=== PATIENT | female | born 1945 | race Caucasian/White ===

== ENCOUNTER → 2017-12-04 11:38 | Outpatient (CLI) | payer MEDICARE, OTHER, SELFPAY ==
[2017-12-04 13:39] LABS: Erythrocyte Sedimentation Rate 45 MM/HR (0-20)
[2017-12-04 13:42] LABS: C-Reactive Protein Quant 1.1 mg/dL (<1.0)
== END ==
PROVIDERS: PCP Physician Assistant; Visit Provider Internal Medicine Rheumatology
DX: M35.3 Polymyalgia rheumatica (principal); M31.6 Other giant cell arteritis
CPT/HCPCS: 36415; 85651; 86140

== ENCOUNTER → 2018-02-08 10:33 | Outpatient (CLI) | payer MEDICARE, OTHER, SELFPAY ==
--- NOTE | 2018-02-08 | DI.CT.S_ITS ---
PROCEDURE: CT HEAD/BRAIN WO/W CON INDICATIONS: SEIZURE DISORDER TECHNIQUE: 4.5 mm thick angled axial sections acquired from the foramen magnum to the vertex before and after the administration of intravenous contrast, with coronal and sagittal reformats. For radiation dose reduction, the following was used: automated exposure control, adjustment of mA and/or kV according to patient size. COMPARISON: [facility], MR, BRAIN W&WO CONTRAST, 12/25/2014, 15:11. FINDINGS: Image quality: Excellent. CSF Spaces: Basal cisterns are patent. No extra-axial fluid collections. Ventricles are normal in size and shape. Brain: No midline shift. No intracranial bleeds. There is a small, approximately 0 0.6 x 0.9 x 0.6 cm left parietal convexity extra-axial mass that demonstrates subtle postcontrast enhancement. No additional abnormal intracranial masses or suspicious postcontrast enhancement. Chronic, small lacunar infarct involving the left putamen/left ziegler radiata has occurred in the interval since prior MRI obtained 12/25/14. Saenz-white interface appears normal. Mild, diffuse prominence of CSF spaces noted. Mild periventricular and subcortical white matter chronic microvascular ischemic changes noted. Atherosclerotic calcifications noted in the internal carotid arteries bilaterally. Skull and face: Calvarium and visualized facial bones appear intact, without suspicious lesions. Sinuses: Right maxillary sinus mucous retention cyst versus polyp. The mastoids are clear. IMPRESSION: 1. Several 0.6 x 0.9 x 0.6 cm left parietal convexity probable meningioma is stable compared to prior MRI obtained 12/25/2014. 2. Chronic, small, left putamen/left ziegler radiata lacunar infarct. 3. Mild, diffuse cerebral volume loss. 4. Mild periventricular and subcortical white matter chronic microvascular ischemic change. Dictated by: Dede Price MD, PhD on 02/08/2018 at 13:55 Approved by: Dede Price MD, PhD on 02/08/2018 at 14:04
== END ==
PROVIDERS: PCP Physician Assistant; Visit Provider Physician Assistant
DX: G40.909 Epilepsy, unspecified, not intractable, without status epilepticus (principal)
CPT/HCPCS: 70470; Q9967

== ENCOUNTER 2018-04-21 18:12 | Inpatient (IN) | payer MEDICARE, OTHER, SELFPAY ==
[2018-04-21] VITALS (9 sets, daily range): BP systolic 156–205; BP diastolic 56–99; PULSE 60–70; RESP 14–18; TEMP 36.1–36.8; O2SAT 95–98; BMI 30.2
--- NOTE | 2018-04-21 18:14 | DI.CT.S_ITS ---
PROCEDURE: CT ANGIO HEAD AND NECK INDICATIONS: left sided weakness TECHNIQUE: Pre-contrast 4.5 mm thick sections acquired from the foramen magnum to the vertex. After the administration of intravenous contrast, 1 mm thick sections acquired from the aortic arch through the [place] of [place]. Post-contrast 4.5 mm thick sections then re-acquired from the foramen magnum to the vertex. 3-dimensional dxisrie-dxzfiytxm-pidvxuetgm (MIP) and/or volume rendering reformats were acquired of the central intracranial vasculature and neck separately. COMPARISON: [facility], CT, CT HEAD/BRAIN WO CON, 04/21/2018, 18:06. [facility], CT, CT HEAD/BRAIN WO/W CON, 02/08/2018, 11:09. [facility], CT, ABDOMEN/PELVIS WITH CONTRAST, 03/14/2017, 11:24. [facility], CT, C-SPINE WITHOUT CONTRAST, 02/09/2012, 10:49. FINDINGS: Image quality: Excellent. BRAIN: CSF spaces: Ventricles are normal in size and shape. Basal cisterns are patent. No extra-axial fluid collections. Brain: No midline shift. No intracranial bleeds or masses. Saenz-white matter interface appears intact. Redemonstrated left basal ganglia chronic lacunar infarct and left temporal encephalomalacia, unchanged from prior exams. Stable 9 mm extra-axial mass overlying the left parietal lobe when compared with prior exam of 02/08/2018. Skull and face: Calvarium and facial bones appear intact, without suspicious lesions. Orbits appear normal. Sinuses: There are right maxillary and left sphenoid sinus mucous retention cysts. HEAD CT ANGIOGRAPHY: Anterior circulation: Intracranial internal carotid arteries are normal in size and flow. The flow within the paired anterior cerebral arteries is normal and symmetric. The flow within the middle cerebral arteries is normal and symmetric. No aneurysms are seen. Posterior circulation: Visualized portions of the vertebral arteries demonstrate normal caliber, and join to form a normal appearing basilar artery. Flow within the posterior cerebral arteries is normal and symmetric. No aneurysms are seen. NECK CT ANGIOGRAPHY: Carotid system: The great vessels demonstrate a conventional anatomy as they arise from the aortic arch. The origins of the common carotid arteries appear patent. The common carotid arteries demonstrate normal caliber and courses. The internal carotid arteries demonstrate normal calibers. The left internal carotid artery takes a retropharyngeal course after the bifurcation. Posterior circulation: The origins of the vertebral arteries both appear widely patent. The more superior extracranial portions of both vertebral arteries also demonstrate normal courses and calibers. They join to form a normal appearing basilar artery. Soft tissues: Left chest cardiac pacer device noted. There is a moderate-sized right pleural effusion. There is diffuse bilateral hazy pulmonary opacities with septal thickening, consistent with mild pulmonary edema. Bones: There are moderate multilevel degenerative changes of the cervical spine. There is anterior cervical spinal fusion hardware extending from C4-C6. There is straightening of the normal cervical lordosis. IMPRESSION: #1. No acute intracranial abnormality. Chronic changes as described above. #2. Stable 0.9 cm extra-axial mass overlying the left parietal lobe when compared with prior exam 02/08/2018. Continued followup recommended. #3. No occlusion, dissection, or aneurysm of the bilateral carotid and vertebral arteries. #4. No occlusion, dissection, or aneurysm of the intracranial vasculature. #5. Mild pulmonary edema with moderate sized right pleural effusion. Dictated by: Sim Roberts M.D. on 04/21/2018 at 23:32 Approved by: Sim Roberts M.D. on 04/21/2018 at 23:54
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
[2018-04-21 18:46] LABS: Add Manual Diff / Slide Review NO; Basophils Percent Auto 0.6 % (0-2); Eosinophils Percent Auto 2.6 % (2-4); Hematocrit 38.6 % (36-46); Hemoglobin 13.1 g/dL (12.0-16.0); Lymphocytes Percent Auto 17.9 % (25-40); Mean Corpuscular HGB Conc 33.9 % (30-36); Mean Corpuscular Hemoglobin 31.3 PG (26-34); Mean Corpuscular Volume 92.4 fL (80-100); Monocytes Percent Auto 5.1 % (3-14); Neutrophils Absolute Auto 7100 /uL (1500-7000); Neutrophils Percent Auto 73.8 % (50-75); Platelet Count 245 X10^3/uL (150-400); Red Blood Cell Count 4.18 X10^6/uL (4.0-5.2); Red Cell Distribution Width 14.3 % (11.6-14.8); White Blood Cell Count 9.6 X10^3/uL (4.5-11.0)
--- NOTE | 2018-04-21 18:52 | PC.NURSE ---
with dr el at bs
[2018-04-21 18:53] LABS: INR 1.1 (0.9-1.3); Prothrombin Time 12.5 SECONDS (10.1-12.7)
[2018-04-21 18:55] LABS: PTT Partial Thromboplastin Tim 31 SECONDS (26.4-36.2)
[2018-04-21 19:03] LABS: Blood Urea Nitrogen 19 mg/dL (7-17); Calcium 8.9 mg/dL (8.4-10.2); Carbon Dioxide 27 mmol/L (22-32); Chloride 102 mmol/L (98-107); Estimated Glomerular Filt Rate 54.3 mL/min (>60); Glucose 117 mg/dL (80-110); HEMOLYSIS 33 (0-50); Potassium 4.7 mmol/L (3.4-5.1); Sodium 137 mmol/L (137-145)
[2018-04-21] MEDS: LABETALOL 20 MG/4 ML SYRINGE 10 MG IV (19:03)
[2018-04-21] MEDS: SODIUM CHLORIDE 0.9% 1,000 ML 150 ML IV (19:03)
--- NOTE | 2018-04-21 19:08 | PC.NURSE ---
unable to tolerate, with coughing, then clear.
--- NOTE | 2018-04-21 19:11 | PC.NURSE ---
pt states, has hx of meningioma, last checked was march 2018.
[2018-04-21] MEDS: ASPIRIN 300 MG SUPP PR (19:31)
--- NOTE | 2018-04-21 19:32 | PC.NURSE ---
pt failed swallow screen, provider notified, verbal order for pr asprin obtained.
--- NOTE | 2018-04-21 20:37 | DI.RAD.S_ITS ---
PROCEDURE: XR CHEST 1V INDICATIONS: CVA TECHNIQUE: One view of the chest was acquired. COMPARISON: [facility], CHEST 1 VIEW, 08/04/2016, 20:13. [facility], CHEST 2 VIEW, 08/04/2016, 15:30. [facility], CHEST 2 VIEW, 03/02/2012, 20:09. [facility], CHEST 2 VIEW, 11/14/2011, 12:31. FINDINGS: Surgical changes and devices: Cervical spinal fusion hardware noted. Left chest cardiac pacer device with leads projecting at right atrium and right ventricle. Multiple monitoring leads project over the chest. Lungs and pleura: No pleural effusions or pneumothorax. Bilateral perihilar and reticular pulmonary opacities are unchanged from prior exam. There is prominence of the pulmonary vasculature bilaterally. Mediastinum: Mediastinal contours appear normal. Mild enlargement of the cardiac silhouette is unchanged from prior exam, and may represent cardiomegaly versus a pericardial effusion. Bones and chest wall: Osseous structures are unchanged from prior exam. IMPRESSION: Findings most consistent with mild pulmonary edema, less likely atypical pneumonia. Dictated by: Sim Roberts M.D. on 04/21/2018 at 22:53 Approved by: Sim Roberts M.D. on 04/21/2018 at 22:56
--- NOTE | 2018-04-21 21:59 | PC.NURSE ---
NS infusion to continue in acute care
[2018-04-21] MEDS: SODIUM CHLORIDE 0.9% 1,000 ML 75 ML IV (22:10)
[2018-04-21 22:32] LABS: Hemoglobin A1C% w Est Avg Glu 5.4 % (4.0-6.0)
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
[2018-04-22] VITALS (11 sets, daily range): BP systolic 117–197; BP diastolic 80–117; PULSE 71–93; RESP 14–20; TEMP 36.6–37.1; O2SAT 92–97
--- NOTE | 2018-04-22 01:08 | PC.NURSE ---
Addendum entered by Anne Agudelo R.N. 04/22/18 01:15: Noted to have tremor of right UE which she states is chronic and intermittent. Original Note: Patient is alert and oriented. Breath sounds CTA with RA sat of 97%; on continuous pulse oximetry. HRR and was SR w/BBB on telemetry reading. BP is elevated at 159/99 and MD is aware of hypertension. Denies nausea. BT present and abdomen is soft. States she has urinary urgency so is sometimes incontinent; denies dysuria. Currently is not able to lift left arm but if arm lifted for her she is able to maintain with minimal drift. Left hand is flexed but can be straightened. Left leg is weak with drift but does not touch bed. Left sided facial droop is present but has no difficulty with speech. NIH score is 4. Incision to left arm (had skin biopsy 04/18) is stitched, well approximated and without signs of infection; dressed with Adaptic and wrapped with Kerlix. Denies pain. Fall risk score is high and bed alarm is activated. Failed swallow screen so is currently NPO until evaluated by speech therapy.
[2018-04-22 06:10] LABS: Blood Urea Nitrogen 16 mg/dL (7-17); Calcium 8.8 mg/dL (8.4-10.2); Carbon Dioxide 24 mmol/L (22-32); Chloride 107 mmol/L (98-107); Cholesterol 226 mg/dL (140-199); Estimated Glomerular Filt Rate 54.3 mL/min (>60); Glucose 101 mg/dL (80-110); HDL Cholesterol 49 mg/dL (40-60); HEMOLYSIS < 15 (0-50); LDL Cholesterol Calculated 138 mg/dL (<100); Potassium 3.8 mmol/L (3.4-5.1); Sodium 142 mmol/L (137-145); Triglycerides 194 mg/dL (35-150)
[2018-04-22 06:12] LABS: Magnesium 1.8 mg/dL (1.6-2.3)
[2018-04-22 06:14] LABS: Hemoglobin A1C% w Est Avg Glu 5.4 % (4.0-6.0)
[2018-04-22] MEDS: SODIUM CHLORIDE 0.9% 1,000 ML 75 ML IV ×2 (07:38→21:38)
--- NOTE | 2018-04-22 10:39 | P.PN_ITS ---
Subjective Date Patient Seen: 04/22/18 Time Patient Seen: 07:25 Interval history: UNABLE TO MOVE LUE THIS HAS WORSENED OVERNIGHT ABLE ALL OTHER EXT DROOPY FACE ALSO REPORTED Exam Vital Signs (past 8 hours): - 04/22/18 03:44 04/22/18 08:45 Temperature 98.8 F 98.4 F Pulse Rate 71 74 Respiratory Rate 19 18 Blood Pressure 156/86 H 117/80 Pulse Oximetry 95 95 Oxygen Delivery Method Room Air Narrative Exam Narrative: NO ACUTE DISTRESS. PATIENT IS ALERT ORIENTED X3. VITAL SIGNS STABLE HEAD ATRAUMATIC NORMOCEPHALIC NECK : SUPPLE WITHOUT ADENOPATHY NO CAROTID BRUITS EYE: EOMI, PERRLA, NORMAL CONJUNCTIVA; NO JAUNDICE CHEST: REGULAR RATE. NO RUBS. PMI IS NON DISPLACED. NO MURMURS; NORMAL S1- S2 PULMONARY: DECREASED BS OVER THE BASES. MILD BIBASILAR CRACKLES NOTED; NO INCREASED DULLNESS TO PERCUSSION ABDOMEN: SOFT. NONTENDER. NONDISTENDED. BOWEL SOUNDS ARE PRESENT IN ALL 4 QUADRANTS. NO MASS. EXTREMITIES: NO EDEMA.. NO CYANOSIS CLUBBING NOTED. NEURO: CRANIAL NERVES 2-12 GROSSLY INTACT. NO FOCAL NEUROLOGICAL DEFICIT NOTED. MSK: NORMAL RANGE OF MOTION FOR AGE. NO JOINT EFFUSION. SKIN: NORMAL FOR ETHNICITY; NO ECCHYMOSIS. NO LESION. GOOD TURGOR.; NO RASHES : NORMAL EXTERNAL GENITALIA. PSYCH : APPROPRIATE MOOD AND AFFECT. ALERT AWAKE ORIENTED X3 Objective Labs Result Diagrams: 04/21/18 18:40 04/22/18 05:35 Labs: Laboratory Results - last 24 hr 04/21/18 04/21/18 04/21/18 18:40 18:40 18:40 WBC 9.6 RBC 4.18 Hgb 13.1 Hct 38.6 MCV 92.4 MCH 31.3 MCHC 33.9 RDW 14.3 Plt Count 245 Neut % (Auto) 73.8 Lymph % (Auto) 17.9 L [place] % (Auto) 5.1 Eos % (Auto) 2.6 Baso % (Auto) 0.6 Neut # (Auto) 7100 H PT 12.5 INR 1.1 APTT 31 Sodium 137 Potassium 4.7 Chloride 102 Carbon Dioxide 27 BUN 19 H Creatinine 1.00 Estimated GFR 54.3 L BUN/Creatinine Ratio 19.0 Glucose 117 H Hemoglobin A1c Calcium 8.9 Magnesium B-Natriuretic Peptide Triglycerides Cholesterol LDL Cholesterol, Calc HDL Cholesterol 04/21/18 04/22/18 04/22/18 18:40 05:35 05:35 WBC RBC Hgb Hct MCV MCH MCHC RDW Plt Count Neut % (Auto) Lymph % (Auto) [place] % (Auto) Eos % (Auto) Baso % (Auto) Neut # (Auto) PT INR APTT Sodium 142 Potassium 3.8 Chloride 107 Carbon Dioxide 24 BUN 16 Creatinine 1.00 Estimated GFR 54.3 L BUN/Creatinine Ratio 16.0 Glucose 101 Hemoglobin A1c 5.4 Calcium 8.8 Magnesium 1.8 B-Natriuretic Peptide Triglycerides 194 H Cholesterol 226 H LDL Cholesterol, Calc 138 H HDL Cholesterol 49 04/22/18 04/22/18 05:35 05:35 WBC RBC Hgb Hct MCV MCH MCHC RDW Plt Count Neut % (Auto) Lymph % (Auto) [place] % (Auto) Eos % (Auto) Baso % (Auto) Neut # (Auto) PT INR APTT Sodium Potassium Chloride Carbon Dioxide BUN Creatinine Estimated GFR BUN/Creatinine Ratio Glucose Hemoglobin A1c 5.4 Calcium Magnesium B-Natriuretic Peptide 554.0 H Triglycerides Cholesterol LDL Cholesterol, Calc HDL Cholesterol Assessment & Plan Plan: Assessment/Plan Narrative: ACUTE CVA; LIKELY ISCHEMIC IN NATURE; WITH FACIAL DROOP AND LUE WEAKNESS; CT HOWEVER NEG; UNABLE TO HAVE MRI DUE TO PACEMAKER; PT/OT ; ON ANTI LIPIDS ; ASA MT ORDERED FOR NOW PATIENT FAILED SWALLOW EVAL AND IS NPO; FALL AND ASPIRATION PRECAUTIONS DYSLIPIDEMIA; WILL START ON LIPITOR/ FISH OIL ONCE INDICATED ONCE ABLE TO HELADIO ORAL HTN PER HX; WILL AVOID TREATING HYPERTENSIVE STATE UNLESS >221/110 OVER NEXT 24 HRS OR SO UNLESS SX ARE PRESENT; PRN MEDS INDICATED CARDIOMYOPATHY PER HX; LAST ECHO NOTED IN AUGUST OF THIS YEAR; WILL CONSIDER REPEAT IN AM IN INDICATED; TELE AT ALL TIMES; STRICT IO; DAILY WT; DIURETICS INDICATED; SERIAL CXR INDICATED ELEVATED BNP; NON SPECIFIC TEST; COULD BE RELATED TO [facility]; MONITOR FOR NOW; HOLD LASIX FOR NOW WELL; GENTLE IV HYDRATION Quality VTE Deep Vein Thrombosis/Pulmonary Embolism Present on Admission: No
--- NOTE | 2018-04-22 11:15 | PT.IIE ---
Physical Therapy Inpatient Evaluation/Re-Eval M1 PT/OT-IP Prior Functional Status Start: 04/22/18 12:12 Freq: NEEDED Status: Active Protocol: Document 04/22/18 11:15 [facility] (Rec: 04/22/18 12:30 [facility] [id number]) Medical Review Prior Functional Status Medical History Reviewed Yes Mobility and Gait limited gait over the past 2 months per pt, but ambulating indoors without a device Activities of Daily Living and IADL's modified indep. ADLs Prior Functional Level (Other details) she does not drive, spouse does the shopping Social History Household Members spouse Living Arrangements House Number of Floors (Floors) Two Floors Number of Stairs To Enter/Railing? 3 SE L ascending rail from garage or 3 SE B ascending rails from front of home into the house; 13 steps B rails upstairs to bedroom, shower ( no shower or bedroom downstairs) Home Environment High Toilet Walk in Shower Home Equipment Raised Toilet Seat Without Armrests Shower Seat without Backrest Grab Bars In Shower Additional Social History Comment pt woke up on 04/21/18 unable to move/lift LUE or LLE; CT initially negative, unable to perform an MRI due to pacemaker. She is R hand dominant. LUE more affected than LLE. Admitted for CVA M2 PT-IP Current Condition Start: 04/22/18 12:12 Freq: NEEDED Status: Active Protocol: Document 04/22/18 11:15 [facility] (Rec: 04/22/18 12:30 [facility] [id number]) Physical Therapy Current Condition Current Condition Evaluation Date 04/22/18 Treatment Diagnosis CVA, impaired strength, activity tolerance Onset Date 04/21/18 Precautions Other Precautions high tone LUE M3 PT-IP Subjective Start: 04/22/18 12:12 Freq: NEEDED Status: Active Protocol: Document 04/22/18 11:15 [facility] (Rec: 04/22/18 12:30 [facility] [id number]) Subjective Physical Therapy Visit Type Type Initial Evaluation Visit Start Time 11:00 Visit Stop Time 11:15 Total Visit Minutes 15 Number of EXECUTIVE VICE PRESIDENT BUSINESS DEVELOPMENT Visits 0 Physical Therapy Visit Comments Patient Comments pt states that her BP has been high today. Patient Goals to be able to walk again. Therapy Pain Assessment Pain Present Pain Present Denied Pain M4 PT-IP Mobility and Gait Start: 04/22/18 12:12 Freq: NEEDED Status: Active Protocol: Document 04/22/18 11:15 [facility] (Rec: 04/22/18 12:30 [facility] [id number]) PT-Transfer Assessment Comments Mobility Comments pt not mobilized this a.m. due to HTN M5 PT-IP Objective Assessments Start: 04/22/18 12:12 Freq: NEEDED Status: Active Protocol: Document 04/22/18 11:15 [facility] (Rec: 04/22/18 12:30 [facility] [id number]) Orientation Orientation/Cognition Level of Alertness Alert Gross Range of Motion Upper Extremity ROM Assessment Left Impaired Impairments AROM: L elbow flexion to 90 deg, PROM to 120 deg with increased tone; elbow extension: lacking 30 degrees of extension AROM, PROM to 15 degrees lacking; L shoulder flexion: 30 degrees AROM, PROM to 100 degrees. Lower Extremity ROM Assessment Within Functional Limits Strength Upper Extremity Strength Assessment Left Impaired Shoulder L shoulder flexion 2+/5, ER 1/ 5, IR 3/5 Elbow L elbow flexion 2/5, extension 3/5 Lower Extremity Strength Assessment Left Impaired Hip flexion 3+/5 L, 4/5 R Knee flexion and extension 4/5 L and 5/5 R Ankle DF 4/5 B Coordination Assessment Gross Coordination Gross Coordination Impaired Assessment Finger to Nose Test Activity Impossible Pronation/Supination Test Activity Impossible Heel on Perales Test Moderate Impairment Coordination Comments LUE unable to perform coordination testing Sensation Assessment Sensation Gross Sensation WNL Muscle Tone Comments Muscle Tone Comments hypertonicity: L finger flexion with closed fist and thumb inside palm, elbow flexion and shoulder IR M6 PT-IP Treatment Start: 04/22/18 12:12 Freq: NEEDED Status: Active Protocol: Document 04/22/18 11:15 [facility] (Rec: 04/22/18 12:30 [facility] [id number]) Physical Therapy Treatment Exercises Exercises Ankle Pumps Quad Sets Straight Leg Raises Hand ROM Education Education Provided Precautions Safety Other Treatments Other Treatment Performed elbow, shoulder PROM x3 on the L, L hand opening x3 placement of L hand partially open at end of session with towel in hand and advised pt not to actively close her fist . M7 PT-IP Assessment and Plan Start: 04/22/18 12:12 Freq: NEEDED Status: Active Protocol: Document 04/22/18 11:15 [facility] (Rec: 04/22/18 12:30 [facility] [id number]) PT Summary Assessment and Plan Potential Rehabilitation Potential Good Status of Condition at Evaluation Evolving Summary Impairments Strength Coordination Assessment Summary Unable to mobilize pt OOB this morning due to hypertension, with diastolic BP 110. Pt was assessed and demonstrated LUE > LLE weakness, incoordination , and high tone in the LUE, unable to actively open her hand. She is R hand dominant. Hopeful to mobilize pt OOB this afternoon if BP is more controlled, but expect pt to require extensive rehabilitation for recovery given her impairments and already high flexor tone of the LUE. Goals Bed Mobility Goal Contact Guard Assistance Transfer Goal Contact Guard Assistance Gait Goal Contact Guard Assistance Front Wheel Walker Gait Distance 150 Days to Meet Goals 5 Frequency of Treatment Frequency Of Treatment Twice a Day Treatment Plan Other Recommendations and Next Treatment assess bed mobility and Focus transfers/gait if BP stable Recommendations To Nursing Amount of Assist Needed PT/OT Assist Only Discharge Recommendations PT Discharge Recommendations SNF Rehab
[2018-04-22] MEDS: ASPIRIN 300 MG SUPP PR (11:25)
[2018-04-22] MEDS: ENOXAPARIN 40 MG/0.4 ML SYRINGE SUBCUT (11:28)
--- NOTE | 2018-04-22 12:24 | PC.NURSE ---
Addendum entered by Dinora Luo R.N. 04/22/18 12:27: Bedside nursing speech eval attempted again, pt failed. Remains NPO awaiting speech consult 04/23. Original Note: A&Ox3; speech clear although mildly mumbled. Lt facial droop observed along with lt UE weakness and rigid hand, wash rag placed. Noted elevated BP, MD aware--monitor and give PRN meds as needed. Spouse at bedside. speaking to assortment planner.
--- NOTE | 2018-04-22 13:43 | CM.DANOTE ---
Patient is a 73 year old female who was admitted on 04/21/18 for CVA. Pt has M[place] and [place] for insurance and her PCP is Dr. Collier. EMR was reviewed. Per MD, pt showing signs of left side weakness and her bp has been unstable and ordered PT/OT/ST. PT/OT/ST still pending due to pt's high bp when therapy attempted to work with her this morning. SW met bedside with pt and spouse and explained role and they confirmed that they live at home in [place] and have family in [facility] but also have supportive local friends. Pt is mostly Independent with ADL's at baseline although she states that over the past month she has had increasing memory issues which has been a concern for her. Pt's spouse mostly drives and is her DPOA. Both pt and spouse are retired and spouse seems quite capable of assisting pt with most needs since they have been 20 years and spouse is agreeable to working with PT/OT/ST to determine if pt will be safe for d/c home vs SNF rehab. Pt currently unable to use her left arm and has slight facial droop. Pt denies any hx of HH or SNF but would be agreeable to either if needed. Plan: SW to follow closely after PT/OT/ST eval and recommendations towards determining d/c needs of SNF vs HH. CHRIS Lisa Discharge Planning/Care Management CM Discharge Assessment Start: 04/22/18 13:38 Freq: Status: Active Protocol: Document 04/22/18 13:38 BF (Rec: 04/22/18 13:43 [facility] [id number]) Discharge Planning Assessment Assigned Plasma Processing Centrifuge Operator CHRIS Gordillo DPOA/Assigned Designee Name spouse Kam Contact Information [phone] Advance Directives? Yes History Provided By Patient Significant Other Medical Record Has Patient been admitted in last 30 No days? Prior Living Arrangements House Household Members spouse Type of transporation used prior to Relies on Others admit Comment Typically independent with ADL 's at baseline with more recent memory issues and therefore relies on spouse for transport. Independent with ADL's Yes Is patient alert and oriented? Yes Needs Assistance With Home Chores / Shopping Caregiver for Another No DME Already Rented / Owned FWW / Walker Comment D/C needs unclear at this time pending PT/OT/ST eval and recommendations Transportation Arrangement Spouse is bedside and retired and likely can provide transport if pt safe for d/c home. Additional Comment Waiting for further assess and eval to identify d/c needs. Whiteboard Updated in Patient Room with Yes name and ext. # of Plasma Processing Centrifuge Operator Review Status In Process Please Provide Date Initial DC 04/22/18 Assessment Was Performed Next Review Type Continued Stay Review
--- NOTE | 2018-04-22 15:05 | PT.IPTN ---
Physical Therapy Treatment Note M2 PT-IP Current Condition Start: 04/22/18 12:12 Freq: NEEDED Status: Active Protocol: Document 04/22/18 15:05 [facility] (Rec: 04/22/18 16:00 [facility] [id number]) Physical Therapy Current Condition Current Condition Evaluation Date 04/22/18 Treatment Diagnosis CVA, impaired strength, activity tolerance Onset Date 04/21/18 Precautions Other Precautions high tone LUE M3 PT-IP Subjective Start: 04/22/18 12:12 Freq: NEEDED Status: Active Protocol: Document 04/22/18 15:05 [facility] (Rec: 04/22/18 16:00 [facility] [id number]) Subjective Physical Therapy Visit Type Type Treatment Note Visit Start Time 14:15 Visit Stop Time 15:05 Total Visit Minutes 50 Number of SUCKER MACHINE OPERATOR Visits 0 Physical Therapy Visit Comments Patient Comments pt is feeling tired today, has not slept much. She is frustrated by not having ability to use her LUE. Therapy Pain Assessment Pain Present Pain Present Denied Pain M4 PT-IP Mobility and Gait Start: 04/22/18 12:12 Freq: NEEDED Status: Active Protocol: Document 04/22/18 15:05 [facility] (Rec: 04/22/18 16:00 [facility] [id number]) PT-Bed Mobility Assessment Supine to Sit Supine to Sit Maximum Assistance 1 Person Assistance Scooting Scooting to Edge of Bed Moderate Assistance PT-Transfer Assessment Sit to and From Stand Sit to and from Stand Moderate Assistance 2 Person Assistance Use of Upper Extremities Equipment Transfer Assistive Device Gait Belt Front Wheeled Walker Transfers Transfer Destination Chair Transfer Technique Stand Step Pivot Comments Mobility Comments Assistance for LUE management in sitting and management on the FWW. BP: 144/86 prior to mobility taken R calf Gait Assessment Gait Gait Assistance Required: Moderate Assistance 2 Person Assist Distance (Feet) 6 Assistive Devices Assistive Device Gait Belt Front Wheeled Walker Gait Deviations General Gait Pattern Decreased Stride Length Decreased Feet Clearance Narrow Based Gait Step-to Gait Factors Limiting Gait Function Factors Limiting Gait Function Decreased Activity Tolerance Decreased Strength Incoordination Limited Range of Motion Poor Balance Comments Gait Comments L knee buckling with turing L x2 with approach to chair. Mod A for anterolateral weight shifting, unable to keep LUE on FWW (required manual assistance). PT-Balance Assessment Sitting Balance and Reactions Static Sitting Balance Ability Fair Dynamic Sitting Balance Ability Poor Standing Balance and Reactions Static Standing Balance Ability Poor Dynamic Standing Balance Ability Poor Device Used FWW M5 PT-IP Objective Assessments Start: 04/22/18 12:12 Freq: NEEDED Status: Active Protocol: Document 04/22/18 15:05 [facility] (Rec: 04/22/18 16:00 [facility] [id number]) Other Assessments Other Other Assessments increased L hand swelling- lubricant applied to L ring finger to take pt's wedding band off, present, given to to take home. Ring on R ring finger also taken off and given to . M6 PT-IP Treatment Start: 04/22/18 12:12 Freq: NEEDED Status: Active Protocol: Document 04/22/18 15:05 [facility] (Rec: 04/22/18 16:00 [facility] [id number]) Physical Therapy Treatment Other Treatments Other Treatment Performed PROM: L shoulder flexion, elbow flexion and extension, hand opening x10 each in supine M7 PT-IP Assessment and Plan Start: 04/22/18 12:12 Freq: NEEDED Status: Active Protocol: Document 04/22/18 15:05 [facility] (Rec: 04/22/18 16:00 [facility] [id number]) PT Summary Assessment and Plan Summary Impairments ROM Strength Balance Coordination Tone Bed Mobility Transfers Gait Activity Tolerance Assessment Summary Pt able to sit upright with CGA on EOB, but requires 2 assist for standing balance, initially with L knee hyperextension and posterior lean. Pt had L knee buckling x2 during turning counterclockwise, and requires manual assistance for L hand on the FWW. Pt continues to have flexor tone in the LUE, able to achieve full PROM with elbow flexion and extension, and shoulder flexion. Pt's L hand swelling, wedding band removed, and pt opted to give her wedding band as well as the ring on the R hand as well. Pt is significantly limited with mobility, not safe to mobilize without the assistance of 2 persons. She is not safe to return home at this point, as the burden of care is too high. Goals Bed Mobility Goal Contact Guard Assistance Transfer Goal Contact Guard Assistance Gait Goal Contact Guard Assistance Front Wheel Walker Gait Distance 50 Days to Meet Goals 5 Frequency of Treatment Frequency Of Treatment Twice a Day Treatment Plan Other Recommendations and Next Treatment gait (2 assist) with potential Focus use of jamison-walker for RUE, thera ex for LLE strengthening . Recommendations To Nursing Amount of Assist Needed 2 Person Assist Discharge Recommendations PT Discharge Recommendations SNF Rehab
--- NOTE | 2018-04-22 20:40 | PC.NURSE ---
SHIFT NOTE Received pt sitting up in chair. Ox3. speech slightly slurred but understandable. L facial droop and LUE weakness noted. pt denies any numbness/tingling. pt slightly hypertensive at 197/95. conflicting notes from providers (initial note says to treat if SBP >185, DBP >110. today's note states to treat if >221/110) and pt without and PRN orders. verified with Dr. Mckeon to comply with most recent provider's notes. NPO status maintained. tele monitoring intact. bed alarm for safety. call light within reach.
[2018-04-23 04:56] VITALS: BP 189/91; PULSE 93; RESP 20; TEMP 36.6; O2SAT 92
[2018-04-23 05:35] LABS: BUN Creatinine Ratio 13.3 (6-22); Blood Urea Nitrogen 12 mg/dL (7-17); Calcium 8.5 mg/dL (8.4-10.2); Carbon Dioxide 21 mmol/L (22-32); Chloride 109 mmol/L (98-107); Estimated Glomerular Filt Rate > 60.0 mL/min (>60); Glucose 84 mg/dL (80-110); HEMOLYSIS < 15 (0-50); Potassium 3.7 mmol/L (3.4-5.1); Sodium 143 mmol/L (137-145)
--- NOTE | 2018-04-23 06:50 | PC.NURSE ---
Patient requested a dressing change to left forearm. Sutured incision CDI, well approximated. Able to move 3 extremities. Left arm still not moving much. Patient denied pain this shift. Used bedpan and had large BM.
[2018-04-23 07:20] VITALS: BP 158/108; PULSE 81; RESP 20; TEMP 36.8; O2SAT 94
[2018-04-23 11:55] VITALS: BP 158/101; PULSE 76; RESP 18; TEMP 36.9; O2SAT 98
[2018-04-23] MEDS: SODIUM CHLORIDE 0.9% 1,000 ML 75 ML IV (12:04)
[2018-04-23] MEDS: ENOXAPARIN 40 MG/0.4 ML SYRINGE SUBCUT (12:05)
[2018-04-23] MEDS: FISH OIL 1,000 MG CAPSULE 1000 MG PO (12:06)
[2018-04-23] MEDS: NIACIN 500 MG TABLET PO (12:06)
[2018-04-23] MEDS: CHOLECALCIFEROL (VITAMIN D3) 1,000 UNIT TABLET 2000 UNIT PO (12:06)
[2018-04-23] MEDS: DULOXETINE 20 MG CAPSULE PO ×2 (12:06→22:42)
[2018-04-23] MEDS: ASPIRIN 325 MG TABLET PO (12:23)
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
--- NOTE | 2018-04-23 14:37 | CM.DPC ---
DCP Cont: Spoke to physical therapist. Stated that patient may benefit from high level inpatient facility, such as [facility], or senior care. Stated that patient will need senior care regardless, at discharge before going home. Met briefly with patient in room, along with . After talking to Sabrina in occupational therapy who was in room, stated that patient does not wish to go to higher level of inpatient therapy, would rather go to senior care facility. Gave Medicare choice list to review, which is what is reviewing. Stated that [facility] may be the choice, but recommended that they chose another facility, should they be full. P: DCP to continue to follow closely. Patient will need senior care rehab, but family will make choice and let us know. At that time, we can contact facilities of choice to see about availability. Natalie Toscano RN/Retail Coverage Merchandiser
--- NOTE | 2018-04-23 16:03 | PT.IPTN ---
Current Diagnoses Cerebral infarction, unspecified (04/21/18) Physical Therapy Treatment Note M2 PT-IP Current Condition Start: 04/22/18 12:12 Freq: NEEDED Status: Active Protocol: Document 04/22/18 15:05 [facility] (Rec: 04/22/18 16:00 [facility] [id number]) Physical Therapy Current Condition Current Condition Evaluation Date 04/22/18 Treatment Diagnosis CVA, impaired strength, activity tolerance Onset Date 04/21/18 Precautions Other Precautions high tone LUE M3 PT-IP Subjective Start: 04/22/18 12:12 Freq: NEEDED Status: Active Protocol: Document 04/23/18 15:56 [facility] (Rec: 04/23/18 16:02 [facility] [id number]) Subjective Physical Therapy Visit Type Type Treatment Note Visit Start Time 13:50 Visit Stop Time 14:25 Total Visit Minutes 35 Number of ROLLER MAKER Visits 0 Physical Therapy Visit Comments Patient Comments Pt reports LLE is getting stronger, ready to try getting up. Therapy Pain Assessment Pain Present Pain Present Denied Pain M4 PT-IP Mobility and Gait Start: 04/22/18 12:12 Freq: NEEDED Status: Active Protocol: Document 04/23/18 15:56 [facility] (Rec: 04/23/18 16:02 [facility] [id number]) PT-Bed Mobility Assessment Supine to Sit Supine to Sit Moderate Assistance 1 Person Assistance Scooting Scooting to Edge of Bed Moderate Assistance PT-Transfer Assessment Sit to and From Stand Sit to and from Stand Moderate Assistance 2 Person Assistance Use of Upper Extremities Equipment Transfer Assistive Device Gait Belt Sergio Walker Transfers Transfer Destination Chair Transfer Technique walked Transfer Ability Level of Assist Moderate Assistance 2 Person Assistance Comments Mobility Comments initially using R hemiwalker, but pt having difficulty actually putting weight down through it. Abandoned for 2person hand-held assist (1 person on each side) and this allowed pt to be able to weight shift and take more equal steps for transferring. Gait Assessment Gait Gait Assistance Required: Moderate Assistance 2 Person Assist Distance (Feet) 8 Assistive Devices Assistive Device Gait Belt Gait Deviations General Gait Pattern Decreased Stride Length Decreased Feet Clearance Narrow Based Gait Step-to Gait Comments Gait Comments No LLE buckling, but significantly decreased step width, almost scissoring. Pt tends to keep weight post through heels and needs assist to keep weight forward. Pt does better with anterior weight shift when cued to look forward instead of down at feet. Pt could likely have walked further than the 8ft if room had been better set up. PT-Balance Assessment Sitting Balance and Reactions Static Sitting Balance Ability Fair Dynamic Sitting Balance Ability Poor Standing Balance and Reactions Static Standing Balance Ability Poor Dynamic Standing Balance Ability Poor Device Used FWW M5 PT-IP Objective Assessments Start: 04/22/18 12:12 Freq: NEEDED Status: Active Protocol: Document 04/22/18 15:05 [facility] (Rec: 04/22/18 16:00 [facility] [id number]) Other Assessments Other Other Assessments increased L hand swelling- lubricant applied to L ring finger to take pt's wedding band off, present, given to to take home. Ring on R ring finger also taken off and given to . M6 PT-IP Treatment Start: 04/22/18 12:12 Freq: NEEDED Status: Active Protocol: Document 04/23/18 15:56 [facility] (Rec: 04/23/18 16:02 [facility] [id number]) Physical Therapy Treatment Education Education Provided Precautions Safety Other Treatments Other Treatment Performed pre-gait in standing: lateral/ A-P weight shifts, mini knee bends, marching in place. M7 PT-IP Assessment and Plan Start: 04/22/18 12:12 Freq: NEEDED Status: Active Protocol: Document 04/23/18 15:56 [facility] (Rec: 04/23/18 16:02 [facility] [id number]) PT Summary Assessment and Plan Potential Rehabilitation Potential Good Status of Condition at Evaluation Evolving Summary Impairments ROM Strength Balance Coordination Tone Bed Mobility Transfers Gait Activity Tolerance Progress Towards Goals Progressing Toward Goals Assessment Summary Pt with more control of LLE this session and able to take more equal steps. However, still with impaired motor control and balance. Discussed option of high intensity rehab, but pt doesn't think she could tolerate it and wants SNF instead. Goals Days to Meet Goals 4 Frequency of Treatment Frequency Of Treatment Twice a Day Treatment Plan Physical Therapy Treatment Plan Bed Mobility Training Transfer Training Gait Training Therapeutic Exercise Balance Retraining Post Op Education Discharge Planning Hot or Cold Pack Neuromuscular Re-ed Coordination Retraining Manual Therapy Other Recommendations and Next Treatment 2 person assist for gait, Focus balance, motor control, consider using mirror Recommendations To Nursing Amount of Assist Needed 2 Person Assist Discharge Recommendations PT Discharge Recommendations SNF Rehab
[2018-04-23 16:06] VITALS: BP 185/78; PULSE 82; RESP 19; TEMP 36.4; O2SAT 95
--- NOTE | 2018-04-23 16:27 | PM.PN.1 ---
Subjective Date Patient Seen: 04/23/18 Interval history: Patient has no specific complaints. She continues to speak slowly and notes her left leg weakness has improved. She has dense left upper extremity weakness She has has left facial droop. Exam Vital Signs (past 8 hours): - 04/23/18 11:55 04/23/18 16:06 Temperature 98.4 F 97.6 F Pulse Rate 76 82 Respiratory Rate 18 19 Blood Pressure 158/101 H 185/78 H Pulse Oximetry 98 95 Oxygen Delivery Method Room Air Oxygen Flow Rate 0 Narrative Exam Narrative: pleasant female sitting up in no acute distress Left facial droop Lungs: clear to auscultation CV: RRR nl Sl S2 2/6 JENNIFER ABd: soft/ non tender/ non distended Ext: no edema Neuro: Left facial droop, left arm hemiparesis, left leg weaker than right but 4/5 sensation intact, gait not assessed Objective Labs Result Diagrams: 04/21/18 18:40 04/23/18 05:10 Labs: Laboratory Results - last 24 hr 04/23/18 05:10 Sodium 143 Potassium 3.7 Chloride 109 H Carbon Dioxide 21 L BUN 12 Creatinine 0.90 Estimated GFR > 60.0 BUN/Creatinine Ratio 13.3 Glucose 84 Calcium 8.5 Assessment & Plan (1) Cerebrovascular accident: Problem details: Patient with dense hemipariesis of the left arm, left leg improved, left facial droop and some dysarthria. REhab offered but patient prefers subacute rehab for PT/OT continue statin, ACEi, Aspirin Qualifiers: CVA mechanism: other Laterality of affected vessel: Precerebral and cerebral artery: Qualified Code(s): I63.89 - Other cerebral infarction Current visit: Yes Status: Acute (2) Hypertension: Problem details: Continue PROMISE-i Qualifiers: Hypertension type: unspecified Qualified Code(s): I10 - Essential (primary) hypertension Current visit: Yes Status: Acute (3) Congestive heart failure: Problem details: No evidence at this time Current visit: No Status: Acute Quality VTE Deep Vein Thrombosis/Pulmonary Embolism Present on Admission: No
--- NOTE | 2018-04-23 16:32 | P.PN_ITS ---
Subjective Date Patient Seen: 04/23/18 Interval history: Patient has no specific complaints. She continues to speak slowly and notes her left leg weakness has improved. She has dense left upper extremity weakness She has has left facial droop. Exam Vital Signs (past 8 hours): - 04/23/18 11:55 04/23/18 16:06 Temperature 98.4 F 97.6 F Pulse Rate 76 82 Respiratory Rate 18 19 Blood Pressure 158/101 H 185/78 H Pulse Oximetry 98 95 Oxygen Delivery Method Room Air Oxygen Flow Rate 0 Narrative Exam Narrative: pleasant female sitting up in no acute distress Left facial droop Lungs: clear to auscultation CV: RRR nl Sl S2 2/6 JENNIFER ABd: soft/ non tender/ non distended Ext: no edema Neuro: Left facial droop, left arm hemiparesis, left leg weaker than right but 4 /5 sensation intact, gait not assessed Objective Labs Result Diagrams: 04/21/18 18:40 04/23/18 05:10 Labs: Laboratory Results - last 24 hr 04/23/18 05:10 Sodium 143 Potassium 3.7 Chloride 109 H Carbon Dioxide 21 L BUN 12 Creatinine 0.90 Estimated GFR > 60.0 BUN/Creatinine Ratio 13.3 Glucose 84 Calcium 8.5 Assessment & Plan (1) Cerebrovascular accident: Problem details: Patient with dense hemipariesis of the left arm, left leg improved, left facial droop and some dysarthria. REhab offered but patient prefers subacute rehab for PT/OT continue statin, ACEi, Aspirin Qualifiers: CVA mechanism: other Laterality of affected vessel: Precerebral and cerebral artery: Qualified Code(s): I63.89 - Other cerebral infarction Current visit: Yes Status: Acute (2) Hypertension: Problem details: Continue PROMISE-i Qualifiers: Hypertension type: unspecified Qualified Code(s): I10 - Essential ( primary) hypertension Current visit: Yes Status: Acute (3) Congestive heart failure: Problem details: No evidence at this time Current visit: No Status: Acute Quality VTE Deep Vein Thrombosis/Pulmonary Embolism Present on Admission: No
--- NOTE | 2018-04-23 17:31 | OT.IP.TRT ---
Current Diagnoses Essential (primary) hypertension (04/21/18) Heart failure, unspecified (04/21/18) Other cerebral infarction (04/21/18) Cerebral infarction, unspecified (04/21/18) Occupational Therapy Treatment Note M2 OT-IP Current Condition Start: 04/23/18 17:04 Freq: Status: Active Protocol: Document 04/23/18 14:00 [facility] (Rec: 04/23/18 17:30 [facility] [email or web address]) Occupational Therapy Current Condition Current Condition Evaluation Date 04/23/18 Treatment Diagnosis CVA Diagnosis Onset Date 04/21/18 Post Operative Precautions Other Precautions high tone LUE, keep rUE elevate on pillows due to swelling M3 OT- IP Subjective and Pain Start: 04/23/18 17:04 Freq: Status: Active Protocol: Document 04/23/18 14:00 [facility] (Rec: 04/23/18 17:30 [facility] [email or web address]) OT- Subjective Occupational Therapy Visit Type Type Initial Evaluation Visit Start Time 13:45 Visit Stop Time 14:35 Total Visit Minutes 50 Occupational Therapy Visit Comments Patient Comments Pt agreeable to try to get up. Patient/Caregiver Goals Pt and realize that pt would benefit from going to skilled rehab prior to going home. OT Pain Assessment Pain When Pain Assessed At Rest Pain Present Pain Present Denied Pain M4 OT- IP ADL's Start: 04/23/18 17:04 Freq: Status: Active Protocol: Document 04/23/18 14:00 [facility] (Rec: 04/23/18 17:30 [facility] [email or web address]) OT ADL-Dressing General Eval Lower Body Dressing Ability Maximum Assistance Areas Needing Assistance Socks Comments OT Dressing Comments Pt states has a leg brace for right leg and to bring in her brace and shoes tomorrow. M5 OT- IP IADL's Start: 04/23/18 17:04 Freq: Status: Active Protocol: Document 04/23/18 14:00 [facility] (Rec: 04/23/18 17:30 [facility] [email or web address]) OT-Instrumental Activities of Daily Living Money Management Money Management Comments Prior pt did own money management needs, to assess if pt able to do so now. Meal Preparation Meal Preparation Caregiver Provides Assist Soil Tester Soil Tester Caregiver Provides Assist M6 OT- IP Functional Cognition Start: 04/23/18 17:04 Freq: Status: Active Protocol: Document 04/23/18 14:00 [facility] (Rec: 04/23/18 17:30 [facility] [email or web address]) Cognitive Factors Limiting Selfcare Function Cognitive Ability Level of Alertness Alert Patient Orientation Name Place Situation Attention Span Ability Capable of Focused Attention Capable of Sustained Attention Ability to Follow Commands Able to Follow One Step Commands Memory Description Immediate Intact Protozoologist Intact Cognitive Comments Cognitive Assessment Comments To further assess pt's cognition tomorrow. Today's focus on OT eval-mobilty with PT and use of LUE. Pt states starting two months ago memory change and at times while conversing not making sense. OT- Vision and Hearing OT- Hearing Assessment OT- Hearing Assessment Right Ear Impaired M7 OT- IP Mobility and Balance Start: 04/23/18 17:04 Freq: Status: Active Protocol: Document 04/23/18 14:00 [facility] (Rec: 04/23/18 17:30 [facility] [email or web address]) OT- Bed Mobility Assessment Rolling Type of Rolling Roll to Right Level of Assistance Moderate Assistance Supine to Sit Supine to Sit Assist Moderate Assistance 2 Person Assistance Sit to Supine Sit to Supine Assist Moderate Assistance 2 Person Assistance OT-Transfer Assessment Sit to and From Stand Sit to and from Stand Moderate Assistance 2 Person Assistance Transfers Transfer Ability Moderate Assistance 2 Person Assistance Technique Transfer Destination Bed Chair Transfer Technique Stand Step Pivot Devices Transfer Assistive Devices None Gait Belt Sergio Walker Comments Mobility Comments Pt needing cue to reach over to left arm to bring over during rolling and MODA to get upright. Pt's LUE tends to extend at elbow and flex at wrist and fingers, increased tone when moving. Due to tone and decreased control of LUE, attempted use of hemiwalker versus FWW and then determined at this time hand held assist x2 as therapists able to facilitate weight through LUE , assist with weight shifting and balance while walking to the bed. OT- Balance Assessment Sitting Balance and Reactions Static Sitting Balance Ability Fair Dynamic Sitting Balance Ability Poor Standing Balance and Reactions Static Standing Balance Ability Poor Dynamic Standing Balance Ability Poor Comments Other Balance Tests/Deviations/Treatment Pt tends to sit in posterior : and lateral tilt to the left, after assist to edge of bed and education of midline, pt able to sit at edge of bed with SBA, initially needing MODA. However pt fatigues quicked and needing VERA. M8 OT- IP Objective Assessments Start: 04/23/18 17:04 Freq: Status: Active Protocol: Document 04/23/18 14:00 [facility] (Rec: 04/23/18 17:30 [facility] [email or web address]) OT Gross Range of Motion Upper Extremity Range of Motion Assessment Left Impaired ROM Impairments LUE- Pt PROM elbow flexion 0- 90, WFL for finger flexion and extension, wrist extension 20 , shoulder flexion 0-45. Pt very tight in internal rotators for LUE. OT Strength Comments Strength Comments Pt increased tone throughout LUE at this time. OT-Muscle Tone Assessment Muscle Tone WNL Yes Muscle Tone Location Left Type of Tone Hypertonicity Flexor Extensor Severity of Tone Moderate [place] Grade Scale Grade 3 OT Sensation Assessment Comments Summary Comments Intact for light touch BUE. Edema Edema Present Edema Comments LUE swollen greater distally. M9 OT- IP Assessment and Plan Start: 04/23/18 17:04 Freq: Status: Active Protocol: Document 04/23/18 14:00 [facility] (Rec: 04/23/18 17:30 [facility] [email or web address]) OT Summary Assessment and Plan Potential Rehabilitation Potential Good Analytic Complexity at Evaluation Moderate Summary OT Impairments Range of Motion Strength Balance Coordination Tone Functional Cognition Functional Mobility Self-Feeding Grooming Dressing Toileting Bathing Toilet Transfers Shower Transfers Progress Towards Goals Slow Progress due to Medical Issues Slow Progress due to Activity Tolerance Assessment Summary Pt MOD complexity and main barriers are tone and decreaed use of functional activity for LUE at this time, needing extensive assist for ADL and functional mobility, decreased endurance and strength and would benefit form skilled rehab at this time prior to going home. Goals Self-Feeding Goal Standby Assistance Grooming Goal Moderate Assistance Dressing Goal Moderate Assistance Toileting Goal Moderate Assistance Toilet Transfer Goal Moderate Assistance Patient/Caregiver Education Goal Caregiver Independent Assisting Patient Days to Meet Goals 10 Frequency of Treatment Frequency Of Treatment Once a Day Treatment Plan OT Treatment Plan ADL Training Functional Cognition Training Functional Mobility Neuromuscular Re-education Patient/Family Education Discharge Planning Other Treatment Recommendations and Next Incorporation of LUE for sit Treatment Focus to stand weight bearing form bed, bsc, recliner. Edcuate pt for self ROM and postioning for LUE. Discharge Recommendations OT Discharge Recommendations SNF Rehab Home Equipment Needs defer to skilled rehab
[2018-04-23 20:19] VITALS: BP 173/109; PULSE 94; RESP 20; TEMP 36.5; O2SAT 96
[2018-04-23] MEDS: ATORVASTATIN 20 MG TABLET PO (22:42)
[2018-04-24] VITALS (8 sets, daily range): BP systolic 150–193; BP diastolic 89–122; PULSE 75–92; RESP 15–18; TEMP 36.6–36.9; O2SAT 92–98
--- NOTE | 2018-04-24 01:31 | PC.NURSE ---
Addendum entered by Anne Agudelo R.N. 04/24/18 05:30: Complained of mild headache earlier but did not have pain med ordered and patient did not want MD contacted. Provided cool washcloth for forehead and has been sleeping since that time. Original Note: Patient is alert and oriented. NIH of 6 due to inability to lift left UE (although can therapeutic recreation leader with hand), slight left sided facial droop, limb ataxia in left LE with drift present. Breath sounds diminished but CTA with RA sat of 97%; placed on continuous oximetry per MD order. HRR. BP is elevated at 165/110. Denies nausea. BT present and abdomen is soft. Incontinent of urine. Needing some assist to reposition but can lift buttocks. Incision to left UE remains well approximated and without redness or drainage. Distal to dressing on left arm the skin is red and puffy. Left hand is flexed but can be straightened so no contracture as yet. Wearing bilateral SCD's. Denies pain. Fall risk score is high and bed alarm is activated.
[2018-04-24] MEDS: ASPIRIN 325 MG TABLET PO (09:46)
[2018-04-24] MEDS: ENOXAPARIN 40 MG/0.4 ML SYRINGE SUBCUT (09:47)
[2018-04-24] MEDS: CHOLECALCIFEROL (VITAMIN D3) 1,000 UNIT TABLET 2000 UNIT PO (09:47)
[2018-04-24] MEDS: DULOXETINE 20 MG CAPSULE PO (09:47)
[2018-04-24] MEDS: NIACIN 500 MG TABLET PO (09:48)
[2018-04-24] MEDS: FISH OIL 1,000 MG CAPSULE 1000 MG PO (09:48)
[2018-04-24] MEDS: SODIUM CHLORIDE 0.9% FLUSH 10 ML IV (09:49)
--- NOTE | 2018-04-24 10:19 | ST.IPDYTX ---
Care Team Visit Care Team Role Provider Type Bridget Collier PA-C Primary Care Provider Physician Specialty: Internal Medicine Address: [address] [place] [address], [id number] Email: Tristan Fraser MD Emergency Provider Physician Specialty: Emergency Medicine Address: [address] [place] [address], [id number] Email: [email or web address] Admit Provider Advanced Projector Operator Attending Provider Specialty: Internal Medicine Address: [address] [place] [address], [id number] Email: MULE DEVELOPER Dysphagia Treatment MULE DEVELOPER Dysphagia Treatment Start: 04/23/18 11:24 Freq: Status: Active Protocol: Document 04/24/18 10:08 [facility] (Rec: 04/24/18 10:08 [facility] [id number]) Dysphagia Treatment Session Time Visit Start Time 09:00 Visit Stop Time 09:35 Total Visit Minutes 35 Setting Assessment Location Acute Care Visit Type Note Type Treatment Note Next Note Type Next Note Type Treatment Note Patient Information Identification Type Name ID Card Subjective Observations 73-yr-old female, s/p CVA 3 days with continued left side weakness impacting swallow safety and speech intelligibility. Pt was sitting upright in bed with TV on and eating breakfast, yogurt with diced peaches. She recognized MULE DEVELOPER from yesterday. Stated her left leg was moving better but arm still not moving well. Stated she was happy with diet texture and needed to chew on the right side, as when chewing on left she sometimes felt food slide down prematurely. Reported consistently using left head turn with swallow. Treatment Liquids Trialed Thin Solids Trialed Dysphagia Mechanical Administration Type Tea Spoon Cup Single Sip Controlled Cup Sip Straw Self-Feeding Oral Strategies Upright at 90 degrees Lingual Sweep Controlled Bite/Sip Size Pharyngeal Strategies Sitting Upright (90 deg) Tilt Head Left Small Bites and Sips Additional Dysphagia Treatment Minimize distractions w/ oral Strategies intake Treatment Activities Assessed pt's swallow safety with dysphagia mechanical texture and thin liquids via tsp, cup and straw with compensatory strategies. Pt exhibited immediate strong cough x1 with self- administered cup sip and head turn to left. The swallow was audible, indicating reduced coordination, and the pt felt she had taken too much at once . Instructed pt to add chin tuck to head turn and control small sips at a time. No other overt s/sx of aspiration observed with all trials. Educated pt and initiated training on swallow exercises including Denisse, Ca, base of tongue, and smile- pucker maneuvers. The pt returned demonstration of all but Ca. She verbalized understanding, and written instructions were left with her. Needs reinforcement. Assessment Patient Response to Treatment Excellent Rehab Potential Excellent Assessment of Improvement Pt exhibits improved labial and buccal ROM and control. She is able to safely consume thin liquid taken in small sips with use of left side head turn and chin tuck. She does exhibit immediate strong cough when not employing strategies or when taking too large of a sip, indicating continued impairment of swallow mechanism, likely left side muscle impairment. Recommend upgrade to thin liquids; straws will be withheld at this time for pt safety. Continue dysphagia mechanical diet and meds in carrier. The pt verbalized and demonstrated understanding of swallow exercises, introduced today, and does appear to have benefited from a day's worth of smile-pucker exercises. Will reinforce this in ongoing treatment. Diet Recommendations Recommendations Upgrade Liquid Order Liquids Order Thin Diet Order Dysphagia Mechanical Medication Recommendations Whole in Carrier Additional Dietary Needs Single Sips Controlled Sips No Straws Reminders to Use Strategies Aspiration Precautions Recommended Precautions Upright at 90 Degrees Small Bites/Sips Lingual Sweep Check for Pocketing Left Head Tilt Liquids from Cup Additional Precautions Minimize distractions Treatment Plan Placement Recommendation after [facility]charge [facility]hab Facility Appropriate for Continued Therapy Yes Therapy Recommendations Daily during hospital stay Dysphagia Goals 1. Pt will use compensatory strategies (e.g., head turn to left, lingual sweep) with 90% accuracy to increase swallow safety. 2. Pt will perform exercises to increase strength and coordination of swallow mechanism. 3. Pt will tolerate regular diet texture and thin liquid with use of compensatory strategies as needed to safely resume diet per PLOF.
--- NOTE | 2018-04-24 11:38 | CM.DPC ---
DCP/continued: Reviewed chart. Received notification in AM rounds that patient is medically stable for discharge today. Met with patient explained CM/SW role. Patient reports that her first SNF choice is [facility]. INDUSTRIAL ACCOUNTANT placed call to Yesy at [facility] and they have no bed availability today. Patient has been provided with SNF list and review with her spouse when he arrives today. Patient aware that closest options are in [place] and [place]. P: Pending. Awaiting SNF choice from patient/spouse. Anticipate d/c later today if placement secured. CHRIS Akbar
--- NOTE | 2018-04-24 11:45 | PT.IPTN ---
Current Diagnoses Essential (primary) hypertension (04/21/18) Heart failure, unspecified (04/21/18) Other cerebral infarction (04/21/18) Cerebral infarction, unspecified (04/21/18) Physical Therapy Treatment Note M2 PT-IP Current Condition Start: 04/22/18 12:12 Freq: NEEDED Status: Active Protocol: Document 04/22/18 15:05 [facility] (Rec: 04/22/18 16:00 [facility] [id number]) Physical Therapy Current Condition Current Condition Evaluation Date 04/22/18 Treatment Diagnosis CVA, impaired strength, activity tolerance Onset Date 04/21/18 Precautions Other Precautions high tone LUE M3 PT-IP Subjective Start: 04/22/18 12:12 Freq: NEEDED Status: Active Protocol: Document 04/24/18 11:39 [facility] (Rec: 04/24/18 11:45 [facility] [email or web address]) Subjective Physical Therapy Visit Type Type Treatment Note Visit Start Time 10:35 Visit Stop Time 11:05 Total Visit Minutes 30 Number of HOSPITAL RECRUITER Visits 0 Physical Therapy Visit Comments Patient Comments Pt reports feeling stronger, she agrees to getting up and walking and has questions about her Patient Goals to be able to walk again. Therapy Pain Assessment Pain Present Pain Present Denied Pain M4 PT-IP Mobility and Gait Start: 04/22/18 12:12 Freq: NEEDED Status: Active Protocol: Document 04/24/18 11:39 [facility] (Rec: 04/24/18 11:45 [facility] [email or web address]) PT-Bed Mobility Assessment Supine to Sit Supine to Sit Moderate Assistance 1 Person Assistance Scooting Scooting to Edge of Bed Moderate Assistance PT-Transfer Assessment Sit to and From Stand Sit to and from Stand Moderate Assistance 2 Person Assistance Use of Upper Extremities Equipment Transfer Assistive Device Gait Belt 4 Wheeled Walker Transfers Transfer Destination Chair Transfer Technique walked Transfer Ability Level of Assist Moderate Assistance 2 Person Assistance Comments Mobility Comments used FWW today, OT was present for co-treatment and pt does better with asssit for her left hand, she was able to push through her left hand with assist and she may benefit from a platform walker . Gait Assessment Gait Gait Assistance Required: Moderate Assistance 2 Person Assist Distance (Feet) 8 M5 PT-IP Objective Assessments Start: 04/22/18 12:12 Freq: NEEDED Status: Active Protocol: Document 04/22/18 15:05 [facility] (Rec: 04/22/18 16:00 [facility] [id number]) Other Assessments Other Other Assessments increased L hand swelling- lubricant applied to L ring finger to take pt's wedding band off, present, given to to take home. Ring on R ring finger also taken off and given to . M6 PT-IP Treatment Start: 04/22/18 12:12 Freq: NEEDED Status: Active Protocol: Document 04/24/18 11:39 [facility] (Rec: 04/24/18 11:45 [facility] [email or web address]) Physical Therapy Treatment Other Treatments Other Treatment Performed ankle pumps, heel slides, quad sets M7 PT-IP Assessment and Plan Start: 04/22/18 12:12 Freq: NEEDED Status: Active Protocol: Document 04/24/18 11:39 [facility] (Rec: 04/24/18 11:45 [facility] [email or web address]) PT Summary Assessment and Plan Potential Rehabilitation Potential Good Status of Condition at Evaluation Evolving Summary Impairments ROM Strength Balance Coordination Tone Bed Mobility Transfers Gait Activity Tolerance Progress Towards Goals Progressing Toward Goals Assessment Summary Pt with more control of LLE this session and able to take more equal steps. However, still with impaired motor control and balance. Discussed option of high intensity rehab, but pt doesn't think she could tolerate it and wants SNF instead. Recommendations To Nursing Amount of Assist Needed 2 Person Assist Discharge Recommendations PT Discharge Recommendations SNF Rehab
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
[2018-04-24] MEDS: METOPROLOL ER 50 MG TABLET PO (13:40)
--- NOTE | 2018-04-24 14:53 | PT.IPTN ---
Current Diagnoses Essential (primary) hypertension (04/21/18) Heart failure, unspecified (04/21/18) Other cerebral infarction (04/21/18) Cerebral infarction, unspecified (04/21/18) Physical Therapy Treatment Note M2 PT-IP Current Condition Start: 04/22/18 12:12 Freq: NEEDED Status: Active Protocol: Document 04/22/18 15:05 [facility] (Rec: 04/22/18 16:00 [facility] [id number]) Physical Therapy Current Condition Current Condition Evaluation Date 04/22/18 Treatment Diagnosis CVA, impaired strength, activity tolerance Onset Date 04/21/18 Precautions Other Precautions high tone LUE M3 PT-IP Subjective Start: 04/22/18 12:12 Freq: NEEDED Status: Active Protocol: Document 04/24/18 13:55 [facility] (Rec: 04/24/18 14:53 [facility] [id number]) Subjective Physical Therapy Visit Type Type Treatment Note Visit Start Time 13:55 Visit Stop Time 14:15 Total Visit Minutes 20 Notes Co-treated with OT Number of CONTROL ENGINEER Visits 1 Physical Therapy Visit Comments Patient Comments Pt states she is tired but willing to trial platform walker. Therapy Pain Assessment Pain Present Pain Present Denied Pain M4 PT-IP Mobility and Gait Start: 04/22/18 12:12 Freq: NEEDED Status: Active Protocol: Document 04/24/18 13:55 [facility] (Rec: 04/24/18 14:53 [facility] [id number]) PT-Bed Mobility Assessment Supine to Sit Supine to Sit Moderate Assistance 1 Person Assistance Scooting Scooting to Edge of Bed Moderate Assistance PT-Transfer Assessment Sit to and From Stand Sit to and from Stand Minimal Assistance 2 Person Assistance Use of Upper Extremities Equipment Transfer Assistive Device Gait Belt Platform Walker Transfers Transfer Destination Chair Transfer Technique walked Transfer Ability Level of Assist Moderate Assistance 2 Person Assistance Comments Mobility Comments Pt trialed platform walker. BP in sitting 157/95 before tx. BP in sitting after tx 164/114 , RN informed. Gait Assessment Gait Gait Assistance Required: Moderate Assistance 2 Person Assist Distance (Feet) 8 Assistive Devices Assistive Device Gait Belt Platform Walker Comments Gait Comments Pt required Mod A x2 with posterior and lateral lean. Pt able to put weight through left elbow while advancing RLE , pt required manual assist advancing LLE. M5 PT-IP Objective Assessments Start: 04/22/18 12:12 Freq: NEEDED Status: Active Protocol: Document 04/22/18 15:05 [facility] (Rec: 04/22/18 16:00 [facility] [id number]) Other Assessments Other Other Assessments increased L hand swelling- lubricant applied to L ring finger to take pt's wedding band off, present, given to to take home. Ring on R ring finger also taken off and given to . M6 PT-IP Treatment Start: 04/22/18 12:12 Freq: NEEDED Status: Active Protocol: Document 04/24/18 11:39 [facility] (Rec: 04/24/18 11:45 [facility] [email or web address]) Physical Therapy Treatment Other Treatments Other Treatment Performed ankle pumps, heel slides, quad sets M7 PT-IP Assessment and Plan Start: 04/22/18 12:12 Freq: NEEDED Status: Active Protocol: Document 04/24/18 13:55 [facility] (Rec: 04/24/18 14:53 [facility]B [id number]) PT Summary Assessment and Plan Summary Progress Towards Goals Progressing Toward Goals Assessment Summary Pt continues to require Mod A for bed mobility and gait. Pt performance increased with use of platform walker. Pt continues to need cues for step sequencing and manual assist with advancing LLE. Frequency of Treatment Frequency Of Treatment Twice a Day Treatment Plan Physical Therapy Treatment Plan Bed Mobility Training Transfer Training Gait Training Therapeutic Exercise Balance Retraining Post Op Education Discharge Planning Hot or Cold Pack Neuromuscular Re-ed Coordination Retraining Manual Therapy Other Recommendations and Next Treatment 2 person assist for gait, Focus balance, motor control Recommendations To Nursing Amount of Assist Needed 2 Person Assist Discharge Recommendations PT Discharge Recommendations SNF Rehab
--- NOTE | 2018-04-24 14:59 | OT.IP.TRT ---
Current Diagnoses Essential (primary) hypertension (04/21/18) Heart failure, unspecified (04/21/18) Other cerebral infarction (04/21/18) Cerebral infarction, unspecified (04/21/18) Occupational Therapy Treatment Note M2 OT-IP Current Condition Start: 04/23/18 17:04 Freq: Status: Active Protocol: Document 04/23/18 14:00 [facility] (Rec: 04/23/18 17:30 [facility] [email or web address]) Occupational Therapy Current Condition Current Condition Evaluation Date 04/23/18 Treatment Diagnosis CVA Diagnosis Onset Date 04/21/18 Post Operative Precautions Other Precautions high tone LUE, keep rUE elevate on pillows due to swelling M3 OT- IP Subjective and Pain Start: 04/23/18 17:04 Freq: Status: Active Protocol: Document 04/24/18 14:46 [facility] (Rec: 04/24/18 14:59 [facility] [id number]) OT- Subjective Occupational Therapy Visit Type Type Treatment Note Visit Start Time 10:40 Visit Stop Time 11:05 Total Visit Minutes 45 Notes Pt also seen from 1355 -1415 to assess for platform walker use during therapy with LAWN CARETAKER. Occupational Therapy Visit Comments Patient Comments Pt states very tired but willing to get up. OT Pain Assessment Pain When Pain Assessed At Rest Pain Present Pain Present Denied Pain M4 OT- IP ADL's Start: 04/23/18 17:04 Freq: Status: Active Protocol: Document 04/23/18 14:00 [facility] (Rec: 04/23/18 17:30 [facility] [id number]) OT ADL-Dressing General Eval Lower Body Dressing Ability Maximum Assistance Areas Needing Assistance Socks Comments OT Dressing Comments Pt states has a leg brace for right leg and to bring in her brace and shoes tomorrow. M5 OT- IP IADL's Start: 04/23/18 17:04 Freq: Status: Active Protocol: Document 04/23/18 14:00 [facility] (Rec: 04/23/18 17:30 [facility] [email or web address]) OT-Instrumental Activities of Daily Living Money Management Money Management Comments Prior pt did own moneye management needs, to assess if pt able to do so now. Meal Preparation Meal Preparation Caregiver Provides Assist Records Administrator Records Administrator Caregiver Provides Assist M6 OT- IP Functional Cognition Start: 04/23/18 17:04 Freq: Status: Active Protocol: Document 04/23/18 14:00 [facility] (Rec: 04/23/18 17:30 [facility] [id number]) Cognitive Factors Limiting Selfcare Function Cognitive Ability Level of Alertness Alert Patient Orientation Name Place Situation Attention Span Ability Capable of Focused Attention Capable of Sustained Attention Ability to Follow Commands Able to Follow One Step Commands Memory Description Immediate Intact [facility] Intact Cognitive Comments Cognitive Assessment Comments To further assess pt's cognition tomorrow. Today's focus on OT eval mobilty with PT and use of LUE. Pt states starting two months ago memory change and at time conversing but not making sense. OT- Vision and Hearing OT- Hearing Assessment OT- Hearing Assessment Right Ear Impaired M7 OT- IP Mobility and Balance Start: 04/23/18 17:04 Freq: Status: Active Protocol: Document 04/24/18 14:46 [facility] (Rec: 04/24/18 14:59 [facility] [email or web address]) OT- Bed Mobility Assessment Rolling Type of Rolling Roll to Right Level of Assistance Maximum Assistance 1 Person Assistance Supine to Sit Supine to Sit Assist Maximum Assistance 1 Person Assistance OT-Transfer Assessment Sit to and From Stand Sit to and from Stand Moderate Assistance 2 Person Assistance Transfers Transfer Ability Moderate Assistance 2 Person Assistance Technique Transfer Destination Chair Transfer Technique Stand Step Pivot Devices Transfer Assistive Devices Gait Belt Front Wheeled Walker Platform Walker Comments Mobility Comments Tried both ways for transfer with FWW and Platform walker for LUE. Om the FWW , pt needing assist to stabilize and hold LUE for all needs, guidance of FWW, and assist for weight shifting as well. With platform walker, pt able to push through her elbow to assist, however LLE tend to want to cross over to [place] and needing assist to keep her legs apart while upright, In addition, pt tends to lean to the left and posterior tilt and needing assist and cues to stay upright. OT- Balance Assessment Comments Other Balance Tests/Deviations/Treatment Pt continues to have increased : tone on left side and tends to lean into posterior and lateral tilt to the right. M8 OT- IP Objective Assessments Start: 04/23/18 17:04 Freq: Status: Active Protocol: Document 04/24/18 14:46 [facility] (Rec: 04/24/18 14:59 [facility] [id number]) OT Gross Range of Motion Upper Extremity Range of Motion Assessment Left Impaired ROM Impairments Able to do PROM shoulder flexion and abduction 0-90, elbow flexion 0-80,finger and wrist extension WFL. OT-Muscle Tone Assessment Muscle Tone WNL Yes Muscle Tone Location Left Type of Tone Hypertonicity Flexor Extensor [place] Grade Scale Grade 3 M9 OT- IP Assessment and Plan Start: 04/23/18 17:04 Freq: Status: Active Protocol: Document 04/24/18 14:46 [facility] (Rec: 04/24/18 14:59 [facility] [email or web address]) OT Summary Assessment and Plan Potential Rehabilitation Potential Good Analytic Complexity at Evaluation Moderate Summary OT Impairments Range of Motion Strength Balance Coordination Tone Functional Cognition Functional Mobility Self-Feeding Grooming Dressing Toileting Bathing Toilet Transfers Shower Transfers Progress Towards Goals Slow Progress due to Medical Issues Slow Progress due to Activity Tolerance Assessment Summary Pt very cooperative and motivated to get better and wanting to go to skilled rehab prior to going home. Pt continues to have tone in LUE >LLE and needing extensive assist for ADL and fucntional mobilty at this time. Goals Self-Feeding Goal Standby Assistance Grooming Goal Moderate Assistance Dressing Goal Moderate Assistance Toileting Goal Moderate Assistance Toilet Transfer Goal Moderate Assistance Patient/Caregiver Education Goal Caregiver Independent Assisting Patient Days to Meet Goals 10 Frequency of Treatment Frequency Of Treatment Once a Day Treatment Plan OT Treatment Plan ADL Training Functional Cognition Training Functional Mobility Neuromuscular Re-education Patient/Family Education Discharge Planning Discharge Recommendations OT Discharge Recommendations SNF Rehab Home Equipment Needs defer to skilled rehab
--- NOTE | 2018-04-24 16:02 | PC.NURSE ---
Day Shift- Pt A&OX4, NIH score 8, see flowsheet. Left facial droop remains, with left side weakness. Pt able to lift her left arm approx 4 inches off pillow, not against gravity. Fingers bent towards palm, unable to extend indep, job specification writer was able to manually extend. LLE able to lift off bed with drift and not against gravity. Pt able to take her meds whole one at a time with applesauce with out difficulty. Pt able to demonstrate swallowing by tilting her chin towards her left shoulder which she was instructed by Speech. BP elevated at 193/113, Dr. Penn in pt's room when taken, new order rec'd for Metoprolol 50mg that was given at 1340. Pt evaluated pt and before PT while sitting, BP at 1400 was 157/95, 10 mins after PT treatment, BP while sitting was 164/114. Pt's Eprico at bedside and both are aware of discharge today at 1600. Report called to [place] at [facility] at 1553. Update given and questions answered. Plan for discharge around 1600 via wheelchair van.
== END 2018-04-24 16:24 | DRG 65 ==
LOC: ED 20:04 → AC 20:46
PROVIDERS: Admitting Provider Nurse Practitioner Gerontology; Emergency Provider Emergency Medicine; PCP Physician Assistant; Visit Provider Nurse Practitioner Gerontology
DX: I63.9 Cerebral infarction, unspecified (principal); I50.22 Chronic systolic (congestive) heart failure; G81.94 Hemiplegia, unspecified affecting left nondominant side; I42.9 Cardiomyopathy, unspecified; R29.810 Facial weakness; I11.0 Hypertensive heart disease with heart failure; I49.9 Cardiac arrhythmia, unspecified; Z95.0 Presence of cardiac pacemaker; E78.5 Hyperlipidemia, unspecified; M79.7 Fibromyalgia
CPT/HCPCS: 36415; 70450; 70496; 70498; 71045; 80048; 80061; 81003; 82962; 83036; 83735; 83880; 85025; 85610; 85730; 92526; 92610; 93005; 93010; 93041; 94760; 94762; 96361; 96374; 97110; 97116; 97162; 97166; 97530; 99285; A9270; J1650; Q9967

== ENCOUNTER → 2018-07-27 12:27 | Outpatient (CLI) | payer MEDICARE, OTHER, SELFPAY ==
[2018-04-21 20:51] VITALS: BMI 30.2
--- NOTE | 2018-07-27 | DI.RAD.S_ITS ---
PROCEDURE: XR WRIST LT MIN 3V INDICATIONS: Left WRIST PAIN TECHNIQUE: 4 views of the wrist were acquired. COMPARISON: None. FINDINGS: Bones: No fractures or dislocations. No suspicious bony lesions. First CMC and triscaphe joint degeneration. Chronic corticated ossicle projects adjacent to the ulnar styloid. There is also fifth CMC joint degeneration. Soft tissues: No suspicious soft tissue calcifications. IMPRESSION: Degenerative changes as above. If the patient's pain or other symptoms persist, consider further evaluation with MRI Dictated by: Junaid Henson M.D. on 07/27/2018 at 15:25 Approved by: Junaid Henson M.D. on 07/27/2018 at 15:28
== END ==
PROVIDERS: PCP Physician Assistant; Visit Provider Physician Assistant
DX: M25.532 Pain in left wrist (principal); M18.12 Unilateral primary osteoarthritis of first carpometacarpal joint, left hand; M19.032 Primary osteoarthritis, left wrist
CPT/HCPCS: 73110

== ENCOUNTER → 2018-08-07 17:08 | Outpatient (CLI) | payer MEDICARE, OTHER, SELFPAY ==
[2018-04-21 20:51] VITALS: BMI 30.2
== END ==
PROVIDERS: PCP Physician Assistant; Visit Provider Physician Assistant
DX: M25.532 Pain in left wrist (principal)

== ENCOUNTER → 2018-08-14 14:55 | Outpatient (REF) | payer MEDICARE, OTHER, SELFPAY ==
[2018-04-21 20:51] VITALS: BMI 30.2
[2018-08-14 15:43] LABS: Add Manual Diff / Slide Review NO; Basophils Absolute Auto 100 /uL (0-100); Basophils Percent Auto 0.8 % (0-2); Eosinophils Absolute Auto 400 /uL (0-450); Eosinophils Percent Auto 4.8 % (2-4); Hematocrit 37.5 % (36-46); Hemoglobin 12.8 g/dL (12.0-16.0); Lymphocytes Absolute Auto 2700 /uL (1100-4500); Lymphocytes Percent Auto 32.3 % (25-40); Mean Corpuscular HGB Conc 34.1 % (30-36); Mean Corpuscular Hemoglobin 31.6 PG (26-34); Mean Corpuscular Volume 92.7 fL (80-100); Monocytes Absolute Auto 600 /uL (0-900); Monocytes Percent Auto 6.7 % (3-14); Neutrophils Absolute Auto 4700 /uL (1500-7000); Neutrophils Percent Auto 55.4 % (50-75); Platelet Count 250 X10^3/uL (150-400); Red Blood Cell Count 4.05 X10^6/uL (4.0-5.2); Red Cell Distribution Width 15.6 % (11.6-14.8); White Blood Cell Count 8.4 X10^3/uL (4.5-11.0)
[2018-08-14 15:51] LABS: Alanine Aminotransferase 28 IU/L (9-52); Albumin 4.4 g/dL (3.5-5.0); Albumin Globulin Ratio 1.3 (1.0-2.8); Alkaline Phosphatase 84 U/L (38-126); Aspartate Aminotransferase 27 IU/L (14-36); BUN Creatinine Ratio 19.2 (6-22); Bilirubin Total 0.6 mg/dL (0.2-1.3); Blood Urea Nitrogen 25 mg/dL (7-17); Calcium 10.1 mg/dL (8.4-10.2); Carbon Dioxide 30 mmol/L (22-32); Chloride 97 mmol/L (98-107); Estimated Glomerular Filt Rate 40.2 mL/min (>60); Globulin 3.3 g/dL (1.7-4.1); Glucose 137 mg/dL (80-110); HEMOLYSIS < 15 (0-50); Potassium 4.2 mmol/L (3.4-5.1); Sodium 139 mmol/L (137-145); Total Protein 7.7 g/dL (6.3-8.2)
[2018-08-14 16:07] LABS: B Type Natriuretic Peptide < 100 (<100)
== END ==
LOC: LAB 14:55
PROVIDERS: PCP Physician Assistant; Visit Provider Physician Assistant
DX: D72.810 Lymphocytopenia (principal); I63.9 Cerebral infarction, unspecified; I42.9 Cardiomyopathy, unspecified
CPT/HCPCS: 80053; 83880; 85025

== ENCOUNTER → 2019-01-18 14:41 | Outpatient (CLI) | payer MEDICARE, OTHER, SELFPAY ==
[2018-04-21 20:51] VITALS: BMI 30.2
--- NOTE | 2019-01-18 | DI.MG.S_ITS ---
BILATERAL DIGITAL SCREENING MAMMOGRAM 3D/2D WITH CAD: 01/18/2019 CLINICAL: Routine screening. Comparison is made to exams dated: 09/30/2014 mammogram - [facility], 01/01/2014 mammogram, and 12/20/2012 mammogram - [facility]. The tissue of both breasts is heterogeneously dense. This may lower the sensitivity of mammography. Current study was also evaluated with a Computer Aided Detection (CAD) system. No significant masses, calcifications, or other findings are seen in either breast. There has been no significant interval change. IMPRESSION: NEGATIVE There is no mammographic evidence of malignancy. A 1 year screening mammogram is recommended. This exam was interpreted at Station ID: [id number]. NOTE: For mammograms, a report in lay terms will be sent to the patient. Approximately 15% of breast malignancies will not be visualized mammographically. In the management of a palpable breast mass, a negative mammogram must not discourage biopsy of a clinically suspicious lesion. Electronically Signed By: Kandy barbour/reagan:01/18/2019 15:12:14 letter sent: Normal Exam ACR BI-RADS Category 1: Negative [id number]
== END ==
PROVIDERS: PCP Internal Medicine; Visit Provider Internal Medicine
DX: Z12.31 Encounter for screening mammogram for malignant neoplasm of breast (principal)
CPT/HCPCS: 77063; 77067

== ENCOUNTER → 2019-03-04 13:55 | Outpatient (CLI) | payer MEDICARE, OTHER, SELFPAY ==
[2018-04-21 20:51] VITALS: BMI 30.2
--- NOTE | 2019-03-04 | DI.CT.S_ITS ---
PROCEDURE: CT HEAD/BRAIN WO/W CON INDICATIONS: Benign neoplasm of cerebral meninges TECHNIQUE: 4.5 mm thick angled axial sections acquired from the foramen magnum to the vertex both before and after the administration of intravenous contrast, with coronal and sagittal reformats. For radiation dose reduction, the following was used: automated exposure control, adjustment of mA and/or kV according to patient size. COMPARISON: [facility], CT, CT HEAD/BRAIN WO/W CON, 02/08/2018, 11:09. [facility], MR, BRAIN W&WO CONTRAST, 12/25/2014, 15:11. [facility], CT, CT HEAD/BRAIN WO CON, 04/21/2018, 18:06. FINDINGS: Image quality: Excellent. CSF spaces: Basal cisterns are patent. No extra-axial fluid collections. Ventricles are symmetric in size and shape. Brain: No again seen an intensely enhancing extra-axial mass adjacent to the left parietal lobe, as on series 6 image 24. This measures 7 mm and is not significantly changed compared to 2015. No additional intracranial masses can be seen. No other areas of abnormal enhancement are seen. No midline shift. No intracranial bleeds. There is cerebral volume loss for age. There is periventricular white matter chronic small vessel ischemic change. There is intracranial internal carotid artery atherosclerosis. Skull and face: Calvarium and visualized facial bones appear intact, without suspicious lesions. Sinuses: Visualized sinuses and mastoids are clear. IMPRESSION: 7 mm intensely enhancing extra-axial lesion seen adjacent to the left parietal lobe, which is attributed to incidental meningioma. Dictated by: Ramon Springer M.D. on 03/04/2019 at 14:32 Approved by: Ramon Springer M.D. on 03/04/2019 at 14:34
[2019-03-04 14:31] LABS: Estimated Glomerular Filt Rate 43.9 mL/min (>60)
== END ==
PROVIDERS: PCP Internal Medicine; Visit Provider Neurological Surgery
DX: Z01.812 Encounter for preprocedural laboratory examination (principal); D32.0 Benign neoplasm of cerebral meninges
CPT/HCPCS: 36415; 70470; 82565; Q9967

== ENCOUNTER 2019-09-19 17:56 | Emergency (ER) | payer MEDICARE, OTHER, SELFPAY ==
[2018-04-21 20:51] VITALS: BMI 30.2
--- NOTE | 2019-09-19 18:04 | ED.GENADULT ---
HPI - General Adult General Chief complaint: Head Injury Stated complaint: GLF, couple days ago, hit head, concerned Time Seen by Provider: 09/19/19 18:03 History of Present Illness HPI narrative: 74-year-old woman with a history of stroke with mild left-sided deficits, depression and hypertension brought in by her daughter with complaints of dizziness, anhedonia, sleeping up to 20 hours a day and falling. Most recent fall was 4 days ago she stumbled as she was getting into bed fell and hit the left side of her neck against the fireplace mantle. She has some mild bruising along the left side of her neck that is healing well with no bony point tenderness. With this same fall approximately 4 days ago she suffered a contusion to the inner forearm right side again no bony point tenderness Her daughter reports that she sleeps up to 20 hours a day and is unwilling to get out of bed. She notes that she has gained about 20 lb over the last year after her stroke. While in rehab after her stroke she had been up and moving regularly was increasing in strength her gait was better and she had less dizziness. She states that she has had difficulties with depression over most of her life the medicine that was most helpful was Wellbutrin XL but she ended up having a seizure after starting that. She does not believe she is currently on an antidepressant and does not have a list of current medications but believes she takes metoprolol and a sleeping pill that starts with an H. given the fact that she is spending up to 20 hours in bed it is unclear why she is continuing to take a sleeping pill. Related Data Home Medications Medication Instructions Recorded Confirmed ESTRADIOL (Estrace) 1 mg PO QDAY #0 01/06/10 04/21/18 Fluticasone Propionate/Salme 1 dose IH PRN PRN #0 01/06/10 04/21/18 (Advair Diskus 250/50) duloxetine [Cymbalta] 20 mg BID #0 03/02/12 04/21/18 Hair, Skin, Nails with Biotin 1 tab PO DAILY 04/21/18 04/21/18 cholecalciferol (vitamin D3) 2,000 unit PO DAILY 04/21/18 04/21/18 [Vitamin D3] cod liver oil 1 cap PO DAILY 04/21/18 04/21/18 coenzyme Q10 [Co Q-10] 100 mg PO DAILY 04/21/18 04/21/18 magnesium 60 mg PO DAILY 04/21/18 04/21/18 metoprolol succinate 50 mg PO DAILY 04/21/18 04/21/18 Previous Rx's Medication Instructions Recorded furosemide [Lasix] 20 mg PO QDAY #30 tab 08/04/16 potassium chloride 10 meq PO Q DAY #30 cap 08/04/16 aspirin 325 mg PO DAILY #30 tab 04/24/18 atorvastatin [Lipitor] 20 mg PO BEDTIME #30 tab 04/24/18 niacin 500 mg PO DAILY #30 tab 04/24/18 omega-3 fatty acids-fish oil [Fish 1,000 mg PO DAILY #30 cap 04/24/18 Oil] Allergies Allergy/AdvReac Type Severity Reaction Status Date / Time latex [LATEX] Allergy Mild RASH Verified 09/19/19 18:19 naproxen [From ALEVE] Allergy Mild SWELLING Verified 09/19/19 18:19 FEET, HANDS codeine Allergy Unknown GI UPSET Verified 09/19/19 18:19 lisinopril Allergy Unknown FACIAL Verified 09/19/19 18:19 SWELLING venlafaxine Allergy Unknown ELEVATED Verified 09/19/19 18:19 BLOOD PRESSURE bupropion AdvReac Unknown SEIZURE Verified 09/19/19 18:19 Review of Systems Review of Systems Narrative: Pertinent positive and negative findings as per HPI Musculoskeletal: Mild residual weakness left arm and leg. Global deconditioning, bilateral chronic knee pain due to osteoarthritis Remainder of review of systems is otherwise unremarkable for Constitutional: Fevers, chills, ENT: No sore throat, ear pain CV: Chest pain, palpitations, dyspnea on exertion Respiratory: Cough, wheeze, dyspnea GI: Nausea, vomiting, diarrhea, change in bowel habits, black or bloody stools : Dysuria, hematuria, flank pain Skin: Rashes, nonhealing lesions Psych: Depression, anhedonia, no auditory or visual hallucinations Endocrine: heat or cold intolerance, very dry skin Heme: Easy bruising or bleeding Allergy: Seasonal rhinorrhea, itchy eyes Patient History Medical History (Updated 09/19/19 @ 19:09 by Charo Lopez MD) Cardiomyopathy (Acute) Cerebrovascular accident (Acute) Congestive heart failure (Acute) Dizziness (Acute) Hearing loss (Acute) Hypertension (Acute) Physical deconditioning (Acute) Surgical History (Updated 09/19/19 @ 18:56 by Charo Lopez MD) History of permanent cardiac pacemaker placement (Acute) Social History household members: spouse Smoking Status: Former smoker alcohol intake: never Smoking Status: Former smoker Substance Use Type: does not use Exam Narrative Exam Narrative: General: Healthy appearing, in no acute distress. Well-nourished well-developed HEENT: Moist mucous membranes, normal sclera with reactive pupils, no bony skull tenderness with palpation Neck: No JVD, supple. She has a 4 to 5-day-old bruise just under the left angle of the jaw that seems to be completely soft tissue and healing well. Respiratory: Lungs are clear to auscultation, no wheezing no rales no rhonchi. Full and symmetrical air movement. No bony tenderness along ribcage Cardiac: Regular rate and rhythm no murmurs no bruits Abdomen: Soft nontender good bowel tones, no flank pain Skin: Warm and dry, no rashes Neurologic: Globally weak with a bit more weakness left arm left leg after her stroke. No new are exacerbated findings Extremities: Moderate bruise medial aspect right forearm no bony tenderness, well perfused Axial skeleton: Tenderness T1-T2 after a cervical spinal fusion, chronic, no bruising no tenderness down the remainder of the axial skeleton or pelvic ring Psych: Cooperative, poor eye contact, flat affect. Little insight but fluent speech without suicidal ideation or visual or auditory hallucinations Initial Vital Signs Initial Vital Signs: Vital Signs Temperature 98.7 F 09/19/19 18:12 Pulse Rate 61 09/19/19 18:12 Respiratory Rate 16 09/19/19 18:12 Blood Pressure 196/83 H 09/19/19 18:12 Pulse Oximetry 98 09/19/19 18:12 Course Vital Signs Vital signs: Vital Signs - 8 hr 09/19/19 18:12 09/19/19 18:45 Temperature 98.7 F Pulse Rate 61 62 Respiratory Rate 16 16 Blood Pressure 196/83 H Blood Pressure [Right Arm] 191/77 H Pulse Oximetry 98 100 Medical Decision Making Medical Records Medical records reviewed: Yes I reviewed the patient's medical records. MDM Narrative Medical decision making narrative: 74-year-old woman with apparently a large number of children were trying hard to help her 79-year-old has been provide adequate care for her. Increasing depression, anhedonia, unwillingness to get out of bed and with this increasing overall deconditioning. With the poor deconditioning her dizziness and gait instability from her stroke approximately 18 months ago is more noticeable. The daughter who accompanies her today is recently at from [place] and concerned that symptoms are significantly worse than they were when she had been cared for at [facility] after her stroke. On clinical exam there is no indication for imaging studies and no indication for any additional blood work at this time. Will refer her back to her primary care physician for a discussion of restarting antidepressants, seeing if there is an option for home physical therapy due to her global deconditioning and consider helping her get back into outpatient physical therapy for gait retraining. Will recommend that she stop any sleeping medications she is currently taking Discharge Plan Departure Patient Disposition: Home Clinical Impression: Dizziness, Physical deconditioning Depression Qualifiers: Depression Type: major depressive disorder Major depression recurrence: unspecified whether recurrent Active/Remission status: currently active Major depression episode severity: severe Psychotic features: without psychotic features Qualified Code(s): F32.2 - Major depressive disorder, single episode, severe without psychotic features Hypertension Qualifiers: Hypertension type: essential hypertension Qualified Code(s): I10 - Essential (primary) hypertension Fall Qualifiers: Encounter type: initial encounter Qualified Code(s): W19.XXXA - Unspecified fall, initial encounter Activity Restrictions/Additional Instructions: Thank you for coming into I am glad to let you know that after reviewing your history in your clinical exam I do not think that there is any indication for additional imaging studies or blood work today I am concerned that you are depressed and need to be back on an antidepressant. I am concerned that the depression is making it very difficult for you to get out of bed and when you do not get out of bed you become significantly deconditioned. With a slight amount of weakness on the left side, and the dizziness you already have as result of your stroke, this deconditioning is making it even harder for you to get up and move around and causing you to have more falls. You have been alice so far in suffering only bruises, but your risk of break something is significant with all of these falls. My recommendations: -Please stop your sleeping pills -Schedule an appointment as soon as possible with Dr. Gaston, an online appointment might be a nice adjunct and allow him to start an antidepressant and then you can review how it is going with your scheduled appointment at the end of this month. Please discuss physical therapy and how it may be beneficial for you. -Make a point of getting up and out of bed for the majority of daylight hours -Make a point of using your walker to walk at least 10-15 minutes a day -make appoint of exposing yourself to sunlight, even if that means simply sitting beside window on a cloudy day, for at least an hour a day -usual walker as much as possible to try and prevent any additional falls Prescriptions: No Action ESTRADIOL (Estrace) 1 mg PO QDAY Qty: 0 RF: 0 Fluticasone Propionate/Salme (Advair Diskus 250/50) 1 dose IH PRN PRN (Reason: asthma) Qty: 0 RF: 0 duloxetine [Cymbalta] 20 MG capsule,delayed release(DR/EC) 20 mg BID Qty: 0 RF: 0 furosemide [Lasix] 20 MG tablet 20 mg PO QDAY Qty: 30 RF: 0 potassium chloride 10 MEQ capsule, extended release 10 meq PO Q DAY Qty: 30 RF: 0 metoprolol succinate 50 mg tablet extended release 24 hr 50 mg PO DAILY RF: 0 cod liver oil Capsule 1 cap PO DAILY RF: 0 magnesium 30 mg Tablet 60 mg PO DAILY RF: 0 coenzyme Q10 [Co Q-10] 100 mg Capsule 100 mg PO DAILY RF: 0 cholecalciferol (vitamin D3) [Vitamin D3] 2,000 unit Capsule 2,000 unit PO DAILY RF: 0 Hair, Skin, Nails with Biotin 1 tab PO DAILY RF: 0 atorvastatin [Lipitor] 20 mg Tablet 20 mg PO BEDTIME Qty: 30 RF: 0 aspirin 325 mg Tablet 325 mg PO DAILY Qty: 30 RF: 0 niacin 500 mg Tablet 500 mg PO DAILY Qty: 30 RF: 0 omega-3 fatty acids-fish oil [Fish Oil] 340-1,000 mg Capsule 1,000 mg PO DAILY Qty: 30 RF: 0 Referrals: Andrade Gaston MD [Primary Care Provider] -
[2019-09-19 18:12] VITALS: BP 196/83; PULSE 61; RESP 16; TEMP 37.1; O2SAT 98
[2019-09-19 18:45] VITALS: BP 191/77; PULSE 62; RESP 16; O2SAT 100
[2019-09-19 19:22] VITALS: BP 190/76; PULSE 60; RESP 17; O2SAT 98
== END 2019-09-19 19:22 | disposition home or self-care (01) ==
PROVIDERS: Emergency Provider Emergency Medicine; PCP Internal Medicine
DX: S09.90XA Unspecified injury of head, initial encounter (principal); R42 Dizziness and giddiness; R53.81 Other malaise; F32.2 Major depressive disorder, single episode, severe without psychotic features; I10 Essential (primary) hypertension; W01.198A Fall on same level from slipping, tripping and stumbling with subsequent striking against other object, initial encounter
CPT/HCPCS: 99281

== ENCOUNTER 2019-11-05 21:04 | Inpatient (IN) | payer MEDICARE, OTHER, SELFPAY ==
[2018-04-21 20:51] VITALS: BMI 30.2
[2019-11-05 21:00] VITALS: BP 137/60; PULSE 65; RESP 15; TEMP 36.6; O2SAT 95; BMI 27.4
--- NOTE | 2019-11-05 21:22 | DI.RAD.S_ITS ---
PROCEDURE: XR TIBIA FUBULA RT 2V INDICATIONS: Fall with pain and swelling to haddad TECHNIQUE: 2 views of the tibia and fibula were acquired. COMPARISON: None. FINDINGS: Bones: No fractures or dislocations. No suspicious bony lesions. A right total knee arthroplasty is in expected position. Trace knee joint effusion. Soft tissues: No suspicious soft tissue calcifications or masses. Soft tissue swelling over the proximal to haddad with increased density likely due to hematoma. Probable swelling at the lateral malleolus. IMPRESSION: No acute osseous abnormality. Dictated by: Misael Ward M.D. on 11/05/2019 at 22:23 Approved by: Misael Ward M.D. on 11/05/2019 at 22:25
[2019-11-05 21:32] VITALS: PULSE 65; O2SAT 96
[2019-11-05 22:00] VITALS: PULSE 64; O2SAT 93
--- NOTE | 2019-11-05 22:29 | PC.NURSE ---
2 failed IV attempts to the right arm
[2019-11-05 22:30] VITALS: PULSE 64; O2SAT 96
--- NOTE | 2019-11-05 22:37 | ED_ITS ---
HPI - Extremity Injury (Lower) General Chief Complaint: Fall Stated Complaint: leg pain Time Seen by Provider: 11/05/19 21:31 Source: patient, family and EMS Mode of arrival: EMS Limitations: no limitations History of Present Illness HPI Narrative: Patient complains of right lateral leg pain. Brought in by ambulance from home. Incident occurred at 2:00 p.m. today. Legs became more swollen through the evening. Patient brought in by ambulance. Patient states she is unsteady on her legs and feet due to previous stroke that we can the left side of her body. She did not use her walker as she was supposed to and she was cleaning her toilet that she said was not probably a good idea with her balance issues. She was in a stooped position facing the toilet and she fell herself losing her balance and she grabbed onto a bedside commode that they place over the toilet, she fell backwards in the commode landed on her right lower leg. Denies denies denies any loss of consciousness. She did bump her top of her scalp against a door knob. Again no loss of consciousness. Denies any pain. No neck pain. Denies any other injuries. No head neck chest abdomen or back pain. No pelvis pain no hip pain. Had previous surgery on the right knee years ago with Dr. Bronson who is now with [facility]. She is not on a blood thinner. Other and daily aspirin. This afternoon the right lateral leg was slightly swollen but through the course the pain became much more edematous and swollen and more pressure. No numbness or tingling or weakness to the right foot. Related Data Home Medications Medication Instructions Recorded Confirmed Fluticasone Propionate/Salme 1 dose IH PRN PRN #0 01/06/10 11/06/19 (Advair Diskus 250/50) duloxetine [Cymbalta] 60 mg DAILY #0 03/02/12 11/06/19 Hair, Skin, Nails with Biotin 1 tab PO DAILY 04/21/18 11/06/19 cholecalciferol (vitamin D3) 2,000 unit PO DAILY 04/21/18 11/06/19 [Vitamin D3] cod liver oil 1 cap PO DAILY 04/21/18 11/06/19 coenzyme Q10 [Co Q-10] 100 mg PO DAILY 04/21/18 11/06/19 magnesium 60 mg PO DAILY 04/21/18 11/06/19 metoprolol succinate 50 mg PO DAILY 04/21/18 11/06/19 aspirin 81 mg PO DAILY 11/06/19 11/06/19 Previous Rx's Medication Instructions Recorded potassium chloride 10 meq PO Q DAY #30 cap 08/04/16 atorvastatin [Lipitor] 20 mg PO BEDTIME #30 tab 04/24/18 niacin 500 mg PO DAILY #30 tab 04/24/18 omega-3 fatty acids-fish oil [Fish 1,000 mg PO DAILY #30 cap 04/24/18 Oil] Allergies Allergy/AdvReac Type Severity Reaction Status Date / Time latex [LATEX] Allergy Mild RASH Verified 09/19/19 18:19 naproxen [From ALEVE] Allergy Mild SWELLING Verified 09/19/19 18:19 FEET, HANDS codeine Allergy Unknown GI UPSET Verified 09/19/19 18:19 lisinopril Allergy Unknown FACIAL Verified 09/19/19 18:19 SWELLING venlafaxine Allergy Unknown ELEVATED Verified 09/19/19 18:19 BLOOD PRESSURE bupropion AdvReac Unknown SEIZURE Verified 09/19/19 18:19 Review of Systems Review of Systems Narrative: GENERAL: Denies chills, fatigue, malaise, fever, sweats. HEENT: Denies sinus pain, ear pain, sore throat, difficulty swallowing, dizzine ss. RESPIRATORY: Denies dyspnea, cough, wheezing, hemoptysis, sputum. CARDIOVASCULAR: Denies chest pain, palpitations, orthopnea, edema, GASTROINTESTINAL: Denies nausea, vomiting, abdominal pain, diarrhea, constipation, melena. : Denies dysuria, frequency, incontinence, hematuria, urinary retention. MUSCULOSKELETAL: Complaints of muscle plane in the right lateral leg. No joint pain. SKIN: Denies rash, skin lesions, or other NEUROLOGIC: Denies weakness, headache, numbness, change in speech, confusion, seizures, incoordination. PSYCHIATRIC: No concerning psychosocial issues. ROS Unobtainable: All systems reviewed & are unremarkable except as noted in HPI and below Patient History Medical History Cardiomyopathy (Acute) Cerebrovascular accident (Acute) Congestive heart failure (Acute) Dizziness (Acute) Hearing loss (Acute) Hypertension (Acute) Physical deconditioning (Acute) Surgical History History of permanent cardiac pacemaker placement (Acute) Family History Father Heart disease Brother Heart disease Mother Old age Social History household members: spouse Smoking Status: Former smoker alcohol intake: never Smoking Status: Former smoker alcohol intake frequency: 0-2 drinks per day Substance Use Type: does not use Exam Narrative Exam Narrative: GENERAL: patient appears stated age. Well-nourished, well- developed patient, in no distress, not toxic HEAD: Small nonbleeding abrasion size of a dime on top central scalp, nontender no crepitus or step-off.. Normocephalic. EYES: Pupils equal round and reactive. Extraocular motions intact. No scleral icterus. No injection or drainage. ENT: Nose without bleeding, purulent drainage. Throat without erythema, tonsillar hypertrophy or exudate. Airway patent. NECK: Trachea midline. Non tender, no midline tenderness or step-off CARDIOVASCULAR: Regular rate and rhythm without murmurs, gallops, or rubs. RESPIRATORY: Clear to auscultation. Breath sounds equal bilaterally. No wheezes, rales, or rhonchi. GASTROINTESTINAL: Abdomen soft, non-tender, nondistended. EXTREMITIES: Examination right lower extremity, shoes and socks removed. Right knee to toes exposed.. Nontender right knee with no deformity, nontender ankle and foot. Foot is warm soft and pink with strong pedal pulse. Light touch intact to foot and toes. There is edema/hematoma on the lateral 2/3 of the right leg, skin is intact. No bleeding or abrasion. There is no no no blis tering of the skin. Nontender knee and ankle. Able to flex and extend both knee and ankle, wiggles toes BACK: Nontender without deformity or crepitance. No flank tenderness. NEURO: AOx3. SKIN: No rash or erythema of visible areas Initial Vital Signs Initial Vital Signs: Vital Signs Temperature 97.9 F 11/05/19 21:00 Pulse Rate 65 11/05/19 21:00 Respiratory Rate 15 11/05/19 21:00 Blood Pressure 137/60 11/05/19 21:00 Pulse Oximetry 95 11/05/19 21:00 Procedures [facility] [place] Name of Procedure: Hematoma aspiration Side (if applicable): right Location: Lateral right leg hematoma Time out performed: Yes Technique/Description of procedure performed: Needle aspiration of right leg hematoma Patient tolerated procedure: Well and No complications Complications: none Additional Comments: Mid surface of the hematoma cleaned with Hibiclens, 1% lidocaine without epinephrine, 3 mL used for local infiltration midportion of the hematoma. 18 gauge needle used to attempt for aspiration. No blood return in syringe. Kerlix dressing applied postprocedure. No leg or foot numbness or tingling postprocedure. Course Orders Ordered: ED Orders 11/05/19 22:51 Complete Blood Count AUTO DIFF Stat Comprehensive Metabolic Panel Stat Creatine Kinase Stat 11/06/19 00:25 CT LE RT wo/w con Stat Acetaminophen (Tylenol) 650 mg PO Q4HR PRN PRN Reason: Fever/Mild Pain (1-3) Aspirin (Aspirin Ec) 81 mg PO DAILY CINDI Atorvastatin Calcium (Lipitor) 20 mg PO BEDTIME CINDI Duloxetine HCl (Cymbalta) 60 mg PO DAILY CINDI Losartan Potassium (Cozaar) 50 mg PO DAILY CINDI Melatonin (Melatonin) 3 mg PO BEDTIME CINDI Metoprolol Succinate (Toprol Xl) 50 mg PO DAILY CINDI Morphine Sulfate (Morphine) 1 mg IV Q4HR PRN PRN Reason: Pain, Moderate (4-6) Discontinued Medications Sodium Chloride (Normal Saline 0.9%) 250 mls @ 1,000 mls/hr IV NOW ONE Stop: 11/06/19 01:56 Last Infusion: 11/06/19 02:30 Dose: 1,000 mls/hr Documented by: Infusion: 11/06/19 02:10 Dose: 1,000 mls/hr Documented by: Infusion: 11/06/19 01:51 Dose: 0 mls/hr Documented by: Admin: 11/06/19 01:50 Dose: 1,000 mls/hr Documented by: LACHO Lidocaine HCl (Xylocaine 1% (Pf)) 4 ml SUBCUT NOW ONE Stop: 11/06/19 02:06 Last Admin: 11/06/19 02:09 Dose: 4 ml Documented by: LACHO Morphine Sulfate (Morphine) 4 mg IV NOW ONE Stop: 11/06/19 01:18 Last Admin: 11/06/19 01:25 Dose: 4 mg Documented by: LACHO Ondansetron HCl (Zofran) 4 mg IV NOW ONE Stop: 11/06/19 01:18 Last Admin: 11/06/19 01:25 Dose: 4 mg Documented by: LACHO Reevaluation(s) Reevaluation #1: Hematoma size no change. No numbness or tingling to the foot or toes. Still has strong pedal pulse. Brisk cap refill. Light touch intact to foot and toes. Nontender ankle and knee. Time: 00:13 Reevaluation #2: Reexamination of hematoma. No skin blistering. Strong pedal pulse. Right foot warm soft and pink with light touch intact to foot and toes. No pain out of proportion to exam. Wiggles toes. No crossing midline of the hematoma. Remains lateral right leg. Does not extend to the knee or ankle. Patient blood pressure noted, patient asking for pain medication. Has had morphine in the past without any allergic reaction. Time: 01:59 Reevaluation #3: Spoke with Orthopedics Dr. Medina CT scan results. Instructed to try to aspirate the hematoma Time: 01:59 Consultations Consultation #1: Spoke with Orthopedics group, Dr. Bronson group, Catracho is on-call, she states patient can be admitted here as they do not have beds at [facility]. Time: 00:07 Consultation #2: Spoke with our Orthopedics on-call Dr. Medina, she states no indication for Marco test on the muscles at this time. There is no pain out of proportion to exam. Neurovascularly intact. Order CT of the leg with and without contrast. She will admit patient, hospitalist will not admit She requests CT scan of the leg with and without contrast. Time: 00:14 Consultation #3: Spoke with hospitalist, Kristal Henson, she prefers Dr. Medina to admit and she will follow as med consult Time: 00:24 Vital Signs Vital signs: Vital Signs - 8 hr 11/05/19 23:51 11/06/19 00:00 11/06/19 00:29 Pulse Rate 64 63 Respiratory Rate Blood Pressure 195/84 H Pulse Oximetry 97 95 98 11/06/19 00:30 Pulse Rate 62 Respiratory Rate 22 Blood Pressure 190/86 H Pulse Oximetry 98 MDM - Extremity Injury (Lower) Differential Diagnosis Differential diagnosis: Likely other (Contusion/compartment syndrome) Lab Data Result diagrams: 11/05/19 22:51 11/05/19 22:51 Labs: Lab Results 11/05/19 11/05/19 Range/Units 22:51 22:51 WBC 9.7 (4.5-11.0) X10^3/uL RBC 3.98 L (4.0-5.2) X10^6/uL Hgb 12.1 (12.0-16.0) g/dL Hct 35.9 L (36-46) % MCV 90.3 (80-100) fL MCH 30.5 (26-34) PG MCHC 33.7 (30-36) % RDW 15.9 H (11.6-14.8) % Plt Count 271 (150-400) X10^3/uL Neut % (Auto) 67.1 (50-75) % Lymph % (Auto) 21.7 L (25-40) % [place] % (Auto) 6.9 (3-14) % Eos % (Auto) 3.8 (2-4) % Baso % (Auto) 0.5 (0-2) % Neut # (Auto) 6500 (8312-3325) /uL Lymph # (Auto) 2100 (5637-6905) /uL [place] # (Auto) 700 (0-900) /uL Eos # (Auto) 400 (0-450) /uL Baso # (Auto) 100 (0-100) /uL Sodium 138 (137-145) mmol/L Potassium 4.2 (3.4-5.1) mmol/L Chloride 102 (98-107) mmol/L Carbon Dioxide 33 H (22-32) mmol/L BUN 20 H (7-17) mg/dL Creatinine 0.97 (0.52-1.04) mg/dL Estimated GFR 56.1 L (>60) mL/min BUN/Creatinine Ratio 20.6 (6-22) Glucose 137 H (80-110) mg/dL Calcium 9.4 (8.4-10.2) mg/dL Total Bilirubin 0.5 (0.2-1.3) mg/dL AST 29 (14-36) IU/L ALT 26 (<35) IU/L Alkaline Phosphatase 99 (38-126) U/L Total Creatine Kinase 40 (30-135) U/L Total Protein 6.9 (6.3-8.2) g/dL Albumin 4.1 (3.5-5.0) g/dL Globulin 2.8 (1.7-4.1) g/dL Albumin/Globulin Ratio 1.5 (1.0-2.8) Imaging Data Extremity x-ray #1: Radiologist's Impression: [address] [address] XRay Report Signed Patient: Ana Maria Cline [facility]#: [id number] : 5Acct:[id number] Age/Sex: 74 / FDate of Service: 11/05/19 Loc: ED Accession Number: [id number] Procedure: XR tibia fibula RT 2V Ordering Provider: Joselo Neri MD PROCEDURE: XR TIBIA FUBULA RT 2V INDICATIONS: Fall with pain and swelling to haddad TECHNIQUE: 2 views of the tibia and fibula were acquired. COMPARISON: None. FINDINGS: Bones: No fractures or dislocations. No suspicious bony lesions. A right total knee arthroplasty is in expected position. Trace knee joint effusion. Soft tissues: No suspicious soft tissue calcifications or masses. Soft tissue swelling over the proximal to haddad with increased density likely due to hematoma. Probable swelling at the lateral malleolus. IMPRESSION: No acute osseous abnormality. Dictated by: Misael Ward M.D. on 11/05/2019 at 22:23 Approved by: Misael Ward M.D. on 11/05/2019 at 22:25 CT of right lower extremity with and without contrast: Radiologist's Impression: Results faxed to the department large hematoma of the anterior lateral proximal to mid right lower leg, hematoma measures 13 cm x 8 cm x 3 cm MDM Narrative Medical decision making narrative: Patient and agree for admission for observation and understand for abundance of caution to observe for compartment syndrome. At this time no signs of compartment syndrome. No pain out of proportion to exam. No numbness tingling or weakness to the leg or foot. Is not cold to touch. No pallor. Discharge Plan Departure Patient Disposition: Admitted as Observation Clinical Impression: Hematoma of right lower leg Discharge Date/Time: 11/06/19 02:30 Referrals: Andrade Gaston MD [Primary Care Provider] - Admit Date/Time: 11/06/19 00:48 Admit Provider: Tami Irby
--- NOTE | 2019-11-05 22:47 | PC.NURSE ---
Patient difficult IV start. informed and recived verbal order to just get lab draw. Lab paged.
[2019-11-05 23:05] LABS: Add Manual Diff / Slide Review NO; Basophils Absolute Auto 100 /uL (0-100); Basophils Percent Auto 0.5 % (0-2); Eosinophils Absolute Auto 400 /uL (0-450); Eosinophils Percent Auto 3.8 % (2-4); Hematocrit 35.9 % (36-46); Hemoglobin 12.1 g/dL (12.0-16.0); Lymphocytes Absolute Auto 2100 /uL (1100-4500); Lymphocytes Percent Auto 21.7 % (25-40); Mean Corpuscular HGB Conc 33.7 % (30-36); Mean Corpuscular Hemoglobin 30.5 PG (26-34); Mean Corpuscular Volume 90.3 fL (80-100); Monocytes Absolute Auto 700 /uL (0-900); Monocytes Percent Auto 6.9 % (3-14); Neutrophils Absolute Auto 6500 /uL (1500-7000); Neutrophils Percent Auto 67.1 % (50-75); Platelet Count 271 X10^3/uL (150-400); Red Blood Cell Count 3.98 X10^6/uL (4.0-5.2); Red Cell Distribution Width 15.9 % (11.6-14.8); White Blood Cell Count 9.7 X10^3/uL (4.5-11.0)
[2019-11-05 23:14] LABS: Alanine Aminotransferase 26 IU/L (<35); Albumin 4.1 g/dL (3.5-5.0); Albumin Globulin Ratio 1.5 (1.0-2.8); Alkaline Phosphatase 99 U/L (38-126); Aspartate Aminotransferase 29 IU/L (14-36); BUN Creatinine Ratio 20.6 (6-22); Bilirubin Total 0.5 mg/dL (0.2-1.3); Blood Urea Nitrogen 20 mg/dL (7-17); Calcium 9.4 mg/dL (8.4-10.2); Carbon Dioxide 33 mmol/L (22-32); Chloride 102 mmol/L (98-107); Creatine Kinase 40 U/L (30-135); Estimated Glomerular Filt Rate 56.1 mL/min (>60); Globulin 2.8 g/dL (1.7-4.1); Glucose 137 mg/dL (80-110); HEMOLYSIS < 15 (0-50); Potassium 4.2 mmol/L (3.4-5.1); Sodium 138 mmol/L (137-145); Total Protein 6.9 g/dL (6.3-8.2)
[2019-11-05 23:51] VITALS: O2SAT 97
[2019-11-06] VITALS (29 sets, daily range): BP systolic 119–196; BP diastolic 47–113; PULSE 60–70; RESP 12–22; TEMP 35.6–36.7; O2SAT 90–100; BMI 29.2
--- NOTE | 2019-11-06 00:25 | DI.CT.S_ITS ---
PROCEDURE: CT LE RT WO/W CON INDICATIONS: Pain/swelling/injury TECHNIQUE: After the administration of intravenous contrast, 3 mm axial sections acquired of the right lower extremity, with coronal and sagittal reformats. COMPARISON: None. FINDINGS: Image quality: Bones: Status post knee arthroplasty. No fracture or focal osseous destruction Soft tissues: Circumferential soft tissue swelling and superficial fascial fluid. There is a large heterogeneous attenuation mass involving the anterior subcutaneous soft tissues measuring approximately 8 x 3 cm and 13.0 cm in cephalocaudad dimension. There is subtle punctate increased attenuation on postcontrast enhanced images image 57/7 possibly small focus of active bleeding although technically indeterminate No soft tissue gas. No foreign body identified. IMPRESSION: Large heterogeneous mass involving the anterolateral right calf subcutaneous soft tissues presumably hematoma. Punctate possible enhancement raising the possibility of small focus of active bleeding although technically indeterminate. Dictated by: Junaid Henson M.D. on 11/06/2019 at 8:07 Approved by: Junaid Henson M.D. on 11/06/2019 at 8:12
[2019-11-06] MEDS: MORPHINE 4 MG/ML INJ IV (01:25)
[2019-11-06] MEDS: ONDANSETRON 4 MG/2 ML INJ IV (01:25)
[2019-11-06] MEDS: SODIUM CHLORIDE 0.9% 250 ML 1000 ML IV (01:50)
[2019-11-06] MEDS: LIDOCAINE 1% (PF) 4 ML SUBCUT (02:09)
--- NOTE | 2019-11-06 04:13 | P.CONS_ITS ---
History of Present Illness Consult details Date Patient Seen: 11/06/19 Time Patient Seen: 03:00 Chief complaint: leg pain Reason for consult: Medical management Requesting provider: Tami Irby Narrative: Ana Maria Cline is a pleasant 74 year old female who was in her usual state of health when she was cleaning her bathroom, lost her balance and in the process of falling grabbed the assistance device over her toilet when during her fall and hit her on the back of her right lower calf and leg. The emergency department after consultation with orthopedic surgery had a concern of compartment syndrome and the patient is observed overnight for monitoring of the compartment syndrome. Per the patient she did not lose consciousness but did hit the back of her head on a handle of 1 of the bathroom cabinets. Orthopedic surgery has requested that the hospitalist service consult on the patient's overall medication management and non orthopedic issues. The patient has significant cardiac history includes placement of a pacemaker in 2016 followed by a CVA that affected her left side. Her other chronic health conditions include hypertension, hyperlipidemia, anxiety, asthma, and insomnia. The ED did attempt to drain what now appears to be a large hematoma on her leg and apparently did not express any material out of it. However when the patient reached the floor it did start to drain. CT of the leg reported large hematoma of the anterior lateral proximal to mid right lower leg, hematoma measures 13 cm x 8 cm x 3 cm. Labs drawn on 11/05/2019 included WBC of 9.7, RBC 3.98, hemoglobin 12.1, hematocrit 35.9%, platelet count of 271, sodium 138, potassium 4.2, chloride 102, CO2 33, BUN 20, creatinine 0.97, GFR 56.1, glucose 137, calcium 9.4, and normal liver enzymes. Meds Home Medications and Allergies Home Medications Medication Instructions Recorded Confirmed Type Fluticasone Propionate/Salme 1 dose IH PRN PRN #0 01/06/10 11/06/19 History (Advair Diskus 250/50) duloxetine [Cymbalta] 60 mg DAILY #0 03/02/12 04/21/18 History potassium chloride 10 meq PO Q DAY #30 cap 08/04/16 04/21/18 Rx Hair, Skin, Nails with Biotin 1 tab PO DAILY 04/21/18 04/21/18 History cholecalciferol (vitamin D3) 2,000 unit PO DAILY 04/21/18 04/21/18 History [Vitamin D3] cod liver oil 1 cap PO DAILY 04/21/18 04/21/18 History coenzyme Q10 [Co Q-10] 100 mg PO DAILY 04/21/18 04/21/18 History magnesium 60 mg PO DAILY 04/21/18 04/21/18 History metoprolol succinate 50 mg PO DAILY 04/21/18 04/21/18 History atorvastatin [Lipitor] 20 mg PO BEDTIME #30 tab 04/24/18 Rx niacin 500 mg PO DAILY #30 tab 04/24/18 Rx omega-3 fatty acids-fish oil [Fish 1,000 mg PO DAILY #30 cap 04/24/18 Rx Oil] aspirin 81 mg PO DAILY 11/06/19 11/06/19 History Allergies Allergy/AdvReac Type Severity Reaction Status Date / Time latex [LATEX] Allergy Mild RASH Verified 09/19/19 18:19 naproxen [From ALEVE] Allergy Mild SWELLING Verified 09/19/19 18:19 FEET, HANDS codeine Allergy Unknown GI UPSET Verified 09/19/19 18:19 lisinopril Allergy Unknown FACIAL Verified 09/19/19 18:19 SWELLING venlafaxine Allergy Unknown ELEVATED Verified 09/19/19 18:19 BLOOD PRESSURE bupropion AdvReac Unknown SEIZURE Verified 09/19/19 18:19 Review of Systems Review of Systems ROS: Yes All systems reviewed with the patient and are negative except as otherwise documented Exam Vital Signs (past 8 hours): - 11/05/19 21:00 11/05/19 21:32 11/05/19 22:00 Temperature 97.9 F Pulse Rate 65 65 64 Respiratory Rate 15 Blood Pressure 137/60 Pulse Oximetry 95 96 93 11/05/19 22:30 11/05/19 23:51 11/06/19 00:00 Temperature Pulse Rate 64 64 Respiratory Rate Blood Pressure Pulse Oximetry 96 97 95 11/06/19 00:29 11/06/19 00:30 11/06/19 01:02 Temperature Pulse Rate 63 62 70 Respiratory Rate 22 Blood Pressure 195/84 H 190/86 H Pulse Oximetry 98 98 90 L 11/06/19 01:05 11/06/19 01:30 11/06/19 01:31 Temperature Pulse Rate 66 66 70 Respiratory Rate 20 Blood Pressure 196/82 H 184/113 H Pulse Oximetry 98 97 96 11/06/19 01:33 11/06/19 01:45 11/06/19 01:48 Temperature Pulse Rate 68 63 63 Respiratory Rate 16 Blood Pressure 173/75 H 171/70 H Pulse Oximetry 94 97 96 11/06/19 02:06 11/06/19 02:30 Temperature 96.8 F L Pulse Rate 64 63 Respiratory Rate 18 Blood Pressure 173/72 H 157/84 H Pulse Oximetry 95 96 Oxygen Delivery Method Nasal Cannula Oxygen Flow Rate 1 Narrative Exam Narrative: Vitals: Temp 98.6?, blood pressure 157/84, heart rate 63, respiratory rate 18, oxygen saturation 96% on 1 L O2, weight 72.7 kilos, BMI of 29.2 Gen: Alert, oriented, mildly overweight 74 y.o. female, mildly lethargic HEENT: normocephalic, atraumatic, conjunctiva clear, sclera non-icteric, oral mucosa pink and moist Neck: supple, full ROM, no JVD, trachea is midline Resp: Lungs CTA, non-labored breathing CV: RRR, no murmur or rubs Abd: soft, non-tender, normoactive BTs Skin: no lesions or rashes, dry and intact Neuro: Alert and oriented X 4 w/no focal deficits. Speech clear and coherent. Extremities: Right leg has a rather large hardened hematoma, indurated haddad as indicated in the CT above and is now draining blood from the puncture site, moves all 4 extremities, is ambulatory, negative Jong?s sign Psyche: normal mood and affect. Objective Labs Result Diagrams: 11/05/19 22:51 11/05/19 22:51 Labs: Laboratory Results - last 24 hr 11/05/19 11/05/19 22:51 22:51 WBC 9.7 RBC 3.98 L Hgb 12.1 Hct 35.9 L MCV 90.3 MCH 30.5 MCHC 33.7 RDW 15.9 H Plt Count 271 Neut % (Auto) 67.1 Lymph % (Auto) 21.7 L [place] % (Auto) 6.9 Eos % (Auto) 3.8 Baso % (Auto) 0.5 Neut # (Auto) 6500 Lymph # (Auto) 2100 [place] # (Auto) 700 Eos # (Auto) 400 Baso # (Auto) 100 Sodium 138 Potassium 4.2 Chloride 102 Carbon Dioxide 33 H BUN 20 H Creatinine 0.97 Estimated GFR 56.1 L BUN/Creatinine Ratio 20.6 Glucose 137 H Calcium 9.4 Total Bilirubin 0.5 AST 29 ALT 26 Alkaline Phosphatase 99 Total Creatine Kinase 40 Total Protein 6.9 Albumin 4.1 Globulin 2.8 Albumin/Globulin Ratio 1.5 Assessment & Plan Assessment & Plan narrative: Ana Maria Cline will be obveserved overnight to monitor the progress of the hematoma on her right leg. Hospital Medicine has updated and ordered her home medications and will follow. Large hematoma of anterior lateral right calf acute, present on admission -to be managed by Orthopedic surgery Essential hypertension, active and chronic -continue home dose of losartan 50 mg p.o. daily and metoprolol succinate 50 mg p.o. at bedtime Hyperlipidemia, active and chronic -continue home dose of atorvastatin 20 mg p.o. p.m. Anxiety, active and chronic, well controlled -continue home dose of duloxetine 60 mg p.o. daily Insomnia, active and chronic -continue home dose of melatonin 3 mg p.o. at bedtime FEN: IV saline lock, low-sodium diet, BMP in the am. VTE prophylaxis: Left-sided SCD Dispo: Likely discharge in a day or 2 Code Status: Full code as discussed with patient Thank you for the opportunity to provide hospital medicine consult for this del ightful patient.
--- NOTE | 2019-11-06 08:00 | P.HP_ITS ---
History of Present Illness History of Present Illness Date Patient Seen: 11/06/19 Time Patient Seen: 08:00 Date of Onset of Symptoms: 11/05/19 Chief complaint: leg pain Narrative: Ana Maria is a 74-year-old female with a history of a stroke and left- sided weakness. The history of a right total knee replacement with Dr. Bronson over at [facility]. She has balance issues at baseline due to her left-sided weakness. She was cleaning her toilet yesterday when she lost her balance and the mode railing fell over and hit her right lateral leg. She states she had a bump are right after that but did not start getting really painful until about 6:00 p.m. she was able to walk and move her ankle. She presented to the emergency department was found to have a large lateral right leg hematoma. She had no blistering. No fever no chills no signs of infection. No numbness or tingling. No evidence of compartment syndrome. Leg was soft above and below the focal mid lateral leg hematoma. CT was obtained again demonstrating the hematoma. No fractures were found. An attempted aspiration was done in the ER with little returned there has been some bruising on the floor. She was admitted for observation possible hematoma evacuation. She is on aspirin but no anticoagulation. Patient History Medical History Cardiomyopathy (Acute) Cerebrovascular accident (Acute) Congestive heart failure (Acute) Dizziness (Acute) Hearing loss (Acute) Hypertension (Acute) Physical deconditioning (Acute) Surgical History History of permanent cardiac pacemaker placement (Acute) Family & Social History Family History Father Heart disease Brother Heart disease Mother Old age Social History: household members spouse Prior Living Arrangements Apartment/Condo Safety & Behavioral: Feels Safe in Current Yes Environment Tobacco & Substance use: Smoking Status Former smoker alcohol intake never alcohol intake frequency 0-2 drinks per day Substance Use Type does not use Meds Home Medications and Allergies Home Medications Medication Instructions Recorded Confirmed Type Fluticasone Propionate/Salme 1 dose IH PRN PRN #0 01/06/10 11/06/19 History (Advair Diskus 250/50) duloxetine [Cymbalta] 60 mg DAILY #0 03/02/12 11/06/19 History potassium chloride 10 meq PO Q DAY #30 cap 08/04/16 11/06/19 Rx Hair, Skin, Nails with Biotin 1 tab PO DAILY 04/21/18 11/06/19 History cholecalciferol (vitamin D3) 2,000 unit PO DAILY 04/21/18 11/06/19 History [Vitamin D3] cod liver oil 1 cap PO DAILY 04/21/18 11/06/19 History coenzyme Q10 [Co Q-10] 100 mg PO DAILY 04/21/18 11/06/19 History magnesium 60 mg PO DAILY 04/21/18 11/06/19 History metoprolol succinate 50 mg PO DAILY 04/21/18 11/06/19 History atorvastatin [Lipitor] 20 mg PO BEDTIME #30 tab 04/24/18 11/06/19 Rx niacin 500 mg PO DAILY #30 tab 04/24/18 11/06/19 Rx omega-3 fatty acids-fish oil [Fish 1,000 mg PO DAILY #30 cap 04/24/18 11/06/19 Rx Oil] aspirin 81 mg PO DAILY 11/06/19 11/06/19 History Allergies Allergy/AdvReac Type Severity Reaction Status Date / Time latex [LATEX] Allergy Mild RASH Verified 09/19/19 18:19 naproxen [From ALEVE] Allergy Mild SWELLING Verified 09/19/19 18:19 FEET, HANDS codeine Allergy Unknown GI UPSET Verified 09/19/19 18:19 lisinopril Allergy Unknown FACIAL Verified 09/19/19 18:19 SWELLING venlafaxine Allergy Unknown ELEVATED Verified 09/19/19 18:19 BLOOD PRESSURE bupropion AdvReac Unknown SEIZURE Verified 09/19/19 18:19 Review of Systems Review of Systems Narrative: Endorses chronic left-sided weakness due to stroke. Endorses right at calf pain. Denies numbness or tingling denies nausea vomiting. ROS: Yes All systems reviewed with the patient and are negative except as otherwise documented Exam Vital Signs (past 8 hours): - 11/06/19 00:29 11/06/19 00:30 11/06/19 01:02 Temperature Pulse Rate 63 62 70 Respiratory Rate 22 Blood Pressure 195/84 H 190/86 H Pulse Oximetry 98 98 90 L 11/06/19 01:05 11/06/19 01:30 11/06/19 01:31 Temperature Pulse Rate 66 66 70 Respiratory Rate 20 Blood Pressure 196/82 H 184/113 H Pulse Oximetry 98 97 96 11/06/19 01:33 11/06/19 01:45 11/06/19 01:48 Temperature Pulse Rate 68 63 63 Respiratory Rate 16 Blood Pressure 173/75 H 171/70 H Pulse Oximetry 94 97 96 11/06/19 02:06 11/06/19 02:30 Temperature 96.8 F L Pulse Rate 64 63 Respiratory Rate 18 Blood Pressure 173/72 H 157/84 H Pulse Oximetry 95 96 Oxygen Delivery Method Nasal Cannula Oxygen Flow Rate 1 Narrative Exam Narrative: General exam is alert oriented female lying in bed. No acute distress HEENT exam normocephalic atraumatic Respiratory exam lungs clear to auscultation bilaterally CV exam regular rate and rhythm-history pacemaker Abdomen soft Musculoskeletal examination. Left lower extremity is benign full range of m otion compartments soft. Demonstrates 5/5 dorsiflexion plantar flexion. Brisk capillary refill Right lower extremity shows a focal swelling at the mid anterior compartment compartment is soft above this area and below soft around the ankle. There is no redness. A pinhole where the drainage with attempted and a small amount of sanguinous drainage on a bandage. Patient demonstrates 5/5 dorsiflexion plantar flexion. Sensation is intact sural saphenous superficial and deep peroneal nerves. No pain out of proportion with examination. No pain on passive stretch. No signs of compartment syndrome. Calf is soft. There is a well- healed right total knee incision. Thigh is soft. Objective Imaging ct RLE: My impression: Large mass an area of anterior compartment right calf consistent with hematoma. Approximately 12 x 3 cm Radiologist's impression: IMPRESSION: Large heterogeneous mass involving the anterolateral right calf subcutaneous soft tissues presumably hematoma. Punctate possible enhancement raising the possibility of small focus of active bleeding although technically indeterminate. Dictated by: Junaid Henson M.D. on 11/06/2019 at 8:07 Approved by: Junaid Henson M.D. on 11/06/2019 at 8:12 Labs Result Diagrams: 11/05/19 22:51 11/05/19 22:51 Labs: Laboratory Results - last 24 hr 11/05/19 11/05/19 22:51 22:51 WBC 9.7 RBC 3.98 L Hgb 12.1 Hct 35.9 L MCV 90.3 MCH 30.5 MCHC 33.7 RDW 15.9 H Plt Count 271 Neut % (Auto) 67.1 Lymph % (Auto) 21.7 L [place] % (Auto) 6.9 Eos % (Auto) 3.8 Baso % (Auto) 0.5 Neut # (Auto) 6500 Lymph # (Auto) 2100 [place] # (Auto) 700 Eos # (Auto) 400 Baso # (Auto) 100 Sodium 138 Potassium 4.2 Chloride 102 Carbon Dioxide 33 H BUN 20 H Creatinine 0.97 Estimated GFR 56.1 L BUN/Creatinine Ratio 20.6 Glucose 137 H Calcium 9.4 Total Bilirubin 0.5 AST 29 ALT 26 Alkaline Phosphatase 99 Total Creatine Kinase 40 Total Protein 6.9 Albumin 4.1 Globulin 2.8 Albumin/Globulin Ratio 1.5 Assessment & Plan Assessment and plan (1) Hematoma of right lower leg: Problem details: Hematoma right lower leg has a large hematoma. And painful. No signs of compartment syndrome with the large hematoma concern for eventual the infection or and requirement of drainage. Discussed hematoma evacuation of this morning to expedite recovery cauterize any bleeders prevent late sequelae. Discussed risks benefits and alternatives. Discussed risks of surgery include infection. Need for additional procedures. Discussed with placed a drain that remain in place 24-48 hours or until output is less than 30 cc per shift. Patient understands and agrees with the plan. She would like to proceed with the hematoma evacuation. Surgery consent was signed. Patient will be getting a Covid test prior to surgery. She has no symptoms. Status: Acute COVID-19 COVID-19 status: Result pending Time Spent With Patient Time with patient: less than 15 minutes Quality VTE Deep Vein Thrombosis/Pulmonary Embolism Present on Admission: No
[2019-11-06] MEDS: MORPHINE 2 MG/ML INJ 1 MG IV (08:22)
[2019-11-06 08:41] LABS: BUN Creatinine Ratio 23.3 (6-22); Blood Urea Nitrogen 21 mg/dL (7-17); Carbon Dioxide 31 mmol/L (22-32); Chloride 103 mmol/L (98-107); Estimated Glomerular Filt Rate > 60.0 mL/min (>60); Glucose 110 mg/dL (80-110); HEMOLYSIS < 15 (0-50); Potassium 4.3 mmol/L (3.4-5.1); Sodium 139 mmol/L (137-145)
[2019-11-06 09:17] LABS: COVID19 -Nasal RAPID Negative (Negative)
[2019-11-06 09:45] LABS: Add Manual Diff / Slide Review NO; Basophils Absolute Auto 100 /uL (0-100); Basophils Percent Auto 0.6 % (0-2); Eosinophils Absolute Auto 300 /uL (0-450); Eosinophils Percent Auto 3.2 % (2-4); Hematocrit 31.1 % (36-46); Hemoglobin 10.4 g/dL (12.0-16.0); Lymphocytes Absolute Auto 2800 /uL (1100-4500); Lymphocytes Percent Auto 29.6 % (25-40); Mean Corpuscular HGB Conc 33.6 % (30-36); Mean Corpuscular Hemoglobin 30.5 PG (26-34); Mean Corpuscular Volume 90.6 fL (80-100); Monocytes Absolute Auto 900 /uL (0-900); Monocytes Percent Auto 9.2 % (3-14); Neutrophils Absolute Auto 5500 /uL (1500-7000); Neutrophils Percent Auto 57.4 % (50-75); Platelet Count 245 X10^3/uL (150-400); Red Blood Cell Count 3.43 X10^6/uL (4.0-5.2); Red Cell Distribution Width 15.9 % (11.6-14.8); White Blood Cell Count 9.5 X10^3/uL (4.5-11.0)
[2019-11-06] MEDS: LACTATED RINGERS 1,000 ML 42 ML IV (10:04)
--- NOTE | 2019-11-06 10:17 | PM.PREOP ---
Pre-operative Note COVID-19 COVID-19 status: Negative Result date/Date tested (Pos, Neg/Pending): 11/06/19 Interval Note History & Physical reviewed/Exam performed by Physician: Yes Changes to H&P: No
[2019-11-06] MEDS: CEFAZOLIN 2 GM/100 ML FROZ.PIGGY IV ×2 (10:30→17:47)
--- NOTE | 2019-11-06 10:54 | SUR.OPER ---
Supine on padded OR bed, head on gel donut, bump under right hip, right leg under control of surgeon, arms secured on padded arm boards at <90 degrees abduction, legs uncrossed, safety belt at thigh, tape over blanket over left lower leg.
[2019-11-06] MEDS: BUPIVACAINE 0.25% W/ EPI 30 ML VIAL INJ (11:01)
--- NOTE | 2019-11-06 11:26 | P.OP_ITS ---
Operative Date/Time/Diagnoses Date of procedure: 11/06/19 Time of procedure: 11:00 Pre-op diagnosis: Hematoma right lower leg [id number] Post-op diagnosis: same Procedure & Clinicians Procedure: Evacuation hematoma right lower leg cpt 04193 Fasciotomy lower leg, right CPT code 51229 Same procedure as scheduled: Yes Indications: The patient is a 74-year-old female with a history of a traumatic injury to her right lower extremity. She had part of a commode stand fall over and hit her right lateral lower leg. She developed a hematoma in the area that was large and painful. She came to the ER. She did not have any evidence of compartment syndrome but did have a large 12 x 3 cm hematoma. She was not on anticoagulation other than aspirin. Due to the large size of the hematoma she was indicated for hematoma evacuation. The risks and benefits of the procedure have been discussed with the patient even opportunity to ask questions. The risks of surgery include but are not limited to infection, persistence of pain, damage to nerves and blood vessels, DVT, PE, cardiopulmonary complications and . The patient expressed a thorough understanding of the risks and benefits of surgery and has elected to proceed. Consent was signed. Surgeon: Tami Irby Click Yes if Unassisted: Yes Anesthesia Type: General and Local (30 cc 0.25% Marcaine with epinephrine for local anesthetic) Operative Notes Findings: Large supra fascial hematoma overlying the anterior and lateral compartments of the right lower leg. There was no apparent fascial breach. No active bleeding demonstrated. Several 100 cc well-formed hematoma was evacuated. Then prophylactic anterior and lateral fasciotomies were made. The muscle did not bulge and reacted appropriately to Bovie cautery. No evidence of muscle necrosis. A medium Hemovac drain was placed. Closure Type: primary Specimen(s): none sent Applied: drain(s) (Medium Hemovac drain x1) Estimated Blood Loss (mL): 100 Blood products transfused: none Tourniquet time (min): 0 Procedure in detail: Patient was seen in the preoperative area the site of surgery marked informed consent confirmed. The patient was brought back to the operating room and placed supine on operative table. General anesthetic was administered. The right lower extremity was prepped and draped in the standard sterile fashion. Bony problems well-padded. Well-padded thigh tourniquet was placed but not elevated. An SCD was placed on the contralateral lower extremity. A formal time-out was completed confirming the patient's side and site of surgery presence of informed consent administration of appropriate preoperative antibiotics. All were in agreement. Attention was turned to the right lower extremity there was a large mid calf hematoma overlying the anterolateral compartments of the leg. Compartments were soft both proximal and distal to the area of the well-defined hematoma. Incision was marked out approximately 1 cm anterior to the fibula along the st andard lateral fasciotomy line. This taken down through the skin and subcutaneous tissues immediately encountering well-formed hematoma clot. This was evacuated and noted to be superficial to the fascia. There were no fascial rents found. Hematoma was evacuated from the subcutaneous tissues overlying the anterior and lateral compartments. This appeared to be 1-200 cc. There was no apparent active significant bleeding. This hematoma was evacuated pulsatile lavage was used for 1.5 L in the wound. Following this the wound was then again expected. Prophylactic anterior and lateral fasciotomies were made with care to avoid the neurovascular structures. There was no evidence of bulging of the anterior or posterior musculature with fasciotomy. The muscle was pink and reactive to Bovie cautery. No evidence of compromise. At this point the remaining 1.5 L of Pulsavac were used to irrigate the wound. The Pulsavac was removed. 1 minutes of pressure using a lap was provided hemostasis was achieved. A medium Hemovac drain was placed and the subcutaneous tissues and skin were closed with 2 O Vicryl and 2 O nylon suture. Dressing was placed with Xeroform gauze Webril and Navi wrap. Surgery was terminated. Drapes removed the patient was taken into the recovery room in good condition. All counts were correct. There is no immediate complications with this procedure. Complications: none Post-operative Condition: stable Disposition: PACU Plan for aftercare: Weightbear as tolerated right lower extremity. Drain will be kept in place 24-48 hours. Once less than 30 cc per shift will be removed. Will get 2 doses of Ancef postop for infection prophylaxis. Follow-up in 2 weeks for suture removal
--- NOTE | 2019-11-06 11:42 | SUR.PHASEI ---
Assumed care of pt from Marli ALEXANDER.
--- NOTE | 2019-11-06 12:09 | PC.NURSE ---
Addendum entered by Eli Gibson R.N. 11/06/19 14:20: Patient back from surgery around 1245. She is awake and comfortable. Has 2l of 02 as she desated after given fentanyl in or. She is on 2l and sats are 94%. Did not void before surgery and unsure of urine output down in recovery as that RN went home. is aware and states to watch patients output. CORNICE UPHOLSTERER is doing a bladder scan at this time. Patient has a dressing with jb wrap on her leg and a hemovac that is putting out minimal bloody drainage. Plan is for patient to go home tomorrow after having hemovac drain taken out. Patient bladder scanned for 170cc, she is non tender and non distended, and resting comfortably. Original Note: Assess- Patient down to surgery around 1000. She will have the hematoma to her r.lateral aspect of her haddad evacuated as Dr. Irby had written on her consent form. Area before surgery was wrapped with telfa and kurlex, which was leaking a sero-sang colored fluid. Patient complained of her pain being an 8/10. Given 1mg of iv morphine with good pain control! Awaiting call from pacu for report.
[2019-11-06] MEDS: ASPIRIN EC 81 MG TABLET PO (14:33)
--- NOTE | 2019-11-06 15:03 | PT.IIE ---
Current Diagnoses Contusion of right lower leg, initial encounter (11/06/19) Surgery Performed Operation Date: 11/06/19 10:45 Actual Procedures p leg hematoma evacuation(Right) - Tami Irby MD Surgical History (Last Reviewed 11/06/19 @ 08:02 by Tami Irby MD) History of permanent cardiac pacemaker placement (Acute) Medical History (Last Reviewed 11/06/19 @ 08:02 by Tami Irby MD) Cardiomyopathy (Acute) Cerebrovascular accident (Acute) Congestive heart failure (Acute) Dizziness (Acute) Hearing loss (Acute) Hypertension (Acute) Physical deconditioning (Acute) Physical Therapy Inpatient Evaluation/Re-Eval M1 PT/OT-IP Prior Functional Status Start: 11/06/19 16:28 Freq: NEEDED Status: Active Protocol: Document 11/06/19 15:03 AB (Rec: 11/06/19 16:41 AB [id number]) Medical Review Prior Functional Status Medical History Reviewed Yes Communication able to make needs known Mobility and Gait pt stated that her spouse assists her at time with sit to stand but able to ambulate without AD indoors but holds on to things at home; uses a FWW for outdoor mobility stated that she has been going to outpt PT for her balance Social History Household Members spouse Living Arrangements Apartment/Condo Number of Floors (Floors) Two Floors Number of Stairs To Enter/Railing? pt lives in a split level house: has 3 steps to enter with bilateral wide rails and can only hold on to 1 rail at a time: pt stated that she usually use the L rail and spouse on R to assist her. pt also stated that she has a high bed and has 2 steps with bilateral rails to climb up to get into the bed. pt has a chair lift to get to one level of the house to the other. Home Environment Standard Height Toilet,Walk in Shower Home Equipment Front Wheel Walker,Bedside Commode,Shower Seat with Backrest,Hand Held Shower,Grab Bars In Shower M2 PT-IP Current Condition Start: 11/06/19 16:28 Freq: NEEDED Status: Active Protocol: Document 11/06/19 15:03 AB (Rec: 11/06/19 16:41 AB [email or web address]) Physical Therapy Current Condition Current Condition Evaluation Date 11/06/19 Treatment Diagnosis RLE hematoma s/p evacuation; difficulty in walking Onset Date 11/06/19 Weight Bearing Status Weight Bearing Status Weight Bear as Tolerated Allowed Weight Bearing Amount (enter % RLE WBAT or #) (%) M3 PT-IP Subjective Start: 11/06/19 16:28 Freq: NEEDED Status: Active Protocol: Document 11/06/19 15:03 AB (Rec: 11/06/19 16:41 AB [email or web address]) Subjective Physical Therapy Visit Type Type Initial Evaluation Visit Start Time 15:03 Visit Stop Time 15:50 Total Visit Minutes 47 Number of GROUND WATER PUMP INSTALLER Visits 0 Physical Therapy Visit Comments Patient Comments pt agreeable to do PT Therapy Pain Assessment Pain When Pain Assessed At Rest Pain Present Pain Present Pain Reported Location right haddad Intensity 2 Scale Used Numeric (0 - 10) Pain Management Techniques Re-positioning,Timing of Activity with Medications M4 PT-IP Mobility and Gait Start: 11/06/19 16:28 Freq: NEEDED Status: Active Protocol: Document 11/06/19 15:03 AB (Rec: 11/06/19 16:41 AB [email or web address]) PT-Bed Mobility Assessment Supine to Sit Supine to Sit Maximum Assistance,1 Person Assistance,Bedrails Sit to Supine Sit to Supine Maximum Assistance,1 Person Assistance,Bedrails PT-Transfer Assessment Sit to and From Stand Sit to and from Stand Moderate Assistance,1 Person Assistance,Use of Upper Extremities Equipment Transfer Assistive Device Gait Belt,Front Wheeled Walker Orthotic/Prosthetic Devices or Brace: No Transfers Transfer Destination Toilet Transfer Technique ambulated using FWW Transfer Ability Level of Assist Moderate Assistance,1 Person Assistance,Use of Upper Extremities Comments Mobility Comments completed supine to sit max A and max cues. pt was able to sit on EOB SBA. BP: 160/45. pt completed sit to stand mod A and cues and ambulated to the toilet mod A and cues. completed sit to stand from the toilet mod A. pt requested to go back to bed and ambulated back to the bed using FWW mod A and cues. pt completed sit to supine max A and max cues. positioned pt on the bed. call light and table placed within reach. Gait Assessment Gait Gait Assistance Required: Moderate Assistance Distance (Feet) 10 Able to Maintain Weight Bearing Status Yes During Gait Assistive Devices Assistive Device Gait Belt,Front Wheeled Walker Orthotic/Prosthetic Devices or Brace: No Gait Deviations General Gait Pattern Antalgic,Decreased Stride Length,Decreased Feet Clearance Factors Limiting Gait Function Factors Limiting Gait Function Decreased Activity Tolerance, Decreased Sensation,Decreased Strength,Limited Range of Motion,Pain,Poor Balance,Poor Safety Awareness PT-Balance Assessment Sitting Balance and Reactions Static Sitting Balance Ability Good Dynamic Sitting Balance Ability Good Standing Balance and Reactions Static Standing Balance Ability Fair Dynamic Standing Balance Ability Fair Device Used FWW M5 PT-IP Objective Assessments Start: 11/06/19 16:28 Freq: NEEDED Status: Active Protocol: Document 11/06/19 15:03 AB (Rec: 11/06/19 16:41 AB [email or web address]) Orientation Orientation/Cognition Level of Alertness Alert Orientation Name,Date,Place,Situation Language Function Ability No Deficits Noted Safety Awareness Understands Safety Issues Memory Description No Deficits Noted Gross Range of Motion Lower Extremity ROM Assessment Within Functional Limits Strength Lower Extremity Strength Assessment Left Impaired Hip 3+/5 Knee 3+/5 Coordination Assessment Gross Coordination Gross Coordination WNL Muscle Tone Muscle Tone WNL Yes M6 PT-IP Treatment Start: 11/06/19 16:28 Freq: NEEDED Status: Active Protocol: Document 11/06/19 15:03 AB (Rec: 11/06/19 16:41 AB [email or web address]) Physical Therapy Treatment Education Education Provided Weight Bearing Status,Safety M7 PT-IP Assessment and Plan Start: 11/06/19 16:28 Freq: NEEDED Status: Active Protocol: Document 11/06/19 15:03 AB (Rec: 11/06/19 16:41 AB [email or web address]) PT Summary Assessment and Plan Potential Rehabilitation Potential Good Status of Condition at Evaluation Stable Summary Impairments Pain,ROM,Strength,Balance, Coordination,Sensation,Bed Mobility,Transfers,Gait, Activity Tolerance Assessment Summary pt requiring mod to max A with mobility but will likely progress during hospital stay. prior to admission, spouse has been assisting pt some at home. will conduct caregiver training if needed. will have to complete stair climbing training as well prior to d/c home. will continue to assess progress. Goals Bed Mobility Goal Standby Assistance Transfer Goal Standby Assistance,Front Wheeled Walker Gait Goal Standby Assistance,Front Wheel Walker Gait Distance 100 Other Goals up/down 3 steps L rail + SAFETY INSTRUCTOR min 2 steps B rail SBA Days to Meet Goals 5 Frequency of Treatment Frequency Of Treatment Twice a Day Treatment Plan Physical Therapy Treatment Plan Bed Mobility Training,Transfer Training,Gait Training, Therapeutic Exercise,Balance Retraining,Post Op Education, Discharge Planning,Hot or Cold Pack,Neuromuscular Re-ed, Coordination Retraining,Manual Therapy Recommendations To Nursing Amount of Assist Needed 1 Person Assist Discharge Recommendations PT Discharge Recommendations Home with Assistance,Home Health,Outpatient PT Transportation Needs at Discharge Private Vehicle
[2019-11-06] MEDS: SODIUM CHLORIDE 0.9% 1,000 ML 100 ML IV (15:55)
[2019-11-06] MEDS: SODIUM CHLORIDE 0.9% FLUSH 10 ML IV (17:10)
[2019-11-06] MEDS: ATORVASTATIN 20 MG TABLET PO (20:51)
[2019-11-06] MEDS: TRAMADOL 50 MG TABLET PO (20:51)
[2019-11-06] MEDS: METOPROLOL ER 50 MG TABLET PO (20:51)
[2019-11-06] MEDS: DOCUSATE 100 MG CAPSULE PO (20:51)
[2019-11-06] MEDS: MELATONIN 3 MG TABLET PO (20:51)
[2019-11-06] MEDS: HYDROMORPHONE 0.5 MG INJ IV (23:56)
[2019-11-07] VITALS (8 sets, daily range): BP systolic 131–163; BP diastolic 53–93; PULSE 60–84; RESP 15–18; TEMP 36.1–36.7; O2SAT 90–97
[2019-11-07] MEDS: CEFAZOLIN 2 GM/100 ML FROZ.PIGGY IV (02:12)
[2019-11-07 06:24] LABS: Hematocrit 27.8 % (36-46); Hemoglobin 9.2 g/dL (12.0-16.0); Mean Corpuscular HGB Conc 33.3 % (30-36); Mean Corpuscular Hemoglobin 30.2 PG (26-34); Mean Corpuscular Volume 90.8 fL (80-100); Platelet Count 231 X10^3/uL (150-400); Red Blood Cell Count 3.06 X10^6/uL (4.0-5.2); White Blood Cell Count 10.7 X10^3/uL (4.5-11.0)
--- NOTE | 2019-11-07 07:06 | P.DS_ITS ---
History of Present Illness History of Present Illness Chief complaint: leg pain Narrative: Ana Maria is a 74-year-old female with a history of a stroke and left- sided weakness. The history of a right total knee replacement with Dr. Bronson over at [facility]. She has balance issues at baseline due to her left-sided weakness. She was cleaning her toilet yesterday when she lost her balance and the mode railing fell over and hit her right lateral leg. She states she had a bump are right after that but did not start getting really painful until about 6:00 p.m. she was able to walk and move her ankle. She presented to the emergency department was found to have a large lateral right leg hematoma. She had no blistering. No fever no chills no signs of infection. No numbness or tingling. No evidence of compartment syndrome. Leg was soft above and below the focal mid lateral leg hematoma. CT was obtained again demonstrating the hematoma. No fractures were found. An attempted aspiration was done in the ER with little returned there has been some bruising on the floor. She was admitted for observation possible hematoma evacuation. She is on aspirin but no anticoagulation. Discharge Providers Provider Date of admission: 11/06/19 00:48 Discharge Date: 11/07/19 Primary care physician: Andrade Gaston MD Consults: 11/06/19 12:43 Consult to Discharge Planning Routine Comment: Consult to Physical Therapy Evaluate & Treat Comment: Weightbear as tolerated Physician Instructions: Evaluate and Treat Consult to Respiratory Therapy Evaluate & Treat Comment: Physician Instructions: Evaluate and treat Discharge provider: Tami Irby MD Summary Hospital Course Discharge Diagnosis: Right leg hematoma Hospital Course: Patient was admitted for observation. She had a focal hematoma superficial to her anterior and lateral compartments. This was large measuring approximately 13 x 3 due to the size of the hematoma patient was felt to benefit from formal drainage. She has taken the OR for hematoma evacuation a drain was placed. She was returned to the floor. Tolerated oral medications and a p.o. diet. She worked with physical therapy prior to discharge. On postop day 1 drain output was negligible and this was removed. Dressing was changed. Status at Discharge Cognitive/behavioral status at discharge: oriented Functional status at discharge: uses cane/walker Overall status at discharge: patient is progressing back to baseline Time Spent with Patient Time spent: Less than 30 minutes Exam Vital Signs (past 8 hours): - 11/07/19 00:00 11/07/19 04:00 Temperature 97.5 F L 97.1 F L Pulse Rate 80 84 Respiratory Rate 16 16 Blood Pressure 140/93 H 155/58 H Pulse Oximetry 92 92 Oxygen Delivery Method Room Air Oxygen Flow Rate 2 Narrative Exam Narrative: Alert oriented female no acute distress was placed on 2 L oxygen overnight. Patient uses a CPAP at home. Saturations fine when patient awake. HEENT exam normocephalic atraumatic Respiratory exam unlabored on room air CV exam regular rate and rhythm Skin skeletal exam right lower extremity dressing is changed and drain is remove d. Small amount of drainage from the drain hole. Incision intact. No erythema. Mild ecchymosis. Calf and lower extremity compartments are soft. Demonstrates active 5/5 dorsiflexion plantar flexion. Brisk capillary refill. Palpable dorsalis pedis pulse Objective Labs Result Diagrams: 11/07/19 06:00 11/06/19 07:24 Labs: Laboratory Results - last 24 hr 11/06/19 11/06/19 11/06/19 07:24 07:24 08:00 WBC 9.5 RBC 3.43 L Hgb 10.4 L Hct 31.1 L MCV 90.6 MCH 30.5 MCHC 33.6 RDW 15.9 H Plt Count 245 Neut % (Auto) 57.4 Lymph % (Auto) 29.6 [place] % (Auto) 9.2 Eos % (Auto) 3.2 Baso % (Auto) 0.6 Neut # (Auto) 5500 Lymph # (Auto) 2800 [place] # (Auto) 900 Eos # (Auto) 300 Baso # (Auto) 100 Sodium 139 Potassium 4.3 Chloride 103 Carbon Dioxide 31 BUN 21 H Creatinine 0.90 Estimated GFR > 60.0 BUN/Creatinine Ratio 23.3 H Glucose 110 Calcium 9.0 COVID-19 PCR Negative 11/07/19 06:00 WBC 10.7 RBC 3.06 L Hgb 9.2 L Hct 27.8 L MCV 90.8 MCH 30.2 MCHC 33.3 RDW 16.0 H Plt Count 231 Neut % (Auto) Lymph % (Auto) Florence % (Auto) Eos % (Auto) Baso % (Auto) Neut # (Auto) Lymph # (Auto) Florence # (Auto) Eos # (Auto) Baso # (Auto) Sodium Potassium Chloride Carbon Dioxide BUN Creatinine Estimated GFR BUN/Creatinine Ratio Glucose Calcium COVID-19 PCR Discharge Plan Discharge Plan Patient Disposition: Home Discharge orders & Medications Prescriptions: New aspirin 81 mg Tablet,Delayed Release (Dr/Ec) 81 mg PO DAILY Qty: 30 RF: 1 tramadol 50 mg Tablet 50 mg PO QID PRN (Reason: Pain, Moderate (4-6)) Qty: 30 RF: 0 Continued Fluticasone Propionate/Salme (Advair Diskus 250/50) aerosol 1 dose IH PRN PRN (Reason: asthma) Qty: 0 RF: 0 duloxetine [Cymbalta] 20 MG capsule,delayed release(DR/EC) 60 mg DAILY Qty: 0 RF: 0 potassium chloride 10 MEQ capsule, extended release 10 meq PO Q DAY Qty: 30 RF: 0 metoprolol succinate 50 mg tablet extended release 24 hr 50 mg PO DAILY RF: 0 cod liver oil Capsule 1 cap PO DAILY RF: 0 magnesium 30 mg Tablet 60 mg PO DAILY RF: 0 coenzyme Q10 [Co Q-10] 100 mg Capsule 100 mg PO DAILY RF: 0 cholecalciferol (vitamin D3) [Vitamin D3] 2,000 unit Capsule 2,000 unit PO DAILY RF: 0 Hair, Skin, Nails with Biotin 1 tab PO DAILY RF: 0 atorvastatin [Lipitor] 20 mg Tablet 20 mg PO BEDTIME Qty: 30 RF: 0 niacin 500 mg Tablet 500 mg PO DAILY Qty: 30 RF: 0 Fish Oil 340-1,000 mg Capsule 1,000 mg PO DAILY Qty: 30 RF: 0 Discontinued aspirin 325 mg tablet 81 mg PO DAILY RF: 0 Follow up/Referrals: Tami Irby MD [Physician] - (Two weeks 12-14 days [facility]) Andrade Gaston MD [Primary Care Provider] - Diet/Activity/Treatments Diet: Diet as Tolerated Activity: Weightbear as tolerated Skin/Wound/Dressing Care Report to your healthcare provider any signs of infection, such as:: chills, fever, night sweats, increased pain, unusual drainage and unusual redness Dressing: keep leg dressing clean dry and intact. And expect some drainage a reinforce or change as needed. Keep incision covered Visit Report/Discharge Packet Instructions: DI for Incision and Drainage Discharge Data Primary Care Provider: Andrade Gaston V Quality VTE Deep Vein Thrombosis/Pulmonary Embolism Present on Admission: No
[2019-11-07] MEDS: ASPIRIN EC 81 MG TABLET PO (08:28)
[2019-11-07] MEDS: DULOXETINE 30 MG CAPSULE 60 MG PO (08:28)
[2019-11-07] MEDS: POTASSIUM CHLORIDE 10 MEQ TAB PO (08:28)
[2019-11-07] MEDS: METOPROLOL ER 50 MG TABLET PO (08:28)
[2019-11-07] MEDS: DOCUSATE 100 MG CAPSULE PO ×2 (08:28→20:59)
[2019-11-07] MEDS: SODIUM CHLORIDE 0.9% FLUSH 10 ML IV ×2 (08:29→20:59)
--- NOTE | 2019-11-07 11:40 | PT.IPTN ---
Current Diagnoses Contusion of right lower leg, initial encounter (11/06/19) Surgery Performed Operation Date: 11/06/19 10:45 Actual Procedures p leg hematoma evacuation(Right) - Tami Irby MD Physical Therapy Treatment Note M2 PT-IP Current Condition Start: 11/06/19 16:28 Freq: NEEDED Status: Active Protocol: Document 11/06/19 15:03 AB (Rec: 11/06/19 16:41 AB [email or web address]) Physical Therapy Current Condition Current Condition Evaluation Date 11/06/19 Treatment Diagnosis RLE hematoma s/p evacuation; difficulty in walking Onset Date 11/06/19 Weight Bearing Status Weight Bearing Status Weight Bear as Tolerated Allowed Weight Bearing Amount (enter % RLE WBAT or #) (%) M3 PT-IP Subjective Start: 11/06/19 16:28 Freq: NEEDED Status: Active Protocol: Document 11/07/19 11:06 SP (Rec: 11/07/19 14:27 SP [email or web address]) Subjective Physical Therapy Visit Type Type Treatment Note Visit Start Time 11:06 Visit Stop Time 11:39 Total Visit Minutes 33 Notes in room, attending caregiver training, bed mob and atttempt sit to stand. Number of EXTRACTOR AND WRINGER OPERATOR Visits 1 Physical Therapy Visit Comments Patient Comments pt agreeable to doing PT. Therapy Pain Assessment Pain When Pain Assessed At Rest Pain Present Pain Present Pain Reported Location right haddad Intensity 3 Scale Used 3/10 at rest R lower leg, 8/10 during mobility- not able WB throught R LE Pain Behaviors Facial Grimacing,Guarding, Moaning,Restlessness,Wincing Pain Management Techniques Apply Cold,Modification of Treatment,Re-positioning, Timing of Activity with Medications M4 PT-IP Mobility and Gait Start: 11/06/19 16:28 Freq: NEEDED Status: Active Protocol: Document 11/07/19 11:06 SP (Rec: 11/07/19 14:27 SP [email or web address]) PT-Bed Mobility Assessment Supine to Sit Supine to Sit Maximum Assistance,1 Person Assistance,Bedrails Scooting Scooting to Edge of Bed Maximum Assistance PT-Transfer Assessment Sit to and From Stand Sit to and from Stand Maximum Assistance,2 Person Assistance,Use of Upper Extremities Equipment Transfer Assistive Device Gait Belt,Front Wheeled Walker ,Sliding Board Orthotic/Prosthetic Devices or Brace: No Transfers Transfer Destination Chair Transfer Technique Lateral Scoot Transfer Ability Level of Assist Maximum Assistance,1 Person Assistance,2 Person Assistance ,Use of Upper Extremities Comments Mobility Comments Pt supine in bed when arrived, in room. supine> sitting Max A of 1 person support for trunk righting by with cuing for body mechanics, assist R upper back allowing patient to pull from his R hand to right her to sitting. Mod- Max A of 2 to scoot to EOB use of transfer pad the back of my legs hurt on the edge of this bed, not able to scoot forward without help. Sit to stand using FWW and cuing for pushing up from bed Max A of 2 person, patient unable to apply weight into R lower leg due to pain 8/ reported and unable to reposition LLE in standing with support of BUE on FWW and physical assist, requested to sit at EOB I need to sit, I am tired and my leg hurts, I can't put it on the floor. EXTRACTOR AND WRINGER OPERATOR called nurse for further assessment and hospitalist attended end of tx after transfer to chair. Pt agreeable to getting into the chair, Max A of 1 person and sBA if CAPACITY PLANNER slide board transfer bed to chair with cuing for hand positioning and LLE support. Pt required Max A of 2 person to scoot back in chair. Pt mobility is not as well performed this am treatement. At this time PT is recommending patient would benefit from long-term to increased strength, ROM to improve functional mobility. Will continue to assess patient's progress this afternoon. expressed his concerns with EXTRACTOR AND WRINGER OPERATOR, nurse and hospitalist about my 's R knee is more swollen today and my is not talking and thought processing as well as did yesterday. Pt was reclined in chair with all needs in reach, applied cold pack on R lower leg for assist with pain, EXTRACTOR AND WRINGER OPERATOR discussed with nurse possible chair alarm for safety and would get. and nurse in room when left. Gait Assessment Comments Gait Comments See mobility comments, unable to due pain in R lower leg and unable to apply WB through in standing. Stair Climbing Assessment Comments Stair Climbing Comments Unalbe to assess due to pain and decreased strength this am visit. PT-Balance Assessment Sitting Balance and Reactions Static Sitting Balance Ability Good Dynamic Sitting Balance Ability Fair Standing Balance and Reactions Static Standing Balance Ability Poor Dynamic Standing Balance Ability Poor M5 PT-IP Objective Assessments Start: 11/06/19 16:28 Freq: NEEDED Status: Active Protocol: Document 11/06/19 15:03 AB (Rec: 11/06/19 16:41 AB [email or web address]) Orientation Orientation/Cognition Level of Alertness Alert Orientation Name,Date,Place,Situation Language Function Ability No Deficits Noted Safety Awareness Understands Safety Issues Memory Description No Deficits Noted Gross Range of Motion Lower Extremity ROM Assessment Within Functional Limits Strength Lower Extremity Strength Assessment Left Impaired Hip 3+/5 Knee 3+/5 Coordination Assessment Gross Coordination Gross Coordination WNL Muscle Tone Muscle Tone WNL Yes M6 PT-IP Treatment Start: 11/06/19 16:28 Freq: NEEDED Status: Active Protocol: Document 11/07/19 11:06 SP (Rec: 11/07/19 14:27 SP [email or web address]) Physical Therapy Treatment Education Education Provided Weight Bearing Status,Safety M7 PT-IP Assessment and Plan Start: 11/06/19 16:28 Freq: NEEDED Status: Active Protocol: Document 11/07/19 11:06 SP (Rec: 11/07/19 14:27 SP [email or web address]) PT Summary Assessment and Plan Potential Rehabilitation Potential Good Status of Condition at Evaluation Stable Summary Impairments Pain,ROM,Strength,Balance, Coordination,Sensation,Bed Mobility,Transfers,Gait, Activity Tolerance Assessment Summary pt requiring max A of 1 with bed mobility, Max A fo 2 person sit to stand using FWW, unsuccessful to further progress in WB due to pain in RLE. prior to admission, spouse has been assisting pt some at home. At this time patient would benefit from long-term services upon discharge due to decreased activity tolerance and pain. Will continue to reassess progress, will have to complete stair climbing training as well prior to d/c home. Goals Bed Mobility Goal Standby Assistance Transfer Goal Standby Assistance,Front Wheeled Walker Gait Goal Standby Assistance,Front Wheel Walker Gait Distance 100 Other Goals up/down 3 steps L rail + BUSINESS ANALYST CONSULTANT min 2 steps B rail SBA Days to Meet Goals 5 Frequency of Treatment Frequency Of Treatment Twice a Day Treatment Plan Physical Therapy Treatment Plan Bed Mobility Training,Transfer Training,Gait Training, Therapeutic Exercise,Balance Retraining,Post Op Education, Discharge Planning,Hot or Cold Pack,Neuromuscular Re-ed, Coordination Retraining,Manual Therapy Other Recommendations and Next Treatment 2 person assist for gait, Focus transfer, balance, motor control Recommendations To Nursing Amount of Assist Needed PT/OT Assist Only,Mechanical Lift Discharge Recommendations PT Discharge Recommendations Home with Assistance,Home Health,SNF Rehab Other Discharge Recommendations At this time recommending SNF unless progresses for safe DC home then recommend home with assistance of and home health PT Transportation Needs at Discharge Private Vehicle
--- NOTE | 2019-11-07 11:55 | PM.PN.1 ---
Subjective Subjective Date Patient Seen: 11/07/19 Interval history: Patient is 74-year-old female status post evacuation of right lower leg hematoma. There was no evidence of compartment syndrome. She was discharged by Ortho today but found to be profoundly weak requiring 2 person maximal assist to get out of bed. She has significant pain bearing weight on the right leg and unable to balance to get from bed to chair. She is getting tramadol for pain. Patient also seems to be quite fatigued which is probably related to blood loss from the hematoma. Hemoglobin dropped from 12.1 to 9.2 this morning. Exam Vital Signs (past 8 hours): - 11/07/19 04:00 11/07/19 07:00 11/07/19 08:28 Temperature 97.1 F L 98.0 F Pulse Rate 84 73 76 Respiratory Rate 16 18 Blood Pressure 155/58 H 159/70 H 163/63 H Pulse Oximetry 92 93 Oxygen Delivery Method Room Air Oxygen Flow Rate 0 Objective Labs Result Diagrams: 11/07/19 06:00 11/06/19 07:24 Labs: Laboratory Results - last 24 hr 11/07/19 06:00 WBC 10.7 RBC 3.06 L Hgb 9.2 L Hct 27.8 L MCV 90.8 MCH 30.2 MCHC 33.3 RDW 16.0 H Plt Count 231 Assessment & Plan Assessment & Plan narrative: Large hematoma of anterior lateral right calf acute, present on admission -status post evacuation of hematoma in OR -now unable to bear weight on the leg, quite weak and requiring 2 person maximal assist -tramadol and Tylenol as needed Acute blood loss anemia, present on admission -significant drop in hemoglobin -ordered iron sucrose 200 mg IV Essential hypertension, active and chronic, stable -continue home dose of losartan 50 mg p.o. daily and metoprolol succinate 50 mg p.o. at bedtime Hyperlipidemia, active and chronic -continue home dose of atorvastatin 20 mg p.o. p.m. Anxiety, active and chronic, well controlled -continue home dose of duloxetine 60 mg p.o. daily Insomnia, active and chronic -continue home dose of melatonin 3 mg p.o. at bedtime FEN: IV saline lock, low-sodium diet, BMP in the am. VTE prophylaxis: Left-sided SCD Disposition: [facility] rehab Quality VTE Deep Vein Thrombosis/Pulmonary Embolism Present on Admission: No
--- NOTE | 2019-11-07 12:45 | PC.NURSE ---
Addendum entered by Eli Gibson R.N. 11/07/19 13:14: Note left with RN at [facility] with RN to let Mahamed know that patient will not be discharging today as she is not mobilizing well. Original Note: Assess- Patient is groggy this am but responds appropriately. Dressing to her r.haddad is cdi, Hemovac taken out and patient tolerated well. She is incontinent of urine. Patient was suppose to discharge home today, but is unable to ambulate. She can sit at the side of the bed and has to have slider board to transfer. She is eating well. No S&S of stroke, or TIA.. She does have left sided weakness from previous stroke. Smile wnl. She denies pain.
[2019-11-07] MEDS: ACETAMINOPHEN 325 MG TABLET 975 MG PO ×2 (13:34→23:59)
[2019-11-07] MEDS: IRON SUCROSE 200 MG in SODIUM CHLORIDE 0.9% 100 ML 220 ML IV (13:34)
--- NOTE | 2019-11-07 15:47 | PT.IPTN ---
Current Diagnoses Contusion of right lower leg, initial encounter (11/06/19) Surgery Performed Operation Date: 11/06/19 10:45 Actual Procedures p leg hematoma evacuation(Right) - Tami Irby MD Physical Therapy Treatment Note M2 PT-IP Current Condition Start: 11/06/19 16:28 Freq: NEEDED Status: Active Protocol: Document 11/06/19 15:03 AB (Rec: 11/06/19 16:41 AB [email or web address]) Physical Therapy Current Condition Current Condition Evaluation Date 11/06/19 Treatment Diagnosis RLE hematoma s/p evacuation; difficulty in walking Onset Date 11/06/19 Weight Bearing Status Weight Bearing Status Weight Bear as Tolerated Allowed Weight Bearing Amount (enter % RLE WBAT or #) (%) M3 PT-IP Subjective Start: 11/06/19 16:28 Freq: NEEDED Status: Active Protocol: Document 11/07/19 15:26 SP (Rec: 11/07/19 18:21 SP [email or web address]) Subjective Physical Therapy Visit Type Type Treatment Note Visit Start Time 15:26 Visit Stop Time 15:47 Total Visit Minutes 21 Number of BAND SAW FILER Visits 2 Physical Therapy Visit Comments Patient Comments pt agreeable to working with PT. Therapy Pain Assessment Pain When Pain Assessed During Mobility Pain Present Pain Present Pain Reported Location right haddad Intensity 5 Scale Used R lower leg during mobility Pain Behaviors Facial Grimacing,Restlessness, Wincing Pain Management Techniques Apply Cold,Re-positioning, Timing of Activity with Medications M4 PT-IP Mobility and Gait Start: 11/06/19 16:28 Freq: NEEDED Status: Active Protocol: Document 11/07/19 15:26 SP (Rec: 11/07/19 18:21 SP [email or web address]) PT-Bed Mobility Assessment Supine to Sit Supine to Sit Maximum Assistance,1 Person Assistance,Bedrails Scooting Scooting to Edge of Bed Moderate Assistance PT-Transfer Assessment Sit to and From Stand Sit to and from Stand Maximum Assistance,1 Person Assistance,Use of Upper Extremities Equipment Transfer Assistive Device Gait Belt,Front Wheeled Walker Orthotic/Prosthetic Devices or Brace: No Transfers Transfer Destination Chair Transfer Technique Stand Step Pivot Transfer Ability Level of Assist Maximum Assistance,1 Person Assistance,Use of Upper Extremities Comments Mobility Comments Pt was laying in bed when arrived. Elevated supine> sitting Max A of 1 person with HH to pull from therapist hand LUE while RUE pushed from bed and support to R upper back to right trunk to sitting . Mod A to scoot to EOB using transfer pad 50 % of the time CGA at trunk for balance awareness in sitting. Sit to stand Max A of 1 using FWW, cued to push up from bed, patient able to WB onto RLE this pm treatment but continue heavy WB on FWW. Step pivot transfer bed> chair, able to lift reposition RLE, BUE heavy WB on FWW with Max A, LLE quick small lift reposition x2 then rest distance of 3 ft lateral scoot bed to chair. Cued patient for spacial awareness during backing up to chair and directioning of BLE and was able to reposition FWW herself. CUed for reaching back prior to sitting for safety and required Mod A for slow descent. Max A 1 to scoot back in chair further using transfer pad. Pt was reclined in chair with chair alarm armed and all needs/call light in reach before left. Pt reported pain was less in RLE this afternoon. Pt was better at making needs know this pm tx, didn't fully complete thought during am tx. Gait Assessment Comments Gait Comments Unable to complete gait due to decreased strength and WB tolerance in RLE only completed Step pivot transfer bed> chair Max A of 1 using FWW, see mobility comments. Stair Climbing Assessment Comments Stair Climbing Comments Unable to complete stair mgt due to decreased strength and WB tolerance into RLE using FWW, Max A. PT-Balance Assessment Sitting Balance and Reactions Static Sitting Balance Ability Good Dynamic Sitting Balance Ability Fair Standing Balance and Reactions Static Standing Balance Ability Poor Dynamic Standing Balance Ability Poor Device Used FWW M5 PT-IP Objective Assessments Start: 11/06/19 16:28 Freq: NEEDED Status: Active Protocol: Document 11/06/19 15:03 AB (Rec: 11/06/19 16:41 AB [email or web address]) Orientation Orientation/Cognition Level of Alertness Alert Orientation Name,Date,Place,Situation Language Function Ability No Deficits Noted Safety Awareness Understands Safety Issues Memory Description No Deficits Noted Gross Range of Motion Lower Extremity ROM Assessment Within Functional Limits Strength Lower Extremity Strength Assessment Left Impaired Hip 3+/5 Knee 3+/5 Coordination Assessment Gross Coordination Gross Coordination WNL Muscle Tone Muscle Tone WNL Yes M6 PT-IP Treatment Start: 11/06/19 16:28 Freq: NEEDED Status: Active Protocol: Document 11/07/19 15:26 SP (Rec: 11/07/19 18:21 SP [email or web address]) Physical Therapy Treatment Education Education Provided Weight Bearing Status,Safety M7 PT-IP Assessment and Plan Start: 11/06/19 16:28 Freq: NEEDED Status: Active Protocol: Document 11/07/19 15:26 SP (Rec: 11/07/19 18:21 SP [email or web address]) PT Summary Assessment and Plan Potential Rehabilitation Potential Good Status of Condition at Evaluation Stable Summary Impairments Pain,ROM,Strength,Balance, Coordination,Sensation,Bed Mobility,Transfers,Gait, Activity Tolerance Assessment Summary pt requiring max A of 1 for all mobility, used FWW for step pivot transfer bed to chair. spouse has been assisting pt some at home. At this time patient would benefit from intermediate services upon discharge due to decreased activity tolerance and pain in RLE. Will continue to reassess progress, will have to complete stair climbing training as well prior to d/c home. Goals Bed Mobility Goal Standby Assistance Transfer Goal Standby Assistance,Front Wheeled Walker Gait Goal Standby Assistance,Front Wheel Walker Gait Distance 100 Other Goals up/down 3 steps L rail + DESIGN MAKER min 2 steps B rail SBA Days to Meet Goals 5 Frequency of Treatment Frequency Of Treatment Twice a Day Treatment Plan Physical Therapy Treatment Plan Bed Mobility Training,Transfer Training,Gait Training, Therapeutic Exercise,Balance Retraining,Post Op Education, Discharge Planning,Hot or Cold Pack,Neuromuscular Re-ed, Coordination Retraining,Manual Therapy Other Recommendations and Next Treatment 2 person assist for gait, Focus transfers using FWW, balance, motor control and stairs if safe. Recommendations To Nursing Amount of Assist Needed 2 Person Assist Discharge Recommendations PT Discharge Recommendations SNF Rehab Other Discharge Recommendations SNF Rehab Transportation Needs at Discharge Private Vehicle
--- NOTE | 2019-11-07 16:14 | CM.DPNOTE ---
DCP Cont Therapy team recommending SNF. patient hopeful to DC home w/spouse but understands she is moving slowly and continues to be in pain w/movement, currently requires max assist of 2. Patient/spouse choose [facility], referral given to Akiko at [facility]. Following closely. [place]
[2019-11-07] MEDS: MELATONIN 3 MG TABLET PO (20:59)
[2019-11-07] MEDS: ATORVASTATIN 20 MG TABLET PO (20:59)
[2019-11-08 05:50] VITALS: BP 149/94; PULSE 60; RESP 16; TEMP 36.1; O2SAT 94
--- NOTE | 2019-11-08 07:58 | P.PN_ITS ---
Subjective Subjective Date Patient Seen: 11/08/19 Time Patient Seen: 07:58 Interval history: Postop day 2 right leg hematoma evacuation. Patient did very poorly with physical therapy yesterday and discharge was canceled. Patient states she is feeling better this morning will work with physical therapy again today. Vital signs are stable. Dressing is clean dry and intact. Swelling markedly decreased from her leg consistent with postop hematoma evacuation. D emonstrates good dorsiflexion plantar flexion. Will discharge to home versus [facility] based on physical therapy assessment Exam Vital Signs (past 8 hours): - 11/08/19 05:50 Temperature 96.9 F L Pulse Rate 60 Respiratory Rate 16 Blood Pressure 149/94 H Pulse Oximetry 94 Oxygen Delivery Method Room Air Oxygen Flow Rate 0 Narrative Exam Narrative: General exam is alert oriented female lying in bed answers ques tions appropriately no acute distress Respiratory unlabored on CV exam regular rate and rhythm Musculoskeletal exam demonstrates 5/5 dorsiflexion plantar flexion bilateral ankles. Calves are soft. Incision on the right lower extremity calf is clean dry and intact no erythema. Calf is soft. Anterior compartment soft. SCDs and placed on the left lower extremity Objective Labs Result Diagrams: 11/07/19 06:00 11/06/19 07:24 Assessment & Plan Post-op Postoperative Procedures: Procedures Operation Date: 11/06/19 10:45 Actual Procedures Side Surgeon p leg hematoma evacuation Right Tami Irby MD Two days status post right lower leg hematoma evacuation. No evidence of compartment syndrome. Fascia was not violated hematoma was superficial to this. There was no output from her drain was removed yesterday. Patient however did poorly with physical therapy. Will work with physical therapy again today for mobilization. She is weightbear as tolerated. Keep dressing clean dry and intact may change as needed. Hopefully discharge home today. Follow up in 2 weeks. Quality VTE Deep Vein Thrombosis/Pulmonary Embolism Present on Admission: No
[2019-11-08 09:41] VITALS: BP 120/84; PULSE 63; RESP 16; O2SAT 96
[2019-11-08] MEDS: ACETAMINOPHEN 325 MG TABLET 975 MG PO (09:46)
[2019-11-08] MEDS: SODIUM CHLORIDE 0.9% FLUSH 10 ML IV ×2 (09:46→21:48)
[2019-11-08] MEDS: ASPIRIN EC 81 MG TABLET PO (09:46)
[2019-11-08] MEDS: METOPROLOL ER 50 MG TABLET PO (09:46)
[2019-11-08] MEDS: DOCUSATE 100 MG CAPSULE PO ×2 (09:46→21:48)
[2019-11-08] MEDS: DULOXETINE 30 MG CAPSULE 60 MG PO (09:46)
[2019-11-08] MEDS: POTASSIUM CHLORIDE 10 MEQ TAB PO (09:46)
--- NOTE | 2019-11-08 12:29 | PT.IPTN ---
Current Diagnoses Contusion of right lower leg, initial encounter (11/06/19) Surgery Performed Operation Date: 11/06/19 10:45 Actual Procedures p leg hematoma evacuation(Right) - Tami Irby MD Physical Therapy Treatment Note M2 PT-IP Current Condition Start: 11/06/19 16:28 Freq: NEEDED Status: Active Protocol: Document 11/06/19 15:03 AB (Rec: 11/06/19 16:41 AB [id number]) Physical Therapy Current Condition Current Condition Evaluation Date 11/06/19 Treatment Diagnosis RLE hematoma s/p evacuation; difficulty in walking Onset Date 11/06/19 Weight Bearing Status Weight Bearing Status Weight Bear as Tolerated Allowed Weight Bearing Amount (enter % RLE WBAT or #) (%) M3 PT-IP Subjective Start: 11/06/19 16:28 Freq: NEEDED Status: Active Protocol: Document 11/08/19 12:17 HH (Rec: 11/08/19 12:29 HH [email or web address]) Subjective Physical Therapy Visit Type Type Treatment Note Visit Start Time 10:10 Visit Stop Time 10:39 Total Visit Minutes 29 Number of ULTRASOUND TECHNOLOGIST Visits 0 Physical Therapy Visit Comments Patient Comments pt agreeable to working with PT. Stating she is feeling a lot better. Therapy Pain Assessment Pain When Pain Assessed During Mobility Pain Present Pain Present Pain Reported M4 PT-IP Mobility and Gait Start: 11/06/19 16:28 Freq: NEEDED Status: Active Protocol: Document 11/08/19 12:17 HH (Rec: 11/08/19 12:29 HH [email or web address]) PT-Bed Mobility Assessment Supine to Sit Supine to Sit Moderate Assistance,1 Person Assistance,Bedrails Scooting Scooting to Edge of Bed Moderate Assistance PT-Transfer Assessment Sit to and From Stand Sit to and from Stand Moderate Assistance,1 Person Assistance,Use of Upper Extremities Equipment Transfer Assistive Device Gait Belt,Front Wheeled Walker Orthotic/Prosthetic Devices or Brace: No Transfers Transfer Destination Chair Transfer Technique Stand Pivot Transfer Ability Level of Assist Moderate Assistance,1 Person Assistance,Use of Upper Extremities Comments Mobility Comments Pt was laying in bed upon PT arrival. Agreeable to mobilize with PT to chair. Pt attempted supine to long sit by pulling RLE for 3 times but unsuccessful and needed NET MOBILE DEVELOPER MODA to pull from LUE to complete. She then needed mod A to scoot forward. Pt denies dizziness/ discomfort. She then stood up by pulling FWW with PT stabilizing it and she primarily pushed off through UEs and LLEs. Pt was unable to WB on RLE d/t pain but instructed to start with forefoot WB first. Pt stood for 20 seconds and requested to sit down. Practice seated heel slide and calf stretch for 3 minutes. She then completed STS again with mod A . Pt was able to WB through forefoot and slowly stand pivot herself with flexed posture to her R side but wasnt able to demonstrate a full step. She took approx 25 secs to complete stand pivot and reached for armrests to descend safely. Educated pt to practice ankle pumps and seated heel slide. Placed call light within reach. Pt rested comfortly in chair and c/o pain at R foot. Gait Assessment Gait Gait Assistance Required: Moderate Assistance Distance (Feet) 2 Able to Maintain Weight Bearing Status Yes During Gait Assistive Devices Assistive Device Gait Belt,Front Wheeled Walker Orthotic/Prosthetic Devices or Brace: No Gait Deviations General Gait Pattern Antalgic,Decreased Stride Length,Decreased Feet Clearance Factors Limiting Gait Function Factors Limiting Gait Function Decreased Activity Tolerance, Decreased Sensation,Decreased Strength,Limited Range of Motion,Pain,Poor Balance,Poor Safety Awareness Comments Gait Comments pt only did stand pivot transfer with mod A x1 Stair Climbing Assessment Comments Stair Climbing Comments Unable to complete stair mgt due to decreased strength and WB tolerance into RLE using FWW, Max A. PT-Balance Assessment Sitting Balance and Reactions Static Sitting Balance Ability Good Dynamic Sitting Balance Ability Fair Standing Balance and Reactions Static Standing Balance Ability Poor Dynamic Standing Balance Ability Poor Device Used FWW M5 PT-IP Objective Assessments Start: 11/06/19 16:28 Freq: NEEDED Status: Active Protocol: Document 11/06/19 15:03 AB (Rec: 11/06/19 16:41 AB [email or web address]) Orientation Orientation/Cognition Level of Alertness Alert Orientation Name,Date,Place,Situation Language Function Ability No Deficits Noted Safety Awareness Understands Safety Issues Memory Description No Deficits Noted Gross Range of Motion Lower Extremity ROM Assessment Within Functional Limits Strength Lower Extremity Strength Assessment Left Impaired Hip 3+/5 Knee 3+/5 Coordination Assessment Gross Coordination Gross Coordination WNL Muscle Tone Muscle Tone WNL Yes M6 PT-IP Treatment Start: 11/06/19 16:28 Freq: NEEDED Status: Active Protocol: Document 11/07/19 15:26 SP (Rec: 11/07/19 18:21 SP [email or web address]) Physical Therapy Treatment Education Education Provided Weight Bearing Status,Safety M7 PT-IP Assessment and Plan Start: 11/06/19 16:28 Freq: NEEDED Status: Active Protocol: Document 11/08/19 12:17 HH (Rec: 11/08/19 12:29 HH [email or web address]) PT Summary Assessment and Plan Potential Rehabilitation Potential Good Status of Condition at Evaluation Stable Summary Impairments Pain,ROM,Strength,Balance, Coordination,Sensation,Bed Mobility,Transfers,Gait, Activity Tolerance Progress Towards Goals Slow Progress due to Pain,Slow Progress due to Medical Issues,Slow Progress due to Activity Tolerance Assessment Summary Pt progress slowly and needed mod A for all mobility. Pt completed bed to chair stand pivot transfer with FWW but she cont has difficulty WB on RLE and noticed significant poor ankle mobility d/t pain. Spoke to nursing staff , SW and Dr. Irby and recommended SNF would be the ideal option for pt at this point d/t her poor mobility and weakness. Goals Bed Mobility Goal Standby Assistance Transfer Goal Standby Assistance,Front Wheeled Walker Gait Goal Standby Assistance,Front Wheel Walker Gait Distance 100 Other Goals up/down 3 steps L rail + NET MOBILE DEVELOPER min 2 steps B rail SBA Days to Meet Goals 5 Frequency of Treatment Frequency Of Treatment Twice a Day Treatment Plan Physical Therapy Treatment Plan Bed Mobility Training,Transfer Training,Gait Training, Therapeutic Exercise,Balance Retraining,Post Op Education, Discharge Planning,Hot or Cold Pack,Neuromuscular Re-ed Other Recommendations and Next Treatment 2 person assist for gait, Focus transfers using FWW, balance, motor control and stairs if safe. Recommendations To Nursing Amount of Assist Needed 1 Person Assist Discharge Recommendations PT Discharge Recommendations SNF Rehab Other Discharge Recommendations SNF Rehab Transportation Needs at Discharge Private Vehicle
--- NOTE | 2019-11-08 12:32 | PC.NURSE ---
Patients mentation better today. Dressing to rroxanne haddad with jb wrap, area is cdi. Patient worked better with physical therapy but still needs SNF placement and will go tomorrow for rehab. We will obtain a rapid covid 19 test this shift. Patient is up in the chair eating lunch. She denies pain at this time.
[2019-11-08 12:48] VITALS: BP 119/86; PULSE 65; RESP 16; TEMP 37.1; O2SAT 94
--- NOTE | 2019-11-08 14:05 | P.PN_ITS ---
Subjective Subjective Date Patient Seen: 11/08/19 Interval history: She is seen today to follow-up her calf hematoma, anemia, hypertension and anxiety. Orthopedics has cleared her for discharge to home but she is not able to stand/walk well enough yet and so will need to stay another night before [facility] nursing facility can accept her tomorrow. Her hemoglobin has dropped from 10.4 down to 9.2 today. She is discussed with orthopedics. Exam Vital Signs (past 8 hours): - 11/08/19 12:48 Temperature 98.8 F Pulse Rate 65 Respiratory Rate 16 Blood Pressure 119/86 Pulse Oximetry 94 Oxygen Delivery Method Room Air Oxygen Flow Rate 0 Narrative Exam Narrative: She is alert and oriented x3. She is very engaging and has an excellent memory. No apparent distress Heart is regular rate and rhythm with a 2/6 systolic ejection murmur Lungs are clear to auscultation bilaterally Extremities have no ankle edema with a dressing in place over the right calf wound. Objective Labs Result Diagrams: 11/07/19 06:00 11/06/19 07:24 Assessment & Plan Assessment & Plan narrative: Large hematoma of anterior lateral right calf acute, present on admission -status post evacuation of hematoma in OR -now unable to bear weight on the leg, quite weak and requiring 2 person maximal assist, without improvement today, per physical therapy. -tramadol and Tylenol as needed -pending placement at [facility] tomorrow Acute blood loss anemia, present on admission -significant drop in hemoglobin -ordered iron sucrose 200 mg IV -repeat hemoglobin tomorrow Essential hypertension, active and chronic, stable -continue home dose of losartan 50 mg p.o. daily and metoprolol succinate 50 mg p.o. at bedtime -consider Echocardiogram as an outpatient for murmur heard 11/07. Hyperlipidemia, active and chronic -continue home dose of atorvastatin 20 mg p.o. p.m. Anxiety, active and chronic, well controlled -continue home dose of duloxetine 60 mg p.o. daily Insomnia, active and chronic -continue home dose of melatonin 3 mg p.o. at bedtime FEN: IV saline lock, low-sodium diet, BMP in the am. VTE prophylaxis: Left-sided SCD Disposition: SNF rehab [facility] 11/07 Quality VTE Deep Vein Thrombosis/Pulmonary Embolism Present on Admission: No
[2019-11-08 14:42] LABS: COVID19 -Nasal RAPID Negative (Negative)
--- NOTE | 2019-11-08 14:45 | CM.IDA ---
Initial DCP Assessment Note: Patient is a 74 yo female, resident of [facility]. Patient admitted as an inpatient for evacuation of a RLE hematoma, sustained after an accident cleaning her bathroom at home. PCP: Andrade Gaston Payer: ROC/Alex Met w/patient and her Perico this afternoon, explained role. Therapy team continues to recommend SNF and patient and spouse agreeable to this plan. Perico explains it's somewhat frustrating that patient has endured this back step as patient was just about indp. in ADLs at home leading up to this accident. Patient and spouse reviewed patient's h/o stroke and that she had to stay at [facility] approx 2 months learning how to walk again. Attempted to console both patient and spouse by suggesting that hopefully patient would not need months of rehab this time, patient appreciative and remained in very good spirits throughout our conversation. Spoke w/Verenice at [facility], they can accept patient tomorrow. COVID-19 test requested and back this afternoon- Neg result. P: DC to [facility] expected Monday, via w/c CHRIS Jeffrey Discharge Planning/Care Management CM Discharge Assessment Start: 11/06/19 14:29 Freq: Status: Active Protocol: Document 11/08/19 14:42 [place] (Rec: 11/08/19 14:45 [place] [id number]) Discharge Planning Assessment Assigned Sheet Turner CHRIS Edouard DPOA/Assigned Designee Name Perico Cline, spouse Contact Information [phone], cell Advance Directives? Yes History Provided By Patient,Significant Other, Medical Record Prior Living Arrangements Apartment/Condo Household Members spouse Type of transporation used prior to Relies on Others admit Independent with ADL's Yes: Requires assist w/higher ADLs Is patient alert and oriented? Yes Barriers to Discharge Yes Comment Max assist needed Discharge Plan Senior Care Facility Transportation Arrangement W/c jacquie Johnson Initiated Senior Care Additional Comment [facility]
--- NOTE | 2019-11-08 15:05 | PT.IPTN ---
Current Diagnoses Contusion of right lower leg, initial encounter (11/06/19) Surgery Performed Operation Date: 11/06/19 10:45 Actual Procedures p leg hematoma evacuation(Right) - Tami Irby MD Physical Therapy Treatment Note M2 PT-IP Current Condition Start: 11/06/19 16:28 Freq: NEEDED Status: Active Protocol: Document 11/06/19 15:03 AB (Rec: 11/06/19 16:41 AB [email or web address]) Physical Therapy Current Condition Current Condition Evaluation Date 11/06/19 Treatment Diagnosis RLE hematoma s/p evacuation; difficulty in walking Onset Date 11/06/19 Weight Bearing Status Weight Bearing Status Weight Bear as Tolerated Allowed Weight Bearing Amount (enter % RLE WBAT or #) (%) M3 PT-IP Subjective Start: 11/06/19 16:28 Freq: NEEDED Status: Active Protocol: Document 11/08/19 14:09 KS (Rec: 11/08/19 15:25 KS [id number]) Subjective Physical Therapy Visit Type Type Treatment Note Visit Start Time 14:09 Visit Stop Time 15:05 Total Visit Minutes 26 Notes Split treatment 14:09-14:30 15:00-15:05 Number of MENTAL HEALTH COUNSELOR Visits 1 Physical Therapy Visit Comments Patient Comments pt agreeable to working with PT. Stating she is feeling better. Therapy Pain Assessment Pain When Pain Assessed During Mobility Pain Present Pain Present Pain Reported Location right haddad Intensity 6 Scale Used Numeric (0 - 10) Pain Behaviors Facial Grimacing,Restlessness, Wincing Pain Management Techniques Apply Cold,Re-positioning, Timing of Activity with Medications M4 PT-IP Mobility and Gait Start: 11/06/19 16:28 Freq: NEEDED Status: Active Protocol: Document 11/08/19 14:09 KS (Rec: 11/08/19 15:25 KS [id number]) PT-Bed Mobility Assessment Sit to Supine Sit to Supine Minimal Assistance Scooting Scooting to Edge of Bed Moderate Assistance PT-Transfer Assessment Sit to and From Stand Sit to and from Stand Moderate Assistance,2 Person Assistance,Use of Upper Extremities Equipment Transfer Assistive Device Gait Belt,Front Wheeled Walker Orthotic/Prosthetic Devices or Brace: No Transfers Transfer Destination Bed,Chair Transfer Technique Stand Pivot Transfer Ability Level of Assist Moderate Assistance,1 Person Assistance,2 Person Assistance ,Use of Upper Extremities Comments Mobility Comments Pt was in chair upon arrival from therapy w/ in room. Pt mod A for scooting to edge of chair, attempted Max A x1 sit<>stand from chair, but pt unable to complete. NURSES' REGISTRY DIRECTOR arrived for assistance. Pt sit<>stand Mod A x2 w/ cues for sequencing and hand placement. Once standing, pt able to stand 2 min w/ FWW and cues for upright posture while NURSES' REGISTRY DIRECTOR performed pericare. Pt then stand<>sit Min A w/ cues for slow descent. Pt sit< >stand Mod A x2 for application of new brief, pt again stood and performed slight weight shifting 1 min before requesting to sit. Then reviewed LE strengthening including ankle pumps, quad sets, glute sets, and heel slides. Pt left in chair w/ NURSES' REGISTRY DIRECTOR in room. On second part of treatment, pt sit<>stand and stand step pivot transfer to bed Mod A x2 w/ max cues for sequencing. Pt needs frequent reminders to use BUE/FWW to off weight RLE d/t pain. Pt Min A for sup<>sit. Pt left w/ NURSES' REGISTRY DIRECTOR. Gait Assessment Gait Gait Assistance Required: Moderate Assistance Distance (Feet) 2 Able to Maintain Weight Bearing Status Yes During Gait Assistive Devices Assistive Device Gait Belt,Front Wheeled Walker Orthotic/Prosthetic Devices or Brace: No Gait Deviations General Gait Pattern Antalgic,Decreased Stride Length,Decreased Feet Clearance Factors Limiting Gait Function Factors Limiting Gait Function Decreased Activity Tolerance, Decreased Sensation,Decreased Strength,Limited Range of Motion,Pain,Poor Balance,Poor Safety Awareness Comments Gait Comments pt only did stand step pivot transfer with mod A x2 Stair Climbing Assessment Comments Stair Climbing Comments Unable to complete stair mgt due to decreased strength and WB tolerance into RLE using FWW, Max A. PT-Balance Assessment Sitting Balance and Reactions Static Sitting Balance Ability Good Dynamic Sitting Balance Ability Fair Standing Balance and Reactions Static Standing Balance Ability Poor Dynamic Standing Balance Ability Poor Device Used FWW M5 PT-IP Objective Assessments Start: 11/06/19 16:28 Freq: NEEDED Status: Active Protocol: Document 11/06/19 15:03 AB (Rec: 11/06/19 16:41 AB [id number]) Orientation Orientation/Cognition Level of Alertness Alert Orientation Name,Date,Place,Situation Language Function Ability No Deficits Noted Safety Awareness Understands Safety Issues Memory Description No Deficits Noted Gross Range of Motion Lower Extremity ROM Assessment Within Functional Limits Strength Lower Extremity Strength Assessment Left Impaired Hip 3+/5 Knee 3+/5 Coordination Assessment Gross Coordination Gross Coordination WNL Muscle Tone Muscle Tone WNL Yes M6 PT-IP Treatment Start: 11/06/19 16:28 Freq: NEEDED Status: Active Protocol: Document 11/08/19 14:09 KS (Rec: 11/08/19 15:25 KS [id number]) Physical Therapy Treatment Exercises Exercises Ankle Pumps,Gluteal Sets,Quad Sets,Heel Slides Education Education Provided Precautions,Weight Bearing Status,Safety M7 PT-IP Assessment and Plan Start: 11/06/19 16:28 Freq: NEEDED Status: Active Protocol: Document 11/08/19 14:09 KS (Rec: 11/08/19 15:25 KS [id number]) PT Summary Assessment and Plan Potential Rehabilitation Potential Good Status of Condition at Evaluation Stable Summary Impairments Pain,ROM,Strength,Balance, Coordination,Sensation,Bed Mobility,Transfers,Gait, Activity Tolerance Progress Towards Goals Slow Progress due to Pain,Slow Progress due to Medical Issues,Slow Progress due to Activity Tolerance Assessment Summary Pt continues to have high reported pain when weight bearing through RLE which is limiting her progress at this point. Mod A for scooting to edge of chair. Pt also requiring Mod A x2 for sit<> stand from chair this afternoon and can only tolerate stand step pivot transfer, Min A for sit<>sup. Reviewed LE exercises to promote blood flow and strengthening. Pt is far from baseline and would benefit from SNF to improve strength and mobility prior to returning home. Goals Bed Mobility Goal Standby Assistance Transfer Goal Standby Assistance,Front Wheeled Walker Gait Goal Standby Assistance,Front Wheel Walker Gait Distance 100 Other Goals up/down 3 steps L rail + MICROMATIC HONE OPERATOR min 2 steps B rail SBA Days to Meet Goals 5 Frequency of Treatment Frequency Of Treatment Twice a Day Treatment Plan Physical Therapy Treatment Plan Bed Mobility Training,Transfer Training,Gait Training, Therapeutic Exercise,Balance Retraining,Post Op Education, Discharge Planning,Hot or Cold Pack,Neuromuscular Re-ed Other Recommendations and Next Treatment 2 person assist for gait, Focus transfers using FWW, balance, motor control and stairs if safe. Recommendations To Nursing Amount of Assist Needed 2 Person Assist Discharge Recommendations PT Discharge Recommendations SNF Rehab Transportation Needs at Discharge Private Vehicle,Wheelchair/ Cabulance
[2019-11-08 16:00] VITALS: BP 153/70; PULSE 61; RESP 14; TEMP 36.3; O2SAT 100
[2019-11-08 20:00] VITALS: BP 165/65; PULSE 66; RESP 16; TEMP 37.3; O2SAT 100
[2019-11-08] MEDS: MELATONIN 3 MG TABLET PO (21:48)
[2019-11-08] MEDS: ATORVASTATIN 20 MG TABLET PO (21:48)
[2019-11-08 23:15] VITALS: BP 162/70; PULSE 64; RESP 16; TEMP 36.9; O2SAT 98
[2019-11-09] MEDS: TRAMADOL 50 MG TABLET PO (00:07)
[2019-11-09 04:30] VITALS: BP 135/95; PULSE 62; RESP 18; TEMP 36.7; O2SAT 96
[2019-11-09 07:13] LABS: Add Manual Diff / Slide Review NO; Basophils Absolute Auto 100 /uL (0-100); Basophils Percent Auto 0.9 % (0-2); Eosinophils Absolute Auto 500 /uL (0-450); Eosinophils Percent Auto 5.4 % (2-4); Hematocrit 25.6 % (36-46); Hemoglobin 8.4 g/dL (12.0-16.0); Lymphocytes Absolute Auto 2500 /uL (1100-4500); Lymphocytes Percent Auto 27.1 % (25-40); Mean Corpuscular HGB Conc 32.9 % (30-36); Mean Corpuscular Volume 91.3 fL (80-100); Monocytes Absolute Auto 800 /uL (0-900); Monocytes Percent Auto 8.8 % (3-14); Neutrophils Absolute Auto 5300 /uL (1500-7000); Neutrophils Percent Auto 57.8 % (50-75); Platelet Count 220 X10^3/uL (150-400); Red Blood Cell Count 2.81 X10^6/uL (4.0-5.2); Red Cell Distribution Width 15.9 % (11.6-14.8); White Blood Cell Count 9.2 X10^3/uL (4.5-11.0)
--- NOTE | 2019-11-09 08:16 | P.DS_ITS ---
History of Present Illness History of Present Illness Date Patient Seen: 11/09/19 Time Patient Seen: 12:56 Chief complaint: leg pain Narrative: As per Dr. Irby, Ana Maria Cline is a pleasant 74 year old female who was in her usual state of health when she was cleaning her bathroom, lost her balance and in the process of falling grabbed the assistance device over her toilet when during her fall and hit her on the back of her right lower calf and leg. The emergency department after consultation with orthopedic surgery had a concern of compartment syndrome and the patient is observed overnight for monitoring of the compartment syndrome. Per the patient she did not lose consciousness but did hit the back of her head on a handle of 1 of the bathroom cabinets. Orthopedic surgery has requested that the hospitalist service consult on the patient's overall medication management and non orthopedic issues. 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 Her other chronic health conditions include hypertension, hyperlipidemia, anxiety, asthma, and insomnia. The ED did attempt to drain what now appears to be a large hematoma on her leg a nd apparently did not express any material out of it. However when the patient reached the floor it did start to drain. CT of the leg reported large hematoma of the anterior lateral proximal to mid right lower leg, hematoma measures 13 cm x 8 cm x 3 cm. Labs drawn on 11/05/2019 included WBC of 9.7, RBC 3.98, hemoglobin 12.1, hematocrit 35.9%, platelet count of 271, sodium 138, potassium 4.2, chloride 102, CO2 33, BUN 20, creatinine 0.97, GFR 56.1, glucose 137, calcium 9.4, and normal liver enzymes. Discharge Providers Provider Date of admission: 11/06/19 00:48 Discharge Date: 11/09/19 Primary care physician: Andrade Gaston MD Consults: 11/06/19 12:43 Consult to Discharge Planning Routine Comment: Consult to Physical Therapy Evaluate & Treat Comment: Weightbear as tolerated Physician Instructions: Evaluate and Treat Consult to Respiratory Therapy Evaluate & Treat Comment: Physician Instructions: Evaluate and treat Discharge provider: Sukhi Lott DO Summary Hospital Course Discharge Diagnosis: Please see hospital course by problem list noted below. Hospital Course: 1. Large hematoma of anterior lateral right calf acute, present on admission -status post evacuation of hematoma in OR. She remained hemodynamically stable after surgery. Despite dropping hemoglobin patient feels her pain is well controlled and continues to feel better. She has good peripheral pulses. Aspirin was discontinued upon discharge, restart when Hg has stabilized. -patient will be discharged to skilled rehab today after PT recommendation, recommend repeat h/h in 2-3 days as an outpatient. -continue tramadol and Tylenol as needed -pending placement at [facility] tomorrow 2. Acute blood loss anemia, present on admission -significant drop in hemoglobin. recommend repeat in 2-3 days as an outpatient. -given iron sucrose 200 mg IV x1, continue to replete with oral iron. Restart aspirin when improving Hg. 3. Essential hypertension, active and chronic, stable -continue home dose of losartan 50 mg p.o. daily and metoprolol succinate 50 mg p.o. at bedtime 4. Hyperlipidemia, active and chronic -continue home dose of atorvastatin 20 mg p.o. p.m. 5. Anxiety, active and chronic, well controlled -continue home dose of duloxetine 60 mg p.o. daily 6. Insomnia, active and chronic -continue home dose of melatonin 3 mg p.o. at bedtime Exam Vital Signs (past 8 hours): - 11/09/19 04:30 Temperature 98.0 F Pulse Rate 62 Respiratory Rate 18 Blood Pressure 135/95 H Pulse Oximetry 96 Oxygen Delivery Method Room Air Oxygen Flow Rate 0 Narrative Exam Narrative: GENERAL APPEARANCE: Elderly female, with pallor, but well- developed and well nourished in no acute distress sitting upright in hospital bed. SKIN: Inspection of the skin reveals no rashes, ulcerations or petechiae. HEENT: Normocephalic atraumatic, extraocular muscles are intact, oropharynx is clear and mucous membranes are moist, neck is supple without adenopathy NECK: Supple and symmetric. There was no thyroid enlargement, and no tenderness, or masses were felt. CHEST: Normal AP diameter and normal contour without any kyphoscoliosis. LUNGS: Auscultation of the lungs revealed no wheezes, rhonchi, or rales. CARDIOVASCULAR: There was a regular rate and rhythm without any murmurs, gallops, rubs. Peripheral pulses were 2+ and symmetric. ABDOMEN: Soft and nontender with normal bowel sounds. No ascites was noted. MUSCULOSKELETAL: There was tenderness of her right lower extremity but no effusions noted. Muscle strength and tone were normal. EXTREMITIES: 1 to 2+ edema of the right lower extremity, right lower extremity wrapped in Navi wrap with mild tenderness. NEUROLOGIC: Alert and oriented x 3. Normal affect. Gait was normal. Strength is +5/5 in the Upper Extremities and Lower Extremities Bilaterally. Sensation to touch was normal. Objective Labs Result Diagrams: 11/09/19 07:00 11/06/19 07:24 Labs: Laboratory Results - last 24 hr 11/08/19 11/09/19 13:30 07:00 WBC 9.2 RBC 2.81 L Hgb 8.4 L Hct 25.6 L MCV 91.3 MCH 30.0 MCHC 32.9 RDW 15.9 H Plt Count 220 Neut % (Auto) 57.8 Lymph % (Auto) 27.1 [place] % (Auto) 8.8 Eos % (Auto) 5.4 H Baso % (Auto) 0.9 Neut # (Auto) 5300 Lymph # (Auto) 2500 [place] # (Auto) 800 Eos # (Auto) 500 H Baso # (Auto) 100 COVID-19 PCR Negative Discharge Plan Discharge Plan Patient Disposition: SNF Transfer to: [facility] Discharge comment: Patient was admitted to hospital with a right lower extremity hematoma. This hematoma was evacuated in the operating room. She is being [facility] facility for [facility]. Her hemoglobin was slightly down trending upon discharge, but her symptoms were improving and she had no further evidence of progression of her hematoma. She should have a repeat hemoglobin in 2-3 days. Her aspirin has been discontinued at this time, and she should restart when her hemoglobins are stable. She was given a dose of IV iron, and will continue outpatient oral repletion upon discharge. Discharge orders & Medications Prescriptions: New tramadol 50 mg Tablet 50 mg PO QID PRN (Reason: Pain, Moderate (4-6)) Qty: 30 RF: 0 Continued Fluticasone Propionate/Salme (Advair Diskus 250/50) aerosol 1 dose IH PRN PRN (Reason: asthma) Qty: 0 RF: 0 duloxetine [Cymbalta] 20 MG capsule,delayed release(DR/EC) 60 mg DAILY Qty: 0 RF: 0 potassium chloride 10 MEQ capsule, extended release 10 meq PO Q DAY Qty: 30 RF: 0 metoprolol succinate 50 mg tablet extended release 24 hr 50 mg PO DAILY RF: 0 cod liver oil Capsule 1 cap PO DAILY RF: 0 magnesium 30 mg Tablet 60 mg PO DAILY RF: 0 coenzyme Q10 [Co Q-10] 100 mg Capsule 100 mg PO DAILY RF: 0 cholecalciferol (vitamin D3) [Vitamin D3] 2,000 unit Capsule 2,000 unit PO DAILY RF: 0 Hair, Skin, Nails with Biotin 1 tab PO DAILY RF: 0 atorvastatin [Lipitor] 20 mg Tablet 20 mg PO BEDTIME Qty: 30 RF: 0 niacin 500 mg Tablet 500 mg PO DAILY Qty: 30 RF: 0 Fish Oil 340-1,000 mg Capsule 1,000 mg PO DAILY Qty: 30 RF: 0 Discontinued aspirin 325 mg tablet 81 mg PO DAILY RF: 0 Follow up/Referrals: Tami Irby MD [Physician] - (Two weeks 12-14 days [facility]. Please call Dr. Irby's office to schedule your appointment.) Andrade Gaston MD [Primary Care Provider] - Discharge Health Status Health Concerns: Right lower extremity hematoma Diet/Activity/Treatments Diet: Diet as Tolerated Activity: Weightbear as tolerated Skin/Wound/Dressing Care Report to your healthcare provider any signs of infection, such as:: chills, fever, night sweats, increased pain, unusual drainage and unusual redness Dressing: keep leg dressing clean dry and intact. And expect some drainage a reinforce or change as needed. Keep incision covered [facility] Reason for rehabilitation: Post-operative therapy and Recovery r/t decondition Rehab type: Physical therapy and Occupational therapy Visit Report/Discharge Packet Instructions: DI for Heart Failure, DI for Hematoma (Bruise), How to Prevent Falls, DI for Incision and Drainage Visit Report Forms: Congestive Heart Failure, Patient Portal/API, Stroke Signs & Symptoms Discharge Data Primary Care Provider: Andrade Gaston V Quality VTE Deep Vein Thrombosis/Pulmonary Embolism Present on Admission: No
[2019-11-09] MEDS: ACETAMINOPHEN 325 MG TABLET 975 MG PO (09:04)
[2019-11-09] MEDS: DOCUSATE 100 MG CAPSULE PO (09:05)
[2019-11-09] MEDS: METOPROLOL ER 50 MG TABLET PO (09:05)
[2019-11-09] MEDS: FERROUS SULFATE 325 MG TABLET PO (09:05)
[2019-11-09] MEDS: POTASSIUM CHLORIDE 10 MEQ TAB PO (09:05)
[2019-11-09] MEDS: DULOXETINE 30 MG CAPSULE 60 MG PO (09:05)
[2019-11-09] MEDS: SODIUM CHLORIDE 0.9% FLUSH 10 ML IV (09:06)
[2019-11-09] MEDS: FLUTICASONE/SALMETEROL 250/50 60 PUFF DISKUS INH (09:11)
[2019-11-09 09:16] VITALS: PULSE 68; RESP 16; O2SAT 98
--- NOTE | 2019-11-09 09:28 | PT.IPTN ---
Current Diagnoses Contusion of right lower leg, initial encounter (11/06/19) Surgery Performed Operation Date: 11/06/19 10:45 Actual Procedures p leg hematoma evacuation(Right) - Tami Irby MD Physical Therapy Treatment Note M2 PT-IP Current Condition Start: 11/06/19 16:28 Freq: NEEDED Status: Active Protocol: Document 11/06/19 15:03 AB (Rec: 11/06/19 16:41 AB [id number]) Physical Therapy Current Condition Current Condition Evaluation Date 11/06/19 Treatment Diagnosis RLE hematoma s/p evacuation; difficulty in walking Onset Date 11/06/19 Weight Bearing Status Weight Bearing Status Weight Bear as Tolerated Allowed Weight Bearing Amount (enter % RLE WBAT or #) (%) M3 PT-IP Subjective Start: 11/06/19 16:28 Freq: NEEDED Status: Active Protocol: Document 11/09/19 09:05 KS (Rec: 11/09/19 12:16 KS [id number]) Subjective Physical Therapy Visit Type Type Treatment Note Visit Start Time 09:05 Visit Stop Time 09:28 Total Visit Minutes 23 Number of ANATOMY TEACHER Visits 2 Physical Therapy Visit Comments Patient Comments pt agreeable to working with PT. Stating she is feeling stronger. M4 PT-IP Mobility and Gait Start: 11/06/19 16:28 Freq: NEEDED Status: Active Protocol: Document 11/09/19 09:05 KS (Rec: 11/09/19 12:16 KS [id number]) PT-Bed Mobility Assessment Supine to Sit Supine to Sit Minimal Assistance,1 Person Assistance,Head of Bed Elevated Scooting Scooting to Edge of Bed Moderate Assistance PT-Transfer Assessment Sit to and From Stand Sit to and from Stand Minimal Assistance,1 Person Assistance,Use of Upper Extremities Equipment Transfer Assistive Device Gait Belt,Front Wheeled Walker Orthotic/Prosthetic Devices or Brace: No Transfers Transfer Destination Bed,Chair Transfer Technique Stand Step Pivot Transfer Ability Level of Assist Minimal Assistance,Moderate Assistance,1 Person Assistance ,Use of Upper Extremities Comments Mobility Comments Pt was in bed upon arrival from therapy w/ nursing staff in room. Pt Min A for sup<>sit , Mod A for scooting to EOB. Pt sit<>stand Min A w/ cues w/ FWW. Pt able to stand ~1 min before needing seated rest break. Pt sit<>stand Min A x1 again and then completed stand step pivot transfer to chair Min to Mod A w/ verbal and tactile cues for FWW management. Pt still experiencing significant pain when weight bearing RLE and moves very slowly d/t pain and weakness. Pt has difficulty using BUE L>R to off weight RLE when transferring d/t weakness. Pt showing some improvements w/ sit<>stand from bed, but continues to have low tolerance for activity. Pt left in chair w/ all needs in reach and nursing staff in room. Gait Assessment Gait Gait Assistance Required: Moderate Assistance Distance (Feet) 2 Able to Maintain Weight Bearing Status Yes During Gait Assistive Devices Assistive Device Gait Belt,Front Wheeled Walker Orthotic/Prosthetic Devices or Brace: No Gait Deviations General Gait Pattern Antalgic,Decreased Stride Length,Decreased Feet Clearance Factors Limiting Gait Function Factors Limiting Gait Function Decreased Activity Tolerance, Decreased Sensation,Decreased Strength,Limited Range of Motion,Pain,Poor Balance,Poor Safety Awareness Comments Gait Comments pt only did stand step pivot transfer with mod A x1 Stair Climbing Assessment Comments Stair Climbing Comments Unable to complete stair mgt due to decreased strength and WB tolerance into RLE using FWW, Max A. PT-Balance Assessment Sitting Balance and Reactions Static Sitting Balance Ability Good Dynamic Sitting Balance Ability Fair Standing Balance and Reactions Static Standing Balance Ability Poor Dynamic Standing Balance Ability Poor Device Used FWW M5 PT-IP Objective Assessments Start: 11/06/19 16:28 Freq: NEEDED Status: Active Protocol: Document 11/06/19 15:03 AB (Rec: 11/06/19 16:41 AB [id number]) Orientation Orientation/Cognition Level of Alertness Alert Orientation Name,Date,Place,Situation Language Function Ability No Deficits Noted Safety Awareness Understands Safety Issues Memory Description No Deficits Noted Gross Range of Motion Lower Extremity ROM Assessment Within Functional Limits Strength Lower Extremity Strength Assessment Left Impaired Hip 3+/5 Knee 3+/5 Coordination Assessment Gross Coordination Gross Coordination WNL Muscle Tone Muscle Tone WNL Yes M6 PT-IP Treatment Start: 11/06/19 16:28 Freq: NEEDED Status: Active Protocol: Document 11/09/19 09:05 KS (Rec: 11/09/19 12:16 KS [id number]) Physical Therapy Treatment Education Education Provided Precautions,Weight Bearing Status,Safety M7 PT-IP Assessment and Plan Start: 11/06/19 16:28 Freq: NEEDED Status: Active Protocol: Document 11/09/19 09:05 JUNO (Rec: 11/09/19 12:16 KS [id number]) PT Summary Assessment and Plan Potential Rehabilitation Potential Good Status of Condition at Evaluation Stable Summary Impairments Pain,ROM,Strength,Balance, Coordination,Sensation,Bed Mobility,Transfers,Gait, Activity Tolerance Progress Towards Goals Slow Progress due to Pain,Slow Progress due to Medical Issues,Slow Progress due to Activity Tolerance Assessment Summary Pt showing some improvements w / bed mobility and sit<>stand from bed, however continues to need assist and cues w/ all mobility and transfers. Min A for bed mobility and sit<> stand, Min to Mod A for stand step pivot transfer to chair. Pt moving very slowly d/t pain and BUE weakness L>R.Pt still unable to ambulate at this time d/t pain and weakness. Pt will require SNF to improve strength and functional mobility. Goals Bed Mobility Goal Standby Assistance Transfer Goal Standby Assistance,Front Wheeled Walker Gait Goal Standby Assistance,Front Wheel Walker Gait Distance 100 Other Goals up/down 3 steps L rail + SKID ADZER min 2 steps B rail SBA Days to Meet Goals 5 Frequency of Treatment Frequency Of Treatment Twice a Day Treatment Plan Physical Therapy Treatment Plan Bed Mobility Training,Transfer Training,Gait Training, Therapeutic Exercise,Balance Retraining,Post Op Education, Discharge Planning,Hot or Cold Pack,Neuromuscular Re-ed Other Recommendations and Next Treatment 2 person assist for gait, Focus transfers using FWW, balance, motor control and stairs if safe. Recommendations To Nursing Amount of Assist Needed 2 Person Assist Discharge Recommendations PT Discharge Recommendations SNF Rehab Transportation Needs at Discharge Private Vehicle,Wheelchair/ Cabulance
[2019-11-09 09:49] VITALS: BP 170/74; PULSE 61; RESP 16; TEMP 36.3; O2SAT 98
--- NOTE | 2019-11-09 10:37 | P.PN_ITS ---
Subjective Subjective Date Patient Seen: 11/09/19 Time Patient Seen: 10:37 Interval history: Patietn doing well. Pain is better controlled this am. Exam Vital Signs (past 8 hours): - 11/09/19 04:30 11/09/19 09:16 11/09/19 09:49 Temperature 98.0 F 97.3 F L Pulse Rate 62 68 61 Respiratory Rate 18 16 16 Blood Pressure 135/95 H 170/74 H Pulse Oximetry 96 98 98 Oxygen Delivery Method Room Air Oxygen Flow Rate 0 Narrative Exam Narrative: TTP over her right lower extremity but no effusions noted. Muscle strength and tone were normal. 1 to 2+ edema of the right lower extremity, right lower extremity wrapped in Navi wrap with mild tenderness. Drain has been removed. Objective Labs Result Diagrams: 11/09/19 07:00 11/06/19 07:24 Labs: Laboratory Results - last 24 hr 11/08/19 11/09/19 13:30 07:00 WBC 9.2 RBC 2.81 L Hgb 8.4 L Hct 25.6 L MCV 91.3 MCH 30.0 MCHC 32.9 RDW 15.9 H Plt Count 220 Neut % (Auto) 57.8 Lymph % (Auto) 27.1 [place] % (Auto) 8.8 Eos % (Auto) 5.4 H Baso % (Auto) 0.9 Neut # (Auto) 5300 Lymph # (Auto) 2500 [place] # (Auto) 800 Eos # (Auto) 500 H Baso # (Auto) 100 COVID-19 PCR Negative Assessment & Plan Assessment & Plan narrative: Patient has a right leg hematoma. Now s/p evacuation of hematoma. Drain has been removed. Slow to mobilize due to pain. Plan for DC to SNF today. Time Spent With Patient Time with patient: less than 15 minutes Quality VTE Deep Vein Thrombosis/Pulmonary Embolism Present on Admission: No
[2019-11-09] MEDS: BISACODYL 10 MG SUPP PR (11:22)
[2019-11-09] MEDS: polyethylene glycoL 3350 17 GM POWD.PACK PO (11:22)
[2019-11-09 12:00] VITALS: BP 152/67; PULSE 61; RESP 16; TEMP 36.2; O2SAT 100
--- NOTE | 2019-11-09 13:00 | CM.DPNOTE ---
DC Note DC order in place for SNF; patient remains agreeable to [facility], COVID-19 Negative per result 7.3.20. Updated Verenice at [facility]; p/u scheduled for 1330. CATHERINE Block updated. Updated patient and she was calling her Perico to notify, he was planning on coming in before patient was discharged. Faxed completed and signed med list, Rx, and completed and signed PASRR to [facility]. CATHERINE Block will call report to Ryann at [phone]. P: DC to [facility] via w/c jacquie MAURO
--- NOTE | 2019-11-09 13:05 | PC.NURSE ---
Addendum entered by Eusebia Torres R.N. 11/09/19 13:46: Pt transferred to [facility] at 1330 via wheelchair. All belongings with pt, information packet sent with pt. Original Note: PATIENT GIVEN SUPPOSITORY, HAD MULTIPLE HARD PELLET STOOLS. REPORTS PAIN WELL CONTROLLED. UP TO RECLINER FOR LUNCH. DRSG TO RLE CHANGED. LEG IS SWOLLEN WITH APPROX 8-9 SUTURES W/ RUNNING LINE INTACT, INCISION WELL APPROXIMATED. NO ACTIVE DRAINAGE, NO ODOR. LOPEZ SHINY AND RED WITH PURPLISH/YELLOW BRUISING. NO S/SX'S OF INFECTION. INCISION LOOKS GREAT. PATIENT EXCLAIMS THAT SWELLING HAS GONE DOWN NOTICEABLY. OLD DRSG HAD STACK OF 4X4'S ABD PAD AND KERLIX OVER TOP OF XEROFORM. THE 4X4'S WERE 80% SATURATED W/ OLD DRY BLOOD. THE OLD ABD PAD WAS CLEAN AND THE KERLIX WAS CLEAN. FRESH XEROFORM APPLIED, THEN 2 4X4'S AND NEW KERLIX AND SAME PROMISE WRAP APPLIED. IV DC'D INTACT FOR DISCHARGE. REPORT GIVEN TO MARLA AT [facility].
== END 2019-11-09 13:30 | DRG 605 ==
LOC: ED 11-06 00:30 → AC 11-06 08:03
PROVIDERS: Family Medicine; Nurse Practitioner Family; Admitting Provider Orthopaedic Surgery Foot and Ankle Surgery; Emergency Provider Emergency Medicine; PCP Internal Medicine; Visit Provider Orthopaedic Surgery Foot and Ankle Surgery
PROC: 0JCN0ZZ Extirpation of Matter from Right Lower Leg Subcutaneous Tissue and Fascia, Open Approach (ICD-10-PCS; principal; 2019-11-06 10:45)
DX: S80.11XA Contusion of right lower leg, initial encounter (principal); I69.954 Hemiplegia and hemiparesis following unspecified cerebrovascular disease affecting left non-dominant side; D62 Acute posthemorrhagic anemia; F41.9 Anxiety disorder, unspecified; E78.5 Hyperlipidemia, unspecified; G47.00 Insomnia, unspecified; Z11.59 Encounter for screening for other viral diseases; W18.30XA Fall on same level, unspecified, initial encounter; Y92.002 Bathroom of unspecified non-institutional (private) residence as the place of occurrence of the external cause
CPT/HCPCS: 36415; 73590; 73702; 80048; 80053; 82550; 85025; 85027; 87635; 94640; 97110; 97161; 97530; 99284; J0690; J1170; J1756; J2270; J2405; J2704; J3010; Q9967

== ENCOUNTER → 2019-11-19 09:43 | Outpatient (ROUT) | payer SELFPAY ==
[2019-11-06 01:53] VITALS: BMI 29.2
[2019-11-22 13:36] LABS: COVID19 Sendout Not Detected (Not Detected)
== END ==
PROVIDERS: PCP Internal Medicine; Visit Provider Internal Medicine
DX: Z11.59 Encounter for screening for other viral diseases (principal)
CPT/HCPCS: 87635

== ENCOUNTER → 2019-12-16 18:37 | Outpatient (ROUT) | payer MEDICARE, OTHER, SELFPAY ==
[2019-11-06 01:53] VITALS: BMI 29.2
[2019-12-16 19:23] LABS: Add Manual Diff / Slide Review NO; Basophils Absolute Auto 0 /uL (0-100); Basophils Percent Auto 0.5 % (0-2); Eosinophils Absolute Auto 400 /uL (0-450); Eosinophils Percent Auto 5.1 % (2-4); Hematocrit 39.6 % (36-46); Hemoglobin 12.7 g/dL (12.0-16.0); Lymphocytes Absolute Auto 2200 /uL (1100-4500); Lymphocytes Percent Auto 30.6 % (25-40); Mean Corpuscular HGB Conc 32.1 % (30-36); Mean Corpuscular Hemoglobin 29.5 PG (26-34); Monocytes Absolute Auto 700 /uL (0-900); Monocytes Percent Auto 9.5 % (3-14); Neutrophils Absolute Auto 3900 /uL (1500-7000); Neutrophils Percent Auto 54.3 % (50-75); Platelet Count 259 X10^3/uL (150-400); Red Cell Distribution Width 16.8 % (11.6-14.8); White Blood Cell Count 7.2 X10^3/uL (4.5-11.0)
[2019-12-16 19:34] LABS: TSH w/ Reflex to FT4 3.65 uIU/mL (0.47-4.68)
== END ==
PROVIDERS: PCP Internal Medicine; Visit Provider Internal Medicine
DX: I50.9 Heart failure, unspecified (principal); E78.2 Mixed hyperlipidemia
CPT/HCPCS: 84443; 85025

== ENCOUNTER → 2019-12-27 15:51 | Outpatient (CLI) | payer MEDICARE, OTHER, SELFPAY ==
[2019-11-06 01:53] VITALS: BMI 29.2
--- NOTE | 2019-12-27 15:56 | DI.RAD.S_ITS ---
PROCEDURE: XR CHEST 2V INDICATIONS: CHEST PAIN TECHNIQUE: 2 views of the chest were acquired. COMPARISON: [facility], DANIELLE, XR CHEST 1V, 04/21/2018, 21:02. [facility], CR, CHEST 1 VIEW, 08/04/2016, 20:13. FINDINGS: Surgical changes and devices: Pacemaking device and dual chamber leads, cervical fusion plate. Lungs and pleura: Lungs are clear. No pleural effusions or pneumothorax. Mediastinum: Mediastinal contours are normal. Heart size is normal. Bones and chest wall: No suspicious bony abnormalities. Soft tissues appear unremarkable. IMPRESSION: Cardiac pacemaking device and dual chamber leads in normal position, source of chest pain is not seen. Dictated by: Murali Raymond M.D. on 12/27/2019 at 16:27 Approved by: Murali Raymond M.D. on 12/27/2019 at 16:27
== END ==
PROVIDERS: PCP Internal Medicine; Referring Provider Internal Medicine; Visit Provider Internal Medicine
DX: R07.9 Chest pain, unspecified (principal); Z95.0 Presence of cardiac pacemaker; Z98.1 Arthrodesis status
CPT/HCPCS: 71046

== ENCOUNTER → 2020-01-21 18:27 | Outpatient (ROUT) | payer MEDICARE, OTHER, SELFPAY ==
[2019-11-06 01:53] VITALS: BMI 29.2
[2020-01-21 19:30] LABS: Aspartate Aminotransferase 32 IU/L (14-36); Blood Urea Nitrogen 26 mg/dL (7-17); Calcium 9.5 mg/dL (8.4-10.2); Carbon Dioxide 33 mmol/L (22-32); Chloride 103 mmol/L (98-107); Cholesterol 167 mg/dL (140-199); Estimated Glomerular Filt Rate 54.2 mL/min (>60); Glucose 96 mg/dL (80-110); HDL Cholesterol 54 mg/dL (40-60); HEMOLYSIS < 15 (0-50); LDL Cholesterol Calculated 86 mg/dL (<100); Potassium 4.3 mmol/L (3.4-5.1); Sodium 141 mmol/L (137-145); Triglycerides 137 mg/dL (35-150)
== END ==
PROVIDERS: PCP Internal Medicine; Visit Provider Internal Medicine
DX: I10 Essential (primary) hypertension (principal); E78.2 Mixed hyperlipidemia
CPT/HCPCS: 80048; 80061; 84450

== ENCOUNTER → 2020-03-09 18:57 | Outpatient (ROUT) | payer MEDICARE, OTHER, SELFPAY ==
[2019-11-06 01:53] VITALS: BMI 29.2
[2020-03-09 20:02] LABS: Add Manual Diff / Slide Review NO; Basophils Absolute Auto 100 /uL (0-100); Eosinophils Absolute Auto 500 /uL (0-450); Eosinophils Percent Auto 5.8 % (2-4); Lymphocytes Absolute Auto 1200 /uL (1100-4500); Lymphocytes Percent Auto 13.5 % (25-40); Mean Corpuscular HGB Conc 32.5 % (30-36); Mean Corpuscular Volume 92.3 fL (80-100); Monocytes Absolute Auto 700 /uL (0-900); Monocytes Percent Auto 7.7 % (3-14); Neutrophils Absolute Auto 6600 /uL (1500-7000); Platelet Count 251 X10^3/uL (150-400); Red Blood Cell Count 4.33 X10^6/uL (4.0-5.2); Red Cell Distribution Width 17.9 % (11.6-14.8); White Blood Cell Count 9.2 X10^3/uL (4.5-11.0)
[2020-03-09 20:18] LABS: Alanine Aminotransferase 18 IU/L (<35); Albumin 4.1 g/dL (3.5-5.0); Albumin Globulin Ratio 1.4 (1.0-2.8); Alkaline Phosphatase 93 U/L (38-126); Aspartate Aminotransferase 28 IU/L (14-36); BUN Creatinine Ratio 19.8 (6-22); Bilirubin Total 1.1 mg/dL (0.2-1.3); Blood Urea Nitrogen 19 mg/dL (7-17); Calcium 9.6 mg/dL (8.4-10.2); Carbon Dioxide 31 mmol/L (22-32); Chloride 104 mmol/L (98-107); Estimated Glomerular Filt Rate 56.7 mL/min (>60); Glucose 90 mg/dL (80-110); HEMOLYSIS 18 (0-50); Potassium 4.2 mmol/L (3.4-5.1); Sodium 140 mmol/L (137-145); Total Protein 7.1 g/dL (6.3-8.2)
[2020-03-09 20:50] LABS: TSH w/ Reflex to FT4 3.08 uIU/mL (0.47-4.68)
[2020-03-09 21:06] LABS: Vitamin B12 350 pg/mL (239-931)
== END ==
PROVIDERS: PCP Internal Medicine; Visit Provider Internal Medicine
DX: R53.1 Weakness (principal); E53.8 Deficiency of other specified B group vitamins
CPT/HCPCS: 80053; 82607; 84443; 85025

== ENCOUNTER 2020-06-27 16:12 | Emergency (ER) | payer MEDICARE, OTHER, SELFPAY ==
[2019-11-06 01:53] VITALS: BMI 29.2
[2020-06-27] VITALS (14 sets, daily range): BP systolic 160–225; BP diastolic 70–97; PULSE 60–64; RESP 15–21; TEMP 36.7; O2SAT 94–99
--- NOTE | 2020-06-27 16:45 | ED_ITS ---
HPI - Epistaxis General Chief complaint: Nasal Problem Stated complaint: nose bleed Time Seen by Provider: 06/27/20 16:18 Source: patient Mode of arrival: Ambulatory Limitations: no limitations History of Present Illness HPI Narrative: Patient is a 75-year-old female with history of cardiomyopathy, CVA, congestive heart failure, hypertension presenting today with nosebleed. She actually had 1 2 days ago that lasted for while but she was able to get it to stop this nose bleed started at 1:00 p.m. she has been unable to get it to stop. Her blood pressure is noted to be quite elevated in the emergency department her. She is not on any anticoagulation medication. She states that she is blowing out very large blood clots from her nose. Was going down her throat but now with a nasal clamp it is not. She denies any chest pain heart palpitations or shortness of breath. MD complaint: epistaxis Location: right nostril Onset (ago): hour(s) Duration: constant Context: history of previous Related Data Home Medications Medication Instructions Recorded Confirmed Fluticasone Propionate/Salme 1 dose IH PRN PRN #0 01/06/10 11/06/19 (Advair Diskus 250/50) duloxetine [Cymbalta] 60 mg DAILY #0 03/02/12 11/06/19 Hair, Skin, Nails with Biotin 1 tab PO DAILY 04/21/18 11/06/19 cholecalciferol (vitamin D3) 2,000 unit PO DAILY 04/21/18 11/06/19 [Vitamin D3] cod liver oil 1 cap PO DAILY 04/21/18 11/06/19 coenzyme Q10 [Co Q-10] 100 mg PO DAILY 04/21/18 11/06/19 magnesium 60 mg PO DAILY 04/21/18 11/06/19 metoprolol succinate 50 mg PO DAILY 04/21/18 11/06/19 Previous Rx's Medication Instructions Recorded potassium chloride 10 meq PO Q DAY #30 cap 08/04/16 Fish Oil 1,000 mg PO DAILY #30 cap 04/24/18 atorvastatin [Lipitor] 20 mg PO BEDTIME #30 tab 04/24/18 niacin 500 mg PO DAILY #30 tab 04/24/18 tramadol 50 mg PO QID PRN #30 tab 11/07/19 Allergies Allergy/AdvReac Type Severity Reaction Status Date / Time latex [LATEX] Allergy Mild RASH Verified 11/06/19 10:06 naproxen [From ALEVE] Allergy Mild SWELLING Verified 11/06/19 10:06 FEET, HANDS codeine Allergy Unknown GI UPSET Verified 11/06/19 10:06 lisinopril Allergy Unknown FACIAL Verified 11/06/19 10:06 SWELLING venlafaxine Allergy Unknown ELEVATED Verified 11/06/19 10:06 BLOOD PRESSURE bupropion AdvReac Unknown SEIZURE Verified 11/06/19 10:06 Review of Systems Review of Systems Narrative: GENERAL: Denies chills, fatigue, malaise, fever, sweats, travel HEENT: See HPI RESPIRATORY: Denies dyspnea, cough, wheezing, hemoptysis, sputum. CARDIOVASCULAR: Denies chest pain, palpitations, orthopnea, edema GASTROINTESTINAL: Denies nausea, vomiting, abdominal pain, diarrhea, constipation, melena. : Denies dysuria, frequency, incontinence, hematuria, urinary retention, flank pain. MUSCULOSKELETAL: Denies weakness, joint pain, or bony pain SKIN: No rash, no erythema, no pruritus NEUROLOGIC: Denies weakness, dizziness, headache, numbness, change in speech, confusion PSYCHIATRIC: No concerning psychosocial issues. 12 point review of systems is negative except for those stated above and HPI Patient History Medical History Cardiomyopathy Cerebrovascular accident Congestive heart failure Dizziness Hearing loss Hypertension Physical deconditioning Surgical History History of permanent cardiac pacemaker placement Family History Father Heart disease Brother Heart disease Mother Old age Social History household members: spouse Smoking Status: Former smoker alcohol intake: never Smoking Status: Former smoker alcohol intake frequency: 0-2 drinks per day Substance Use Type: does not use Exam Initial Vital Signs Initial Vital Signs: Vital Signs Temperature 98.0 F 06/27/20 16:18 Pulse Rate 62 06/27/20 16:18 Respiratory Rate 16 06/27/20 16:18 Blood Pressure 225/97 H 06/27/20 16:18 Pulse Oximetry 97 06/27/20 16:18 GENERAL: Alert pleasant well-appearing 75-year-old female and in no acute distress. HEENT: Head atraumatic,EOMI, pupils reactive, face symmetric, moist mucous membranes NOSE: Nasal clamp. on right nare has some bleeding, no bleeding in pharynx CARDIOVASCULAR: Regular rate and rhythm without murmurs, rubs or gallops. RESPIRATORY: Breath sounds equal bilaterally, no wheezes rales or rhonchi. ABDOMEN: Soft, nontender. Normoactive bowel sounds all 4 quadrants. No guarding or rebound. EXTREMITIES: Normal range of motion, no clubbing or edema. Neurovascularly intact NEUROLOGICAL: Alert and oriented x4.Normal gait and speech. Cranial nerves II through XII grossly intact. SKIN: Warm, dry, no laceration, no petechiae, no rashes or lesions. Course Orders Ordered: ED Orders 06/27/20 16:45 Complete Blood Count AUTO DIFF Stat Comprehensive Metabolic Panel Stat Lipase Stat Partial Thromboplastin Time Stat Prothrombin Time INR Stat Troponin & CK Cardiac Panel Stat EKG-12 Lead Stat Discontinued Medications Labetalol HCl (Labetalol 20 Mg/4 Ml Syringe) 10 mg IV NOW ONE Stop: 06/27/20 16:46 Last Admin: 06/27/20 17:02 Dose: 10 mg Documented by: Vital Signs Vital signs: Vital Signs - 8 hr 06/27/20 16:18 06/27/20 16:25 06/27/20 16:26 Temperature 98.0 F Pulse Rate 62 60 60 Respiratory Rate 16 Blood Pressure 225/97 H 200/81 H Pulse Oximetry 97 99 99 06/27/20 16:30 06/27/20 17:00 06/27/20 17:01 Temperature Pulse Rate 60 60 60 Respiratory Rate Blood Pressure 209/84 H 195/80 H Pulse Oximetry 98 96 97 06/27/20 17:02 06/27/20 17:15 06/27/20 17:20 Temperature Pulse Rate 60 60 60 Respiratory Rate Blood Pressure 195/80 H 172/75 H 166/70 H Pulse Oximetry 95 95 06/27/20 17:25 06/27/20 17:30 06/27/20 17:35 Temperature Pulse Rate 60 60 61 Respiratory Rate 18 16 Blood Pressure 164/70 H 168/70 H 168/70 H Pulse Oximetry 95 97 MDM - Epistaxis Lab Data Result diagrams: 06/27/20 16:45 06/27/20 16:45 Labs: Lab Results 06/27/20 06/27/20 06/27/20 Range/Units 16:45 16:45 16:45 WBC 11.4 H (4.5-11.0) X10^3/uL RBC 5.15 (4.0-5.2) X10^6/uL Hgb 15.5 (12.0-16.0) g/dL Hct 46.8 H (36-46) % MCV 90.9 (80-100) fL MCH 30.2 (26-34) PG MCHC 33.2 (30-36) % RDW 14.9 H (11.6-14.8) % Plt Count 287 (150-400) X10^3/uL Neut % (Auto) 64.7 (50-75) % Lymph % (Auto) 22.2 L (25-40) % [place] % (Auto) 6.8 (3-14) % Eos % (Auto) 5.7 H (2-4) % Baso % (Auto) 0.6 (0-2) % Neut # (Auto) 7400 H (9919-3111) /uL Lymph # (Auto) 2500 (6538-2540) /uL [place] # (Auto) 800 (0-900) /uL Eos # (Auto) 700 H (0-450) /uL Baso # (Auto) 100 (0-100) /uL PT 12.1 (10.1-12.7) SECONDS INR 1.0 (0.9-1.3) APTT 33 (26.4-36.2) SECONDS Sodium 138 (137-145) mmol/L Potassium 4.3 (3.4-5.1) mmol/L Chloride 99 (98-107) mmol/L Carbon Dioxide 36 H (22-32) mmol/L BUN 26 H (7-17) mg/dL Creatinine 0.76 (0.52-1.04) mg/dL Estimated GFR > 60.0 (>60) mL/min BUN/Creatinine Ratio 34.2 H (6-22) Glucose 101 (80-110) mg/dL Calcium 9.9 (8.4-10.2) mg/dL Total Bilirubin 0.8 (0.2-1.3) mg/dL AST 38 H (14-36) IU/L ALT 33 (<35) IU/L Alkaline Phosphatase 110 (38-126) U/L Total Creatine Kinase 35 (30-135) U/L CK-MB (CK-2) TNP CK-MB (CK-2) Rel Index TNP Troponin I 0.015 (0.01-0.034) ng/mL Total Protein 8.1 (6.3-8.2) g/dL Albumin 4.5 (3.5-5.0) g/dL Globulin 3.6 (1.7-4.1) g/dL Albumin/Globulin Ratio 1.3 (1.0-2.8) Lipase 261 (23-300) U/L ECG Data Attestation: I personally reviewed and interpreted this ECG as follows: Prior ECG tracings: available for review Interpretation: Paced rhythm rate [address] changes do not agree with computer reading acute [facility] MDM Narrative Medical decision making narrative: Patient's blood pressure initially quite elevated with systolic greater than 200 on a few readings. She is given 1 dose of labetalol which brings her blood pressure down. Clamp remains in place for about an hour. Bleeding has stopped. Blood work is overall reassuring no sign of end-organ damage EKG is Discharge Plan Departure Patient Disposition: Home Clinical Impression: Epistaxis Hypertension Qualifiers: Hypertension type: essential hypertension Qualified Code(s): I10 - Essential (primary) hypertension Activity Restrictions/Additional Instructions: *You have been diagnosed with high blood pressure, nose bleed *What to do: Please discuss with her primary care provider about your blood pressure. Your medications may need to be adjusted. I believe your elevated blood pressures contributing to your nose bleeds. Please monitor your blood pressure once a day and record and give this log to your primary care provider. If her nosebleed should restart please clamp the nose and leave it in place for 20-60 minutes. If it is continuing to bleed despite the clamp you may return to the emergency department. *Continue to take medications as directed *Follow up with your primary care provider in 2-3 days *Return to ER if you should have persistent nose bleeding, persistent blood pressure greater than 200, chest pain shortness of breath or any new, worsening or concerning symptoms Prescriptions: No Action Fluticasone Propionate/Salme (Advair Diskus 250/50) aerosol 1 dose IH PRN PRN (Reason: asthma) Qty: 0 RF: 0 duloxetine [Cymbalta] 20 MG capsule,delayed release(DR/EC) 60 mg DAILY Qty: 0 RF: 0 potassium chloride 10 MEQ capsule, extended release 10 meq PO Q DAY Qty: 30 RF: 0 tramadol 50 mg Tablet 50 mg PO QID PRN (Reason: Pain, Moderate (4-6)) Qty: 30 RF: 0 metoprolol succinate 50 mg tablet extended release 24 hr 50 mg PO DAILY RF: 0 cod liver oil Capsule 1 cap PO DAILY RF: 0 magnesium 30 mg Tablet 60 mg PO DAILY RF: 0 coenzyme Q10 [Co Q-10] 100 mg Capsule 100 mg PO DAILY RF: 0 cholecalciferol (vitamin D3) [Vitamin D3] 2,000 unit Capsule 2,000 unit PO DAILY RF: 0 Hair, Skin, Nails with Biotin 1 tab PO DAILY RF: 0 atorvastatin [Lipitor] 20 mg Tablet 20 mg PO BEDTIME Qty: 30 RF: 0 niacin 500 mg Tablet 500 mg PO DAILY Qty: 30 RF: 0 Fish Oil 340-1,000 mg Capsule 1,000 mg PO DAILY Qty: 30 RF: 0 Referrals: Andrade Gaston MD [Primary Care Provider] -
[2020-06-27 16:55] LABS: Add Manual Diff / Slide Review NO; Basophils Absolute Auto 100 /uL (0-100); Basophils Percent Auto 0.6 % (0-2); Eosinophils Absolute Auto 700 /uL (0-450); Eosinophils Percent Auto 5.7 % (2-4); Hematocrit 46.8 % (36-46); Hemoglobin 15.5 g/dL (12.0-16.0); Lymphocytes Absolute Auto 2500 /uL (1100-4500); Lymphocytes Percent Auto 22.2 % (25-40); Mean Corpuscular HGB Conc 33.2 % (30-36); Mean Corpuscular Hemoglobin 30.2 PG (26-34); Mean Corpuscular Volume 90.9 fL (80-100); Monocytes Absolute Auto 800 /uL (0-900); Monocytes Percent Auto 6.8 % (3-14); Neutrophils Absolute Auto 7400 /uL (1500-7000); Neutrophils Percent Auto 64.7 % (50-75); Platelet Count 287 X10^3/uL (150-400); Red Blood Cell Count 5.15 X10^6/uL (4.0-5.2); Red Cell Distribution Width 14.9 % (11.6-14.8); White Blood Cell Count 11.4 X10^3/uL (4.5-11.0)
[2020-06-27 17:01] LABS: Prothrombin Time 12.1 SECONDS (10.1-12.7)
[2020-06-27] MEDS: LABETALOL 20 MG/4 ML SYRINGE 10 MG IV (17:02)
[2020-06-27 17:04] LABS: PTT Partial Thromboplastin Tim 33 SECONDS (26.4-36.2)
[2020-06-27 17:05] LABS: Alanine Aminotransferase 33 IU/L (<35); Albumin 4.5 g/dL (3.5-5.0); Albumin Globulin Ratio 1.3 (1.0-2.8); Alkaline Phosphatase 110 U/L (38-126); Aspartate Aminotransferase 38 IU/L (14-36); BUN Creatinine Ratio 34.2 (6-22); Bilirubin Total 0.8 mg/dL (0.2-1.3); Blood Urea Nitrogen 26 mg/dL (7-17); Calcium 9.9 mg/dL (8.4-10.2); Carbon Dioxide 36 mmol/L (22-32); Chloride 99 mmol/L (98-107); Creatine Kinase 35 U/L (30-135); Estimated Glomerular Filt Rate > 60.0 mL/min (>60); Globulin 3.6 g/dL (1.7-4.1); Glucose 101 mg/dL (80-110); HEMOLYSIS 33 (0-50); Lipase 261 U/L (23-300); Potassium 4.3 mmol/L (3.4-5.1); Sodium 138 mmol/L (137-145); Total Protein 8.1 g/dL (6.3-8.2)
[2020-06-27 17:17] LABS: Troponin I 0.015 ng/mL (0.01-0.034)
== END 2020-06-27 18:03 | disposition home or self-care (01) ==
PROVIDERS: Emergency Provider Emergency Medicine; PCP Internal Medicine
DX: R04.0 Epistaxis (principal); I10 Essential (primary) hypertension; I50.9 Heart failure, unspecified
CPT/HCPCS: 36415; 80053; 82550; 83690; 84484; 85025; 85610; 85730; 93005; 93010; 96374; 99283; 99284

== ENCOUNTER → 2020-07-20 14:25 | Outpatient (CLI) | payer MEDICARE, OTHER, SELFPAY ==
[2019-11-06 01:53] VITALS: BMI 29.2
[2020-07-20 16:34] LABS: Alanine Aminotransferase 26 IU/L (<35); Albumin 4.3 g/dL (3.5-5.0); Albumin Globulin Ratio 1.3 (1.0-2.8); Alkaline Phosphatase 88 U/L (38-126); Aspartate Aminotransferase 33 IU/L (14-36); BUN Creatinine Ratio 39.8 (6-22); Bilirubin Total 0.6 mg/dL (0.2-1.3); Blood Urea Nitrogen 39 mg/dL (7-17); Calcium 9.8 mg/dL (8.4-10.2); Carbon Dioxide 35 mmol/L (22-32); Chloride 102 mmol/L (98-107); Cholesterol 202 mg/dL (140-199); Estimated Glomerular Filt Rate 55.3 mL/min (>60); Globulin 3.3 g/dL (1.7-4.1); Glucose 106 mg/dL (80-110); HDL Cholesterol 52 mg/dL (40-60); HEMOLYSIS 22 (0-50); LDL Cholesterol Calculated 118 mg/dL (<100); Potassium 4.2 mmol/L (3.4-5.1); Sodium 141 mmol/L (137-145); Total Protein 7.6 g/dL (6.3-8.2); Triglycerides 162 mg/dL (35-150)
== END ==
PROVIDERS: PCP Internal Medicine; Referring Provider Internal Medicine Cardiovascular Disease; Visit Provider Internal Medicine Cardiovascular Disease
DX: I10 Essential (primary) hypertension (principal)
CPT/HCPCS: 36415; 80053; 80061

== ENCOUNTER 2020-08-27 11:25 | Emergency (ER) | payer MEDICARE, OTHER, SELFPAY ==
[2019-11-06 01:53] VITALS: BMI 29.2
[2020-08-27 11:37] VITALS: BP 136/62; PULSE 60; RESP 14; TEMP 36.5; O2SAT 100; BMI 27.1
--- NOTE | 2020-08-27 14:13 | ED.BACK ---
HPI - Back Pain/Injury General Chief Complaint: Back Pain/Injury Stated Complaint: lower back pain Time Seen by Provider: 08/27/20 14:13 Source: patient Limitations: no limitations History of Present Illness HPI Narrative: 75-year-old female former smoker with history of hypertension, depression, general physical deconditioning and ongoing back pain presents with a chief complaint of many weeks of lower back pain. She states that it is in the same region is normal, in her lower back, extending across the top of her hips. She denies any radiation of her discomfort. She denies any loss of control of bowel or bladder. She states that she has had trouble with her left lower extremity in terms of weakness for many years and nothing is new. She denies any new injuries or traumatic injury. She denies any fever or chills, use of blood thinners or history of IV drug abuse. Her pain is worse when she moves and improves with rest. She states it is not significantly worse than normal but is here because others said it is time to be seen for her discomfort MD Complaint: back pain Onset (ago): month(s) Duration: constant Similar Symptoms Previously: Yes Location: lumbar spine Severity: moderate Quality: aching Radiation: none Relieving factors: walking Associated symptoms: denies other symptoms Related Data Home Medications Medication Instructions Recorded Confirmed Fluticasone Propionate/Salme 1 dose IH PRN PRN #0 01/06/10 11/06/19 (Advair Diskus 250/50) duloxetine [Cymbalta] 60 mg DAILY #0 03/02/12 11/06/19 Hair, Skin, Nails with Biotin 1 tab PO DAILY 04/21/18 11/06/19 cholecalciferol (vitamin D3) 2,000 unit PO DAILY 04/21/18 11/06/19 [Vitamin D3] cod liver oil 1 cap PO DAILY 04/21/18 11/06/19 coenzyme Q10 [Co Q-10] 100 mg PO DAILY 04/21/18 11/06/19 magnesium 60 mg PO DAILY 04/21/18 11/06/19 metoprolol succinate 50 mg PO DAILY 04/21/18 11/06/19 Previous Rx's Medication Instructions Recorded potassium chloride 10 meq PO Q DAY #30 cap 08/04/16 Fish Oil 1,000 mg PO DAILY #30 cap 04/24/18 atorvastatin [Lipitor] 20 mg PO BEDTIME #30 tab 04/24/18 niacin 500 mg PO DAILY #30 tab 04/24/18 tramadol 50 mg PO QID PRN #30 tab 11/07/19 Allergies Allergy/AdvReac Type Severity Reaction Status Date / Time latex [LATEX] Allergy Mild RASH Verified 08/27/20 11:37 naproxen [From ALEVE] Allergy Mild SWELLING Verified 08/27/20 11:37 FEET, HANDS codeine Allergy Unknown GI UPSET Verified 08/27/20 11:37 lisinopril Allergy Unknown FACIAL Verified 08/27/20 11:37 SWELLING venlafaxine Allergy Unknown ELEVATED Verified 08/27/20 11:37 BLOOD PRESSURE bupropion AdvReac Unknown SEIZURE Verified 08/27/20 11:37 Review of Systems Constitutional Constitutional: Denies chills, Denies fatigue, Denies fever(s), Denies frequent falls, Denies lethargy and Denies weakness Eyes Eyes: Denies change in vision, Denies eye discharge, Denies irritation and Denies loss of vision ENT Ears, Nose, Mouth, and Throat: Denies change in voice, Denies dizziness, Denies neck pain, Denies sore throat and Denies throat swelling Cardiovascular Cardiovascular: Denies chest pain, Denies irregular heart rhythm, Denies lightheadedness, Denies palpitations, Denies dyspnea, Denies dyspnea on exertion and Denies orthopnea Respiratory Respiratory: Denies cough, Denies dyspnea, Denies dyspnea on exertion and Denies wheezing Gastrointestinal Gastrointestinal: Denies abdominal pain, Denies change in bowel habits, Denies diarrhea, Denies nausea and Denies vomiting Musculoskeletal Musculoskeletal: Reports back pain, Denies neck pain and Denies numbness Integumentary/Breasts Skin/Breast: Denies pruritus, Denies erythema, Denies rash and Denies wounds Neurologic Neurologic: Denies behavioral changes, Denies confusion, Denies dizziness, Denies frequent falls, Denies loss of vision, Denies numbness and Denies weakness Psychiatric Psychiatric: Denies anxiety, Denies behavioral changes, Denies confusion, Denies depression, Denies homicidal ideation and Denies suicidal ideation Endocrine Endocrine: Denies fatigue, Denies flushing and Denies palpitations Hematologic/Lymphatic Hematologic/Lymphatic: Denies easy bruising Allergic/Immunologic Allergic/Immunologic: Denies urticaria, Denies throat swelling and Denies wheezing Patient History Medical History (Updated 08/27/20 @ 16:12 by Ignacio Haines DO) Cardiomyopathy Cerebrovascular accident Congestive heart failure Dizziness Hearing loss Hypertension Physical deconditioning Surgical History History of permanent cardiac pacemaker placement Family History Father Heart disease Brother Heart disease Mother Old age Social History household members: spouse Smoking Status: Former smoker alcohol intake: never Smoking Status: Former smoker alcohol intake frequency: 0-2 drinks per day Substance Use Type: does not use Exam Narrative Exam Narrative: GENERAL: [75] year old patient appears stated age. Well-nourished, well-developed patient, in mild distress. HEAD: Atraumatic. Normocephalic. EYES: Pupils equal round and reactive. Extraocular motions intact. No scleral icterus. No injection or drainage. ENT: Nose without bleeding, purulent drainage. Throat without erythema, tonsillar hypertrophy or exudate. Airway patent. NECK: Trachea midline. Non tender CARDIOVASCULAR: Regular rate and rhythm without murmurs, gallops, or rubs. RESPIRATORY: Clear to auscultation. Breath sounds equal bilaterally. No wheezes, rales, or rhonchi. GASTROINTESTINAL: Abdomen soft, non-tender, nondistended. EXTREMITIES: No edema or joint tenderness. BACK: sanitary napkin machine tender but free of any obvious external abnormalities. Patient exam notes decreased range of motion and muscle spasm, but no CVA tenderness, or vertebral point tenderness. There are no symptoms of cauda equina such as saddle anesthesia, and decreased reflexes, decreased sensation or strength. NEURO: AOx3. SKIN: No rash or erythema of visible areas Initial Vital Signs Initial Vital Signs: Vital Signs Temperature 97.7 F 08/27/20 11:37 Pulse Rate 60 08/27/20 11:37 Respiratory Rate 14 08/27/20 11:37 Blood Pressure 136/62 08/27/20 11:37 Pulse Oximetry 100 08/27/20 11:37 Course Orders Ordered: ED Orders 08/27/20 14:58 XR lumbar spine 2-3V Stat Vital Signs Vital signs: Vital Signs - 8 hr 08/27/20 11:37 08/27/20 15:37 08/27/20 15:38 Temperature 97.7 F Pulse Rate 60 62 Respiratory Rate 14 Blood Pressure 136/62 175/72 H Pulse Oximetry 100 98 100 08/27/20 15:40 08/27/20 16:24 Temperature Pulse Rate 61 Respiratory Rate 16 14 Blood Pressure 156/69 H Pulse Oximetry 95 MDM - Back Pain/Injury Lab Data Labs: Urine Dip Bedside Urine Glucose Negative Bedside Urine Bilirubin - Negative Bedside Urine Ketone - Negative Urine Specific [place] 1.025 Bedside Urine Occult Blood - Negative Bedside Urine pH 6 Bedside Urine Protein - Negative Bedside Urine Urobilinogen - Negative Bedside Urine Nitrite - Negative Bedside Urine Leukocytes - Negative Esterase Imaging Data Lumbar Xray: Radiologist's Impression: [address] [id number] ReportSigned Patient: Ana Maria Cline [facility]#: [id number]: 5Acct:[id number]/Sex: 75 / FDate of Service: 08/27/20Loc: EDAccession Number: [id number] Procedure: XR lumbar spine 2-3V Ordering Provider: Ignacio Haines D.O. PROCEDURE: XR LUMBAR SPINE 2-3V INDICATIONS: low back pain TECHNIQUE: 3 views of the lumbar spine were acquired. COMPARISON: [facility], [place], ABDOMEN/PELVIS WITH CONTRAST, 03/14/2017, 11:24. [facility], , SPINE LUMB MIN 4VW, 06/10/2013, 14:23. FINDINGS: Bones: 5 [id number] vertebrae are present. There is mild levocurvature of the mid lumbar spine centered at L3-4. Interval progression of severe multilevel lumbar spondylosis with moderate disc space loss at L3-4. There are prominent degenerative endplate changes throughout the lumbar spine but most severe at L3-4. Prominent endplate osteophyte formation is also noted. Interval progression of advanced facet arthropathy most severe at L5-S1. AP alignment is maintained without spondylolisthesis. Stable appearance of osseous deformities of the right hemipelvis, likely from remote trauma. No acute vertebral body compression fractures. No suspicious bony lesions. Soft tissues: Overlying bowel gas pattern is normal. No suspicious soft tissue calcifications. IMPRESSION: 1. Lumbar spine without acute fracture or malalignment. 2. Interval progression of severe multilevel lumbar spondylosis and facet arthropathy most severe at L3-4 and L5-S1. Dictated by: Pietro Escalante M.D. on 08/27/2020 at 14:51 Approved by: Pietro Escalante M.D. on 08/27/2020 at 14:57 MDM Narrative Medical decision making narrative: Multiple etiologies of back pain considered including; Epidural abscess, cauda equina, mass occupying lesion, and other considered Patient's symptoms improved over duration of stay with above-stated therapies. Findings and discharge diagnosis discussed with patient/family followed by verbalization of understanding Return precautions discussed with patient/family whom verbalize understanding. Discharge Plan Departure Patient Disposition: Home Clinical Impression: Back pain at L4-L5 level Instructions: DI for Low Back Pain Activity Restrictions/Additional Instructions: *You have been diagnosed with [chronic lumbar pain, your exam and x-rays are reassuring. There is no evidence of a neurosurgical emergency.] *What to do: *Take medications as directed *Follow up with your primary care provider in 2-3 days, call for an appointment. Let them know you were seen in the Emergency Department and that we ask that you be seen in follow up. Often times they will refer you for physical therapy or even consider more advanced imaging depending on your response to therapies. *Return to ER if you should have any new, worsening or concerning symptoms, such as [worsening pain, weakness, loss of control of bowel or bladder, fever greater than 101 F or other bothersome symptoms] Prescriptions: No Action Fluticasone Propionate/Salme (Advair Diskus 250/50) aerosol 1 dose IH PRN PRN (Reason: asthma) Qty: 0 RF: 0 duloxetine [Cymbalta] 20 MG capsule,delayed release(DR/EC) 60 mg DAILY Qty: 0 RF: 0 potassium chloride 10 MEQ capsule, extended release 10 meq PO Q DAY Qty: 30 RF: 0 tramadol 50 mg Tablet 50 mg PO QID PRN (Reason: Pain, Moderate (4-6)) Qty: 30 RF: 0 metoprolol succinate 50 mg tablet extended release 24 hr 50 mg PO DAILY RF: 0 cod liver oil Capsule 1 cap PO DAILY RF: 0 magnesium 30 mg Tablet 60 mg PO DAILY RF: 0 coenzyme Q10 [Co Q-10] 100 mg Capsule 100 mg PO DAILY RF: 0 cholecalciferol (vitamin D3) [Vitamin D3] 2,000 unit Capsule 2,000 unit PO DAILY RF: 0 Hair, Skin, Nails with Biotin 1 tab PO DAILY RF: 0 atorvastatin [Lipitor] 20 mg Tablet 20 mg PO BEDTIME Qty: 30 RF: 0 niacin 500 mg Tablet 500 mg PO DAILY Qty: 30 RF: 0 Fish Oil 340-1,000 mg Capsule 1,000 mg PO DAILY Qty: 30 RF: 0 Referrals: Andrade Gaston MD [Primary Care Provider] -
--- NOTE | 2020-08-27 14:58 | DI.RAD.S_ITS ---
PROCEDURE: XR LUMBAR SPINE 2-3V INDICATIONS: low back pain TECHNIQUE: 3 views of the lumbar spine were acquired. COMPARISON: [facility], CT, ABDOMEN/PELVIS WITH CONTRAST, 03/14/2017, 11:24. [facility], [place], SPINE LUMB MIN 4VW, 06/10/2013, 14:23. FINDINGS: Bones: 5 [id number] vertebrae are present. There is mild levocurvature of the mid lumbar spine centered at L3-4. Interval progression of severe multilevel lumbar spondylosis with moderate disc space loss at L3-4. There are prominent degenerative endplate changes throughout the lumbar spine but most severe at L3-4. Prominent endplate osteophyte formation is also noted. Interval progression of advanced facet arthropathy most severe at L5-S1. AP alignment is maintained without spondylolisthesis. Stable appearance of osseous deformities of the right hemipelvis, likely from remote trauma. No acute vertebral body compression fractures. No suspicious bony lesions. Soft tissues: Overlying bowel gas pattern is normal. No suspicious soft tissue calcifications. IMPRESSION: 1. Lumbar spine without acute fracture or malalignment. 2. Interval progression of severe multilevel lumbar spondylosis and facet arthropathy most severe at L3-4 and L5-S1. Dictated by: Pietro Escalante M.D. on 08/27/2020 at 14:51 Approved by: Pietro Escalante M.D. on 08/27/2020 at 14:57
[2020-08-27 15:37] VITALS: O2SAT 98
[2020-08-27 15:38] VITALS: BP 175/72; PULSE 62; O2SAT 100
[2020-08-27 15:40] VITALS: RESP 16
[2020-08-27 16:24] VITALS: BP 156/69; PULSE 61; RESP 14; O2SAT 95
== END 2020-08-27 16:26 | disposition home or self-care (01) ==
PROVIDERS: Emergency Provider Emergency Medicine; PCP Internal Medicine
DX: M54.5 Low back pain (principal)
CPT/HCPCS: 72100; 81003; 99282; 99283

== ENCOUNTER → 2021-01-29 14:59 | Outpatient (CLI) | payer MEDICARE, OTHER, SELFPAY ==
[2019-11-06 01:53] VITALS: BMI 29.2
--- NOTE | 2021-01-29 | DI.MG.S_ITS ---
BILATERAL DIGITAL DIAGNOSTIC MAMMOGRAM 3D/2D: 01/29/2021 CLINICAL: Left breas pain. Comparison is made to exams dated: 01/18/2019 mammogram, 09/30/2014 mammogram - [facility], and 01/01/2014 mammogram - [facility]. The tissue of both breasts is heterogeneously dense. This may lower the sensitivity of mammography. No significant masses, calcifications, or other findings are seen in either breast. Specifically, no finding to explain the patient's pain. IMPRESSION: NEGATIVE There is no abnormality seen in the left breast to correspond with the diffuse pain. There is no mammographic evidence of malignancy. Return to annual mammogram screening schedule is recommended. Findings and recommendations were conveyed to the patient at time of exam. This exam was interpreted at Station ID: [id number]. NOTE: For mammograms, a report in lay terms will be sent to the patient. Approximately 15% of breast malignancies will not be visualized mammographically. In the management of a palpable breast mass, a negative mammogram must not discourage biopsy of a clinically suspicious lesion. Electronically Signed By: Yesenia morrison/:01/29/2021 15:41:39 letter sent: Normal Exam ACR BI-RADS Category 1: Negative [id number]
== END ==
PROVIDERS: PCP Internal Medicine; Referring Provider Internal Medicine; Visit Provider Internal Medicine
DX: N64.4 Mastodynia (principal)
CPT/HCPCS: 77066; G0279

== ENCOUNTER → 2021-06-03 15:38 | Outpatient (CLI) | payer OTHER, SELFPAY ==
[2019-11-06 01:53] VITALS: BMI 29.2
== END ==
PROVIDERS: PCP Internal Medicine; Referring Provider Nurse Practitioner Family; Visit Provider Nurse Practitioner Family
DX: L08.9 Local infection of the skin and subcutaneous tissue, unspecified (principal)
CPT/HCPCS: 87070; 87075; 87205

== ENCOUNTER 2021-09-25 14:54 | Emergency (ER) | payer MEDICARE, SELFPAY ==
[2019-11-06 01:53] VITALS: BMI 29.2
[2021-09-25 15:59] VITALS: BP 153/66; PULSE 63; RESP 16; TEMP 36.6; O2SAT 100; BMI 29.2
--- NOTE | 2021-09-25 18:50 | ED.SKABFB ---
HPI - Skin/Abscess/Foreign Bdy General Chief complaint: Skin/Abscess/Foreign Body Stated complaint: Rash on bottom X 5 days Time Seen by Provider: 09/25/21 18:17 Mode of arrival: Wheelchair History of Present Illness HPI narrative: 76-year-old female former smoker with history of stroke, hypertension, depression, CHF presents with her in the chief complaint of a painful, red rash in her groin that is been worsening over the past few days. She uses a urinary wake and has noted some skin irritation which started out bit itchy but now is more inflamed and painful. She denies any fever or chills. She denies dizziness, weakness or lightheadedness pain or shortness of breath Related Data Home Medications Medication Instructions Recorded Confirmed Fluticasone Propionate/Salme 1 dose IH PRN PRN #0 01/06/10 06/07/21 (Advair Diskus 250/50) duloxetine 20 mg capsule,delayed 60 mg DAILY #0 03/02/12 06/07/21 release (Cymbalta) Hair, Skin, Nails with Biotin 1 tab PO DAILY 04/21/18 06/07/21 cholecalciferol (vitamin D3) 50 2,000 unit PO DAILY 04/21/18 06/07/21 mcg (2,000 unit) capsule (Vitamin D3) cod liver oil 1 cap PO DAILY 04/21/18 06/07/21 coenzyme Q10 100 mg capsule (Co 100 mg PO DAILY 04/21/18 06/07/21 Q-10) magnesium 30 mg tablet 60 mg PO DAILY 04/21/18 06/07/21 metoprolol succinate 50 mg 50 mg PO DAILY 04/21/18 06/07/21 tablet,extended release 24 hr Previous Rx's Medication Instructions Recorded potassium chloride 10 mEq 10 meq PO Q DAY #30 cap 08/04/16 capsule,extended release atorvastatin 20 mg tablet (Lipitor) 20 mg PO BEDTIME #30 tab 04/24/18 niacin 500 mg tablet 500 mg PO DAILY #30 tab 04/24/18 omega-3 fatty acids-fish oil 340 1,000 mg PO DAILY #30 cap 04/24/18 mg-1,000 mg capsule (Fish Oil) tramadol 50 mg tablet 50 mg PO QID PRN #30 tab 11/07/19 tramadol 50 mg tablet 50 mg PO Q6H PRN #60 tab 09/08/21 nystatin 100,000 unit/gram topical 1 applic TOPICAL TID 7 Days #30 g 09/25/21 ointment Allergies Allergy/AdvReac Type Severity Reaction Status Date / Time latex [LATEX] Allergy Mild RASH Verified 06/07/21 14:36 naproxen [From ALEVE] Allergy Mild SWELLING Verified 06/07/21 14:36 FEET, HANDS codeine Allergy Unknown GI UPSET Verified 06/07/21 14:36 lisinopril Allergy Unknown FACIAL Verified 06/07/21 14:36 SWELLING venlafaxine Allergy Unknown ELEVATED Verified 06/07/21 14:36 BLOOD PRESSURE bupropion AdvReac Unknown SEIZURE Verified 06/07/21 14:36 Review of Systems Review of Systems Narrative: GENERAL: Denies chills, fatigue, malaise, fever, sweats. HEENT: Denies sinus pain, ear pain, sore throat, difficulty swallowing, dizziness. RESPIRATORY: Denies dyspnea, cough, wheezing, hemoptysis, sputum. CARDIOVASCULAR: Denies chest pain, palpitations, orthopnea, edema, GASTROINTESTINAL: Denies nausea, vomiting, abdominal pain, diarrhea, constipation, melena. : Denies dysuria, frequency, incontinence, hematuria, urinary retention. MUSCULOSKELETAL: denies weakness, joint pain, or bony pain SKIN: See HPI NEUROLOGIC: Denies weakness, headache, numbness, change in speech, confusion, seizures, incoordination. PSYCHIATRIC: No concerning psychosocial issues. 12 point review of systems is negative except for those stated above Patient History Medical History Cardiomyopathy Cerebrovascular accident Congestive heart failure Dizziness Hearing loss Hypertension Physical deconditioning Surgical History History of permanent cardiac pacemaker placement Family History Father Heart disease Brother Heart disease Mother Old age Social History household members: spouse Smoking Status: Former smoker alcohol intake: never Smoking Status: Former smoker alcohol intake frequency: holidays/special occasions only Substance Use Type: does not use Exam Narrative Exam Narrative: GEN: AOx3 and in mild distress EYES: Pupils are equal, round, and reactive to light and accommodation. Extraoccular muscles are intact bilaterally. There is no subconjunctival hemorrhage or exudate. CHEST: Lungs are clear to auscultation bilaterally and free of wheezes, rales, or rhonchi. Heart rate is regular rhythm, there are no murmurs, clicks, rubs, or gallops. There is no chest wall tenderness. ABD: Abdomen is soft and nontender. There is no guarding or rebound. Bowel sounds are normal in all 4 quadrants. There is no mass or organomegaly. : erythematous, beefy moist rash in groin with satellite lesions consistent with intertrigo/yeast EXT: Full painless ROM of all extremities with no loss of sensation or strength. SKIN: Warm, pink, and dry. No erythema or rash Initial Vital Signs Initial Vital Signs: Vital Signs Temperature 97.8 F 09/25/21 15:59 Pulse Rate 63 09/25/21 15:59 Respiratory Rate 16 09/25/21 15:59 Blood Pressure 153/66 H 09/25/21 15:59 Pulse Oximetry 100 09/25/21 15:59 Course Vital Signs Vital signs: Vital Signs - 8 hr 09/25/21 15:59 Temperature 97.8 F Pulse Rate 63 Respiratory Rate 16 Blood Pressure 153/66 H Pulse Oximetry 100 MDM - Skin/Abscess/Foreign Bdy MDM Narrative Medical decision making narrative: Patient with itchy and painful rash in the groin that involves skin folds with satellite lesions consistent with yeast. She has attempted to clean herself and use barrier creams without success, indication for antifungal cream present. No systemic complaints or signs of sepsis. Return precautions discussed questions answered to her apparent satisfaction Discharge Plan Departure Patient Disposition: Home Clinical Impression: Vulvovaginal candidiasis Instructions: Vaginal Yeast Infection Activity Restrictions/Additional Instructions: *You have been diagnosed with [candidiasis in your groin] *What to do: *Please continue to take your regular medications as directed. [ x] New medication prescriptions sent to your pharmacy: [ [facility] in [place]] [ ] New medication written as a paper prescription [ ] No new medications given *Please follow up with your primary care provider in 2-3 days, call for an appointment. Let them know you were seen in the Emergency Department and that we ask that you be seen in follow up. We will electronically transmit a record of today's note if your PCP is in our system *If you do not have a primary care provider please contact the [facility] Resource line at [phone]. They will ask some questions about your medical history and help get you set up with a doctor in the community. *Return to Emergency Department if you should have any new, worsening or concerning symptoms, such as [fever greater than 101 F, shaking chills, worsening pain, persistent vomiting or other bothersome symptoms] Prescriptions: New nystatin 100,000 unit/gram ointment 1 applic topical TID 7 Days Qty: 30 0RF No Action Fluticasone Propionate/Salme (Advair Diskus 250/50) aerosol 1 dose IH PRN PRN (Reason: asthma) Qty: 0 0RF duloxetine [Cymbalta] 20 MG capsule,delayed release(DR/EC) 60 mg DAILY Qty: 0 0RF potassium chloride 10 MEQ capsule, extended release 10 meq PO Q DAY Qty: 30 0RF tramadol 50 mg tablet 50 mg PO Q6H PRN (Reason: pain) Qty: 60 1RF tramadol 50 mg Tablet 50 mg PO QID PRN (Reason: Pain, Moderate (4-6)) Qty: 30 0RF metoprolol succinate 50 mg tablet extended release 24 hr 50 mg PO DAILY 0RF Label Comments: takes at night cod liver oil Capsule 1 cap PO DAILY 0RF magnesium 30 mg Tablet 60 mg PO DAILY 0RF coenzyme Q10 [Co Q-10] 100 mg Capsule 100 mg PO DAILY 0RF Label Comments: takes with metroprolol at night at 830 every night. cholecalciferol (vitamin D3) [Vitamin D3] 2,000 unit Capsule 2,000 unit PO DAILY 0RF Hair, Skin, Nails with Biotin 1 tab PO DAILY 0RF atorvastatin [Lipitor] 20 mg Tablet 20 mg PO BEDTIME Qty: 30 0RF niacin 500 mg Tablet 500 mg PO DAILY Qty: 30 0RF Fish Oil 340-1,000 mg Capsule 1,000 mg PO DAILY Qty: 30 0RF Referrals: Andrade Gaston MD [Primary Care Provider] -
--- NOTE | 2021-09-25 19:02 | PC.NURSE ---
Buttocks red, hot and swollen. Started itchy and now painful. Small scratch godfrey noted over area. Redness spreading over vaginal region and groin. Attempted topical ointments
--- NOTE | 2021-09-25 19:03 | PC.NURSE ---
Barrier cream applied and new pad applied
[2021-09-25 19:22] VITALS: BP 150/77; PULSE 80; RESP 19; O2SAT 95
== END 2021-09-25 19:23 | disposition home or self-care (01) ==
PROVIDERS: Emergency Provider Emergency Medicine; PCP Internal Medicine
DX: B37.3 Candidiasis of vulva and vagina (principal)
CPT/HCPCS: 99281

== ENCOUNTER → 2021-10-07 15:21 | Outpatient (CLI) | payer MEDICARE, SELFPAY ==
[2019-11-06 01:53] VITALS: BMI 29.2
[2021-10-07 16:41] LABS: Hematocrit 39.8 % (36-46); Hemoglobin 13.6 g/dL (12.0-16.0); Mean Corpuscular HGB Conc 34.1 % (30-36); Mean Corpuscular Volume 96.8 fL (80-100); Platelet Count 275 X10^3/uL (150-400); Red Blood Cell Count 4.11 X10^6/uL (4.0-5.2); Red Cell Distribution Width 15.9 % (11.6-14.8); White Blood Cell Count 9.5 X10^3/uL (4.5-11.0)
[2021-10-07 17:03] LABS: Alanine Aminotransferase 22 IU/L (<35); Albumin 4.7 g/dL (3.5-5.0); Albumin Globulin Ratio 1.3 (1.0-2.8); Alkaline Phosphatase 93 U/L (38-126); Aspartate Aminotransferase 37 IU/L (14-36); BUN Creatinine Ratio 33.6 (6-22); Bilirubin Total 0.7 mg/dL (0.2-1.3); Blood Urea Nitrogen 41 mg/dL (7-17); Calcium 9.7 mg/dL (8.4-10.2); Carbon Dioxide 32 mmol/L (22-32); Chloride 99 mmol/L (98-107); Cholesterol 151 mg/dL (140-199); Estimated Glomerular Filt Rate 46 mL/min (>60); Globulin 3.7 g/dL (1.7-4.1); Glucose 112 mg/dL (80-110); HDL Cholesterol 60 mg/dL (40-60); HEMOLYSIS < 15 (0-50); LDL Cholesterol Calculated 67 mg/dL (<100); Potassium 4.2 mmol/L (3.4-5.1); Sodium 139 mmol/L (137-145); Total Protein 8.4 g/dL (6.3-8.2); Triglycerides 122 mg/dL (35-150)
[2021-10-07 17:34] LABS: TSH w/ Reflex to FT4 0.34 uIU/mL (0.47-4.68)
[2021-10-07 18:27] LABS: Free T4, Direct Thyroxine 1.69 ng/dL (0.78-2.19)
== END ==
PROVIDERS: PCP Internal Medicine; Referring Provider Internal Medicine; Visit Provider Internal Medicine
DX: E78.2 Mixed hyperlipidemia (principal); B35.6 Tinea cruris; G81.94 Hemiplegia, unspecified affecting left nondominant side; I10 Essential (primary) hypertension; I67.9 Cerebrovascular disease, unspecified
CPT/HCPCS: 36415; 80053; 80061; 84439; 84443; 85027

== ENCOUNTER → 2022-02-09 14:14 | Outpatient (CLI) | payer MEDICARE, SELFPAY ==
[2019-11-06 01:53] VITALS: BMI 29.2
--- NOTE | 2022-02-09 | DI.MG.S_ITS ---
BILATERAL DIGITAL SCREENING MAMMOGRAM 3D/2D WITH CAD: 02/09/2022 CLINICAL: Routine screening. Comparison is made to exams dated: 01/29/2021 mammogram, 01/18/2019 mammogram, 09/30/2014 mammogram - [facility], and 01/01/2014 mammogram - [facility]. Both breasts are heterogeneously dense, which may obscure small masses (category c / 51-75% glandular tissue). Current study was also evaluated with a Computer Aided Detection (CAD) system. No significant masses, calcifications, or other findings are seen in either breast. There has been no significant interval change. IMPRESSION: NEGATIVE There is no mammographic evidence of malignancy. A 1 year screening mammogram is recommended. Based on the Tyrer Cuzick model (a risk assessment model) the patient's lifetime risk is 4.1% and her 10 year risk is 0.0%. According to the ACR, ACS, and NCCN guidelines, an annual breast MRI exam along with mammogram is recommended if the patient's lifetime risk is 20% or greater. This exam was interpreted at Station ID: [id number]. NOTE: For mammograms, a report in lay terms will be sent to the patient. Approximately 15% of breast malignancies will not be visualized mammographically. In the management of a palpable breast mass, a negative mammogram must not discourage biopsy of a clinically suspicious lesion. Electronically Signed By: Migel Zavala M.D., jr/reagan:02/09/2022 15:18:01 letter sent: Normal Exam ACR BI-RADS Category 1: Negative 3341F
== END ==
PROVIDERS: PCP Internal Medicine; Referring Provider Internal Medicine; Visit Provider Internal Medicine
DX: Z12.31 Encounter for screening mammogram for malignant neoplasm of breast (principal)
CPT/HCPCS: 77063; 77067

== ENCOUNTER → 2022-03-07 15:10 | Outpatient (CLI) | payer OTHER, SELFPAY ==
[2019-11-06 01:53] VITALS: BMI 29.2
[2022-03-07 17:25] LABS: COVID19 -Nasal RAPID Negative (Negative)
== END ==
PROVIDERS: PCP Internal Medicine; Visit Provider Surgery
DX: Z01.812 Encounter for preprocedural laboratory examination (principal); Z20.822 Contact with and (suspected) exposure to COVID-19
CPT/HCPCS: 87635; C9803

== ENCOUNTER 2022-03-08 13:26 | Day surgery (SDC) | payer OTHER, SELFPAY ==
[2019-11-06 01:53] VITALS: BMI 29.2
[2022-03-08] VITALS (7 sets, daily range): BP systolic 111–146; BP diastolic 50–72; PULSE 73–85; RESP 10–16; TEMP 36.3–36.4; O2SAT 95–100; BMI 27.3
[2022-03-08] MEDS: LACTATED RINGERS 1,000 ML 200 ML IV (14:03)
--- NOTE | 2022-03-08 14:11 | P.HP_ITS ---
History of Present Illness History of Present Illness Date Patient Seen: 03/08/22 Chief complaint: SCREENING COLONOSCOPY Narrative: The patient presents for colorectal screening. Last colonoscopy was approximately 6 years ago and normal per her recollection. No personal or family history of colon cancer. On further history denies any recent gastrointestinal symptoms. No nausea, vomiting, abdominal pain, loss of appetite, unexplained weight loss, change in bowel habits, diarrhea, co nstipation, melena, hematochezia, or bright red blood per rectum. Patient History Medical History Advanced directives, counseling/discussion Asthma, mild intermittent Cardiomyopathy Carpal tunnel syndrome Cataracts, bilateral Cerebrovascular accident Cerebrovascular disease Cervical spine disease Chicken pox Chronic back pain Dizziness Essential hypertension Fractures Hearing loss History of colonic polyps Left hemiparesis Melanoma Mixed hyperlipidemia Mumps Polyneuropathy, unspecified Repeated falls Stroke Systolic CHF, chronic Tinea cruris Urinary incontinence Surgical History Anesthesia History of permanent cardiac pacemaker placement S/P cardiac pacemaker procedure Family & Social History Family History Father Heart disease Brother Heart disease Mother Old age Social History: household members spouse Tobacco & Substance use: Smoking Status Former smoker alcohol intake current alcohol intake frequency holiday/special occasion Substance Use Type does not use Meds Home Medications and Allergies Home Medications Medication Instructions Recorded Confirmed Type Fluticasone Propionate/Salme 1 dose IH PRN PRN asthma ##0 01/06/10 01/24/22 History (Advair Diskus 250/50) Hair, Skin, Nails with Biotin 1 tab PO DAILY 04/21/18 01/24/22 History cholecalciferol (vitamin D3) 50 2,000 unit PO DAILY 04/21/18 01/24/22 History mcg (2,000 unit) capsule (Vitamin D3) cod liver oil 1 cap PO DAILY 04/21/18 01/24/22 History coenzyme Q10 100 mg capsule (Co 100 mg PO DAILY 04/21/18 01/24/22 History Q-10) magnesium 30 mg tablet 60 mg PO DAILY 04/21/18 01/24/22 History niacin 500 mg tablet 500 mg PO DAILY #30 tabs 04/24/18 01/24/22 Rx omega-3 fatty acids-fish oil 340 1,000 mg PO DAILY #30 caps 04/24/18 01/24/22 Rx mg-1,000 mg capsule (Fish Oil) atorvastatin 20 mg tablet (Lipitor) 20 mg PO BEDTIME #90 tabs 10/20/21 03/08/22 Rx duloxetine 60 mg capsule,delayed 60 mg PO DAILY #90 caps 10/20/21 01/24/22 Rx release furosemide 20 mg tablet See Rx Instructions PO DAILY #36 10/20/21 01/24/22 Rx tabs gabapentin 100 mg capsule 100 mg PO BID #180 caps 10/20/21 03/08/22 Rx losartan 50 mg tablet 50 mg PO DAILY #90 tabs 10/20/21 01/24/22 Rx metoprolol succinate 50 mg 50 mg PO DAILY #90 tabs 10/20/21 01/24/22 Rx tablet,extended release 24 hr potassium chloride 10 mEq See Rx Instructions PO Q DAY #36 10/20/21 01/24/22 Rx capsule,extended release caps tramadol 50 mg tablet 50 mg PO Q6H PRN pain #180 tabs 11/01/21 01/24/22 Rx terbinafine HCl 250 mg tablet 250 mg PO DAILY #10 tabs 12/09/21 01/24/22 Rx amlodipine 5 mg tablet 5 mg PO DAILY #90 tabs 02/02/22 03/08/22 Rx sodium,potassium,mag sulfates 17.5 See Rx Instructions PO .COMPLEX 02/22/22 Rx gram-3.13 gram-1.6 gram oral soln #354 mL (Suprep Bowel Prep Kit) Allergies Allergy/AdvReac Type Severity Reaction Status Date / Time latex [LATEX] Allergy Mild RASH Verified 03/08/22 14:04 naproxen [From ALEVE] Allergy Mild SWELLING Verified 03/08/22 14:04 FEET, HANDS codeine Allergy Unknown GI UPSET Verified 03/08/22 14:04 lisinopril Allergy Unknown FACIAL Verified 03/08/22 14:04 SWELLING venlafaxine Allergy Unknown ELEVATED Verified 03/08/22 14:04 BLOOD PRESSURE cephalexin AdvReac Intermediate Rash Verified 03/08/22 14:04 bupropion AdvReac Unknown SEIZURE Verified 03/08/22 14:04 Exam Vital Signs (past 8 hours): - 03/08/22 13:50 Temperature 97.6 F Pulse Rate 85 Respiratory Rate 15 Blood Pressure 130/72 Pulse Oximetry 100 Oxygen Delivery Method Room Air Oxygen Delivery Method Room Air Narrative Exam Narrative: General elderly woman alert oriented no acute distress Assessment & Plan Assessment & Plan narrative: The patient requires colorectal screening and colonoscopy is recommended. Technical details were discussed. Risks, benefits, alternatives explained. Risks including but not limited to myocardial infarction, aspiration, bleeding, pain, missed lesion, incomplete examination, need for further radiographic studies, colonic perforation, and need for major abdominal surgery were discussed. All questions were answered to their satisfaction, and they are in agreement with this plan. Time Spent With Patient Critical Care time: I spent a total of [] minutes of critical care time on this patient's care today; this time is exclusive of procedural time.
--- NOTE | 2022-03-08 14:14 | PM.OP.COLON ---
Operative Date/Time/Diagnoses Date of procedure: 03/08/22 Time of procedure: 14:14 Pre-op diagnosis: Screening colonoscopy Post-op diagnosis: same Procedure & Clinicians Study performed: Colonoscopy Same procedure as scheduled: Yes Indications: Screening Surgeon: Abdifatah Terry Procedure Notes Procedure in detail: The history and physical was performed/updated and the patient is ASA class is 3. The procedure was discussed in detail with the patient. Potential risks complications including infection, bleeding, missed diagnosis, perforation, need for surgery, and were explained. Their questions were answered and informed consent was obtained. Patient was brought to the procedure room and placed standard monitoring equipment. The patient's vital signs were monitored continuously throughout the entire procedure. Prior to starting time-out was performed. The patient was placed in the left lateral recumbent position. Procedural sedation was administered by anesthesia. Examination began with a thorough inspection of the perianal area there was no evidence of fissures, fistulae, external hemorrhoids or cutaneous malignancy. The colonoscopy scope was then placed into the anal canal and was advanced to the cecum, which was identified by the ileocecal valve, the appendiceal orifice and the confluence of the taenia. The scope was then slowly withdrawn examining colon thoroughly in all directions, irrigating it of any residual stool. FINDINGS 1. No masses or polyps 2. Tortuous colon The patient tolerated the procedure well. They will be discharged once criteria are met. The prep was of good/excellent quality. The withdrawl time was 6 minutes. Specimen(s): none sent Impression: Normal colonoscopy Post-procedure Plan for aftercare: No further colonoscopy is necessary Disposition: same day surgery
== END 2022-03-08 15:44 | disposition home or self-care (01) ==
PROVIDERS: PCP Internal Medicine; Referring Provider Surgery; Visit Provider Surgery
PROC: 0DJD8ZZ Inspection of Lower Intestinal Tract, Via Natural or Artificial Opening Endoscopic (ICD-10-PCS; CPT 45378; principal; 2022-03-08 14:30)
DX: Z12.11 Encounter for screening for malignant neoplasm of colon (principal); Z86.010 Personal history of colon polyps
CPT/HCPCS: G0105; 45378

== ENCOUNTER → 2022-04-21 16:49 | Outpatient (CLI) | payer OTHER, SELFPAY ==
[2019-11-06 01:53] VITALS: BMI 29.2
[2022-04-21 17:35] LABS: Hematocrit 39.6 % (36-46); Hemoglobin 13.3 g/dL (12.0-16.0); Mean Corpuscular HGB Conc 33.6 % (30-36); Mean Corpuscular Hemoglobin 31.9 PG (26-34); Mean Corpuscular Volume 95.1 fL (80-100); Platelet Count 271 X10^3/uL (150-400); Red Blood Cell Count 4.16 X10^6/uL (4.0-5.2); Red Cell Distribution Width 14.4 % (11.6-14.8); White Blood Cell Count 6.8 X10^3/uL (4.5-11.0)
[2022-04-21 18:05] LABS: Alanine Aminotransferase 18 IU/L (<35); Albumin 4.4 g/dL (3.5-5.0); Albumin Globulin Ratio 1.2 (1.0-2.8); Alkaline Phosphatase 111 U/L (38-126); Aspartate Aminotransferase 27 IU/L (14-36); BUN Creatinine Ratio 24.3 (6-22); Bilirubin Total 0.5 mg/dL (0.2-1.3); Blood Urea Nitrogen 26 mg/dL (7-17); Calcium 9.5 mg/dL (8.4-10.2); Carbon Dioxide 29 mmol/L (22-32); Chloride 100 mmol/L (98-107); Estimated Glomerular Filt Rate 53 mL/min (>60); Globulin 3.7 g/dL (1.7-4.1); Glucose 100 mg/dL (80-110); HEMOLYSIS < 15 (0-50); Potassium 4.1 mmol/L (3.4-5.1); Sodium 139 mmol/L (137-145); Total Protein 8.1 g/dL (6.3-8.2)
== END ==
PROVIDERS: PCP Internal Medicine; Referring Provider Internal Medicine; Visit Provider Internal Medicine
DX: I50.22 Chronic systolic (congestive) heart failure (principal)
CPT/HCPCS: 36415; 80053; 85027

== ENCOUNTER 2022-05-02 01:37 | Inpatient (IN) | payer OTHER, SELFPAY ==
[2019-11-06 01:53] VITALS: BMI 29.2
[2022-05-02] VITALS (18 sets, daily range): BP systolic 112–155; BP diastolic 43–65; PULSE 64–90; RESP 15–27; TEMP 36.1–37.9; O2SAT 90–98; BMI 30.2
--- NOTE | 2022-05-02 01:36 | DI.CT.S_ITS ---
PROCEDURE: CT ANGIO HEAD AND NECK INDICATIONS: stroke like symptoms TECHNIQUE: After the administration of intravenous contrast, 1 mm thick sections acquired from the aortic arch through the Ione of [place]ann. Post-contrast 4.5 mm thick sections then re-acquired from the foramen magnum to the vertex. 3-dimensional [id number] (MIP) and/or volume rendering reformats were acquired of the central intracranial vasculature and neck separately. For radiation dose reduction, the following was used: automated exposure control, adjustment of mA and/or kV according to patient size. COMPARISON: [facility], CT, CT HEAD/BRAIN WO CON, 04/21/2018, 18:06. [facility], CT, CT ANGIO HEAD AND NECK, 04/21/2018, 18:13. FINDINGS: Image quality: Artifact from neck surgical hardware is present obscuring portions of the left common as well as internal carotid artery visualization. BRAIN: The ventricular system and cortical sulci demonstrate atrophy, consistent for the patient's stated age. There are areas of hypodensity within the periventricular and subcortical white matter. There is no acute intra-or extra axial fluid collection. No acute hemorrhage or midline shift. Left posterior extra-axial parietal hyperdensity is present suggestive of meningioma and unchanged. Prior focus lacunar ischemia is noted within the left basal ganglia. Globes are symmetrical. Sinuses are aerated. Osseous structures are intact. HEAD CT ANGIOGRAPHY: Anterior circulation: Intracranial internal carotid arteries are normal in size and flow. The flow within the paired anterior cerebral arteries is normal and symmetric. The flow within the middle cerebral arteries is normal and symmetric. The anterior communicating artery is seen. No aneurysms are seen. Posterior circulation: Visualized portions of the vertebral arteries demonstrate normal caliber, and join to form a normal appearing basilar artery. Flow within the posterior cerebral arteries is normal and symmetric. No aneurysms are seen. NECK CT ANGIOGRAPHY: Carotid system: The great vessels demonstrate a conventional anatomy as they arise from the aortic arch. The origins of the common carotid arteries appear patent. The common carotid arteries demonstrate normal caliber and courses. The bifurcation regions are both widely patent. The internal carotid arteries demonstrate normal calibers and courses. Posterior circulation: The origins of the vertebral arteries both appear widely patent. The more superior extracranial portions of both vertebral arteries also demonstrate normal courses and calibers. They join to form a normal appearing basilar artery. Soft tissues: Visualized neck soft tissues demonstrate no suspicious abnormalities. Low-attenuation focus is present within the left thyroid, unchanged. Bones: No suspicious bony lesions. Visualized cervical spine appears normally aligned. IMPRESSION: 1. No acute intracranial process. 2. Moderate atrophy and chronic microvascular ischemic changes. 3. No areas of hemodynamically significant stenosis, vascular occlusion or aneurysmal dilation within the anterior circulation. 4. No areas of hemodynamically significant stenosis, vascular occlusion or aneurysmal dilation within the posterior circulation. 5. No areas of hemodynamically significant stenosis, vascular occlusion or aneurysmal dilation within the neck vasculature. Any quantitative measurements of stenosis were performed using NASCET criteria. Dictated by: Narcisa Main M.D. on 05/02/2022 at 1:58 Approved by: Narcisa Main M.D. on 05/02/2022 at 2:04
--- NOTE | 2022-05-02 01:42 | DI.RAD.S_ITS ---
PROCEDURE: XR CHEST 1V INDICATIONS: fever TECHNIQUE: One view of the chest was acquired. COMPARISON: [facility], CR, XR CHEST 2V, 12/27/2019, 15:49. FINDINGS: Surgical changes and devices: Pacemaker is present obscuring the left base. Cervical fixation hardware is present. Lungs and pleura: Lungs are clear. No pleural effusions or pneumothorax. Mediastinum: Mediastinal contours appear normal. Heart size is normal. Bones and chest wall: No suspicious bony lesions. Overlying soft tissues appear unremarkable. IMPRESSION: Lungs appear clear noting obscuration of left base. Dictated by: Narcisa Main M.D. on 05/02/2022 at 2:07 Approved by: Narcisa Main M.D. on 05/02/2022 at 2:08
--- NOTE | 2022-05-02 01:43 | ED_ITS ---
HPI - General Adult General Chief complaint: Altered Mental Status Stated complaint: AMS Time Seen by Provider: 05/02/22 01:45 History of Present Illness HPI narrative: 77-year-old woman with history of cardiomyopathy, prior stroke with mild left- sided deficits, chronic systolic heart failure urinary incontinence and repeated falls presents with acute onset of weakness and word-finding difficulty starting at 4:00 p.m. this afternoon. Code stroke was called and she is taken immediate ly to the CT scanner. She is outside the window for tPA but still inside the window for interventional treatment if she were to have a large vessel occlusion. She is examined initially in the CT scanner. is present shortly thereafter and helps corroborate her overall history. Is her primary caregiver and notes that for the past 3-4 days she is been feeling unwell and not wanting to get out of bed. He reports that she came down for [place] dinner today but barely ate anything and then went back to bed. Became increasing concerned that she was becoming increasingly weak and incre asingly confused. Does not state that she had been coughing. He was concerned with a rash over her back and buttocks. She has not been having any diarrhea and he was not sure about fevers. Related Data Home Medications Medication Instructions Recorded Confirmed Fluticasone Propionate/Salme 1 dose IH PRN PRN asthma ##0 01/06/10 04/21/22 (Advair Diskus 250/50) Hair, Skin, Nails with Biotin 1 tab PO DAILY 04/21/18 04/21/22 cholecalciferol (vitamin D3) 50 2,000 unit PO DAILY 04/21/18 04/21/22 mcg (2,000 unit) capsule (Vitamin D3) cod liver oil 1 cap PO DAILY 04/21/18 04/21/22 coenzyme Q10 100 mg capsule (Co 100 mg PO DAILY 04/21/18 04/21/22 Q-10) magnesium 30 mg tablet 60 mg PO DAILY 04/21/18 04/21/22 Previous Rx's Medication Instructions Recorded niacin 500 mg tablet 500 mg PO DAILY #30 tabs 04/24/18 omega-3 fatty acids-fish oil 340 1,000 mg PO DAILY #30 caps 04/24/18 mg-1,000 mg capsule (Fish Oil) atorvastatin 20 mg tablet (Lipitor) 20 mg PO BEDTIME #90 tabs 10/20/21 duloxetine 60 mg capsule,delayed 60 mg PO DAILY #90 caps 10/20/21 release furosemide 20 mg tablet See Rx Instructions PO DAILY #36 10/20/21 tabs gabapentin 100 mg capsule 100 mg PO BID #180 caps 10/20/21 losartan 50 mg tablet 50 mg PO DAILY #90 tabs 10/20/21 metoprolol succinate 50 mg 50 mg PO DAILY #90 tabs 10/20/21 tablet,extended release 24 hr potassium chloride 10 mEq See Rx Instructions PO Q DAY #36 10/20/21 capsule,extended release caps tramadol 50 mg tablet 50 mg PO Q6H PRN pain #180 tabs 11/01/21 amlodipine 5 mg tablet 5 mg PO DAILY #90 tabs 02/02/22 terbinafine HCl 250 mg tablet 250 mg PO DAILY #10 tabs 04/21/22 Allergies Allergy/AdvReac Type Severity Reaction Status Date / Time latex [LATEX] Allergy Mild RASH Verified 04/21/22 16:10 naproxen [From ALEVE] Allergy Mild SWELLING Verified 04/21/22 16:10 FEET, HANDS codeine Allergy Unknown GI UPSET Verified 04/21/22 16:10 lisinopril Allergy Unknown FACIAL Verified 04/21/22 16:10 SWELLING venlafaxine Allergy Unknown ELEVATED Verified 04/21/22 16:10 BLOOD PRESSURE cephalexin AdvReac Intermediate Rash Verified 04/21/22 16:10 bupropion AdvReac Unknown SEIZURE Verified 04/21/22 16:10 Review of Systems Review of Systems Narrative: Remainder of complete review of systems is otherwise unremarkable except for that included in the HPI. Patient History Medical History Asthma, mild intermittent Carpal tunnel syndrome Cataracts, bilateral Cerebrovascular disease Cervical spine disease Chicken pox Chronic back pain Dizziness Essential hypertension Fractures Hearing loss History of colonic polyps History of melanoma Left hemiparesis Mixed hyperlipidemia Mumps Polyneuropathy, unspecified Repeated falls Systolic CHF, chronic Tinea cruris Urinary incontinence Surgical History Anesthesia History of permanent cardiac pacemaker placement S/P cardiac pacemaker procedure Family History Father Heart disease Brother Heart disease Mother Old age Social History household members: spouse Smoking Status: Former smoker alcohol intake: current Smoking Status: Former smoker alcohol intake frequency: holidays/special occasions only Substance Use Type: does not use Exam Initial Vital Signs Initial Vital Signs: Vital Signs Pulse Rate 90 05/02/22 01:57 Respiratory Rate 23 05/02/22 01:57 Pulse Oximetry 93 05/02/22 01:57 General: Chronically ill-appearing, pale, confused, HEENT: Very dry mucous membranes, normal sclera with reactive pupils, Neck: No JVD, supple, no cervical adenopathy Respiratory: Lungs are clear to auscultation, no wheezing no rales no rhonchi. Full and symmetrical air movement Cardiac: Mild tachycardia but otherwise Regular rate and rhythm no murmurs no bruits Abdomen: Soft, moderately tender in all quadrants with significant tender in both flanks. Skin: She has a large expanding area of cellulitis over the right hip, her buttock and intergluteal cleft with significant erythema some from pressure but also appears to be bacterial superinfection without significant drainage or sate llite lesions to suggest significant yeast. Labia are significantly erythematous and labia minora are swollen enough that there is some minor bleeding from the left labia minora. She does not have significant intertrigo Neurologic: Globally weak, she is able to move all extremities left slightly more weak than the right. No facial droop. Initially had some word-finding difficulties but this seems to be improving slightly. Extremities: No trauma, cool to the touch but not mottled and does have reasonable capillary refill Psych: Cooperative, somewhat confused Course Orders Ordered: ED Orders 05/02/22 01:30 Complete Blood Count AUTO DIFF Stat Comprehensive Metabolic Panel Stat Magnesium Stat NT-proBNP (BNP-Adult 18+) Stat Procalcitonin Stat Troponin I Stat 05/02/22 01:36 CT angio head and neck Stat 05/02/22 01:42 XR chest 1V Stat 05/02/22 01:43 EKG-12 Lead Stat 05/02/22 01:55 Lactate (Lactic Acid) Stat 05/02/22 02:10 Covid-19 + FLU A/B + RSV - PCR Stat 05/02/22 02:30 Urinalysis and Microscopic Stat 05/02/22 03:07 CT abdomen pelvis w con Stat 05/02/22 03:30 Blood Culture Stat Acetaminophen (Acetaminophen 325 Mg Tablet) 650 mg PO Q6H PRN PRN Reason: Fever/Mild Pain (1-3) Hydrocodone Bitart/Acetaminophen (Hydrocodone/Acet 5/325 Tablet) 1 tab PO Q4H PRN PRN Reason: Pain, Moderate (4-6) Atorvastatin Calcium (Atorvastatin 20 Mg Tablet) 20 mg PO BEDTIME [facility] Duloxetine HCl (Duloxetine 30 Mg Capsule) 60 mg PO DAILY [facility] Enoxaparin Sodium (Enoxaparin 40 Mg/0.4 Ml Syringe) 40 mg SUBCUT DAILY [facility] Gabapentin (Gabapentin 100 Mg Capsule) 100 mg PO BID [facility] Vancomycin HCl/Dextrose (Vancomycin) 1,500 mg in 300 mls @ 150 mls/hr IV NOW SC H Piperacillin Sod/Tazobactam (Sod 3.375 gm/ Sodium Chloride) 100 mls @ 25 mls/hr IV Q8H [facility] Sodium Chloride (Normal Saline 0.9%) 1,000 mls @ 100 mls/hr IV CONT [facility] Stop: 06/01/22 14:44 Losartan Potassium (Losartan 50 Mg Tablet) 50 mg PO DAILY [facility] Metoprolol Succinate (Metoprolol Er 50 Mg Tablet) 50 mg PO DAILY [facility] Naloxone HCl (Naloxone 0.4 Mg/Ml Vial) 0.2 mg IV Q2MIN PRN PRN Reason: Opiate Reversal Ondansetron HCl (Ondansetron 4 Mg/2 Ml Inj) 4 mg IV Q6HR PRN PRN Reason: Nausea And Vomiting Oxycodone HCl (Oxycodone Ir 10 Mg Tablet) 10 mg PO Q3H PRN PRN Reason: Pain, Severe (7-10) Terbinafine HCl (Terbinafine Hcl 250 Mg Tablet) 250 mg PO DAILY [facility] Tramadol HCl (Tramadol 50 Mg Tablet) 50 mg PO Q6H PRN PRN Reason: pain Discontinued Medications Acetaminophen (Acetaminophen 325 Mg Tablet) 975 mg PO NOW ONE Stop: 05/02/22 03:06 Last Admin: 05/02/22 03:29 Dose: 975 mg Documented By: ALEKSANDAR Piperacillin Sod/Tazobactam (Sod 4.5 gm/ Sodium Chloride) 100 mls @ 200 mls/hr IV NOW ONE Stop: 05/02/22 03:06 Last Admin: 05/02/22 03:29 Dose: 200 mls/hr Documented By: ALEKSANDAR Sodium Chloride (Normal Saline 0.9%) 1,000 mls @ 1,000 mls/hr IV BOLUS ONE Stop: 05/02/22 04:04 Last Admin: 05/02/22 03:30 Dose: 1,000 mls/hr Documented By: ALEKSANDAR Vancomycin HCl (Vancomycin Per Pharmacy) 1 request MISC NOW ONE Stop: 05/02/22 03:06 Last Admin: 05/02/22 04:24 Dose: Not Given Vancomycin HCl (Vancomycin Per Pharmacy) 1 request MISC NOW ONE Stop: 05/02/22 04:32 Vital Signs Vital signs: Vital Signs - 8 hr 05/02/22 01:58 05/02/22 01:57 05/02/22 01:58 Temperature 100.3 F H Pulse Rate 80 90 Respiratory Rate 22 23 Blood Pressure 155/65 H 141/63 H Pulse Oximetry 96 93 Oxygen Delivery Method Room Air 05/02/22 01:58 05/02/22 02:00 05/02/22 02:01 Temperature Pulse Rate 84 85 Respiratory Rate 22 25 H Blood Pressure 155/65 H Pulse Oximetry 94 95 Oxygen Delivery Method 05/02/22 02:01 05/02/22 02:30 05/02/22 03:00 Temperature Pulse Rate 84 80 Respiratory Rate 27 H 24 Blood Pressure 140/64 Pulse Oximetry 94 94 Oxygen Delivery Method 05/02/22 03:00 05/02/22 03:30 05/02/22 03:30 Temperature Pulse Rate 81 79 Respiratory Rate 22 19 Blood Pressure 135/58 L Pulse Oximetry 92 92 Oxygen Delivery Method Medical Decision Making Lab Data Result diagrams: 05/02/22 01:30 05/02/22 01:30 Labs: Lab Results 05/02/22 05/02/22 05/02/22 Range/Units 01:30 01:30 01:55 WBC 22.6 H (4.5-11.0) X10^3/uL RBC 3.95 L (4.0-5.2) X10^6/uL Hgb 12.4 (12.0-16.0) g/dL Hct 37.7 (36-46) % MCV 95.3 (80-100) fL MCH 31.3 (26-34) PG MCHC 32.8 (30-36) % RDW 15.0 H (11.6-14.8) % Plt Count 258 (150-400) X10^3/uL Neut % (Auto) 89.3 H (50-75) % Lymph % (Auto) 6.6 L (25-40) % [place] % (Auto) 3.6 (3-14) % Eos % (Auto) 0.1 L (2-4) % Baso % (Auto) 0.4 (0-2) % Neut # (Auto) 70132 H (4873-0960) /uL Lymph # (Auto) 1500 (9605-7351) /uL [place] # (Auto) 800 (0-900) /uL Eos # (Auto) 0 (0-450) /uL Baso # (Auto) 100 (0-100) /uL Sodium 138 (137-145) mmol/L Potassium 4.2 (3.4-5.1) mmol/L Chloride 100 (98-107) mmol/L Carbon Dioxide 27 (22-32) mmol/L BUN 23 H (7-17) mg/dL Creatinine 1.03 (0.52-1.04) mg/dL Estimated GFR 56 L (>60) mL/min BUN/Creatinine Ratio 22.3 H (6-22) Glucose 145 H (80-110) mg/dL Lactate 2.2 H (0.7-2.1) mmol/L Calcium 9.4 (8.4-10.2) mg/dL Magnesium 1.9 (1.6-2.3) mg/dL Total Bilirubin 0.6 (0.2-1.3) mg/dL AST 30 (14-36) IU/L ALT 25 (<35) IU/L Alkaline Phosphatase 105 (38-126) U/L Troponin I 0.013 (0.01-0.034) ng/mL NT-Pro-B Natriuret Pep 815 H (<450) pg/mL Total Protein 7.9 (6.3-8.2) g/dL Albumin 4.3 (3.5-5.0) g/dL Globulin 3.6 (1.7-4.1) g/dL Albumin/Globulin Ratio 1.2 (1.0-2.8) Procalcitonin 0.25 (<0.5) ng/mL Urine Color Urine Appearance Urine pH (4.5-8.0) Ur Specific [place] (1.000-1.035) Urine Protein (Negative) Urine Glucose (UA) (Negative) g/dL Urine Ketones (NEGATIVE) Urine Occult Blood (Negative) Urine Nitrate (Negative) Urine Bilirubin (NEGATIVE) Urine Urobilinogen (0.2) E.U./dL Ur Leukocyte Esterase (NEGATIVE) Urine RBC (0-5/HPF) Urine WBC (0-5/HPF) Urine Bacteria (None) Ur Culture Indicated? SARS-CoV-2 (PCR) (Negative) Influenza A (RT-PCR) (NEGATIVE) Influenza B (RT-PCR) (NEGATIVE) RSV (PCR) (Negative) 05/02/22 05/02/22 Range/Units 02:10 02:30 WBC (4.5-11.0) X10^3/uL RBC (4.0-5.2) X10^6/uL Hgb (12.0-16.0) g/dL Hct (36-46) % MCV (80-100) fL MCH (26-34) PG MCHC (30-36) % RDW (11.6-14.8) % Plt Count (150-400) X10^3/uL Neut % (Auto) (50-75) % Lymph % (Auto) (25-40) % [place] % (Auto) (3-14) % Eos % (Auto) (2-4) % Baso % (Auto) (0-2) % Neut # (Auto) (6783-2140) /uL Lymph # (Auto) (8840-8513) /uL [place] # (Auto) (0-900) /uL Eos # (Auto) (0-450) /uL Baso # (Auto) (0-100) /uL Sodium (137-145) mmol/L Potassium (3.4-5.1) mmol/L Chloride (98-107) mmol/L Carbon Dioxide (22-32) mmol/L BUN (7-17) mg/dL Creatinine (0.52-1.04) mg/dL Estimated GFR (>60) mL/min BUN/Creatinine Ratio (6-22) Glucose (80-110) mg/dL Lactate (0.7-2.1) mmol/L Calcium (8.4-10.2) mg/dL Magnesium (1.6-2.3) mg/dL Total Bilirubin (0.2-1.3) mg/dL AST (14-36) IU/L ALT (<35) IU/L Alkaline Phosphatase (38-126) U/L Troponin I (0.01-0.034) ng/mL NT-Pro-B Natriuret Pep (<450) pg/mL Total Protein (6.3-8.2) g/dL Albumin (3.5-5.0) g/dL Globulin (1.7-4.1) g/dL Albumin/Globulin Ratio (1.0-2.8) Procalcitonin (<0.5) ng/mL Urine Color Yellow Urine Appearance Clear Urine pH 5.5 (4.5-8.0) Ur Specific [place] <=1.005 (1.000-1.035) Urine Protein Trace H (Negative) Urine Glucose (UA) Negative (Negative) g/dL Urine Ketones Negative (NEGATIVE) Urine Occult Blood Negative (Negative) Urine Nitrate Negative (Negative) Urine Bilirubin Negative (NEGATIVE) Urine Urobilinogen 0.2 (0.2) E.U./dL Ur Leukocyte Esterase Negative (NEGATIVE) Urine RBC None seen (0-5/HPF) Urine WBC None seen (0-5/HPF) Urine Bacteria None seen (None) Ur Culture Indicated? Cult not indicated SARS-CoV-2 (PCR) Negative (Negative) Influenza A (RT-PCR) Flu a negative (NEGATIVE) Influenza B (RT-PCR) Flu b negative (NEGATIVE) RSV (PCR) Negative (Negative) Point of Care Testing Glucose POC 190 Urine Dip Bedside Urine Glucose Negative Bedside Urine Bilirubin - Negative Bedside Urine Ketone - Negative Urine Specific [place] 1.010 Bedside Urine Occult Blood - Negative Bedside Urine pH 6.0 Bedside Urine Protein - Negative Bedside Urine Urobilinogen - Negative Bedside Urine Nitrite - Negative Bedside Urine Leukocytes - Negative Esterase Point of care testing: Point of Care Testing Glucose POC 190 Urine Dip Bedside Urine Glucose Negative Bedside Urine Bilirubin - Negative Bedside Urine Ketone - Negative Urine Specific [place] 1.010 Bedside Urine Occult Blood - Negative Bedside Urine pH 6.0 Bedside Urine Protein - Negative Bedside Urine Urobilinogen - Negative Bedside Urine Nitrite - Negative Bedside Urine Leukocytes - Negative Esterase Imaging Data Chest x-ray: Radiologist's Impression: FINDINGS:? ? Surgical changes and devices:? Pacemaker is present obscuring the left base.? Cervical fixation hardware is present. ? Lungs and pleura:? Lungs are clear.? No pleural effusions or pneumothorax.? ? Mediastinum:? Mediastinal contours appear normal.? Heart size is normal.? ? Bones and chest wall:? No suspicious bony lesions.? Overlying soft tissues appear unremarkable.? ? IMPRESSION:? Lungs appear clear noting obscuration of left base. ? ? Dictated by: Narcisa Main M.D. on 05/02/2022 at 2:07 ? ? HEAD CTA: Radiologist's Impression: FINDINGS:? Image quality:? Artifact from neck surgical hardware is present obscuring portions of the left common as well as internal carotid artery visualization. ? BRAIN:? The ventricular system and cortical sulci demonstrate atrophy, consistent for the patient's stated age. There are areas of hypodensity within the periventricular and subcortical white matter.? There is no acute intra-or extra axial fluid collection. No acute hemorrhage or midline shift.? Left posterior extra-axial parietal hyperdensity is present suggestive of meningioma and unchanged.? Prior focus lacunar ischemia is noted within the left basal ganglia.? Globes are symmetrical. Sinuses are aerated. Osseous structures are intact. ? HEAD CT ANGIOGRAPHY:? Anterior circulation:? Intracranial internal carotid arteries are normal in size and flow.? The flow within the paired anterior cerebral arteries is normal and symmetric.? The flow within the middle cerebral arteries is normal and symmetric.? The anterior communicating artery is seen.? No aneurysms are seen.? ? Posterior circulation:? Visualized portions of the vertebral arteries demonstrate normal caliber, and join to form a normal appearing basilar artery.? Flow within the posterior cerebral arteries is normal and symmetric.? No aneurysms are seen.? ? NECK CT ANGIOGRAPHY:? Carotid system:? The great vessels demonstrate a conventional anatomy as they arise from the aortic arch.? The origins of the common carotid arteries appear patent.? The common carotid arteries demonstrate normal caliber and courses.? The bifurcation regions are both widely patent.? The internal carotid arteries demonstrate normal calibers and courses.? ? Posterior circulation:? The origins of the vertebral arteries both appear widely patent.? The more superior extracranial portions of both vertebral arteries also d emonstrate normal courses and calibers.? They join to form a normal appearing basilar artery.? ? Soft tissues:? Visualized neck soft tissues demonstrate no suspicious abnormalities.? Low-attenuation focus is present within the left thyroid, unchanged. ? Bones:? No suspicious bony lesions.? Visualized cervical spine appears normally aligned.? IMPRESSION:? ? 1. No acute intracranial process. ? 2. Moderate atrophy and chronic microvascular ischemic changes. ? 3. No areas of hemodynamically significant stenosis, vascular occlusion or aneurysmal dilation within the anterior circulation. ? 4. No areas of hemodynamically significant stenosis, vascular occlusion or aneurysmal dilation within the posterior circulation.? ? 5. No areas of hemodynamically significant stenosis, vascular occlusion or aneurysmal dilation within the neck vasculature. ? Any quantitative measurements of stenosis were performed using NASCET criteria.? ? ? Dictated by: Narcisa Main M.D. on 05/02/2022 at 1:58 ? ? CT scan - abdomen/pelvis: Radiologist's Impression: Mild constipation, no bowel obstruction no inflammatory changes no secondary signs of appendicitis no free air, free fluid, lymphadenopathy or organized drainable fluid collection to suggest an abscess. Chronic pelvic bony fractures. Source of fever and infection process is not determined on this examination Dr Jessica Cummings, DO ECG Data Interpretation: Independent interpretation Paced rhythm at a rate of 80 MDM Narrative Medical decision making narrative: 77-year-old woman initially brought in with concerns for stroke due to word- finding difficulties. After further exam I believe that she is developing sepsis with confusion with source being cellulitis from the right hip and concurrent developing pressure ulcers over the buttock and cellulitis involving the labia. With her multiple medical issues and prior stroke differential is wide. Possibilities include recurrent stroke, acute coronary syndrome, sepsis, urinary tract infection, acute surgical abdomen based on her tenderness on physical exam, pyelonephritis, cellulitis, Carly gangrene is entertained as a possibility [place] [id number] and antibiotics are started to cover cellulitis of the right hip and perineum is presumed source, vancomycin and Zosyn. Cephalosporins are not chosen that she has an allergy to Keflex. Serologies do not suggest acute viral etiology. No evidence of pneumonia. Chemistries do not show acute kidney injury but lactic acid is slightly elevated at 2.2. Liver function studies are unremarkable. EKG shows a paced rhythm with no other details. CT scan of the head and neck does not show large vessel occlusion or any acute abnormalities CT scan of the abdomen is ordered due to the diffuse abdominal tenderness and bilateral flank pain. Fluids are initiated however with her stable blood pressure lack of tachycardia and history of cardiomyopathy and congestive heart failure she is given only 1 L of fluid at this time 4am Care is reveiwed with hospitalist. patient is accepted for admission. she remains hemodynamically stable. Plan is reveiwed with pt and . questions answered. stable for transfer to the floor Additional Information: Severe Sepsis Criteria [ x ] bacterial source of infection suspected and documented [ ] 2 SIRS Criteria met [ ] HR >90 [ x ] RR >20 [ x ] fever or hypothermia [ x ] leukocytosis/leukopenia/bandemia [ ] Evidence of at least 1 organ system dysfunction [x ] Lactate > 2 [ ] BP < 90 or MAP <65, >40mm decrease from normal baseline [ ] Creat > 2.0 [ ] T. Bili > 2.0 [ ] platelet count < 100k [ x ] altered mental status [ ] mechanical ventilation [ ] provider documentation of severe sepsis Severe Sepsis Determination. the patient has been screened and [ x ] DOES meet criteria for severe sepsis [ ] DOES NOT meet criteria for severe sepsis Goal directed treatment Within 3 hours [ x] blood cx drawn prior to abx [x ] broad spectrum abx started [ x ] lactic acid level checked [ ] lactic redrawn within 6 hours if >2.0 Septic Shock Criteria [ ] lactic > 4 at any time [ ] SBP ,90 or MAP , 65 [ ] documentation of septic shock Time Septic Shock diagnosed: [ ] Septic Shock Determination. the patient has been screened and [ ] DOES meet criteria for septic shock [ x ] DOES NOT meet criteria for septic shock Goal directed therapy within 3 hours of septic shock or initial hypotension [ ] 30ml/kg fluid [ ] ABW used [ ] IBW (33.6) used due to BMI > 30 [ ] patient or advocate declining fluid administration after shared decision making conversation Clinical reason for NOT initiating fluid bolus: Within 6 hours (if continued hypotension after fluids or initial lactate >4) [ ] repeat volume status and tissue perfusion assessment documented after fluid bolus was completed at [Date/Time] Must include vital signs, cardiopulmonary exam, capillary refill, peripheral pulse evaluation, skin exam [ ] Initiate vasopressor therapy if persistent hypotension after adequate fluid bolus Discharge Plan Departure Patient Disposition: Admitted As Inpatient Clinical Impression: Abscess or cellulitis of perineum, Sepsis, Abscess or cellulitis of hip Admit Date/Time: 05/02/22 04:27 Admit Provider: Kristal Henson
--- NOTE | 2022-05-02 01:55 | PC.NURSE ---
returns to the ER from radiology - gowned and placed on the site monitor
[2022-05-02 01:56] LABS: Add Manual Diff / Slide Review NO; Basophils Absolute Auto 100 /uL (0-100); Basophils Percent Auto 0.4 % (0-2); Eosinophils Absolute Auto 0 /uL (0-450); Eosinophils Percent Auto 0.1 % (2-4); Hematocrit 37.7 % (36-46); Hemoglobin 12.4 g/dL (12.0-16.0); Lymphocytes Absolute Auto 1500 /uL (1100-4500); Lymphocytes Percent Auto 6.6 % (25-40); Mean Corpuscular HGB Conc 32.8 % (30-36); Mean Corpuscular Hemoglobin 31.3 PG (26-34); Mean Corpuscular Volume 95.3 fL (80-100); Monocytes Absolute Auto 800 /uL (0-900); Monocytes Percent Auto 3.6 % (3-14); Neutrophils Absolute Auto 20200 /uL (1500-7000); Neutrophils Percent Auto 89.3 % (50-75); Platelet Count 258 X10^3/uL (150-400); Red Blood Cell Count 3.95 X10^6/uL (4.0-5.2); White Blood Cell Count 22.6 X10^3/uL (4.5-11.0)
[2022-05-02 02:01] LABS: Alanine Aminotransferase 25 IU/L (<35); Albumin 4.3 g/dL (3.5-5.0); Albumin Globulin Ratio 1.2 (1.0-2.8); Alkaline Phosphatase 105 U/L (38-126); Aspartate Aminotransferase 30 IU/L (14-36); BUN Creatinine Ratio 22.3 (6-22); Bilirubin Total 0.6 mg/dL (0.2-1.3); Blood Urea Nitrogen 23 mg/dL (7-17); Calcium 9.4 mg/dL (8.4-10.2); Carbon Dioxide 27 mmol/L (22-32); Chloride 100 mmol/L (98-107); Estimated Glomerular Filt Rate 56 mL/min (>60); Globulin 3.6 g/dL (1.7-4.1); Glucose 145 mg/dL (80-110); HEMOLYSIS 17 (0-50); Magnesium 1.9 mg/dL (1.6-2.3); Potassium 4.2 mmol/L (3.4-5.1); Sodium 138 mmol/L (137-145); Total Protein 7.9 g/dL (6.3-8.2)
[2022-05-02 02:13] LABS: NT-proBNP (BNP-Adult 18+) 815 pg/mL (<450); Troponin I 0.013 ng/mL (0.01-0.034)
[2022-05-02 02:18] LABS: Procalcitonin 0.25 ng/mL (<0.5)
[2022-05-02 02:29] LABS: Lactate (Lactic Acid) 2.2 mmol/L (0.7-2.1)
--- NOTE | 2022-05-02 02:30 | PC.NURSE ---
in and out cath performed at this time - tolerated well - redness/rash noted to the upper inner thighs into the vaginal/vulva region - states that it is painful and itches - painful when gently cleaned for the cath - states that it has been coming and going as they have been putting some cream on it - light yellow clear urine noted
[2022-05-02 02:52] LABS: Influenza A - CEPHEID Flu A NEGATIVE (NEGATIVE); Influenza B - CEPHEID Flu B NEGATIVE (NEGATIVE); Respiratory Syncytial Virus Negative (Negative)
[2022-05-02 02:54] LABS: COVID-19 CEPHEID 4-PLEX PCR Negative (Negative)
[2022-05-02 02:57] LABS: Appearance Urine UA CLEAR; Bilirubin Urine UA NEGATIVE (NEGATIVE); Color Urine UA YELLOW; Glucose Urine UA NEGATIVE (Negative); Ketones Urine UA NEGATIVE (NEGATIVE); Leukocyte Esterase Urine UA NEGATIVE (NEGATIVE); Nitrite Urine UA NEGATIVE (Negative); Occult Blood Urine UA NEGATIVE (Negative); Protein Urine UA TRACE (Negative); Specific Gravity Urine UA <=1.005 (1.000-1.035); Urobilinogen Urine UA 0.2 E.U./dL (0.2)
--- NOTE | 2022-05-02 03:00 | PC.NURSE ---
Blood cultures drawn at this time
--- NOTE | 2022-05-02 03:05 | PC.NURSE ---
irrigation technician at bedside for second set of BC's
[2022-05-02 03:06] LABS: Bacteria Urine None Seen; Culture Indicated Urine Cult Not Indicated; RBC Urine None Seen (0-5/HPF); WBC Urine None Seen (0-5/HPF); pH Urine UA 5.5 (4.5-8.0)
--- NOTE | 2022-05-02 03:07 | DI.CT.S_ITS ---
PROCEDURE: CT ABDOMEN PELVIS W CON INDICATIONS: abdominal pain, fever TECHNIQUE: After the administration of oral and IV contrast, axial sections were acquired from the lung bases to the pubic symphysis. Coronal and sagittal reformats were performed. For radiation dose reduction, the following was used: automated exposure control, adjustment of mA and/or kV according to patient size. COMPARISON: [facility], CT, ABDOMEN/PELVIS WITH CONTRAST, 03/14/2017, 11:24. FINDINGS: Image quality: There is streak artifact seen through the upper abdomen. Lung bases: Unremarkable. Implanted left chest wall device is seen. Heart: No significant findings. AICD leads are seen. ABDOMEN: Liver: Unremarkable. Gallbladder: Removed. Biliary ducts: Unremarkable. Pancreas: Unremarkable. Spleen: Unremarkable. Adrenal Glands: Unremarkable. Kidneys and Ureters: Unremarkable. Stomach and Bowel: Stomach, small bowel loops, and colon are unremarkable. There is a [id number] amount of stool seen within the colon. Peritoneum: No abnormal intraperitoneal fluid. No free air. Ventral Wall: No hernia. Abdominal Nodes: No retroperitoneal or mesenteric adenopathy by size criteria. Vessels: Aorta and inferior vena cava are normal in size. PELVIS: Pelvic Organs: This patient is status post hysterectomy. No adnexal masses are seen. Bladder: Unremarkable. Pelvic Nodes: No enlarged lymph nodes. Miscellaneous: No inguinal hernias are seen. Bones: Lumbar spine degenerative changes are seen. Milder degenerative changes are seen elsewhere. Remote pelvic fractures are seen. IMPRESSION: No imaging explanation is found for this patient's presenting symptoms. There is a in [id number] amount of stool seen within the colon. Please correlate with an underlying history of constipation. Additional findings: AICD leads Cholecystectomy Hysterectomy Lumbar spine degenerative change Remote pelvic fractures Note: No significant discrepancy from the preliminary report. Dictated by: Ramon Springer M.D. on 05/02/2022 at 8:02 Approved by: Ramon Springer M.D. on 05/02/2022 at 8:06
[2022-05-02] MEDS: ACETAMINOPHEN 325 MG TABLET 975 MG PO (03:29)
[2022-05-02] MEDS: PIPERACILLIN/TAZO 4.5 GM in SODIUM CHLORIDE 0.9% 100 ML IV (03:29)
[2022-05-02] MEDS: SODIUM CHLORIDE 0.9% 1,000 ML 1000 ML IV (03:30)
--- NOTE | 2022-05-02 03:39 | PC.NURSE ---
to CT via stretcher with tech
--- NOTE | 2022-05-02 03:45 | PC.NURSE ---
returns to the ER via stretcher with tech
[2022-05-02 04:13] LABS: Reflexed Lactate in 2 Hours Y
--- NOTE | 2022-05-02 04:15 | PC.NURSE ---
Resting quietly with at bedside - no needs voiced - PWD with respirations equal and unlabored bilaterally
--- NOTE | 2022-05-02 04:43 | P.HP_ITS ---
History of Present Illness History of Present Illness Chief complaint: AMS Narrative: Ana Maria Pickard is 77-year-old woman with history of cardiomyopathy, prior stroke with mild left-sided deficits, chronic systolic heart failure, urinary incontinence, and repeated falls presented to the ED with acute onset of weakness and word-finding difficulty starting at 4:00 p.m. this afternoon.? Code stroke was called and she is taken immediately to the CT scanner.? She was outside the window for tPA but was inside the window for interventional treatment if she were to have a large vessel occlusion.? Patient is clearer now, stating she has had this staph infection for a week, she endorses profound fatigue, did not feel like she had a fever, was nauseous after returning from the scanner but feels better now. Denies shortness of breath, stated she has a pacemaker, denies dysurea, diarrhea or constipation. S tates she has chronic weakness on her left side, uses a walker or wheelchair. Does not do physical therapy, but has 4-hours/week of caregiver services. Is able to bathe on her own. Per the ED provider, her was present shortly thereafter and helped corroborate her overall history, however he was gone when I arrived.? Is her primary caregiver and notes that for the past 3-4 days she is been feeling unwell and not wanting to get out of bed.? He reports that she came down for Leida dinner today but barely ate anything and then went back to bed.? Became increasing concerned that she was becoming increasingly weak and increasingly confused.? Does not state that she had been coughing.? He was concerned with a rash over her back and buttocks.? She has not been having any diarrhea and he was not sure about fevers. She was examined initially in the CT scanner which resulted negative for an acute intercranial process. She is currently febrile with a temperature of 100.3? blood pressure 135/58 heart rate 79 respiratory rate 19 oxygen saturation 92% on room air she weighs 70.2 kg with a BMI of 29.2. Her white count is markedly elevated at 22.6 with a left shift of on a neutrophil count of 20,200 creatinine is within normal limits but she has an EGFR 56 glucose is 145 her initial lactate was elevated at 2.2 proBNP is 815 UA is negative for a UTI and her viral panel and COVID-19 PCR are all negative. Patient History Medical History Asthma, mild intermittent Carpal tunnel syndrome Cataracts, bilateral Cerebrovascular disease Cervical spine disease Chicken pox Chronic back pain Dizziness Essential hypertension Fractures Hearing loss History of colonic polyps History of melanoma Left hemiparesis Mixed hyperlipidemia Mumps Polyneuropathy, unspecified Repeated falls Systolic CHF, chronic Tinea cruris Urinary incontinence Surgical History Anesthesia History of permanent cardiac pacemaker placement S/P cardiac pacemaker procedure Family & Social History Family History Father Heart disease Brother Heart disease Mother Old age Social History: household members spouse Tobacco & Substance use: Smoking Status Former smoker alcohol intake current alcohol intake frequency holiday/special occasion Substance Use Type does not use Meds Home Medications and Allergies Home Medications Medication Instructions Recorded Confirmed Type Fluticasone Propionate/Salme 1 dose IH PRN PRN asthma ##0 01/06/10 04/21/22 History (Advair Diskus 250/50) Hair, Skin, Nails with Biotin 1 tab PO DAILY 04/21/18 04/21/22 History cholecalciferol (vitamin D3) 50 2,000 unit PO DAILY 04/21/18 04/21/22 History mcg (2,000 unit) capsule (Vitamin D3) cod liver oil 1 cap PO DAILY 04/21/18 04/21/22 History coenzyme Q10 100 mg capsule (Co 100 mg PO DAILY 04/21/18 04/21/22 History Q-10) magnesium 30 mg tablet 60 mg PO DAILY 04/21/18 04/21/22 History niacin 500 mg tablet 500 mg PO DAILY #30 tabs 04/24/18 04/21/22 Rx omega-3 fatty acids-fish oil 340 1,000 mg PO DAILY #30 caps 04/24/18 04/21/22 Rx mg-1,000 mg capsule (Fish Oil) atorvastatin 20 mg tablet (Lipitor) 20 mg PO BEDTIME #90 tabs 10/20/21 04/21/22 Rx duloxetine 60 mg capsule,delayed 60 mg PO DAILY #90 caps 10/20/21 04/21/22 Rx release furosemide 20 mg tablet See Rx Instructions PO DAILY #36 10/20/21 04/21/22 Rx tabs gabapentin 100 mg capsule 100 mg PO BID #180 caps 10/20/21 04/21/22 Rx losartan 50 mg tablet 50 mg PO DAILY #90 tabs 10/20/21 04/21/22 Rx metoprolol succinate 50 mg 50 mg PO DAILY #90 tabs 10/20/21 04/21/22 Rx tablet,extended release 24 hr potassium chloride 10 mEq See Rx Instructions PO Q DAY #36 10/20/21 04/21/22 Rx capsule,extended release caps tramadol 50 mg tablet 50 mg PO Q6H PRN pain #180 tabs 11/01/21 04/21/22 Rx amlodipine 5 mg tablet 5 mg PO DAILY #90 tabs 02/02/22 04/21/22 Rx terbinafine HCl 250 mg tablet 250 mg PO DAILY #10 tabs 04/21/22 04/21/22 Rx Allergies Allergy/AdvReac Type Severity Reaction Status Date / Time latex [LATEX] Allergy Mild RASH Verified 04/21/22 16:10 naproxen [From ALEVE] Allergy Mild SWELLING Verified 04/21/22 16:10 FEET, HANDS codeine Allergy Unknown GI UPSET Verified 04/21/22 16:10 lisinopril Allergy Unknown FACIAL Verified 04/21/22 16:10 SWELLING venlafaxine Allergy Unknown ELEVATED Verified 04/21/22 16:10 BLOOD PRESSURE cephalexin AdvReac Intermediate Rash Verified 04/21/22 16:10 bupropion AdvReac Unknown SEIZURE Verified 04/21/22 16:10 Review of Systems Review of Systems ROS: Yes All systems reviewed with the patient and are negative except as otherwise documented Exam Vital Signs (past 8 hours): - 05/02/22 01:58 05/02/22 01:57 05/02/22 01:58 Temperature 100.3 F H Pulse Rate 80 90 Respiratory Rate 22 23 Blood Pressure 155/65 H 141/63 H Pulse Oximetry 96 93 Oxygen Delivery Method Room Air 05/02/22 01:58 05/02/22 02:00 05/02/22 02:01 Temperature Pulse Rate 84 85 Respiratory Rate 22 25 H Blood Pressure 155/65 H Pulse Oximetry 94 95 Oxygen Delivery Method 05/02/22 02:01 05/02/22 02:30 05/02/22 03:00 Temperature Pulse Rate 84 80 Respiratory Rate 27 H 24 Blood Pressure 140/64 Pulse Oximetry 94 94 Oxygen Delivery Method 05/02/22 03:00 05/02/22 03:30 05/02/22 03:30 Temperature Pulse Rate 81 79 Respiratory Rate 22 19 Blood Pressure 135/58 L Pulse Oximetry 92 92 Oxygen Delivery Method Oxygen Delivery Method Room Air Narrative Exam Narrative: Gen: Alert, oriented, ill appearing 77 y.o. female, appears very tired HEENT: normocephalic, atraumatic, conjunctiva clear, sclera non-icteric, oral mucosa pink and moist Neck: supple, full ROM, no JVD, trachea is midline Resp: Lungs CTA, non-labored breathing CV: RRR, Grade 3/6 systolic murmur heard loudest to the right ICS, none auscultated on the left side, no pacer clicks appreciated Abd: soft, non-tender, normoactive BTs Skin: has erythema on right buttock, anus is also erythematous, reported abrasion on inner right labia, unable to visualize. Neuro: Alert and oriented X 4 w/no focal deficits. Speech clear and coherent. Extremities: weak on left side, but able to turn over w/assistance Psyche: normal mood and affect. Objective Labs Result Diagrams: 05/02/22 01:30 05/02/22 01:30 Labs: Laboratory Results - last 24 hr 05/02/22 05/02/22 05/02/22 01:30 01:30 01:55 WBC 22.6 H RBC 3.95 L Hgb 12.4 Hct 37.7 MCV 95.3 MCH 31.3 MCHC 32.8 RDW 15.0 H Plt Count 258 Neut % (Auto) 89.3 H Lymph % (Auto) 6.6 L [place] % (Auto) 3.6 Eos % (Auto) 0.1 L Baso % (Auto) 0.4 Neut # (Auto) 83731 H Lymph # (Auto) 1500 [place] # (Auto) 800 Eos # (Auto) 0 Baso # (Auto) 100 Sodium 138 Potassium 4.2 Chloride 100 Carbon Dioxide 27 BUN 23 H Creatinine 1.03 Estimated GFR 56 L BUN/Creatinine Ratio 22.3 H Glucose 145 H Lactate 2.2 H Calcium 9.4 Magnesium 1.9 Total Bilirubin 0.6 AST 30 ALT 25 Alkaline Phosphatase 105 Troponin I 0.013 NT-Pro-B Natriuret Pep 815 H Total Protein 7.9 Albumin 4.3 Globulin 3.6 Albumin/Globulin Ratio 1.2 Procalcitonin 0.25 Urine Color Urine Appearance Urine pH Ur Specific [place] Urine Protein Urine Glucose (UA) Urine Ketones Urine Occult Blood Urine Nitrate Urine Bilirubin Urine Urobilinogen Ur Leukocyte Esterase Urine RBC Urine WBC Urine Bacteria Ur Culture Indicated? SARS-CoV-2 (PCR) Influenza A (RT-PCR) Influenza B (RT-PCR) RSV (PCR) 05/02/22 05/02/22 02:10 02:30 WBC RBC Hgb Hct MCV MCH MCHC RDW Plt Count Neut % (Auto) Lymph % (Auto) [place] % (Auto) Eos % (Auto) Baso % (Auto) Neut # (Auto) Lymph # (Auto) [place] # (Auto) Eos # (Auto) Baso # (Auto) Sodium Potassium Chloride Carbon Dioxide BUN Creatinine Estimated GFR BUN/Creatinine Ratio Glucose Lactate Calcium Magnesium Total Bilirubin AST ALT Alkaline Phosphatase Troponin I NT-Pro-B Natriuret Pep Total Protein Albumin Globulin Albumin/Globulin Ratio Procalcitonin Urine Color Yellow Urine Appearance Clear Urine pH 5.5 Ur Specific [place] <=1.005 Urine Protein Trace H Urine Glucose (UA) Negative Urine Ketones Negative Urine Occult Blood Negative Urine Nitrate Negative Urine Bilirubin Negative Urine Urobilinogen 0.2 Ur Leukocyte Esterase Negative Urine RBC None seen Urine WBC None seen Urine Bacteria None seen Ur Culture Indicated? Cult not indicated SARS-CoV-2 (PCR) Negative Influenza A (RT-PCR) Flu a negative Influenza B (RT-PCR) Flu b negative RSV (PCR) Negative Assessment & Plan Assessment & Plan narrative: Ana Maria Cline is admitted for further management of a cellulis likely superimposed on a tinea cruris infection. Sepsis in the setting of acute cellulitis of the hip and labia * She was administered a one time dose of IV vancomycin and zosyn (due to cephlosporin allergy) * CT did not indicate any tissue gas or fluid * She has a fever, markedly elevated white count (22.6) , initial elevated lactate (2.3), elevated blood pressure on presentation and was encephalopathic on initial presentation to the ED. Tinea cruris, right buttock * continue course of terbinafine 250 mg daily Essential hypertension, active and chronic * continue home dose of losartan 50 mg p.o. daily and metoprolol succinate 50 mg p.o. at daily Hyperlipidemia, active and chronic * continue home dose of atorvastatin 20 mg p.o. p.m. Anxiety, active and chronic, well controlled * continue home dose of duloxetine 60 mg p.o. daily History of heart failure and paced * cardiac telemetry * Per her PCP visit, she has had and echo, but it is not available, she sees Dr. Babcock. * Due to her presenting encephalopathy, she was fluid bolused in the ED * Will continue gentle hydration of NS at 100 ml/hour for 2 liters * Should obtain most recent echo from Dr. Babcock's office History of a CVA, 2018 * She has left sided deficits * I have ordered PT/OT as she may benefit from PT/OT Other independent historians: none, left Discussion of results, plan of care with independent HCP/other ED provider Reviewed outside records: [ ] VTE Prophylaxis: Wells risk score 0 X Enoxaparin 40 mg subQ once daily Bilateral SCDs Patient is admitted to the inpatient service due to the severity of disease, risks of further disease progression and this stay is expected to exceed 2 midnights. FEN: IV fluids: NS at 100 ml/hour X 2L, diet: heart healthy, labs: CBC, C/BMP, liver enzymes, Mag, PT/INR Consultants None Dispo: Admit as inpatient, hopeful discharge to home. Code status: Full code as discussed with the patient who identifies her Kam as her surrogate and POA. Advanced care planning [ ] minutes. [X] I have utilized all available immediate resources to obtain, update, or review of the patient's current medications VTE Deep Vein Thrombosis/Pulmonary Embolism Present on Admission: No MIPS - Admit I confirm the patient?s Advance Care Plan is present, Code status is documented, Surrogate decision maker is in patient?s record: Yes MIPS - DC The patient has current or prior documentation of left ventricular ejection fraction (LVEF) less than 40%, or moderate or severely depressed left ventricular systolic function.: Unknown. COVID-19 COVID-19 status: Negative Result date/Date tested (Pos, Neg/Pending): 05/02/22 Quality MIPS - DC A. The patient was prescribed or already taking an Angiotensin-Converting Enzyme (PROMISE) Inhibitor, or Angiotensin Receptor [place]fo (ARB).: Yes
--- NOTE | 2022-05-02 05:00 | PC.NURSE ---
No changes in pt status - awaiting admission
[2022-05-02 05:01] LABS: Lactate 2HR (Lactic Acid Rflx) 1.2 mmol/L (0.7-2.1)
--- NOTE | 2022-05-02 05:26 | PC.NURSE ---
Report called to CATHERINE Melara - pt to be transferred to room 211
[2022-05-02] MEDS: SODIUM CHLORIDE 0.9% 1,000 ML 100 ML IV (06:20)
--- NOTE | 2022-05-02 06:21 | PC.NURSE ---
Pt arrived via stretcher from ED. Aox3 but forgetful. Oriented to room and call light.
[2022-05-02 06:40] LABS: Add Manual Diff / Slide Review NO; Basophils Absolute Auto 0 /uL (0-100); Basophils Percent Auto 0.2 % (0-2); Eosinophils Absolute Auto 100 /uL (0-450); Eosinophils Percent Auto 0.4 % (2-4); Hematocrit 33.4 % (36-46); Hemoglobin 11.2 g/dL (12.0-16.0); Lymphocytes Absolute Auto 1500 /uL (1100-4500); Lymphocytes Percent Auto 7.9 % (25-40); Mean Corpuscular HGB Conc 33.6 % (30-36); Mean Corpuscular Volume 95.3 fL (80-100); Monocytes Absolute Auto 700 /uL (0-900); Neutrophils Absolute Auto 16200 /uL (1500-7000); Neutrophils Percent Auto 87.5 % (50-75); Platelet Count 199 X10^3/uL (150-400); Red Cell Distribution Width 14.6 % (11.6-14.8); White Blood Cell Count 18.5 X10^3/uL (4.5-11.0)
[2022-05-02 06:52] LABS: Alanine Aminotransferase 20 IU/L (<35); Albumin 3.7 g/dL (3.5-5.0); Albumin Globulin Ratio 1.3 (1.0-2.8); Alkaline Phosphatase 81 U/L (38-126); Aspartate Aminotransferase 24 IU/L (14-36); BUN Creatinine Ratio 21.1 (6-22); Bilirubin Total 0.5 mg/dL (0.2-1.3); Blood Urea Nitrogen 20 mg/dL (7-17); Calcium 8.5 mg/dL (8.4-10.2); Carbon Dioxide 21 mmol/L (22-32); Chloride 102 mmol/L (98-107); Estimated Glomerular Filt Rate > 60 mL/min (>60); Globulin 2.9 g/dL (1.7-4.1); Glucose 124 mg/dL (80-110); HEMOLYSIS 15 (0-50); Magnesium 1.8 mg/dL (1.6-2.3); Potassium 3.9 mmol/L (3.4-5.1); Sodium 136 mmol/L (137-145); Total Protein 6.6 g/dL (6.3-8.2)
[2022-05-02] MEDS: GABAPENTIN 100 MG CAPSULE PO (08:14)
[2022-05-02] MEDS: DULOXETINE 30 MG CAPSULE 60 MG PO (08:14)
[2022-05-02] MEDS: LOSARTAN 50 MG TABLET PO (08:14)
[2022-05-02] MEDS: ENOXAPARIN 40 MG/0.4 ML SYRINGE SUBCUT (08:15)
[2022-05-02] MEDS: METOPROLOL ER 50 MG TABLET PO (08:15)
--- NOTE | 2022-05-02 08:18 | PM.DS.1 ---
History of Present Illness History of Present Illness Chief complaint: AMS Narrative: Per admitting provider: Ana Maria Pickard is 77-year-old woman with history of cardiomyopathy, prior stroke with mild left-sided deficits, chronic systolic heart failure, urinary incontinence, and repeated falls presented to the ED with acute onset of weakness and word-finding difficulty starting at 4:00 p.m. this afternoon.? Code stroke was called and she is taken immediately to the CT scanner.? She was outside the window for tPA but was inside the window for interventional treatment if she were to have a large vessel occlusion.? Patient is clearer now, stating she has had this staph infection for a week, she endorses profound fatigue, did not feel like she had a fever, was nauseous after returning from the scanner but feels better now. Denies shortness of breath, stated she has a pacemaker, denies dysurea, diarrhea or constipation. States she has chronic weakness on her left side, uses a walker or wheelchair. Does not do physical therapy, but has 4-hours/week of caregiver services. Is able to bathe on her own. Per the ED provider, her was present shortly thereafter and helped corroborate her overall history, however he was gone when I arrived.? Is her primary caregiver and notes that for the past 3-4 days she is been feeling unwell and not wanting to get out of bed.? He reports that she came down for Leida dinner today but barely ate anything and then went back to bed.? Became increasing concerned that she was becoming increasingly weak and increasingly confused.? Does not state that she had been coughing.? He was concerned with a rash over her back and buttocks.? She has not been having any diarrhea and he was not sure about fevers. She was examined initially in the CT scanner which resulted negative for an acute intercranial process. She is currently febrile with a temperature of 100.3? blood pressure 135/58 heart rate 79 respiratory rate 19 oxygen saturation 92% on room air she weighs 70.2 kg with a BMI of 29.2. Her white count is markedly elevated at 22.6 with a left shift of on a neutrophil count of 20,200 creatinine is within normal limits but she has an EGFR 56 glucose is 145 her initial lactate was elevated at 2.2 proBNP is 815 UA is negative for a UTI and her viral panel and COVID-19 PCR are all negative. Discharge Providers Provider Date of admission: 05/02/22 04:27 Discharge Date: 05/02/22 Primary care physician: Andrade Gaston MD Consults: 05/02/22 05:41 Consult to Physical Therapy Evaluate & Treat Comment: left sided deficits from old CVA, mobilization/str Physician Instructions: Evaluate and Treat 05/02/22 15:24 Consult to Home Health Routine Comment: Reason For Exam: Home Health: for RN, PT Discharge provider: Matheus Rodriguez MD Summary Hospital Course Discharge Diagnosis: 1. Fungal skin infection 2. Probable superimposed bacterial cellulitis 3. Hypertension 4. Hyperlipidemia 5. Anxiety 6. s/p PPM 7. History of CVA Hospital Course: Ms. Cline was admitted with a rash in her groin and buttock area. She has had recurrent tinea cruris and prior to this hospitalization had been started on terbinafine. She apparently worsened and came in, she had significant leukocytosis and elevated lactate. I suspect she may have bacterial superinfection causing more systemic symptoms. She was started on antibiotics and improved. She should continue terbinafine, and was prescribed antibiotics, nystatin for treatment and hydroxyzine for itch relief. Exam Vital Signs (past 8 hours): Oxygen Delivery Method Room Air Oxygen Flow Rate 0 Narrative Exam Narrative: Gen: no acute distress Skin: erythema surrounding genital and right buttock, no fluctuance noted Objective Labs Result Diagrams: 05/02/22 06:22 05/02/22 06:22 ON LICENSE OF [facility] Medical History Asthma, mild intermittent Carpal tunnel syndrome Cataracts, bilateral Cerebrovascular disease Cervical spine disease Chicken pox Chronic back pain Dizziness Essential hypertension Fractures Hearing loss History of colonic polyps History of melanoma Left hemiparesis Mixed hyperlipidemia Mumps Polyneuropathy, unspecified Repeated falls Systolic CHF, chronic Tinea cruris Urinary incontinence Surgical History Anesthesia History of permanent cardiac pacemaker placement S/P cardiac pacemaker procedure Family History Father Heart disease Brother Heart disease Mother Old age Social History household members: spouse Smoking Status: Former smoker alcohol intake: current Discharge Plan Discharge Plan Patient Disposition: Home Provider Discharge Comment: Ms. Cline came to the hospital with a skin infection. She felt improved with antibiotics and yeast medication. She should follow up with her doctor this week. Discharge orders & Medications Prescriptions: New hydroxyzine pamoate 25 mg Capsule 25 mg PO Q6HR PRN (Reason: Nausea) Qty: 20 0RF nystatin [Nystop] 100,000 unit/gram Powder 1 applic topical TID PRN (Reason: Rash) Qty: 15 0RF doxycycline hyclate 100 mg tablet 100 mg PO DAILY Qty: 14 0RF Continued Fluticasone Propionate/Salme (Advair Diskus 250/50) aerosol 1 dose IH PRN PRN (Reason: asthma) Qty: 0 tramadol 50 mg tablet 50 mg PO Q6H PRN (Reason: pain) Qty: 180 1RF amlodipine 5 mg tablet 5 mg PO DAILY Qty: 90 0RF terbinafine HCl 250 mg tablet 250 mg PO DAILY Qty: 10 2RF furosemide 20 mg tablet See Rx Instructions PO DAILY Qty: 36 3RF Rx Instructions: three days weekly (Mon, Mon, Monday) orally daily; atorvastatin [Lipitor] 20 mg tablet 20 mg PO BEDTIME Qty: 90 3RF duloxetine 60 mg capsule,delayed release(DR/EC) 60 mg PO DAILY Qty: 90 3RF gabapentin 100 mg capsule 100 mg PO BID Qty: 180 3RF losartan 50 mg tablet 50 mg PO DAILY Qty: 90 3RF metoprolol succinate 50 mg tablet extended release 24 hr 50 mg PO DAILY Qty: 90 3RF potassium chloride 10 mEq capsule, extended release See Rx Instructions PO Q DAY Qty: 36 3RF Rx Instructions: three days weekly (Mon, Mon, Monday) orally Q DAY; cod liver oil Capsule 1 cap PO DAILY magnesium 30 mg Tablet 60 mg PO DAILY coenzyme Q10 [Co Q-10] 100 mg Capsule 100 mg PO DAILY Label Comments: takes with metroprolol at night at 830 every night. cholecalciferol (vitamin D3) [Vitamin D3] 2,000 unit Capsule 2,000 unit PO DAILY Hair, Skin, Nails with Biotin 1 tab PO DAILY niacin 500 mg Tablet 500 mg PO DAILY Qty: 30 0RF Fish Oil 340-1,000 mg Capsule 1,000 mg PO DAILY Qty: 30 0RF Follow up/Referrals: Andrade Gaston MD [Primary Care Provider] - 3-5 Days Diet/Activity/Treatments Diet: Low-sodium Visit Report/Discharge Packet Instructions: DI for Cellulitis -- Adult Discharge Data Primary Care Provider: Andrade Gaston V
[2022-05-02] MEDS: TRAMADOL 50 MG TABLET PO (08:20)
[2022-05-02] MEDS: terbinafine HCL 250 MG TABLET PO (09:46)
--- NOTE | 2022-05-02 11:39 | PT.IIE ---
Current Diagnoses Acute vulvitis (05/02/22) Surgical History (Last Reviewed 05/02/22 @ 05:24 by JOSE Dash) Anesthesia History of permanent cardiac pacemaker placement S/P cardiac pacemaker procedure Medical History (Last Reviewed 05/02/22 @ 05:24 by JOSE Dash) Asthma, mild intermittent Carpal tunnel syndrome Cataracts, bilateral Cerebrovascular disease Cervical spine disease Chicken pox Chronic back pain Dizziness Essential hypertension Fractures Hearing loss History of colonic polyps History of melanoma Left hemiparesis Mixed hyperlipidemia Mumps Polyneuropathy, unspecified Repeated falls Systolic CHF, chronic Tinea cruris Urinary incontinence Physical Therapy Inpatient Evaluation/Re-Eval M1 PT/OT-IP Prior Functional Status Start: 05/02/22 15:13 Freq: NEEDED Status: Active Protocol: Document 05/02/22 11:39 [facility] (Rec: 05/02/22 15:22 [facility] [id number]) Medical Review Prior Functional Status Medical History Reviewed Yes Diet/Fluid Consistency Regular Communication WNL Mobility and Gait pt uses WC when going out into the community and typically uses FWW upstairs and cane downstairs but does have another walker for downstairs to get to kitchen; has a chair lift that brings her up/down stairs Activities of Daily Living and IADL's does all the cooking and cleaning outside of what CG who come M, W, F for 4 hours does (cooks, cleans, meals, help w/dressing); husbnd helps w/dressing when CG not there. CG has instructed pt on how to safely bath on her own Social History Household Members spouse Living Arrangements House Home Environment High Toilet,Bidet Home Equipment Front Wheel Walker,Straight Cane,Raised Toilet Seat w/ Armrests Additional Social History Comment Pt has a walk in tub w/seat in it and 2 bars taht she navigates indep; M2 PT-IP Current Condition Start: 05/02/22 15:13 Freq: NEEDED Status: Active Protocol: Document 05/02/22 11:39 [facility] (Rec: 05/02/22 15:22 [facility] [id number]) Physical Therapy Current Condition Current Condition Evaluation Date 05/02/22 Treatment Diagnosis sepsis; weakness M3 PT-IP Subjective Start: 05/02/22 15:13 Freq: NEEDED Status: Active Protocol: Document 05/02/22 11:39 [facility] (Rec: 05/02/22 15:22 [facility] [id number]) Subjective Physical Therapy Visit Type Type Initial Evaluation Visit Start Time 11:09 Visit Stop Time 11:40 Total Visit Minutes 31 Number of OPERATIONAL INTELLIGENCE OFFICER Visits 0 Physical Therapy Visit Comments Patient Goals to go home M4 PT-IP Mobility and Gait Start: 05/02/22 15:13 Freq: NEEDED Status: Active Protocol: Document 05/02/22 11:39 [facility] (Rec: 05/02/22 15:22 [facility] [id number]) PT-Bed Mobility Assessment Rolling Level of Assist Minimal Assistance Scooting Scooting to Edge of Bed Minimal Assistance PT-Transfer Assessment Sit to and From Stand Sit to and from Stand Contact Guard Assistance,Use of Upper Extremities Equipment Transfer Assistive Device Gait Belt,Front Wheeled Walker Orthotic/Prosthetic Devices or Brace: No Comments Mobility Comments supine to sit with Min A after pt attempted on her own but was unable. She reuqired min A to scoot to EOB and cues. Sit to stand CGA then pt amb w/ FWW and CGA in room about 35 ft w/FWW before fatigue. She sat in chair and was left with call light in reach. Gait Assessment Gait Gait Assistance Required: Contact Guard Assist Distance (Feet) 35 Able to Maintain Weight Bearing Status Yes During Gait Assistive Devices Assistive Device Gait Belt,Front Wheeled Walker Gait Deviations General Gait Pattern Decreased Stride Length, Decreased Feet Clearance Factors Limiting Gait Function Factors Limiting Gait Function Decreased Activity Tolerance, Decreased Strength,Poor Balance PT-Balance Assessment Sitting Balance and Reactions Static Sitting Balance Ability Good Dynamic Sitting Balance Ability Fair Standing Balance and Reactions Static Standing Balance Ability Fair Dynamic Standing Balance Ability Fair Device Used FWW M5 PT-IP Objective Assessments Start: 05/02/22 15:13 Freq: NEEDED Status: Active Protocol: Document 05/02/22 11:39 [facility] (Rec: 05/02/22 15:22 [facility] [id number]) Orientation Orientation/Cognition Level of Alertness Alert Safety Awareness Understands Safety Issues Memory Description No Deficits Noted Strength Lower Extremity Strength Hip LLE grossly 3/5; RLE grossly 4 -/5 M6 PT-IP Treatment Start: 05/02/22 15:13 Freq: NEEDED Status: Active Protocol: Document 05/02/22 11:39 [facility] (Rec: 05/02/22 15:22 [facility] [id number]) Physical Therapy Treatment Education Education Provided Safety M7 PT-IP Assessment and Plan Start: 05/02/22 15:13 Freq: NEEDED Status: Active Protocol: Document 05/02/22 11:39 [facility] (Rec: 05/02/22 15:22 [facility] [id number]) PT Summary Assessment and Plan Potential Rehabilitation Potential Good Status of Condition at Evaluation Evolving Summary Impairments ROM,Strength,Bed Mobility, Transfers,Gait,Activity Tolerance Assessment Summary Pt presents w/AMS d/t sepsis and acute cellulitis of hip and labia. She has history of old CVA that caused L sided weakness that affects her. She has CG support at home and a who is able to help her little bits (like in/out of bed and w/cooking/cleaning) when CG not there. She does show significant weakness and dec overall moability and would bneefit from skilled PT to work on imrpoving her gait and mobility to be safer. Goals Bed Mobility Goal Standby Assistance Transfer Goal Standby Assistance Gait Goal Standby Assistance,Front Wheel Walker Gait Distance 120ft Days to Meet Goals 8 Frequency of Treatment Frequency Of Treatment Once a Day Treatment Plan Physical Therapy Treatment Plan Bed Mobility Training,Transfer Training,Gait Training, Therapeutic Exercise,Balance Retraining,Discharge Planning, Neuromuscular Re-ed Other Recommendations and Next Treatment work on standing balancea nd Focus inc gait distance Weight Bearing Status Weight Bearing Status Full Weight Bearing Recommendations To Nursing Amount of Assist Needed 1 Person Assist Discharge Recommendations PT Discharge Recommendations Home with Assistance,Home Health Transportation Needs at Discharge Private Vehicle
[2022-05-02] MEDS: PIPERACILLIN/TAZO 3.375 GM in SODIUM CHLORIDE 0.9% 100 ML IV (11:43)
[2022-05-02] MEDS: hydrOXYzine pamoate 25 MG CAPSULE PO (11:43)
--- NOTE | 2022-05-02 13:06 | CM.DANOTE ---
Addendum entered by Dana Vasques R.N. 05/02/22 15:34: Sent referral to [facility] . Spoke with triage nurse to provide referral. Patient has dc orders for today. DANITZA Original Note: Initial Discharge Assessment Note: Met with patient in her room, introduced self and role. Payer: [employer] and self pay PCP: Andrade Andersonkip 77 year old female admitted early this am with weakness, sepsis in the setting of acute cellulitis of hips, labia. Hx CVA with L side deficit. Patient lives with spouse who is primary caregiver and manages household and provides transportation. Patient is independent in some ADLS and requires assistance in other. Patient is A/O, pleasant. Has adequate DME, [facility], will need resume orders. Has cg M-W-F for 4 hours each day. Plan: Home with once medically cleared. Discharge Planning/Care Management CM Discharge Assessment Start: 05/02/22 13:05 Freq: Status: Active Protocol: Document 05/02/22 13:05 (Rec: 05/02/22 13:06 [id number]) Discharge Planning Assessment Assigned [employer] Colette Vasques RN/DCP Advance Directives? Yes History Provided By Patient,Medical Record Prior Living Arrangements House Household Members spouse Type of transporation used prior to Relies on Others admit Independent with ADL's No: some assist Is patient alert and oriented? Yes Needs Assistance With Bathing,Meal Prep,Managing Medications,Home Chores / Shopping Caregiver for Another No DME Already Rented / Owned Bath Bench,FWW / Walker Discharge Plan Detention Facility Transportation Arrangement W/c jacquie Review Status In Process Next Review Type Continued Stay Review
[2022-05-02] MEDS: NYSTATIN POWDER 15GM 1 APPLIC TOP (16:44)
--- NOTE | 2022-05-02 19:27 | PC.NURSE ---
Assisted with patient's discharge this evening. Discharge instructions and home care handout reviewed with patient and her . They state understanding and have no further questions or concerns. IV was dc'd intact by PHYSICAL AERODYNAMICIST. Patient's brief changed and PHYSICAL AERODYNAMICIST assisted to dress patient for home. PCP office not open today (holiday), patient and agree to call office to schedule follow up appointment within next week. Patient escorted out via wheelchair with all her belongings to home with her .
== END 2022-05-02 19:05 | disposition home health service (06) | DRG 758 ==
LOC: ED 02:20 → AC 04:27
PROVIDERS: Admitting Provider Nurse Practitioner Family; Emergency Provider Emergency Medicine; PCP Internal Medicine; Referring Provider Emergency Medicine; Visit Provider Nurse Practitioner Family
DX: N76.2 Acute vulvitis (principal); I69.954 Hemiplegia and hemiparesis following unspecified cerebrovascular disease affecting left non-dominant side; L03.115 Cellulitis of right lower limb; B35.6 Tinea cruris; I10 Essential (primary) hypertension; E78.5 Hyperlipidemia, unspecified; F41.9 Anxiety disorder, unspecified; M54.9 Dorsalgia, unspecified; G89.29 Other chronic pain; E78.2 Mixed hyperlipidemia; Z86.79 Personal history of other diseases of the circulatory system; Z95.0 Presence of cardiac pacemaker; Z87.891 Personal history of nicotine dependence; Z20.822 Contact with and (suspected) exposure to COVID-19
CPT/HCPCS: 0241U; 36415; 51701; 70496; 70498; 71045; 74177; 80053; 81001; 81003; 83605; 83735; 83880; 84145; 84484; 85025; 87040; 93005; 96365; 97162; 99284; J1650; J2543; Q9967

== ENCOUNTER → 2022-08-19 12:10 | Outpatient (CLI) | payer OTHER, SELFPAY ==
[2022-05-03 14:18] VITALS: BMI 30.2
[2022-08-19 14:08] LABS: Hematocrit 39.4 % (36-46); Hemoglobin 13.5 g/dL (12.0-16.0); Mean Corpuscular HGB Conc 34.2 % (30-36); Mean Corpuscular Hemoglobin 32.4 PG (26-34); Mean Corpuscular Volume 94.7 fL (80-100); Platelet Count 263 X10^3/uL (150-400); Red Blood Cell Count 4.16 X10^6/uL (4.0-5.2); Red Cell Distribution Width 14.8 % (11.6-14.8); White Blood Cell Count 7.7 X10^3/uL (4.5-11.0)
[2022-08-19 14:27] LABS: Alanine Aminotransferase 24 IU/L (<35); Albumin 3.9 g/dL (3.5-5.0); Albumin Globulin Ratio 1.3 (1.0-2.8); Alkaline Phosphatase 93 U/L (38-126); Aspartate Aminotransferase 26 IU/L (14-36); BUN Creatinine Ratio 34.5 (6-22); Bilirubin Total 0.2 mg/dL (0.2-1.3); Blood Urea Nitrogen 30 mg/dL (7-17); Calcium 9.3 mg/dL (8.4-10.2); Carbon Dioxide 30 mmol/L (22-32); Chloride 104 mmol/L (98-107); Cholesterol 183 mg/dL (140-199); Estimated Glomerular Filt Rate > 60 mL/min (>60); Globulin 3.1 g/dL (1.7-4.1); Glucose 86 mg/dL (80-110); HDL Cholesterol 60 mg/dL (40-60); HEMOLYSIS < 15 (0-50); LDL Cholesterol Calculated 92 mg/dL (<100); Potassium 4.4 mmol/L (3.4-5.1); Sodium 141 mmol/L (137-145); Triglycerides 153 mg/dL (35-150)
[2022-08-19 14:53] LABS: TSH w/ Reflex to FT4 2.15 uIU/mL (0.47-4.68)
== END ==
PROVIDERS: PCP Internal Medicine; Referring Provider Internal Medicine; Visit Provider Internal Medicine
DX: E78.2 Mixed hyperlipidemia (principal); I10 Essential (primary) hypertension; I50.22 Chronic systolic (congestive) heart failure
CPT/HCPCS: 36415; 80053; 80061; 84443; 85027

== ENCOUNTER → 2022-08-31 12:29 | Outpatient (CLI) | payer OTHER, SELFPAY ==
[2022-05-03 14:18] VITALS: BMI 30.2
--- NOTE | 2022-08-31 12:30 | DI.RAD.S_ITS ---
Bone Density Report Name: YONG ARAIZA Age: 77 Sex: Female Ethnicity: White Date of : 1945 Indication: postmenopausal; screening for osteoporosis; Referring Provider: MELISSA GRIMES Study: Bone densitometry was performed. Exam Date: August 31, 2022 Accession number: [id number] Bone Density: Region BMD T-score Z-score Classification AP Spine(L1-L4) 1.250 1.8 4.4 Normal Femoral Neck (Left) 0.629 -2.0 0.2 Osteopenia Total Hip (Left) 0.802 -1.2 0.8 Osteopenia Femoral Neck (Right) 0.811 -0.3 1.8 Normal Total Hip (Right) 0.780 -1.3 0.6 Osteopenia Total Hip Mean 0.791 -1.3 0.7 Osteopenia World Health Organization criteria for BMD impression classify patients as: Normal (T-score at or above -1.0), Osteopenia (T-score between -1.0 and -2.5), or Osteoporosis (T-score at or below -2.5). 10-year Fracture Risk(1): Major Osteoporotic Fracture 14% Hip Fracture 3.7% Reported Risk Factors: [place] (), Neck BMD=0.629, BMI=28.2 (1) FRAX(R) Version 3.08. Fracture probability calculated for an untreated patient. Fracture probability may be lower if the patient has received treatment. Previous Exams: -- Region Exam Age BMD T-score BMD Change BMD Change Date g/cm2 vs Baseline vs Previous -- AP Spine (L1-L4) 08/31/2022 77 1.250 1.8 -0.177 (-12.4%)# -0.177 (-12.4%)# 07/27/2017 72 1.428 3.5 Total Hip(Left) 08/31/2022 77 0.802 -1.2 -0.112 (-12.2%)# -0.112 (-12.2%)# 07/27/2017 72 0.913 -0.2 Total Hip(Right) 08/31/2022 77 0.780 -1.3 -0.084 (-9.8%)# -0.084 (-9.8%)# 07/27/2017 72 0.864 -0.6 -- *Denotes significance at 95% confidence level, LSC for AP Spine = 0.022 g/cm2, LSC for Total Hip = 0.027 g/cm2 # Denotes dissimilar scan types or analysis methods Impression: The patient has low bone mass, based on the Left Femoral Neck T-score. The patient has an estimated ten-year risk of hip fracture of 3.7% and an estimated ten-year risk of major fracture of 14%, based on the WHO FRAX algorithm. No significant bone loss was observed. Discussion: BONE DENSITY IS LOW AT ONE OR MORE SKELETAL SITES. THE PATIENT'S BMD AND CLINICAL RISK FACTORS CONTRIBUTE TO THIS PATIENT'S INCREASED RISK OF FRACTURE. This patient's lowest T-score is low at one or more skeletal sites. It meets the World Health Organization's (WHO) criteria for low bone mass (T-score between -1.0 and -2.5). The patient's 10-year risk of hip fracture as calculated by FRAX exceeds the threshold where pharmacological therapy is recommended by the National Osteoporosis Foundation (NOF). However, all treatment decisions require clinical judgment and consideration of individual patient factors, including patient preferences, comorbidities, previous drug use, risk factors not captured in the FRAX model (e.g., frailty, falls, vitamin D deficiency, increased bone turnover, interval significant decline in bone density) and possible under or overestimation of fracture risk by FRAX. The patient should follow a healthful lifestyle (good nutrition with adequate calcium and vitamin D, and appropriate weight-bearing exercise). Follow-Up: Consider a repeat BMD and Vertebral Fracture Assessment (VFA) exam in 2 years or sooner if medically necessary, to reassess this patient's status. Reported by: YASEMIN KOHLER M.D. on 08/31/2022 1:01:00 PM.
== END ==
PROVIDERS: PCP Internal Medicine; Referring Provider Internal Medicine; Visit Provider Internal Medicine
DX: Z78.0 Asymptomatic menopausal state (principal); Z13.820 Encounter for screening for osteoporosis; M85.852 Other specified disorders of bone density and structure, left thigh
CPT/HCPCS: 77080

== ENCOUNTER 2022-09-16 11:19 | Observation (INO) | payer OTHER, SELFPAY ==
[2022-05-03 14:18] VITALS: BMI 30.2
[2022-09-16] VITALS (23 sets, daily range): BP systolic 112–163; BP diastolic 49–72; PULSE 68–77; RESP 14–24; TEMP 36.2–37; O2SAT 91–100; BMI 25.8
--- NOTE | 2022-09-16 11:41 | DI.CT.S_ITS ---
PROCEDURE: CT ANGIO HEAD AND NECK INDICATIONS: weakness, prior stroke TECHNIQUE: Noncontrast images were performed earlier in the day and not repeated. After the administration of intravenous contrast, 1 mm thick sections acquired from the aortic arch through the [place]. Post-contrast 4.5 mm thick sections then re-acquired from the foramen magnum to the vertex. 3-dimensional hfzfsmt-qataivfuf-grtpdjhhux (MIP) and/or volume rendering reformats were acquired of the central intracranial vasculature and neck separately. For radiation dose reduction, the following was used: automated exposure control, adjustment of mA and/or kV according to patient size. COMPARISON: [facility], CT, CT HEAD/BRAIN WO CON, 09/16/2022, 11:52. [facility], CT, CT ANGIO HEAD AND NECK, 05/02/2022, 1:44. FINDINGS: Image quality: Limited by bolus timing, with venous contamination. There is artifact associated with the metallic hardware. BRAIN: CSF spaces: Ventricles are normal in size and shape. Basal cisterns are patent. No extra-axial fluid collections. Brain: No midline shift. No intracranial bleeds or masses. Saenz-white matter interface appears intact. Skull and face: Calvarium and facial bones appear intact, without suspicious lesions. Orbits appear normal. Sinuses: Sinuses and mastoids are clear. HEAD CT ANGIOGRAPHY: Anterior circulation: Intracranial internal carotid arteries are normal in size and flow. The flow within the paired anterior cerebral arteries is normal and symmetric. The flow within the middle cerebral arteries is normal and symmetric. The anterior communicating artery is seen. No aneurysms are seen. Posterior circulation: Visualized portions of the vertebral arteries demonstrate normal caliber, and join to form a normal appearing basilar artery. Flow within the posterior cerebral arteries is normal and symmetric. No aneurysms are seen. NECK CT ANGIOGRAPHY: Carotid system: The great vessels demonstrate a conventional anatomy as they arise from the aortic arch. The origins of the common carotid arteries appear patent. The common carotid arteries demonstrate normal caliber and courses. The bifurcation regions are both widely patent. The internal carotid arteries demonstrate normal calibers and courses. Posterior circulation: The origins of the vertebral arteries both appear widely patent. The more superior extracranial portions of both vertebral arteries also demonstrate normal courses and calibers. They join to form a normal appearing basilar artery. Soft tissues: Visualized neck soft tissues demonstrate no suspicious abnormalities. Left-sided pacer leads are seen. Bones: No suspicious bony lesions. Visualized cervical spine appears normally aligned. Anterior fixation hardware is seen C4 through C6. At least moderate generalized degenerative changes are seen. IMPRESSION: No hemodynamically significant stenosis can be seen within the intracranial circulation or within the arteries of the neck. Additional findings: At least moderate cervical spine degenerative change C4 through C6 anterior fixation hardware Left-sided pacer leads Any quantitative measurements of stenosis were performed using NASCET criteria. Dictated by: Ramon Springer M.D. on 09/16/2022 at 12:09 Approved by: Ramon Springer M.D. on 09/16/2022 at 12:12
--- NOTE | 2022-09-16 11:41 | DI.CT.S_ITS ---
PROCEDURE: CT HEAD/BRAIN WO CON INDICATIONS: weakness, prior stroke TECHNIQUE: Noncontrast 4.5 mm thick angled axial sections acquired from the foramen magnum to the vertex, with coronal and sagittal reformats. For radiation dose reduction, the following was used: automated exposure control, adjustment of mA and/or kV according to patient size. COMPARISON: [facility], MR, BRAIN W&WO CONTRAST, 12/25/2014, 15:11. [facility], CT, CT ANGIO HEAD AND NECK, 05/02/2022, 1:44. [facility], CR, XR CHEST 1V, 09/16/2022, 12:16. [facility], CT, CT ANGIO HEAD AND NECK, 09/16/2022, 11:52. [facility], CT, CT HEAD/BRAIN WO CON, 04/21/2018, 18:06. FINDINGS: Image quality: Excellent. CSF spaces: Basal cisterns are patent. No extra-axial fluid collections. The ventricles are symmetric in size and shape. Brain: No intracranial bleeds. The known posterior superior left meningioma is faintly seen. There is cerebral volume loss for age, with resultant ventricular and sulcal prominence. There are periventricular and deep white matter chronic small vessel ischemic changes. There is intracranial internal carotid artery atherosclerosis. Skull and face: Calvarium and visualized facial bones appear intact, without suspicious lesions. Sinuses: Visualized sinuses and mastoids are clear. IMPRESSION: No acute intracranial hemorrhage is seen. No acute intracranial process is seen. Dictated by: Ramon Springer M.D. on 09/16/2022 at 12:14 Approved by: Ramon Springer M.D. on 09/16/2022 at 12:17
[2022-09-16 11:51] LABS: INR 1.2 (0.9-1.3); Prothrombin Time 13.4 SECONDS (10.1-12.7)
[2022-09-16 11:52] LABS: Add Manual Diff / Slide Review NO; Basophils Absolute Auto 100 /uL (0-100); Basophils Percent Auto 0.3 % (0-2); Eosinophils Absolute Auto 0 /uL (0-450); Eosinophils Percent Auto 0.1 % (2-4); Hematocrit 37.7 % (36-46); Hemoglobin 12.9 g/dL (12.0-16.0); Lymphocytes Absolute Auto 1500 /uL (1100-4500); Lymphocytes Percent Auto 7.3 % (25-40); Mean Corpuscular HGB Conc 34.2 % (30-36); Mean Corpuscular Hemoglobin 32.3 PG (26-34); Mean Corpuscular Volume 94.5 fL (80-100); Monocytes Absolute Auto 800 /uL (0-900); Neutrophils Absolute Auto 17900 /uL (1500-7000); Neutrophils Percent Auto 88.3 % (50-75); Platelet Count 212 X10^3/uL (150-400); Red Blood Cell Count 3.99 X10^6/uL (4.0-5.2); Red Cell Distribution Width 14.8 % (11.6-14.8); White Blood Cell Count 20.3 X10^3/uL (4.5-11.0)
[2022-09-16 11:53] LABS: PTT Partial Thromboplastin Tim 27 SECONDS (26-36)
[2022-09-16 12:00] LABS: Alanine Aminotransferase 24 IU/L (<35); Albumin 4.2 g/dL (3.5-5.0); Albumin Globulin Ratio 1.3 (1.0-2.8); Alkaline Phosphatase 76 U/L (38-126); Aspartate Aminotransferase 29 IU/L (14-36); BUN Creatinine Ratio 19.6 (6-22); Bilirubin Total 0.6 mg/dL (0.2-1.3); Blood Urea Nitrogen 19 mg/dL (7-17); Calcium 9.1 mg/dL (8.4-10.2); Carbon Dioxide 30 mmol/L (22-32); Chloride 97 mmol/L (98-107); Creatine Kinase 79 U/L (30-135); Estimated Glomerular Filt Rate > 60 mL/min (>60); Ethanol (ETOH) < 10 mg/dL; Globulin 3.3 g/dL (1.7-4.1); Glucose 131 mg/dL (80-110); HEMOLYSIS < 15 (0-50); Potassium 3.4 mmol/L (3.4-5.1); Sodium 136 mmol/L (137-145); Total Protein 7.5 g/dL (6.3-8.2)
[2022-09-16 12:08] LABS: Troponin I 0.034 ng/mL (0.01-0.034)
[2022-09-16 12:11] LABS: COVID19 -Nasal RAPID Negative (Negative)
--- NOTE | 2022-09-16 12:16 | DI.RAD.S_ITS ---
PROCEDURE: XR CHEST 1V INDICATIONS: weakness TECHNIQUE: One view of the chest was acquired. COMPARISON: [facility], CT, CT ANGIO HEAD AND NECK, 09/16/2022, 11:52. [facility], CT, CT HEAD/BRAIN WO CON, 09/16/2022, 11:52. [facility], CR, XR CHEST 1V, 05/02/2022, 1:54. FINDINGS: Surgical changes and devices: An AICD is seen. The leads are seen in stable positions. Cervical spine fixation hardware is again seen. Cholecystectomy clips are seen. Lungs and pleura: An incomplete inspiratory result is noted, causing a crowded appearance to the lung markings. No focal infiltrates are seen. No pneumothorax or significant pleural effusions are seen. Mediastinum: Mediastinal contours appear normal. Heart size is normal. Bones and chest wall: No suspicious bony lesions. Age-appropriate bony degenerative changes are seen. Overlying soft tissues appear unremarkable. IMPRESSION: Limited portable chest examination, without a significant cardiopulmonary abnormality identified. Postoperative and degenerative changes are seen. Dictated by: Ramon Springer M.D. on 09/16/2022 at 12:17 Approved by: Ramon Springer M.D. on 09/16/2022 at 12:18
[2022-09-16 12:31] LABS: Lactate (Lactic Acid) 1.9 mmol/L (0.7-2.1)
[2022-09-16 12:49] LABS: Procalcitonin 0.41 ng/mL (<0.5)
--- NOTE | 2022-09-16 13:26 | SLP.IPNOTE ---
Called NSG in ED for more information, as chart currently has conflicting diet orders (dysphagia mechanical/thin and NPO) and no intake documentation outside of CT and chest X-ray. Spoke with pt's doctor, who indicated pt has no cough response. Per doctor, wait to evaluate until doctor has seen pt. Informed doctor this would likely be tomorrow (09/17/22), which she approved.
--- NOTE | 2022-09-16 13:49 | PC.NURSE ---
Attempted in and out straight cath per provider Mank verbal order. Pt brief was wet prior to attempt. Unable to obtain any urine. [place] care given. New brief. Provider aware.
--- NOTE | 2022-09-16 14:34 | ED_ITS ---
HPI - Weakness General Chief complaint: Weakness Stated complaint: Weakness Time Seen by Provider: 09/16/22 11:41 Source: patient, RN notes reviewed and old records reviewed Mode of arrival: EMS History of Present Illness HPI Narrative: This is a 77-year-old female history of prior stroke with left-sided deficits which had improved, hypertension, dyslipidemia, neuropathy, pacemaker and is not anticoagulated. Patient presents with complaint of increased weakness, she has some difficulty expressing her thoughts although her speech is fairly clear. She states last night she got up to go to the bathroom which went well and she normally handles the source of activities on her own. Her noticed she was slurring and could barely talk overnight she states that seems to be better but still present. She had prior left-sided deficit which she states improved. She describes herself more is globally weak she does not appreciate a significant left versus right weakness. She denies headache, no fevers or chills, no vision changes. She denies chest pain or shortness of breath. She denies nausea or vomiting. She would had some constipation but has stooled recently. She has some increasing frequency and urgency sensation and states she is having trouble getting to the bathroom to urinate. She states this is fairly new. She states her was having to lift to help her. She is having a little bit of memory issue which is new and is present with her caregiver currently who states that she just seemed off or different. Patient denies any new medication changes. Denies any surgeries, she does have a pacemaker. No known drug allergies. No tobacco, alcohol or illicit. Dr. Gaston is her primary care physician. She sees a dairy feed worker occasionally. She does not follow with a avionics mechanic. Related Data Home Medications Medication Instructions Recorded Confirmed Hair, Skin, Nails with Biotin 1 tab PO DAILY 04/21/18 09/16/22 cholecalciferol (vitamin D3) 50 2,000 unit PO DAILY 04/21/18 09/16/22 mcg (2,000 unit) capsule (Vitamin D3) cod liver oil 1 cap PO DAILY 04/21/18 09/16/22 coenzyme Q10 100 mg capsule (Co 100 mg PO DAILY 04/21/18 09/16/22 Q-10) magnesium 30 mg tablet 60 mg PO DAILY 04/21/18 09/16/22 Previous Rx's Medication Instructions Recorded niacin 500 mg tablet 500 mg PO DAILY #30 tabs 04/24/18 omega-3 fatty acids-fish oil 340 1,000 mg PO DAILY #30 caps 04/24/18 mg-1,000 mg capsule (Fish Oil) duloxetine 60 mg capsule,delayed 60 mg PO DAILY #90 caps 10/20/21 release losartan 50 mg tablet 50 mg PO DAILY #90 tabs 10/20/21 metoprolol succinate 50 mg 50 mg PO DAILY #90 tabs 10/20/21 tablet,extended release 24 hr nystatin 100,000 unit/gram topical 1 applic topical TID PRN Rash #15 05/02/22 powder (Nystop) grams amlodipine 5 mg tablet 5 mg PO DAILY #90 tabs 05/24/22 furosemide 20 mg tablet See Rx Instructions PO DAILY #36 05/24/22 tabs potassium chloride 10 mEq See Rx Instructions PO Q DAY #36 05/24/22 capsule,extended release caps gabapentin 100 mg capsule 100 mg PO BID #180 caps 07/26/22 terbinafine HCl 250 mg tablet 250 mg PO DAILY #10 tabs 08/19/22 atorvastatin 20 mg tablet (Lipitor) 20 mg PO BEDTIME #90 tabs 08/29/22 Allergies Allergy/AdvReac Type Severity Reaction Status Date / Time latex [LATEX] Allergy Mild RASH Verified 08/19/22 10:25 naproxen [From ALEVE] Allergy Mild SWELLING Verified 08/19/22 10:25 FEET, HANDS codeine Allergy Unknown GI UPSET Verified 08/19/22 10:25 lisinopril Allergy Unknown FACIAL Verified 08/19/22 10:25 SWELLING venlafaxine Allergy Unknown ELEVATED Verified 08/19/22 10:25 BLOOD PRESSURE cephalexin AdvReac Intermediate Rash Verified 08/19/22 10:25 bupropion AdvReac Unknown SEIZURE Verified 08/19/22 10:25 Review of Systems Review of Systems ROS Unobtainable: All systems reviewed & are unremarkable except as noted in HPI and below Patient History Medical History Asthma, mild intermittent Carpal tunnel syndrome Cataracts, bilateral Cerebrovascular disease Cervical spine disease Chicken pox Chronic back pain Dizziness Essential hypertension Fractures Gait instability Hearing loss History of colonic polyps History of melanoma Left hemiparesis Mixed hyperlipidemia Mumps Polyneuropathy, unspecified Repeated falls Systolic CHF, chronic Tinea cruris Urinary incontinence Surgical History Anesthesia History of permanent cardiac pacemaker placement S/P cardiac pacemaker procedure Family History Father Heart disease Brother Heart disease Mother Old age Social History household members: spouse Smoking Status: Former smoker alcohol intake: current Smoking Status: Former smoker alcohol intake frequency: holidays/special occasions only Substance Use Type: does not use Exam Narrative Exam Narrative: GEN: well nourished, well appearing female, alert and oriented, patient appears to be in mild distress. HEENT: Atraumatic, pupils are equal round reactive to light, extraocular mov ements are intact, nares are clear, TMs are clear with no fluid, there is no conjunctival pallor. Throat is clear without any exudates, erythema, tonsillar enlargement or uvular deviation, no facial droop. HEART: Regular rate and rhythm without murmur, clicks, rubs. Pulses are equal in upper and lower extremities LUNGS:Lungs clear to auscultation, no wheezes, rales, crackles, chest moves symmetrically ABD:bowel sounds normal, soft, non-tender, no guarding, rebound, rigidity, no masses noted, no hepatosplenomegaly :No CVA tenderness MSCL: Non-tender, no muscle atrophy, muscles strength 5/5 upper and lower extremities, full range of motion. NEURO:CN 2-12 intact, sensation normal, finger nose finger test normal with right hand, patient has some difficulty with left,, heel haddad test normal bilaterally. No dysarthria but does have some word searching. SKIN: No rash, erythema or other skin changes noted. Initial Vital Signs Initial Vital Signs: Vital Signs Temperature 98.6 F 09/16/22 11:22 Pulse Rate 74 09/16/22 11:22 Respiratory Rate 16 09/16/22 11:22 Blood Pressure 125/58 L 09/16/22 11:22 Pulse Oximetry 95 09/16/22 11:22 Oxygen Delivery Method Room Air 09/16/22 11:22 Scores NIH Stroke Scale Level of Conciousness: Alert, keenly responsive Ask month/age: Answers both questions correctly. Open/close eyes, close hand: Performs both tasks correctly Best gaze horizontal: Normal Visual bates: No visual loss Facial palsy: Normal symetrical movement Left arm drift: Drifts down, not to bed Right arm drift: No drift for full 10 sec Left leg drift: No drift for full 5 sec Right leg drift: No drift for full 5 sec Limb ataxia: Present in one limb Sensory on face/arms/legs: Normal, no sensory loss Best language: No aphasia, normal Dysarthria: Normal Extinction or inattention: No abnormality Total NIH Stroke scale score: 2 Course Orders Ordered: ED Orders 09/16/22 11:25 Complete Blood Count AUTO DIFF Stat Comprehensive Metabolic Panel Stat Ethanol (ETOH) Stat Lactate (Lactic Acid) Stat PTT Partial Thromboplastin Antonio Stat Procalcitonin Stat Prothrombin Time INR Stat Troponin & CK Cardiac Panel Stat 09/16/22 11:41 CT angio head and neck Stat CT head/brain wo con Stat EKG-12 Lead Stat 09/16/22 11:50 COVID19 -Nasal RAPID Stat 09/16/22 12:16 Chest [XR chest 1V] Stat 09/16/22 12:35 Blood Culture Stat 09/16/22 15:18 Urinalysis and Microscopic Stat Urine Culture Stat Urine Drug Screen, Rapid Stat Acetaminophen (Acetaminophen 325 Mg Tablet) 650 mg PO Q6H PRN PRN Reason: Fever/Mild Pain (1-3) Aspirin (Aspirin Ec 81 Mg Tablet) 81 mg PO DAILY [facility] Atorvastatin Calcium (Atorvastatin 20 Mg Tablet) 80 mg PO BEDTIME [facility] Clopidogrel Bisulfate (Clopidogrel 75 Mg Tablet) 75 mg PO DAILY [facility] [place] Stop: 10/06/22 17:09 Last Admin: 09/16/22 18:45 Dose: 75 mg Documented By: MIRIAN Duloxetine HCl (Duloxetine 30 Mg Capsule) 60 mg PO DAILY [facility] [place] Enoxaparin Sodium (Enoxaparin 40 Mg/0.4 Ml Syringe) 40 mg SUBCUT DAILY [facility] Gabapentin (Gabapentin 100 Mg Capsule) 100 mg PO BID [facility] [place] Sodium Chloride (Normal Saline 0.9%) 1,000 mls @ 150 mls/hr IV CONT [facility] Last Admin: 09/16/22 18:48 Dose: 150 mls/hr Documented By: Infusion: 09/16/22 18:48 Dose: 150 mls/hr Documented By: Admin: 09/16/22 15:15 Dose: 150 mls/hr Documented By: ALEKSANDAR Sodium Chloride (Normal Saline 0.9%) 1,000 mls @ 100 mls/hr IV CONT CINDI Stop: 09/17/22 04:59 Magnesium Sulfate (Magnesium Sulfate) 2 gm in 50 mls @ 25 mls/hr IV NOW ONE Stop: 09/16/22 20:14 Labetalol HCl (Labetalol 20 Mg/4 Ml Syringe) 10 mg IV Q5MIN PRN PRN Reason: SBP >220 or DBP >110 Melatonin (Melatonin 3 Mg Tablet) 6 mg PO BEDTIME PRN PRN Reason: Insomnia Metoprolol Succinate (Metoprolol Er 50 Mg Tablet) 50 mg PO DAILY [facility] [place] Naloxone HCl (Naloxone 0.4 Mg/Ml Vial) 0.2 mg IV Q2MIN PRN PRN Reason: Opiate Reversal Polyethylene Glycol (Polyethylene Glycol 3350 17 Gm Powd.Pack) 17 gm PO DAILY PRN PRN Reason: Constipation Sennosides (Sennosides 8.6 Mg Tablet) 8.6 mg PO BID PRN PRN Reason: Constipation Tramadol HCl (Tramadol 50 Mg Tablet) 50 mg PO Q6H PRN PRN Reason: pain Discontinued Medications Aspirin (Aspirin 81 Mg Chew Tab) 324 mg PO NOW ONE Stop: 09/16/22 15:14 Last Admin: 09/16/22 15:19 Dose: 324 mg Documented By: ALEKSANDAR Levofloxacin (Levaquin) 750 mg in 150 mls @ 100 mls/hr IV NOW ONE Stop: 09/16/22 16:36 Last Infusion: 09/16/22 17:04 Dose: 0 mls/hr Documented By: Admin: 09/16/22 15:15 Dose: 100 mls/hr Documented By: ALEKSANDAR Non-Formulary Medication (Magnesium) 60 mg PO DAILY [facility] [place] Potassium Chloride (Potassium Chloride 20 Meq Tab) 40 meq PO NOW ONE Stop: 09/16/22 17:01 Last Admin: 09/16/22 18:49 Dose: 40 meq Documented By: MIRIAN Vital Signs Vital signs: Vital Signs - 8 hr 09/16/22 11:22 09/16/22 11:24 09/16/22 11:24 Temperature 98.6 F Pulse Rate 74 73 Respiratory Rate 16 Blood Pressure 125/58 L 125/58 L Pulse Oximetry 95 96 Oxygen Delivery Method Room Air 09/16/22 11:30 09/16/22 11:30 09/16/22 12:18 Temperature Pulse Rate 74 73 Respiratory Rate 20 22 Blood Pressure 131/60 Pulse Oximetry 94 95 Oxygen Delivery Method 09/16/22 12:30 09/16/22 12:37 09/16/22 12:37 Temperature Pulse Rate 73 74 Respiratory Rate 20 19 Blood Pressure 137/62 Pulse Oximetry 91 Oxygen Delivery Method 09/16/22 13:00 09/16/22 13:00 09/16/22 13:30 Temperature Pulse Rate 75 Respiratory Rate 18 Blood Pressure 156/66 H 158/70 H Pulse Oximetry 96 Oxygen Delivery Method 09/16/22 13:30 09/16/22 14:00 09/16/22 14:00 Temperature Pulse Rate 74 72 Respiratory Rate 18 20 Blood Pressure 135/61 Pulse Oximetry 93 96 Oxygen Delivery Method 09/16/22 14:30 09/16/22 14:30 09/16/22 15:00 Temperature Pulse Rate 73 74 Respiratory Rate 22 20 Blood Pressure 145/65 H Pulse Oximetry 94 92 Oxygen Delivery Method 09/16/22 15:01 09/16/22 15:01 09/16/22 15:15 Temperature Pulse Rate 77 74 Respiratory Rate 21 24 Blood Pressure 134/72 Pulse Oximetry 93 96 Oxygen Delivery Method 09/16/22 15:30 09/16/22 15:31 09/16/22 15:31 Temperature Pulse Rate 73 75 Respiratory Rate 23 21 Blood Pressure 163/70 H Pulse Oximetry 97 97 Oxygen Delivery Method 09/16/22 15:45 09/16/22 16:00 09/16/22 16:00 Temperature Pulse Rate 76 74 Respiratory Rate 21 21 Blood Pressure 158/70 H Pulse Oximetry 98 94 Oxygen Delivery Method 09/16/22 16:30 09/16/22 16:31 09/16/22 16:31 Temperature Pulse Rate 70 71 Respiratory Rate 22 14 Blood Pressure 112/56 L Pulse Oximetry 92 94 Oxygen Delivery Method 09/16/22 16:45 Temperature Pulse Rate 73 Respiratory Rate 19 Blood Pressure Pulse Oximetry 92 Oxygen Delivery Method MDM - Weakness Lab Data 09/16/22 11:25 09/16/22 11:25 Labs: Lab Results 09/16/22 09/16/22 09/16/22 Range/Units 11:25 11:25 11:25 WBC 20.3 H (4.5-11.0) X10^3/uL RBC 3.99 L (4.0-5.2) X10^6/uL Hgb 12.9 (12.0-16.0) g/dL Hct 37.7 (36-46) % MCV 94.5 (80-100) fL MCH 32.3 (26-34) PG MCHC 34.2 (30-36) % RDW 14.8 (11.6-14.8) % Plt Count 212 (150-400) X10^3/uL Neut % (Auto) 88.3 H (50-75) % Lymph % (Auto) 7.3 L (25-40) % Williamson % (Auto) 4.0 (3-14) % Eos % (Auto) 0.1 L (2-4) % Baso % (Auto) 0.3 (0-2) % Neut # (Auto) 62018 H (9679-4218) /uL Lymph # (Auto) 1500 (1084-0891) /uL Williamson # (Auto) 800 (0-900) /uL Eos # (Auto) 0 (0-450) /uL Baso # (Auto) 100 (0-100) /uL PT 13.4 H (10.1-12.7) SECONDS INR 1.2 (0.9-1.3) APTT 27 (26-36) SECONDS Sodium 136 L (137-145) mmol/L Potassium 3.4 (3.4-5.1) mmol/L Chloride 97 L (98-107) mmol/L Carbon Dioxide 30 (22-32) mmol/L BUN 19 H (7-17) mg/dL Creatinine 0.97 (0.52-1.04) mg/dL Estimated GFR > 60 (>60) mL/min BUN/Creatinine Ratio 19.6 (6-22) Glucose 131 H (80-110) mg/dL Lactate (0.7-2.1) mmol/L Calcium 9.1 (8.4-10.2) mg/dL Magnesium (1.6-2.3) mg/dL Total Bilirubin 0.6 (0.2-1.3) mg/dL AST 29 (14-36) IU/L ALT 24 (<35) IU/L Alkaline Phosphatase 76 (38-126) U/L Total Creatine Kinase 79 (30-135) U/L CK-MB (CK-2) TNP CK-MB (CK-2) Rel Index TNP Troponin I 0.034 (0.01-0.034) ng/mL Total Protein 7.5 (6.3-8.2) g/dL Albumin 4.2 (3.5-5.0) g/dL Globulin 3.3 (1.7-4.1) g/dL Albumin/Globulin Ratio 1.3 (1.0-2.8) Triglycerides (35-150) mg/dL Cholesterol (140-199) mg/dL LDL Cholesterol, Calc (<100) mg/dL HDL Cholesterol (40-60) mg/dL Procalcitonin (<0.5) ng/mL Urine Color Urine Appearance Urine pH (4.5-8.0) Ur Specific [place] (1.000-1.035) Urine Protein (Negative) Urine Glucose (UA) (Negative) g/dL Urine Ketones (NEGATIVE) Urine Occult Blood (Negative) Urine Nitrate (Negative) Urine Bilirubin (NEGATIVE) Urine Urobilinogen (0.2) E.U./dL Ur Leukocyte Esterase (NEGATIVE) Urine RBC (0-5/HPF) Urine WBC (0-5/HPF) Ur Squamous Epith Cells (0-5/HPF) Urine Bacteria (None) Ur Culture Indicated? U Opiates 300ng/mL cut (Negative) Ur Oxycodone Screen (Negative) Urine Methadone Screen (Negative) Ur Barbiturates Screen (Negative) U Tricyclic Antidepress (Negative) Ur Phencyclidine Scrn (Negative) Ur Amphetamines Screen (Negative) U Methamphetamines Scrn (Negative) Ur MDMA Scrn (Ecstasy) (Negative) U Benzodiazepines Scrn (Negative) Urine Cocaine Screen (Negative) U Marijuana (THC) Screen (Negative) Ethyl Alcohol < 10 ( - 10) mg/dL SARS-CoV-2 (PCR) (Negative) 09/16/22 09/16/22 09/16/22 Range/Units 11:25 11:25 11:42 WBC (4.5-11.0) X10^3/uL RBC (4.0-5.2) X10^6/uL Hgb (12.0-16.0) g/dL Hct (36-46) % MCV (80-100) fL MCH (26-34) PG MCHC (30-36) % RDW (11.6-14.8) % Plt Count (150-400) X10^3/uL Neut % (Auto) (50-75) % Lymph % (Auto) (25-40) % Williamson % (Auto) (3-14) % Eos % (Auto) (2-4) % Baso % (Auto) (0-2) % Neut # (Auto) (4694-6714) /uL Lymph # (Auto) (9688-5860) /uL Williamson # (Auto) (0-900) /uL Eos # (Auto) (0-450) /uL Baso # (Auto) (0-100) /uL PT (10.1-12.7) SECONDS INR (0.9-1.3) APTT (26-36) SECONDS Sodium (137-145) mmol/L Potassium (3.4-5.1) mmol/L Chloride (98-107) mmol/L Carbon Dioxide (22-32) mmol/L BUN (7-17) mg/dL Creatinine (0.52-1.04) mg/dL Estimated GFR (>60) mL/min BUN/Creatinine Ratio (6-22) Glucose (80-110) mg/dL Lactate 1.9 (0.7-2.1) mmol/L Calcium (8.4-10.2) mg/dL Magnesium 1.7 (1.6-2.3) mg/dL Total Bilirubin (0.2-1.3) mg/dL AST (14-36) IU/L ALT (<35) IU/L Alkaline Phosphatase (38-126) U/L Total Creatine Kinase (30-135) U/L CK-MB (CK-2) CK-MB (CK-2) Rel Index Troponin I (0.01-0.034) ng/mL Total Protein (6.3-8.2) g/dL Albumin (3.5-5.0) g/dL Globulin (1.7-4.1) g/dL Albumin/Globulin Ratio (1.0-2.8) Triglycerides (35-150) mg/dL Cholesterol (140-199) mg/dL LDL Cholesterol, Calc (<100) mg/dL HDL Cholesterol (40-60) mg/dL Procalcitonin 0.41 (<0.5) ng/mL Urine Color Urine Appearance Urine pH (4.5-8.0) Ur Specific [place] (1.000-1.035) Urine Protein (Negative) Urine Glucose (UA) (Negative) g/dL Urine Ketones (NEGATIVE) Urine Occult Blood (Negative) Urine Nitrate (Negative) Urine Bilirubin (NEGATIVE) Urine Urobilinogen (0.2) E.U./dL Ur Leukocyte Esterase (NEGATIVE) Urine RBC (0-5/HPF) Urine WBC (0-5/HPF) Ur Squamous Epith Cells (0-5/HPF) Urine Bacteria (None) Ur Culture Indicated? U Opiates 300ng/mL cut (Negative) Ur Oxycodone Screen (Negative) Urine Methadone Screen (Negative) Ur Barbiturates Screen (Negative) U Tricyclic Antidepress (Negative) Ur Phencyclidine Scrn (Negative) Ur Amphetamines Screen (Negative) U Methamphetamines Scrn (Negative) Ur MDMA Scrn (Ecstasy) (Negative) U Benzodiazepines Scrn (Negative) Urine Cocaine Screen (Negative) U Marijuana (THC) Screen (Negative) Ethyl Alcohol ( - 10) mg/dL SARS-CoV-2 (PCR) (Negative) 09/16/22 09/16/22 09/16/22 Range/Units 11:42 11:50 15:18 WBC (4.5-11.0) X10^3/uL RBC (4.0-5.2) X10^6/uL Hgb (12.0-16.0) g/dL Hct (36-46) % MCV (80-100) fL MCH (26-34) PG MCHC (30-36) % RDW (11.6-14.8) % Plt Count (150-400) X10^3/uL Neut % (Auto) (50-75) % Lymph % (Auto) (25-40) % Williamson % (Auto) (3-14) % Eos % (Auto) (2-4) % Baso % (Auto) (0-2) % Neut # (Auto) (4930-9584) /uL Lymph # (Auto) (9634-7180) /uL Williamson # (Auto) (0-900) /uL Eos # (Auto) (0-450) /uL Baso # (Auto) (0-100) /uL PT (10.1-12.7) SECONDS INR (0.9-1.3) APTT (26-36) SECONDS Sodium (137-145) mmol/L Potassium (3.4-5.1) mmol/L Chloride (98-107) mmol/L Carbon Dioxide (22-32) mmol/L BUN (7-17) mg/dL Creatinine (0.52-1.04) mg/dL Estimated GFR (>60) mL/min BUN/Creatinine Ratio (6-22) Glucose (80-110) mg/dL Lactate (0.7-2.1) mmol/L Calcium (8.4-10.2) mg/dL Magnesium (1.6-2.3) mg/dL Total Bilirubin (0.2-1.3) mg/dL AST (14-36) IU/L ALT (<35) IU/L Alkaline Phosphatase (38-126) U/L Total Creatine Kinase (30-135) U/L CK-MB (CK-2) CK-MB (CK-2) Rel Index Troponin I (0.01-0.034) ng/mL Total Protein (6.3-8.2) g/dL Albumin (3.5-5.0) g/dL Globulin (1.7-4.1) g/dL Albumin/Globulin Ratio (1.0-2.8) Triglycerides 113 (35-150) mg/dL Cholesterol 209 H (140-199) mg/dL LDL Cholesterol, Calc 125 H (<100) mg/dL HDL Cholesterol 61 H (40-60) mg/dL Procalcitonin (<0.5) ng/mL Urine Color Urine Appearance Urine pH (4.5-8.0) Ur Specific [place] (1.000-1.035) Urine Protein (Negative) Urine Glucose (UA) (Negative) g/dL Urine Ketones (NEGATIVE) Urine Occult Blood (Negative) Urine Nitrate (Negative) Urine Bilirubin (NEGATIVE) Urine Urobilinogen (0.2) E.U./dL Ur Leukocyte Esterase (NEGATIVE) Urine RBC (0-5/HPF) Urine WBC (0-5/HPF) Ur Squamous Epith Cells (0-5/HPF) Urine Bacteria (None) Ur Culture Indicated? U Opiates 300ng/mL cut Negative (Negative) Ur Oxycodone Screen Negative (Negative) Urine Methadone Screen Negative (Negative) Ur Barbiturates Screen Negative (Negative) U Tricyclic Antidepress Negative (Negative) Ur Phencyclidine Scrn Negative (Negative) Ur Amphetamines Screen Negative (Negative) U Methamphetamines Scrn Negative (Negative) Ur MDMA Scrn (Ecstasy) Negative (Negative) U Benzodiazepines Scrn Negative (Negative) Urine Cocaine Screen Negative (Negative) U Marijuana (THC) Screen Negative (Negative) Ethyl Alcohol ( - 10) mg/dL SARS-CoV-2 (PCR) Negative (Negative) 09/16/22 Range/Units 15:18 WBC (4.5-11.0) X10^3/uL RBC (4.0-5.2) X10^6/uL Hgb (12.0-16.0) g/dL Hct (36-46) % MCV (80-100) fL MCH (26-34) PG MCHC (30-36) % RDW (11.6-14.8) % Plt Count (150-400) X10^3/uL Neut % (Auto) (50-75) % Lymph % (Auto) (25-40) % Williamson % (Auto) (3-14) % Eos % (Auto) (2-4) % Baso % (Auto) (0-2) % Neut # (Auto) (3117-0163) /uL Lymph # (Auto) (9018-1021) /uL Williamson # (Auto) (0-900) /uL Eos # (Auto) (0-450) /uL Baso # (Auto) (0-100) /uL PT (10.1-12.7) SECONDS INR (0.9-1.3) APTT (26-36) SECONDS Sodium (137-145) mmol/L Potassium (3.4-5.1) mmol/L Chloride (98-107) mmol/L Carbon Dioxide (22-32) mmol/L BUN (7-17) mg/dL Creatinine (0.52-1.04) mg/dL Estimated GFR (>60) mL/min BUN/Creatinine Ratio (6-22) Glucose (80-110) mg/dL Lactate (0.7-2.1) mmol/L Calcium (8.4-10.2) mg/dL Magnesium (1.6-2.3) mg/dL Total Bilirubin (0.2-1.3) mg/dL AST (14-36) IU/L ALT (<35) IU/L Alkaline Phosphatase (38-126) U/L Total Creatine Kinase (30-135) U/L CK-MB (CK-2) CK-MB (CK-2) Rel Index Troponin I (0.01-0.034) ng/mL Total Protein (6.3-8.2) g/dL Albumin (3.5-5.0) g/dL Globulin (1.7-4.1) g/dL Albumin/Globulin Ratio (1.0-2.8) Triglycerides (35-150) mg/dL Cholesterol (140-199) mg/dL LDL Cholesterol, Calc (<100) mg/dL HDL Cholesterol (40-60) mg/dL Procalcitonin (<0.5) ng/mL Urine Color Yellow Urine Appearance Clear Urine pH 7.5 (4.5-8.0) Ur Specific [place] <=1.005 (1.000-1.035) Urine Protein Trace H (Negative) Urine Glucose (UA) Negative (Negative) g/dL Urine Ketones Negative (NEGATIVE) Urine Occult Blood Negative (Negative) Urine Nitrate Negative (Negative) Urine Bilirubin Negative (NEGATIVE) Urine Urobilinogen 1.0 (0.2) E.U./dL Ur Leukocyte Esterase Negative (NEGATIVE) Urine RBC None seen (0-5/HPF) Urine WBC None seen (0-5/HPF) Ur Squamous Epith Cells None seen (0-5/HPF) Urine Bacteria None seen (None) Ur Culture Indicated? Cult not indicated U Opiates 300ng/mL cut (Negative) Ur Oxycodone Screen (Negative) Urine Methadone Screen (Negative) Ur Barbiturates Screen (Negative) U Tricyclic Antidepress (Negative) Ur Phencyclidine Scrn (Negative) Ur Amphetamines Screen (Negative) U Methamphetamines Scrn (Negative) Ur MDMA Scrn (Ecstasy) (Negative) U Benzodiazepines Scrn (Negative) Urine Cocaine Screen (Negative) U Marijuana (THC) Screen (Negative) Ethyl Alcohol ( - 10) mg/dL SARS-CoV-2 (PCR) (Negative) Point of Care Testing Glucose POC [address] scan - head: Radiologist Impression: [address] [address] [address] Scan Report Signed Patient: Ana Maria Cline MR#: [id number] : 1945 Acct:[id number] Age/Sex: 77 / F Date of Service: 09/16/22 Loc: ED Accession Number: [id number] ?? Procedure: CT head/brain wo con Ordering Provider: Alicia So D.O. PROCEDURE:? CT HEAD/BRAIN WO CON ? INDICATIONS:? weakness, prior stroke ? TECHNIQUE:? Noncontrast 4.5 mm thick angled axial sections acquired from the foramen magnum to the vertex, with coronal and sagittal reformats.? For radiation dose reduction, the following was used:? automated exposure control, adjustment of mA and/or kV according to patient size.? ? COMPARISON:? Merged With [facility], MR, BRAIN W&WO CONTRAST, 12/25/2014, 15:11.? Merged With [facility], CT, CT ANGIO HEAD AND NECK, 05/02/2022, 1:44.? Merged With [facility], CR, XR CHEST 1V, 09/16/2022, 12:16.? Merged With [facility], CT, CT ANGIO HEAD AND NECK, 09/16/2022, 11:52.? Merged With [facility], CT, CT HEAD/BRAIN WO CON, 04/21/2018, 18:06. ? FINDINGS:? Image quality:? Excellent.? ? CSF spaces:? Basal cisterns are patent.? No extra-axial fluid collections.? The ventricles are symmetric in size and shape.? ? Brain:? No intracranial bleeds.? The known posterior superior left meningioma is faintly seen.? There is cerebral volume loss for age, with resultant ventricular and sulcal prominence.? There are periventricular and deep white matter chronic small vessel ischemic changes.? There is intracranial internal carotid artery atherosclerosis .? ? Skull and face:? Calvarium and visualized facial bones appear intact, without suspicious lesions.? ? Sinuses:? Visualized sinuses and mastoids are clear.? ? ? IMPRESSION:? No acute intracranial hemorrhage is seen.? ? No acute intracranial process is seen.? ? ? Dictated by: Ramon Springer M.D. on 09/16/2022 at 12:14 ? ? Approved by: Ramon Springer M.D. on 09/16/2022 at 12:17?? CTA - brain/neck: Radiologist Impression: [address] [address] [address] Scan Report Signed Patient: Ana Maria Cline MR#: [id number] : 1945 Acct:[id number] Age/Sex: 77 / F Date of Service: 09/16/22 Loc: ED Accession Number: [id number] ?? Procedure: CT angio head and neck Ordering Provider: Alicia So D.O. PROCEDURE:? CT ANGIO HEAD AND NECK ? INDICATIONS:? weakness, prior stroke ? TECHNIQUE:? Noncontrast images were performed earlier in the day and not repeated.? ? After the administration of intravenous contrast, 1 mm thick sections acquired from the aortic arch through the [place] of [place].? Post-contrast 4.5 mm thick sections then re- acquired from the foramen magnum to the vertex.? 3-dimensional qqoapaw-uyukycxfp-dmtwrospwe (MIP) and/or volume rendering reformats were acquired of the central intracranial vasculature and neck separately. For radiation dose reduction, the following was used:? automated exposure control, adjustment of mA and/or kV according to patient size.? ? COMPARISON:? Merged With [facility], CT, CT HEAD/BRAIN WO CON, 09/16/2022, 11:52.? Merged With [facility], CT, CT ANGIO HEAD AND NECK, 05/02/2022, 1:44. ? FINDINGS:? Image quality:? Limited by bolus timing, with venous contamination. There is artifact associated with the metallic hardware. ? ? BRAIN:? CSF spaces:? Ventricles are normal in size and shape.? Basal cisterns are patent.? No extra-axial fluid collections.? ? Brain:? No midline shift.? No intracranial bleeds or masses.? Saenz-white matter interface appears intact.? ? Skull and face:? Calvarium and facial bones appear intact, without suspicious lesions.? Orbits appear normal.? ? Sinuses:? Sinuses and mastoids are clear.? ? HEAD CT ANGIOGRAPHY:? Anterior circulation:? Intracranial internal carotid arteries are normal in size and flow.? The flow within the paired anterior cerebral arteries is normal and symmetric.? The flow within the middle cerebral arteries is normal and symmetric.? The anterior communicating artery is seen.? No aneurysms are seen.? ? Posterior circulation:? Visualized portions of the vertebral arteries demonstrate normal caliber, and join to form a normal appearing basilar artery.? Flow within the posterior cerebral arteries is normal and symmetric.? No aneurysms are seen.? ? NECK CT ANGIOGRAPHY:? Carotid system:? The great vessels demonstrate a conventional anatomy as they arise from the aortic arch.? The origins of the common carotid arteries appear patent.? The common carotid arteries demonstrate normal caliber and courses.? The bifurcation regions are both widely patent.? The internal carotid arteries demonstrate normal calibers and courses.? ? Posterior circulation:? The origins of the vertebral arteries both appear widely patent.? The more superior extracranial portions of both vertebral arteries also demonstrate normal courses and calibers.? They join to form a normal appearing basilar artery.? ? Soft tissues:? Visualized neck soft tissues demonstrate no suspicious abnormalities.? Left-sided pacer leads are seen. ? Bones:? No suspicious bony lesions.? Visualized cervical spine appears normally aligned.? Anterior fixation hardware is seen C4 through C6.? At least moderate generalized degenerative changes are seen. ? ? IMPRESSION:? No hemodynamically significant stenosis can be seen within the intracranial circulation or within the arteries of the neck. ? ? ? Additional findings:? At least moderate cervical spine degenerative change C4 through C6 anterior fixation hardware Left-sided pacer leads ? Any quantitative measurements of stenosis were performed using NASCET criteria.? ? ? Dictated by: Ramon Springer M.D. on 09/16/2022 at 12:09 ? ? Approved by: Ramon Springer M.D. on 09/16/2022 at 12:12?? Chest x-ray: Radiologist Impression: [address] [address] XRay Report Signed Patient: Ana Maria Cline MR#: [id number] : 1945 Acct:[id number] Age/Sex: 77 / F Date of Service: 09/16/22 Loc: ED Accession Number: [id number] ?? Procedure: XR chest 1V Ordering Provider: Alicia So D.O. PROCEDURE:? XR CHEST 1V ? INDICATIONS:? weakness ? TECHNIQUE:? One view of the chest was acquired.? ? COMPARISON:? Merged With [facility], CT, CT ANGIO HEAD AND NECK, 09/16/2022, 11:52.? Merged With [facility], CT, CT HEAD/BRAIN WO CON, 09/16/2022, 11:52.? Merged With [facility], CR, XR CHEST 1V, 05/02/2022, 1:54. ? FINDINGS:? ? Surgical changes and devices:? An AICD is seen.? The leads are seen in stable positions.? Cervical spine fixation hardware is again seen. Cholecystectomy clips are seen.? ? Lungs and pleura:? An incomplete inspiratory result is noted, causing a crowded appearance to the lung markings.? No focal infiltrates are seen.? No pneumothorax or significant pleural effusions are seen. ? ? Mediastinum:? Mediastinal contours appear normal.? Heart size is normal.? ? Bones and chest wall:? No suspicious bony lesions.? Age-appropriate bony degenerative changes are seen. ? Overlying soft tissues appear unremarkable.? ? ? IMPRESSION:? ? Limited portable chest examination, without a significant cardiopulmonary abnormality identified.? ? Postoperative and degenerative changes are seen.? ? ? Dictated by: Ramon Springer M.D. on 09/16/2022 at 12:17 ? ? Approved by: Ramon Springer M.D. on 09/16/2022 at 12:18?? ECG Data Attestation: I personally reviewed and interpreted this ECG as follows: Prior ECG tracings: available for review Interpretation: Atrial paced rhythm rate of 70 AK 142 QRS of 140 QTC [address]. No acute ST changes appreciated. Patient has prior from 05/02/2022 which appears similar. MDM Narrative Medical decision making narrative: This is a 77-year-old female who presents with complaint of increased weakness sudden onset overnight patient has a history of prior stroke with left-sided deficit but had been back to doing her normal activities. She states she was able to get up last night to go to the bathroom and then this morning was not requiring assistance from her who had to lift her. had noted that she would significant slurred speech and difficulty with speaking and even now she has some word searching she is able to converse very clearly but does have to search for her words which she notes is new and her caregiver at bedside also notes a change. Her NIH is 2 1 for some mild drift on the left her upper extremity, she also has difficulty with [id number]. Patient's CMP, lactate, LFTs are negative troponin was negative. Profile was negative she had pro Luis lactate ordered as well as cultures as she had leukocytosis of 20. She is been afebrile without other infectious symptoms and does not have any known myelodysplastic issues. Patient does have a known pacemaker and we do not have an MRI compatible machine. Attempting to get a urine sample she does not have any other clear source of infection. She has had a prior infection her hip which she states has healed well she is still finishing an oral antifungal for yeast in her urine. Patient sees Dr. Gaston is her primary care. She is occasionally seen a dairy feed worker she is not following with anyone else regularly. Spoke with Dr. Soto, hospitalist: Accepts for observation. Patient's UA is negative cultures have been sent. No other clear source of infection is found discussed stroke but she does have a significant leukocytosis was covered with a dose of Rocephin. Discharge Plan Departure Patient Disposition: Admitted as Observation Clinical Impression: Weakness, CVA (cerebral vascular accident), Leukocytosis Admit Date/Time: 09/16/22 16:46 Admit Provider: Shaq Soto
[2022-09-16] MEDS: SODIUM CHLORIDE 0.9% 1,000 ML 150 ML IV ×2 (15:15→18:48)
[2022-09-16] MEDS: levoFLOXacin 750 MG/150 ML PIGGYBACK 100 MG IV (15:15)
[2022-09-16] MEDS: ASPIRIN 81 MG CHEW TAB 324 MG PO (15:19)
[2022-09-16 15:28] LABS: Appearance Urine UA CLEAR; Bilirubin Urine UA NEGATIVE (NEGATIVE); Color Urine UA YELLOW; Glucose Urine UA NEGATIVE (Negative); Ketones Urine UA NEGATIVE (NEGATIVE); Leukocyte Esterase Urine UA NEGATIVE (NEGATIVE); Nitrite Urine UA NEGATIVE (Negative); Occult Blood Urine UA NEGATIVE (Negative); Protein Urine UA TRACE (Negative); Specific Gravity Urine UA <=1.005 (1.000-1.035)
[2022-09-16 15:29] LABS: pH Urine UA 7.5 (4.5-8.0)
[2022-09-16 15:30] LABS: UR Morphine/Opiate cutoff 300 Negative (Negative); Ur Creatinine Normal (Normal); Ur Specific Gravity Normal (Normal); Urine Amphetamines Negative (Negative); Urine Barbiturates Negative (Negative); Urine Benzodiazepines Negative (Negative); Urine Cocaine Negative (Negative); Urine MDMA Negative (Negative); Urine Methadone Negative (Negative); Urine Methamphetamines Negative (Negative); Urine Oxycodone Negative (Negative); Urine Phencyclidine Negative (Negative); Urine Tetrahydrocannabinol Negative (Negative); Urine Tricyclic Antidepressant Negative (Negative); Urine pH Normal (Normal)
[2022-09-16 15:38] LABS: Bacteria Urine None Seen; Culture Indicated Urine Cult Not Indicated; RBC Urine None Seen (0-5/HPF); Squamous Epithelial Cell Urine None Seen (0-5/HPF); WBC Urine None Seen (0-5/HPF)
[2022-09-16 18:07] LABS: Cholesterol 209 mg/dL (140-199); HDL Cholesterol 61 mg/dL (40-60); LDL Cholesterol Calculated 125 mg/dL (<100); Magnesium 1.7 mg/dL (1.6-2.3); Triglycerides 113 mg/dL (35-150)
--- NOTE | 2022-09-16 18:15 | PC.NURSE ---
Patient admitted with cva. She has a hx of previous cva with left sided weakness. Her l.hand is slightly contractured. Placed wash cloth in to help keep hand open. She is alert and oriented x4 and denies pain. O vision issues, drift with arms and legs, and patient is able to read fine. She is eating dinner and has no swallowing issues. Comfortable at this time.
[2022-09-16] MEDS: CLOPIDOGREL 75 MG TABLET PO (18:45)
[2022-09-16] MEDS: POTASSIUM CHLORIDE 20 MEQ TAB 40 MEQ PO (18:49)
[2022-09-16] MEDS: SODIUM CHLORIDE 0.9% 1,000 ML 100 ML IV ×2 (20:00→20:50)
[2022-09-16] MEDS: MAGNESIUM SULFATE 2 GM/50 ML PIGGYBACK IV (20:44)
[2022-09-16] MEDS: GABAPENTIN 100 MG CAPSULE PO (20:45)
[2022-09-16] MEDS: ATORVASTATIN 20 MG TABLET 80 MG PO (20:45)
--- NOTE | 2022-09-16 22:35 | P.HP_ITS ---
History of Present Illness History of Present Illness Date Patient Seen: 09/16/22 Time Patient Seen: 17:09 Chief complaint: Weakness Narrative: Ana Maria Cline is a 77-year-old female history of prior stroke with left-sided deficits which had improved, hypertension, dyslipidemia, neuropathy, pacemaker and is not anticoagulated.? Patient was brought in by her spouse presenting with complaint of increased global weakness, difficulty expressing her thoughts, decr eased appetite, worsening memory issues, dysuria and urgency, and swallowing difficulties. There concern patient has had a another stroke, head CT was negative in ED unable to perform MR due to pacemaker. ? She denies headache, no fevers or chills, no vision changes.? She denies chest pain or shortness of breath.? She denies nausea or vomiting.? Patient denies any new medication changes.? Denies any surgeries, she does have a pacemaker.? No known drug allergies.? No tobacco, alcohol or illicit.? Dr. Gaston is her primary care physician.? She sees a legal billing analyst occasionally.? She does not follow with a legal support assistant.? On admit patient denies chest pain, shortness in breath, headache, changes in vision, numbness, tingling, difficulty with ambulation, recent falls, head injury, LOC, fever, body aches, chills, cough, recent exposure to illness, abdominal pain, nausea, vomiting, urinary incontinence/retention, hematuria, bowel changes, constipation, incontinence, melena, rashes, recent changes to medication, illness, injury, or trauma. Patient's vitals are stable temp 97.3?, 134/61, 72, 16, O2 saturation 96% on room air. WBC 20.3 neutrophils 17,900 the rest of patient's CBC CMP and liver panel are all unremarkable with the exception of glucose 131. The following are all unremarkable lactate, magnesium, procalcitonin, urinalysis, tox screen, COVID. NIH:2, Initial troponin 0.034. Patient admitted for global weakness possible stroke. [facility] Medical History Asthma, mild intermittent Carpal tunnel syndrome Cataracts, bilateral Cerebrovascular disease Cervical spine disease Chicken pox Chronic back pain Dizziness Essential hypertension Fractures Gait instability Hearing loss History of colonic polyps History of melanoma Left hemiparesis Mixed hyperlipidemia Mumps Polyneuropathy, unspecified Repeated falls Systolic CHF, chronic Tinea cruris Urinary incontinence Surgical History Anesthesia History of permanent cardiac pacemaker placement S/P cardiac pacemaker procedure Family History Father Heart disease Brother Heart disease Mother Old age Social History household members: spouse Smoking Status: Former smoker alcohol intake: current Meds Home Medications and Allergies Home Medications Medication Instructions Recorded Confirmed Type Hair, Skin, Nails with Biotin 1 tab PO DAILY 04/21/18 09/16/22 History cholecalciferol (vitamin D3) 50 2,000 unit PO DAILY 04/21/18 09/16/22 History mcg (2,000 unit) capsule (Vitamin D3) cod liver oil 1 cap PO DAILY 04/21/18 09/16/22 History coenzyme Q10 100 mg capsule (Co 100 mg PO DAILY 04/21/18 09/16/22 History Q-10) magnesium 30 mg tablet 60 mg PO DAILY 04/21/18 09/16/22 History niacin 500 mg tablet 500 mg PO DAILY #30 tabs 04/24/18 09/16/22 Rx omega-3 fatty acids-fish oil 340 1,000 mg PO DAILY #30 caps 04/24/18 09/16/22 Rx mg-1,000 mg capsule (Fish Oil) duloxetine 60 mg capsule,delayed 60 mg PO DAILY #90 caps 10/20/21 09/16/22 Rx release losartan 50 mg tablet 50 mg PO DAILY #90 tabs 10/20/21 09/16/22 Rx metoprolol succinate 50 mg 50 mg PO DAILY #90 tabs 10/20/21 09/16/22 Rx tablet,extended release 24 hr nystatin 100,000 unit/gram topical 1 applic topical TID PRN Rash #15 05/02/22 09/16/22 Rx powder (Nystop) grams amlodipine 5 mg tablet 5 mg PO DAILY #90 tabs 05/24/22 09/16/22 Rx furosemide 20 mg tablet See Rx Instructions PO DAILY #36 05/24/22 09/16/22 Rx tabs potassium chloride 10 mEq See Rx Instructions PO Q DAY #36 05/24/22 09/16/22 Rx capsule,extended release caps gabapentin 100 mg capsule 100 mg PO BID #180 caps 07/26/22 09/16/22 Rx terbinafine HCl 250 mg tablet 250 mg PO DAILY #10 tabs 08/19/22 09/16/22 Rx atorvastatin 20 mg tablet (Lipitor) 20 mg PO BEDTIME #90 tabs 08/29/22 09/16/22 Rx Allergies Allergy/AdvReac Type Severity Reaction Status Date / Time latex [LATEX] Allergy Mild RASH Verified 08/19/22 10:25 naproxen [From ALEVE] Allergy Mild SWELLING Verified 08/19/22 10:25 FEET, HANDS codeine Allergy Unknown GI UPSET Verified 08/19/22 10:25 lisinopril Allergy Unknown FACIAL Verified 08/19/22 10:25 SWELLING venlafaxine Allergy Unknown ELEVATED Verified 08/19/22 10:25 BLOOD PRESSURE cephalexin AdvReac Intermediate Rash Verified 08/19/22 10:25 bupropion AdvReac Unknown SEIZURE Verified 08/19/22 10:25 Review of Systems Review of Systems Narrative: All 12 point systems reviewed with the patient and are negative except otherwise documented. Exam Vital Signs (past 8 hours): - 09/16/22 15:00 09/16/22 15:01 09/16/22 15:01 Temperature Pulse Rate 74 77 Respiratory Rate 20 21 Blood Pressure 134/72 Pulse Oximetry 92 93 Oxygen Flow Rate 09/16/22 15:15 09/16/22 15:30 09/16/22 15:31 Temperature Pulse Rate 74 73 Respiratory Rate 24 23 Blood Pressure 163/70 H Pulse Oximetry 96 97 Oxygen Flow Rate 09/16/22 15:31 09/16/22 15:45 09/16/22 16:00 Temperature Pulse Rate 75 76 Respiratory Rate 21 21 Blood Pressure 158/70 H Pulse Oximetry 97 98 Oxygen Flow Rate 09/16/22 16:00 09/16/22 16:30 09/16/22 16:31 Temperature Pulse Rate 74 70 Respiratory Rate 21 22 Blood Pressure 112/56 L Pulse Oximetry 94 92 Oxygen Flow Rate 09/16/22 16:31 09/16/22 16:45 09/16/22 17:00 Temperature Pulse Rate 71 73 Respiratory Rate 14 19 Blood Pressure 133/59 L Pulse Oximetry 94 92 Oxygen Flow Rate 09/16/22 17:00 09/16/22 17:20 09/16/22 19:44 Temperature 97.3 F L 97.2 F L Pulse Rate 70 72 68 Respiratory Rate 16 16 Blood Pressure 134/61 124/49 L Pulse Oximetry 94 96 100 Oxygen Flow Rate 0 Oxygen Delivery Method Room Air Oxygen Flow Rate 0 Narrative Exam Narrative: GEN: well nourished, well appearing female, alert and oriented, patient appears to be in mild distress. HEENT: Atraumatic, pupils are equal round reactive to light, extraocular movements are intact, nares are clear, TMs are clear with no fluid, there is no conjunctival pallor.? Throat is clear without any exudates, erythema, tonsillar enlargement or uvular deviation, no facial droop. HEART: Regular rate and rhythm without murmur, clicks, rubs.? Pulses are equal in upper and lower extremities LUNGS:Lungs clear to auscultation, no wheezes, rales, crackles, chest moves symmetrically ABD:bowel sounds normal, soft, non-tender, no guarding, rebound, rigidity, no masses noted, no hepatosplenomegaly :No CVA tenderness MSCL: Non-tender, moves all upper and lower extremities, full range of motion. NEURO:CN 2-12 intact, sensation normal, finger nose finger test normal with right hand, patient has some difficulty with left,, heel haddad test normal bilaterally.? No dysarthria but does have some word searching. NIH:2 SKIN:? Noted large erythemic warm area to left hip and in between buttocks- possible cellulitis. Objective Labs 09/16/22 11:25 09/16/22 11:25 Labs: Laboratory Results - last 24 hr 09/16/22 09/16/22 09/16/22 11:25 11:25 11:25 WBC 20.3 H RBC 3.99 L Hgb 12.9 Hct 37.7 MCV 94.5 MCH 32.3 MCHC 34.2 RDW 14.8 Plt Count 212 Neut % (Auto) 88.3 H Lymph % (Auto) 7.3 L [place] % (Auto) 4.0 Eos % (Auto) 0.1 L Baso % (Auto) 0.3 Neut # (Auto) 33551 H Lymph # (Auto) 1500 [place] # (Auto) 800 Eos # (Auto) 0 Baso # (Auto) 100 PT 13.4 H INR 1.2 APTT 27 Sodium 136 L Potassium 3.4 Chloride 97 L Carbon Dioxide 30 BUN 19 H Creatinine 0.97 Estimated GFR > 60 BUN/Creatinine Ratio 19.6 Glucose 131 H Lactate Calcium 9.1 Magnesium Total Bilirubin 0.6 AST 29 ALT 24 Alkaline Phosphatase 76 Total Creatine Kinase 79 CK-MB (CK-2) TNP CK-MB (CK-2) Rel Index TNP Troponin I 0.034 Total Protein 7.5 Albumin 4.2 Globulin 3.3 Albumin/Globulin Ratio 1.3 Triglycerides Cholesterol LDL Cholesterol, Calc HDL Cholesterol Procalcitonin Urine Color Urine Appearance Urine pH Ur Specific [place]comb Urine Protein Urine Glucose (UA) Urine Ketones Urine Occult Blood Urine Nitrate Urine Bilirubin Urine Urobilinogen Ur Leukocyte Esterase Urine RBC Urine WBC Ur Squamous Epith Cells Urine Bacteria Ur Culture Indicated? U Opiates 300ng/mL cut Ur Oxycodone Screen Urine Methadone Screen Ur Barbiturates Screen U Tricyclic Antidepress Ur Phencyclidine Scrn Ur Amphetamines Screen U Methamphetamines Scrn Ur MDMA Scrn (Ecstasy) U Benzodiazepines Scrn Urine Cocaine Screen U Marijuana (THC) Screen Ethyl Alcohol < 10 SARS-CoV-2 (PCR) 09/16/22 09/16/22 09/16/22 11:25 11:25 11:42 WBC RBC Hgb Hct MCV MCH MCHC RDW Plt Count Neut % (Auto) Lymph % (Auto) [place] % (Auto) Eos % (Auto) Baso % (Auto) Neut # (Auto) Lymph # (Auto) [place] # (Auto) Eos # (Auto) Baso # (Auto) PT INR APTT Sodium Potassium Chloride Carbon Dioxide BUN Creatinine Estimated GFR BUN/Creatinine Ratio Glucose Lactate 1.9 Calcium Magnesium 1.7 Total Bilirubin AST ALT Alkaline Phosphatase Total Creatine Kinase CK-MB (CK-2) CK-MB (CK-2) Rel Index Troponin I Total Protein Albumin Globulin Albumin/Globulin Ratio Triglycerides Cholesterol LDL Cholesterol, Calc HDL Cholesterol Procalcitonin 0.41 Urine Color Urine Appearance Urine pH Ur Specific [place] Urine Protein Urine Glucose (UA) Urine Ketones Urine Occult Blood Urine Nitrate Urine Bilirubin Urine Urobilinogen Ur Leukocyte Esterase Urine RBC Urine WBC Ur Squamous Epith Cells Urine Bacteria Ur Culture Indicated? U Opiates 300ng/mL cut Ur Oxycodone Screen Urine Methadone Screen Ur Barbiturates Screen U Tricyclic Antidepress Ur Phencyclidine Scrn Ur Amphetamines Screen U Methamphetamines Scrn Ur MDMA Scrn (Ecstasy) U Benzodiazepines Scrn Urine Cocaine Screen U Marijuana (THC) Screen Ethyl Alcohol SARS-CoV-2 (PCR) 09/16/22 09/16/22 09/16/22 11:42 11:50 15:18 WBC RBC Hgb Hct MCV MCH MCHC RDW Plt Count Neut % (Auto) Lymph % (Auto) [place] % (Auto) Eos % (Auto) Baso % (Auto) Neut # (Auto) Lymph # (Auto) [place] # (Auto) Eos # (Auto) Baso # (Auto) PT INR APTT Sodium Potassium Chloride Carbon Dioxide BUN Creatinine Estimated GFR BUN/Creatinine Ratio Glucose Lactate Calcium Magnesium Total Bilirubin AST ALT Alkaline Phosphatase Total Creatine Kinase CK-MB (CK-2) CK-MB (CK-2) Rel Index Troponin I Total Protein Albumin Globulin Albumin/Globulin Ratio Triglycerides 113 Cholesterol 209 H LDL Cholesterol, Calc 125 H HDL Cholesterol 61 H Procalcitonin Urine Color Urine Appearance Urine pH Ur Specific [place] Urine Protein Urine Glucose (UA) Urine Ketones Urine Occult Blood Urine Nitrate Urine Bilirubin Urine Urobilinogen Ur Leukocyte Esterase Urine RBC Urine WBC Ur Squamous Epith Cells Urine Bacteria Ur Culture Indicated? U Opiates 300ng/mL cut Negative Ur Oxycodone Screen Negative Urine Methadone Screen Negative Ur Barbiturates Screen Negative U Tricyclic Antidepress Negative Ur Phencyclidine Scrn Negative Ur Amphetamines Screen Negative U Methamphetamines Scrn Negative Ur MDMA Scrn (Ecstasy) Negative U Benzodiazepines Scrn Negative Urine Cocaine Screen Negative U Marijuana (THC) Screen Negative Ethyl Alcohol SARS-CoV-2 (PCR) Negative 09/16/22 15:18 WBC RBC Hgb Hct MCV MCH MCHC RDW Plt Count Neut % (Auto) Lymph % (Auto) [place] % (Auto) Eos % (Auto) Baso % (Auto) Neut # (Auto) Lymph # (Auto) [place] # (Auto) Eos # (Auto) Baso # (Auto) PT INR APTT Sodium Potassium Chloride Carbon Dioxide BUN Creatinine Estimated GFR BUN/Creatinine Ratio Glucose Lactate Calcium Magnesium Total Bilirubin AST ALT Alkaline Phosphatase Total Creatine Kinase CK-MB (CK-2) CK-MB (CK-2) Rel Index Troponin I Total Protein Albumin Globulin Albumin/Globulin Ratio Triglycerides Cholesterol LDL Cholesterol, Calc HDL Cholesterol Procalcitonin Urine Color Yellow Urine Appearance Clear Urine pH 7.5 Ur Specific [place] <=1.005 Urine Protein Trace H Urine Glucose (UA) Negative Urine Ketones Negative Urine Occult Blood Negative Urine Nitrate Negative Urine Bilirubin Negative Urine Urobilinogen 1.0 Ur Leukocyte Esterase Negative Urine RBC None seen Urine WBC None seen Ur Squamous Epith Cells None seen Urine Bacteria None seen Ur Culture Indicated? Cult not indicated U Opiates 300ng/mL cut Ur Oxycodone Screen Urine Methadone Screen Ur Barbiturates Screen U Tricyclic Antidepress Ur Phencyclidine Scrn Ur Amphetamines Screen U Methamphetamines Scrn Ur MDMA Scrn (Ecstasy) U Benzodiazepines Scrn Urine Cocaine Screen U Marijuana (THC) Screen Ethyl Alcohol SARS-CoV-2 (PCR) Assessment & Plan Assessment & Plan narrative: Ana Maria Cline is a 77-year-old female history of prior stroke with left-sided deficits which had improved, hypertension, dyslipidemia, neuropathy, pacemaker and is not anticoagulated.? Patient was brought in by her spouse presenting with complaint of increased global weakness, difficulty expressing her thoughts, decreased appetite, worsening memory issues, dysuria and urgency, and swallowing difficulties. Patient admitted for global weakness suspected recurrent stroke. Patient will complete echo, trend inflammatory markers fluid rehydration, and IV antibiotics for possible cellulitis- per cultures pending. Global weakness, possible stroke, with a history of CVA with left-sided deficits, acute on chronic, present on admission * head CT was negative, unable to perform MR due to pacemaker * ASA, Plavix, increased statin dosage * Echo ordered * PT OT evaluation Cellulitis, left hip, acute, present on admission * Patient has a significant history of cellulitis to the buttocks, groin, labia, hip requiring hospitalization and IV antibiotics * WBC 20.3 neutrophils 17,900-though procalcitonin and lactate are negative * Levaquin given in the ER * NS 150cc overnight * Initiated Rocephin Q 24 hours * Trend inflammatory markers Essential hypertension, chronic, present on admission * continue losartan metoprolol Hyperlipidemia, chronic, present on admission * continue atorvastatin dose increase * ROXIE 209, LDL 125, HDL 61 Anxiety, chronic, present on admission * continue duloxetine Chronic systolic heart failure and paced, chronic, present on admission * cardiac telemetry * ordered BNP Code status: Full Surrogate decision maker: Spouse Kam FRANK PCR: Negative DVT/VTE prophylaxis: Lovenox and SCDs Disposition: Patient admitted for observation, expected length of stay not expected to exceed 2 midnights I have utilized all available immediate resources to obtain, update, or review the patient's current medications. I confirmed that the patient's advanced care plan is present, Code status is documented and/or surrogate decision maker is listed in the patient's medical record. I have personally reviewed patient's chart notes from PCP, specialists, diagnostic imaging, and laboratory results. Quality VTE Deep Vein Thrombosis/Pulmonary Embolism Present on Admission: No
--- NOTE | 2022-09-16 23:00 | PC.NURSE ---
Pt c/o pain. PRN tramadol 50 mg admin at 2155 per pt request.
[2022-09-17] MEDS: cefTRIAXone 2,000 MG in SODIUM CHLORIDE 0.9% 100 ML 200 MG IV (02:28)
[2022-09-17 04:09] VITALS: BP 156/46; PULSE 84; RESP 18; TEMP 37.3; O2SAT 98
[2022-09-17 07:37] VITALS: BP 140/48; PULSE 77; RESP 14; TEMP 36.6; O2SAT 96
[2022-09-17 07:38] LABS: Add Manual Diff / Slide Review NO; Basophils Absolute Auto 100 /uL (0-100); Basophils Percent Auto 0.5 % (0-2); Eosinophils Absolute Auto 0 /uL (0-450); Eosinophils Percent Auto 0.2 % (2-4); Hematocrit 33.5 % (36-46); Hemoglobin 11.7 g/dL (12.0-16.0); Lymphocytes Absolute Auto 1400 /uL (1100-4500); Lymphocytes Percent Auto 11.4 % (25-40); Mean Corpuscular Hemoglobin 32.7 PG (26-34); Mean Corpuscular Volume 93.5 fL (80-100); Monocytes Absolute Auto 600 /uL (0-900); Monocytes Percent Auto 5.1 % (3-14); Neutrophils Absolute Auto 10000 /uL (1500-7000); Neutrophils Percent Auto 82.8 % (50-75); Platelet Count 171 X10^3/uL (150-400); Red Blood Cell Count 3.58 X10^6/uL (4.0-5.2); Red Cell Distribution Width 14.6 % (11.6-14.8); White Blood Cell Count 12.1 X10^3/uL (4.5-11.0)
[2022-09-17 07:52] LABS: BUN Creatinine Ratio 14.1 (6-22); Blood Urea Nitrogen 13 mg/dL (7-17); Calcium 8.5 mg/dL (8.4-10.2); Carbon Dioxide 26 mmol/L (22-32); Chloride 100 mmol/L (98-107); Estimated Glomerular Filt Rate > 60 mL/min (>60); Glucose 124 mg/dL (80-110); HEMOLYSIS < 15 (0-50); Potassium 3.9 mmol/L (3.4-5.1); Sodium 132 mmol/L (137-145)
[2022-09-17 08:09] LABS: Procalcitonin 0.28 ng/mL (<0.5)
[2022-09-17 08:31] VITALS: BP 140/48; PULSE 77
[2022-09-17] MEDS: METOPROLOL ER 50 MG TABLET PO (08:31)
[2022-09-17] MEDS: ENOXAPARIN 40 MG/0.4 ML SYRINGE SUBCUT (08:32)
[2022-09-17] MEDS: DULOXETINE 30 MG CAPSULE 60 MG PO (08:32)
[2022-09-17] MEDS: CLOPIDOGREL 75 MG TABLET PO (08:32)
[2022-09-17] MEDS: ASPIRIN EC 81 MG TABLET PO (08:32)
[2022-09-17] MEDS: GABAPENTIN 100 MG CAPSULE PO ×2 (08:32→21:43)
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
[2022-09-17 12:00] VITALS: BP 142/59; PULSE 72; RESP 18; TEMP 37.4; O2SAT 95
--- NOTE | 2022-09-17 12:43 | CM.DANOTE ---
DCP Assessment: Patient is a 77 yr old female who came in with concerns for CVA.. CM Met with the patient at the bedside and explained role. patient was A&O x4 at time of visit. Patients stated her is her DPOA and has DPOA paperwork. Patient currently lives in a two story home but has mobility stairs so she doesnt have to climb the stairs. Patient does her ADLs and has two private pay caregivers and her who help her at home. Dexter uses a wheel chair to get around when she is outside her home and uses a cane or a FWW when she is at home. Patient has DME to support her in dressing and moving her weaker left leg at home. Hima states she has had [facility] before and would like to use them if it is determined she will need home health services at time of DC. CM will get F2F and fax clinicals for Home Health. I: [facility] and selfpay PCP: Dr Gaston Plan: DC home with providing transport. Have [facility] started and continue having patients two private pay caregivers coming into the home to assist the patient with needs. CM will assist with any new DC planning needs that may arise. Le Alicia RNadvertising job titles Discharge Planning/Care Management CM Discharge Assessment Start: 09/17/22 11:53 Freq: Status: Active Protocol: Document 09/17/22 11:53 HS (Rec: 09/17/22 12:43 HS [id number]) Discharge Planning Assessment Assigned Refinery Operator Visbreaking Le Alicia RNadvertising job titles DPOA/Assigned Designee Name Kam Cline- Contact Information [phone] Advance Directives? Yes Advance Directives on File No History Provided By Patient,Medical Record Prior Living Arrangements House Comment [facility] Household Members spouse Type of transporation used prior to Relies on Others admit Independent with ADL's Yes: Casa helps with driving Is patient alert and oriented? Yes Needs Assistance With Home Chores / Shopping Caregiver for Another No Community Services used prior to Home Health Aid,Home Health admission: Nurse Comment Patient has private pay caregivers that help her in her home with house work and cooking DME Already Rented / Owned Bath Bench,Wheelchair,FWW / Walker,Cane,Other Comment Patient has a wheel chair, cane and FWW at home to assist with ambulation, Patient also has assisted devices to suppor her get dressed and pick items off the floor. Clinicals Faxed No Patient/Family Preference Home with Home Health Comment Patient wants home with [facility] started - Barriers to Discharge No Comment Patient has her , two private pay caregivers who assist her at home and will have HH nursing, PT, OT at DC Discharge Plan Home with Home Health Transportation Arrangement [employer] will provide transport home Referrals Initiated Home Health Additional Comment [facility] Medicare Choice List Provided Yes Medicare choice list reviewed on patient electronic tablet with SNF/HH Preference Patient wants [facility] Has Agency SNF been contacted Yes Whiteboard Updated in Patient Room with Yes name and ext. # of Refinery Operator Visbreaking Review Status In Process Next Review Type Continued Stay Review
--- NOTE | 2022-09-17 13:41 | P.PN_ITS ---
Exam Vital Signs (past 8 hours): - 09/17/22 07:37 09/17/22 08:31 Temperature 97.8 F Pulse Rate 77 77 Respiratory Rate 14 Blood Pressure 140/48 L 140/48 L Pulse Oximetry 96 Oxygen Flow Rate 0 Oxygen Delivery Method Room Air Oxygen Flow Rate 0 Narrative Exam Narrative: GEN: well nourished, well appearing female, alert and oriented, patient appears to be in mild distress. HEENT: Atraumatic, pupils are equal round reactive to light, extraocular movements are intact, nares are clear, TMs are clear with no fluid, there is no conjunctival pallor.? Throat is clear without any exudates, erythema, tonsillar enlargement or uvular deviation, no facial droop. HEART: Regular rate and rhythm without murmur, clicks, rubs.? Pulses are equal in upper and lower extremities LUNGS:Lungs clear to auscultation, no wheezes, rales, crackles, chest moves symmetrically ABD:bowel sounds normal, soft, non-tender, no guarding, rebound, rigidity, no masses noted, no hepatosplenomegaly :No CVA tenderness MSCL: Non-tender,? moves all upper and lower extremities, full range of motion. NEURO:CN 2-12 intact, sensation normal, finger nose finger test normal with right hand, patient has some difficulty with left,, heel haddad test normal bi laterally.? No dysarthria but does have some word searching. NIH:2 SKIN:? Noted large erythemic warm area to left hip and in between buttocks- possible cellulitis.? Objective Labs 09/17/22 06:55 09/17/22 06:55 Labs: Laboratory Results - last 24 hr 09/16/22 09/16/22 09/16/22 11:42 11:42 15:18 WBC RBC Hgb Hct MCV MCH MCHC RDW Plt Count Neut % (Auto) Lymph % (Auto) [place] % (Auto) Eos % (Auto) Baso % (Auto) Neut # (Auto) Lymph # (Auto) [place] # (Auto) Eos # (Auto) Baso # (Auto) Sodium Potassium Chloride Carbon Dioxide BUN Creatinine Estimated GFR BUN/Creatinine Ratio Glucose Calcium Magnesium 1.7 Triglycerides 113 Cholesterol 209 H LDL Cholesterol, Calc 125 H HDL Cholesterol 61 H Procalcitonin Urine Color Urine Appearance Urine pH Ur Specific [place] Urine Protein Urine Glucose (UA) Urine Ketones Urine Occult Blood Urine Nitrate Urine Bilirubin Urine Urobilinogen Ur Leukocyte Esterase Urine RBC Urine WBC Ur Squamous Epith Cells Urine Bacteria Ur Culture Indicated? U Opiates 300ng/mL cut Negative Ur Oxycodone Screen Negative Urine Methadone Screen Negative Ur Barbiturates Screen Negative U Tricyclic Antidepress Negative Ur Phencyclidine Scrn Negative Ur Amphetamines Screen Negative U Methamphetamines Scrn Negative Ur MDMA Scrn (Ecstasy) Negative U Benzodiazepines Scrn Negative Urine Cocaine Screen Negative U Marijuana (THC) Screen Negative 09/16/22 09/17/22 09/17/22 15:18 06:55 06:55 WBC 12.1 H RBC 3.58 L Hgb 11.7 L Hct 33.5 L MCV 93.5 MCH 32.7 MCHC 35.0 RDW 14.6 Plt Count 171 Neut % (Auto) 82.8 H Lymph % (Auto) 11.4 L [place] % (Auto) 5.1 Eos % (Auto) 0.2 L Baso % (Auto) 0.5 Neut # (Auto) 60096 H Lymph # (Auto) 1400 [place] # (Auto) 600 Eos # (Auto) 0 Baso # (Auto) 100 Sodium 132 L Potassium 3.9 Chloride 100 Carbon Dioxide 26 BUN 13 Creatinine 0.92 Estimated GFR > 60 BUN/Creatinine Ratio 14.1 Glucose 124 H Calcium 8.5 Magnesium Triglycerides Cholesterol LDL Cholesterol, Calc HDL Cholesterol Procalcitonin 0.28 Urine Color Yellow Urine Appearance Clear Urine pH 7.5 Ur Specific [place] <=1.005 Urine Protein Trace H Urine Glucose (UA) Negative Urine Ketones Negative Urine Occult Blood Negative Urine Nitrate Negative Urine Bilirubin Negative Urine Urobilinogen 1.0 Ur Leukocyte Esterase Negative Urine RBC None seen Urine WBC None seen Ur Squamous Epith Cells None seen Urine Bacteria None seen Ur Culture Indicated? Cult not indicated U Opiates 300ng/mL cut Ur Oxycodone Screen Urine Methadone Screen Ur Barbiturates Screen U Tricyclic Antidepress Ur Phencyclidine Scrn Ur Amphetamines Screen U Methamphetamines Scrn Ur MDMA Scrn (Ecstasy) U Benzodiazepines Scrn Urine Cocaine Screen U Marijuana (THC) Screen [facility] Medical History Asthma, mild intermittent Carpal tunnel syndrome Cataracts, bilateral Cerebrovascular disease Cervical spine disease Chicken pox Chronic back pain Dizziness Essential hypertension Fractures Gait instability Hearing loss History of colonic polyps History of melanoma Left hemiparesis Mixed hyperlipidemia Mumps Polyneuropathy, unspecified Repeated falls Systolic CHF, chronic Tinea cruris Urinary incontinence Surgical History Anesthesia History of permanent cardiac pacemaker placement S/P cardiac pacemaker procedure Family History Father Heart disease Brother Heart disease Mother Old age Social History household members: spouse Smoking Status: Former smoker alcohol intake: current Assessment & Plan Assessment & Plan narrative: Global weakness, possible stroke, with a history of CVA with left-sided deficits, acute on chronic, present on admission * ?head CT was negative,? unable to perform MR due to pacemaker * ASA, Plavix, increased statin dosage * Echo ordered * PT OT evaluation Cellulitis, left hip/buttock, acute, present on admission * Patient has a significant history of cellulitis to the buttocks, groin, labia, hip requiring hospitalization and IV antibiotics * WBC 20.3 neutrophils 17,900-though procalcitonin and lactate are negative - today WBC descreased to 12.1. Procalcitonin normal. * Levaquin given in the ER * NS 150cc overnight * Initiated Rocephin Q 24 hours, continue * Trend inflammatory markers * Blood and urine cultures all negative Essential hypertension, chronic, present on admission, continue losartan metoprololHyperlipidemia, chronic, present on admission Hyperlipidemia - continue atorvastatin dose increase * ROXIE 209, LDL 125, HDL 61 Anxiety, chronic, present on admission, continue duloxetine Chronic systolic heart failure and paced, chronic, present on admission * cardiac telemetry * ?ordered BNP -ordered but not done this morning, will order for tomorrow. Follow labs and clinically. Code status:? Full Surrogate decision maker:? Spouse Kam FRANK PCR:? Negative DVT/VTE prophylaxis:? Lovenox and SCDs Quality VTE Deep Vein Thrombosis/Pulmonary Embolism Present on Admission: No
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
[2022-09-17 16:37] LABS: NT-proBNP (BNP-Adult 18+) 1240 pg/mL (<450)
[2022-09-17 16:40] LABS: Troponin I 0.016 ng/mL (0.01-0.034)
--- NOTE | 2022-09-17 17:02 | DI.ECHO.S_ITS ---
[facility] +---------+ : : [address] [place] [address] : : : : [id number] : : : : Phone: [phone]+ Echocardiogram Report + + :Name: YONG ARAIZA Study Date: 09/17/2022 Height: 63 in : :[facility] ReadingLocation: [facility] Weight: 146 lb : : Gender: Female BSA: 1.7 m2 : :: 1945 Age: 77 yrs BP: 140/48 mmHg: :Reason For Study: Stroke : : Performed By: Johan Landry : :Referring: LUIS MIGUEL ANGEL : + + Interpretation Summary Limited views due to trauma to chest. The left ventricle is normal in size and wall thickness.The left ventricular ejection fraction is normal. The ejection fraction is estimated to be 55-60%. There is probable hypokinesis along the inferior wall and part of inferoseptal wall. The right ventricle is normal size. There is a pacemaker lead in the right ventricle. The right ventricular systolic function is normal. Right ventricular systolic pressure is estimated to be 36 mmHg plus the clinically estimated CVP which cannot be estimated on this exam. The left atrium is mildly dilated. Right atrial size is normal. There is no significant valvular heart disease. The aortic root is normal size. Procedure: A two-dimensional transthoracic echocardiogram with color flow and Doppler was performed. The study quality was technically difficult. The study was done portably. Comparison is made with the echocardiogram of 09/12/2018. The patient was in normal sinus rhythm during the exam. Left Ventricle: The left ventricle is normal in size and wall thickness. There is no ventricular septal defect visualized. The left ventricular ejection fraction is normal. The ejection fraction is estimated to be 55-60%. There is probable hypokinesis along the inferior wall and part of inferoseptal wall. Diastolic function could not be accurately assessed due to contradictory data. Right Ventricle: There is a pacemaker lead in the right ventricle. The right ventricle is normal size. The right ventricular systolic function is normal. Atria: The left atrium is mildly dilated. Right atrial size is normal. There is a catheter/pacemaker lead seen in the right atrium. There is no Doppler evidence for an interatrial shunt. Mitral Valve: There is mild mitral annular calcification. The mitral valve leaflets appear to open well. There is no mitral valve stenosis. There is mild mitral regurgitation. Aortic Valve: The aortic valve is trileaflet. The aortic valve opens well. There is no aortic valve stenosis. No aortic regurgitation is present. Tricuspid Valve: The tricuspid valve is normal. There is trace tricuspid regurgitation. Right ventricular systolic pressure is estimated to be 36 mmHg plus the clinically estimated CVP which cannot be estimated on this exam. Pulmonic Valve: The pulmonic valve leaflets are thin and pliable; valve motion is normal. There is a trace or physiologic amount of pulmonic regurgitation. There is no significant valvular heart disease. Great Vessels: The aortic root is normal size. The dimensions of the ascending aorta are normal. The pulmonary artery is normal size. The inferior vena cava was not visualized. Pericardium/ Pleura There is no pericardial effusion. There is no pleural effusion. MMode/2D Measurements & Calculations LVIDd: 5.0 cm LVOT diam: 1.9 cm LVIDs: 3.5 cm Ao root diam: 2.9 cm FS: 29.1 % asc Aorta Diam: 3.1 cm EPSS: 0.47 cm IVSd: 0.93 cm LVPWd: 1.1 cm LV franco. diameter/BSA (cm/m^2): 2.9 LV sys. diameter/BSA (cm/m^2): 2.1 LA A2 area: 22.4 cm2 RA long axis: 5.7 cm LA A4 area: 21.6 cm2 RA area: 15.3 cm2 LA length (vol): 5.7 cm RA vol: 35.0 ml LA vol: 72.0 ml RA : 20.7 ml/m2 LA vol index: 42.6 ml/m2 TAPSE: 2.0 cm Doppler Measurements & Calculations Ao V2 max: 131.4 cm/sec LVOT Max Shailesh: 110.8 cm/sec Ao V2 mean: 105.4 cm/sec LV V1 max P.9 mmHg Ao max P.9 mmHg LV V1 VTI: 24.1 cm Ao mean P.6 mmHg DELIA(I,D): 2.4 cm2 Ao V2 VTI: 29.5 cm DELIA(V,D): 2.4 cm2 sev ratio: 0.82 DELIA indexed to BSA (cm^2/m^2): 1.4 MV E max shailesh: 120.3 cm/sec TR max shailesh: 301.8 cm/sec MV A max shailesh: 93.0 cm/sec TR max P.4 mmHg MV E/A: 1.3 Med Peak E' Shailesh: 6.0 cm/sec E/E' med: 20.1 Lat Peak E' Shailesh: 8.3 cm/sec E/E' lat: 14.5 E/e' average: 17.3 MV dec time: 0.18 sec Pulm A Revs Shailesh: 19.3 cm/sec SV(LVOT): 69.8 ml Reading Physician:06:18 PM
[2022-09-17 18:00] VITALS: BP 132/57; PULSE 66; RESP 18; TEMP 37.1; O2SAT 91
[2022-09-17] MEDS: ATORVASTATIN 20 MG TABLET 80 MG PO (21:42)
[2022-09-18] VITALS: BP 145/54; PULSE 70; RESP 18; TEMP 36.4; O2SAT 94
[2022-09-18] MEDS: cefTRIAXone 1,000 MG in SODIUM CHLORIDE 0.9% 100 ML 200 MG IV (00:08)
[2022-09-18 03:46] VITALS: BP 143/53; PULSE 70; RESP 18; TEMP 36.6; O2SAT 94
--- NOTE | 2022-09-18 04:39 | PC.NURSE ---
Pt had relatiely uneventful noc. Denies discomfort HL intact/patent. Crump cath patent clear urine. Call light w/in reach, bed alarm on for pt safety. Continue w/plan of care.
[2022-09-18 05:42] LABS: Add Manual Diff / Slide Review NO; Basophils Absolute Auto 0 /uL (0-100); Basophils Percent Auto 0.3 % (0-2); Eosinophils Absolute Auto 500 /uL (0-450); Eosinophils Percent Auto 5.1 % (2-4); Hematocrit 33.1 % (36-46); Hemoglobin 11.5 g/dL (12.0-16.0); Lymphocytes Absolute Auto 1500 /uL (1100-4500); Lymphocytes Percent Auto 16.6 % (25-40); Mean Corpuscular HGB Conc 34.7 % (30-36); Mean Corpuscular Hemoglobin 32.5 PG (26-34); Mean Corpuscular Volume 93.8 fL (80-100); Monocytes Absolute Auto 700 /uL (0-900); Monocytes Percent Auto 7.4 % (3-14); Neutrophils Absolute Auto 6500 /uL (1500-7000); Neutrophils Percent Auto 70.6 % (50-75); Platelet Count 177 X10^3/uL (150-400); Red Blood Cell Count 3.53 X10^6/uL (4.0-5.2); Red Cell Distribution Width 14.6 % (11.6-14.8); White Blood Cell Count 9.3 X10^3/uL (4.5-11.0)
[2022-09-18 06:01] LABS: BUN Creatinine Ratio 18.2 (6-22); Blood Urea Nitrogen 16 mg/dL (7-17); Calcium 8.8 mg/dL (8.4-10.2); Carbon Dioxide 29 mmol/L (22-32); Chloride 102 mmol/L (98-107); Estimated Glomerular Filt Rate > 60 mL/min (>60); Glucose 127 mg/dL (80-110); HEMOLYSIS < 15 (0-50); Potassium 3.9 mmol/L (3.4-5.1); Sodium 137 mmol/L (137-145)
[2022-09-18 06:09] LABS: NT-proBNP (BNP-Adult 18+) 1270 pg/mL (<450)
[2022-09-18 08:15] LABS: x Labcorp Estim. Avg Glu (eAG) 126 mg/dL (.)
[2022-09-18 09:59] VITALS: BP 123/46; PULSE 65; RESP 17; TEMP 36.1; O2SAT 94
[2022-09-18] MEDS: ASPIRIN EC 81 MG TABLET PO (09:59)
[2022-09-18] MEDS: DULOXETINE 30 MG CAPSULE 60 MG PO (09:59)
[2022-09-18] MEDS: GABAPENTIN 100 MG CAPSULE PO (09:59)
[2022-09-18] MEDS: ENOXAPARIN 40 MG/0.4 ML SYRINGE SUBCUT (09:59)
[2022-09-18] MEDS: FUROSEMIDE 40 MG TABLET PO (09:59)
[2022-09-18] MEDS: METOPROLOL ER 50 MG TABLET PO (09:59)
[2022-09-18] MEDS: CLOPIDOGREL 75 MG TABLET PO (09:59)
--- NOTE | 2022-09-18 10:38 | PT.IPTN ---
Physical Therapy Treatment Note M2 PT-IP Current Condition Start: 09/17/22 16:18 Freq: NEEDED Status: Active Protocol: Document 09/17/22 16:06 LRN (Rec: 09/17/22 16:51 LRN [id number]) Physical Therapy Current Condition Current Condition Evaluation Date 09/17/22 Treatment Diagnosis Weakness, decr'd activity tolerance, decr'd gait/ mobility/transfers. Onset Date 09/16/22 M3 PT-IP Subjective Start: 09/17/22 16:18 Freq: NEEDED Status: Active Protocol: Document 09/18/22 10:26 KS (Rec: 09/18/22 13:37 KS [id number]) Subjective Physical Therapy Visit Type Type Treatment Note Visit Start Time 10:26 Visit Stop Time 10:38 Total Visit Minutes 12 Number of TARGETING ACQUISITION OFFICER Visits 1 Physical Therapy Visit Comments Patient Comments pt feeling better today Patient Goals Pt goal is to go home if possible with caregivers 4 days a week. M4 PT-IP Mobility and Gait Start: 09/17/22 16:18 Freq: NEEDED Status: Active Protocol: Document 09/18/22 10:26 KS (Rec: 09/18/22 13:37 KS [id number]) PT-Bed Mobility Assessment Supine to Sit Supine to Sit Contact Guard Assistance,1 Person Assistance,Head of Bed Elevated Sit to Supine Sit to Supine Standby Assistance Scooting Scooting to Edge of Bed Standby Assistance PT-Transfer Assessment Sit to and From Stand Sit to and from Stand Contact Guard Assistance,1 Person Assistance,Use of Upper Extremities Equipment Transfer Assistive Device Gait Belt,Front Wheeled Walker Orthotic/Prosthetic Devices or Brace: No Transfers Transfer Destination Bed Transfer Technique Gait Transfer Ability Level of Assist Contact Guard Assistance Comments Mobility Comments Pt in bed upon arrival feeling much better today. CGA for bed mobility and sit<>Stand w/ FWW. Pt then ambulated ~50 ft in room w/ FWW no LOB, SOB, or lightheadedness, denied pain. Pt returned to bed CGA. She states she has caregiver 4 days per week and can help if she needs w/ bed mobiltiy however does also have hospital bed and FWW. Gait Assessment Gait Gait Assistance Required: Contact Guard Assist,1 Person Assist Distance (Feet) 50 Able to Maintain Weight Bearing Status Yes During Gait Assistive Devices Assistive Device None Gait Deviations General Gait Pattern Decreased Stride Length, Decreased Feet Clearance, Flexed Trunk Factors Limiting Gait Function Factors Limiting Gait Function Abnormal Tonal Influences, Decreased Activity Tolerance, Decreased Strength,Poor Balance Comments Gait Comments Pt cued for upright posture and L foot clearance. Pt tends to hold her L foot in ER with posture and gait. Stair Climbing Assessment Comments Stair Climbing Comments Pt not wanting to complete stair training again today, feels comfortable to do at home and practiced yesterday. PT-Balance Assessment Sitting Balance and Reactions Static Sitting Balance Ability Normal Dynamic Sitting Balance Ability Good Standing Balance and Reactions Static Standing Balance Ability Fair Dynamic Standing Balance Ability Fair Device Used FWW M5 PT-IP Objective Assessments Start: 09/17/22 16:18 Freq: NEEDED Status: Active Protocol: Document 09/17/22 16:06 LRN (Rec: 09/17/22 16:51 LRN [id number]) Orientation Orientation/Cognition Level of Alertness Alert Orientation Name,Month,Date,Year,Place, Situation Language Function Ability No Deficits Noted Safety Awareness Understands Safety Issues, Decreased Safety Awareness Memory Description No Deficits Noted Comments Pt wanting to go home and understanding that she needs help at home, but did not think that if she were to go home tomorrow she would have not help. Pt didn't appear to have good awareness of her required need for assist at home and that there would be no help at home other than spouse, who states he would need for her to be more independent to come home. Strength Upper Extremity Strength Assessment Right Impaired Shoulder generally 4/5 Elbow Biceps 4/5 Wrist 5/5 Hand 5/5 Lower Extremity Strength Assessment Left Impaired Ankle DF 3-5. Comments Strength Comments MMT of Quads is 5/5, but pt demonstrated functional weakness of quads on ecc contraction when descending stairs, bilterally. Muscle Tone Muscle Tone WNL No Comments Muscle Tone Comments L Gastrocnemius PF tone & L wrist/finger flexor tone. M6 PT-IP Treatment Start: 09/17/22 16:18 Freq: NEEDED Status: Active Protocol: Document 09/18/22 13:37 KS (Rec: 09/18/22 13:37 KS [id number]) Physical Therapy Treatment Education Education Provided Safety M7 PT-IP Assessment and Plan Start: 09/17/22 16:18 Freq: NEEDED Status: Active Protocol: Document 09/18/22 10:26 KS (Rec: 09/18/22 13:37 [place] [id number]) PT Summary Assessment and Plan Potential Rehabilitation Potential Good Summary Impairments Pain,Strength,Balance,Tone, Cognition,Bed Mobility, Transfers,Gait,Activity Tolerance Progress Towards Goals Progressing Toward Goals Assessment Summary Pt CGA throughout treatment today and overall reports feeling much better. SHe ambulated ~50 ft w/ fww, had FWW and hospital bed at home, supportive spouse, and 4x/week caregivers. LLE minimal ground clearance increasing risk of falls. Pt feels eager to go home and does not want to go to SNF. She will benefit from HHPT. Goals Bed Mobility Goal Independent Transfer Goal Independent Gait Goal Independent Gait Distance 50' Other Goals Up/down 3-4 stairs with hand held assist on one L side safely. Days to Meet Goals 2 Frequency of Treatment Frequency Of Treatment Once a Day Treatment Plan Physical Therapy Treatment Plan Bed Mobility Training,Transfer Training,Gait Training, Discharge Planning Other Recommendations and Next Treatment Stair training Focus Weight Bearing Status Weight Bearing Status Full Weight Bearing Recommendations To Nursing Amount of Assist Needed 1 Person Assist Discharge Recommendations PT Discharge Recommendations Home with Assistance,Home with 24/7 Assist Available,Home Health Transportation Needs at Discharge Private Vehicle
[2022-09-18 11:25] VITALS: PULSE 65
--- NOTE | 2022-09-18 12:21 | P.DS_ITS ---
History of Present Illness History of Present Illness Date Patient Seen: 09/18/22 Chief complaint: Weakness Discharge Providers Provider Date of admission: 09/16/22 16:46 Discharge Date: 09/18/22 Primary care physician: Andrade Gaston MD Consults: 09/16/22 17:01 Consult to Occupational Therapy Evaluate & Treat Comment: Physician Instructions: Evaluate and treat Consult to Physical Therapy Evaluate & Treat Comment: Physician Instructions: Evaluate and Treat 09/16/22 17:06 Consult to Speech Therapy Evaluate & Treat Comment: Physician Instructions: Evaluate and treat 09/16/22 17:08 Consult to GEODETIC SURVEYOR TECHNOLOGIST - Parts Casting Machine Operator Routine Comment: may need SNF vs HH Discharge provider: Alisa Shaw MD Summary Hospital Course Discharge Diagnosis: Global weakness Concern CVA History of CVA with left-sided deficits, acute on chronic, present on admission HfpEF Cellulitis left hip/buttock, acute, present on admission Essential hypertension, chronic, present on admission Hyperlipidemia, chronic, present on admission Anxiety, chronic, present on admission Chronic systolic heart failure, chronic present on admission Elevated BNP Pacemaker, chronic, present on admission Other comorbidities/past medical history: Asthma, mild intermittent Carpal tunnel syndrome Cataracts, bilateral Cerebrovascular disease Cervical spine disease Chicken pox Chronic back pain Dizziness Fracture history Gait instability Hearing loss History of colonic polyps History of melanoma Left hemiparesis Mixed hyperlipidemia Mumps Polyneuropathy, unspecified Repeated falls Tinea cruris Urinary incontinence Hospital Course: Ana Maria Cline is a 77-year-old female history of prior stroke with left-sided deficits which had improved, hypertension, dyslipidemia, neuropathy, pacemaker and is not anticoagulated.? Patient was brought in by her spouse presenting with complaint of increased global weakness, difficulty expressing her thoughts, decreased appetite, worsening memory issues, dysuria and urgency, and swallowing difficulties.? There was concern patient had had another stroke, head CT was negative in ED unable to perform MR due to pacemaker. As such, it was treated as if she had a stroke with Plavix and aspirin daily. Echocardiogram demonstrated a ejection fraction preserved at 55-60%. No tobacco, alcohol or illicit.? Dr. Gaston is her primary care physician.? She sees a public relations officer occasionally.? She does not follow with a animation director.? ?On admit patient denied chest pain, shortness in breath, headache, changes in vision, numbness, tingling, difficulty with ambulation, recent falls, head injury, LOC, fever, body aches, chills, cough, recent exposure to illness, abdominal pain, nausea, vomiting, urinary incontinence/retention, hematuria, bowel changes, constipation, incontinence, melena, rashes, recent changes to medication, illness, injury, or trauma. Patient's vitals are stable temp 97.3?, 134/61, 72, 16, O2 saturation 96% on room air.? WBC 20.3 neutrophils 17,900 the rest of patient's CBC CMP and liver panel are all unremarkable with the exception of glucose 131.? The following are all unremarkable lactate, magnesium, procalcitonin, urinalysis, tox screen, COVID. NIH:2, Initial troponin 0.034.? Patient admitted for global weakness, possible stroke. There was also noted erythema of the right buttock/ hip area concerning for cellulitis. This was initially dosed with Levaquin in the ER and then switched to ceftriaxone with initial dose of 2 g and 1 g daily. Area of erythema improved during the hospital stay and on discharge the patient was transitioned to clindamycin 300 mg q.i.d. for 10 days. Patient's weakness improved during the hospital stay, such that she could mobilize sufficiently to be discharged to home with Home Care 4 times a week that the patient had previously arranged. Patient was encouraged to continue w ith mobility and strength improvement once discharged to home and have her Home Care assistance help her with continue mobility at home. Patient's BNP was elevated to 1270, and as such the patient was discharged on 40 mg of furosemide daily with potassium supplementation. Patient mobilizes with a four-wheel walker. Status at Discharge Cognitive/behavioral status at discharge: oriented Functional status at discharge: uses cane/walker Overall status at discharge: patient is progressing back to baseline Time Spent with Patient Time spent: Greater than 30 minutes Exam Vital Signs (past 8 hours): - 09/18/22 09:59 09/18/22 09:59 09/18/22 11:25 Temperature 96.9 F L Pulse Rate 65 65 65 Respiratory Rate 17 Blood Pressure 123/46 L Pulse Oximetry 94 Oxygen Flow Rate 0 Oxygen Delivery Method Room Air Oxygen Flow Rate 0 Narrative Exam Narrative: GEN: well nourished, well appearing female, alert and oriented, patient appears to be in mild distress. HEENT: Atraumatic, pupils are equal round reactive to light, extraocular movements are intact, nares are clear, TMs are clear with no fluid, there is no conjunctival pallor.? Throat is clear without any exudates, erythema, tonsillar enlargement or uvular deviation, no facial droop. HEART: Regular rate and rhythm without murmur, clicks, rubs.? Pulses are equal in upper and lower extremities LUNGS:Lungs clear to auscultation, no wheezes, rales, crackles, chest moves symmetrically ABD:bowel sounds normal, soft, non-tender, no guarding, rebound, rigidity, no masses noted, no hepatosplenomegaly :No CVA tenderness MSCL: Non-tender,? moves all upper and lower extremities, full range of motion. NEURO:CN 2-12 intact, sensation normal, finger nose finger test normal with right hand, patient has some difficulty with left, heel haddad test normal bilaterally.? No dysarthria but does have some word searching. NIH:2 on presentation, SKIN:? Noted large erythemic warm area to left hip and in between buttocks- cellulitis.? Objective Labs 09/18/22 04:55 09/18/22 04:55 Labs: Laboratory Results - last 24 hr 09/16/22 09/17/22 09/17/22 11:42 16:05 16:05 WBC RBC Hgb Hct MCV MCH MCHC RDW Plt Count Neut % (Auto) Lymph % (Auto) [place] % (Auto) Eos % (Auto) Baso % (Auto) Neut # (Auto) Lymph # (Auto) [place] # (Auto) Eos # (Auto) Baso # (Auto) Sodium Potassium Chloride Carbon Dioxide BUN Creatinine Estimated GFR BUN/Creatinine Ratio Glucose Hgb A1c (Ref Lab) 6.0 H Estim Average Glucose 126 Calcium Troponin I 0.016 NT-Pro-B Natriuret Pep 1240 H 09/18/22 09/18/22 09/18/22 04:55 04:55 04:55 WBC 9.3 RBC 3.53 L Hgb 11.5 L Hct 33.1 L MCV 93.8 MCH 32.5 MCHC 34.7 RDW 14.6 Plt Count 177 Neut % (Auto) 70.6 Lymph % (Auto) 16.6 L [place] % (Auto) 7.4 Eos % (Auto) 5.1 H Baso % (Auto) 0.3 Neut # (Auto) 6500 Lymph # (Auto) 1500 [place] # (Auto) 700 Eos # (Auto) 500 H Baso # (Auto) 0 Sodium 137 Potassium 3.9 Chloride 102 Carbon Dioxide 29 BUN 16 Creatinine 0.88 Estimated GFR > 60 BUN/Creatinine Ratio 18.2 Glucose 127 H Hgb A1c (Ref Lab) Estim Average Glucose Calcium 8.8 Troponin I NT-Pro-B Natriuret Pep 1270 H PFS Medical History Asthma, mild intermittent Carpal tunnel syndrome Cataracts, bilateral Cerebrovascular disease Cervical spine disease Chicken pox Chronic back pain Dizziness Essential hypertension Fractures Gait instability Hearing loss History of colonic polyps History of melanoma Left hemiparesis Mixed hyperlipidemia Mumps Polyneuropathy, unspecified Repeated falls Systolic CHF, chronic Tinea cruris Urinary incontinence Surgical History Anesthesia History of permanent cardiac pacemaker placement S/P cardiac pacemaker procedure Family History Father Heart disease Brother Heart disease Mother Old age Social History household members: spouse Smoking Status: Former smoker alcohol intake: current Discharge Plan Discharge Plan Patient Disposition: Home Provider Discharge Comment: Follow-up with primary care physician within 7-10 days. Discharge orders & Medications Prescriptions: New atorvastatin 20 mg Tablet 80 mg PO BEDTIME Qty: 120 0RF aspirin 81 mg Tablet,Delayed Release (Dr/Ec) 81 mg PO DAILY Qty: 30 0RF Rx Instructions: Take it continuously to end of life furosemide 40 mg Tablet 40 mg PO DAILY Qty: 30 0RF clopidogrel 75 mg Tablet 75 mg PO DAILY Qty: 20 0RF clindamycin HCl 300 mg capsule 300 mg PO QID Qty: 40 0RF potassium chloride 20 mEq tablet extended release 20 meq PO BID Qty: 60 0RF tramadol 50 mg Tablet 50 mg PO Q6H PRN (Reason: pain) Qty: 30 0RF Continued amlodipine 5 mg tablet 5 mg PO DAILY Qty: 90 3RF gabapentin 100 mg capsule 100 mg PO BID Qty: 180 3RF terbinafine HCl 250 mg tablet 250 mg PO DAILY Qty: 10 2RF duloxetine 60 mg capsule,delayed release(DR/EC) 60 mg PO DAILY Qty: 90 3RF losartan 50 mg tablet 50 mg PO DAILY Qty: 90 3RF metoprolol succinate 50 mg tablet extended release 24 hr 50 mg PO DAILY Qty: 90 3RF nystatin [Nystop] 100,000 unit/gram Powder 1 applic topical TID PRN (Reason: Rash) Qty: 15 0RF Patient Comments: I put it on whenever I pee cod liver oil Capsule 1 cap PO DAILY magnesium 30 mg Tablet 60 mg PO DAILY coenzyme Q10 [Co Q-10] 100 mg Capsule 100 mg PO DAILY Patient Comments: takes with metroprolol at night at 830 every night. cholecalciferol (vitamin D3) [Vitamin D3] 2,000 unit Capsule 2,000 unit PO DAILY Hair, Skin, Nails with Biotin 1 tab PO DAILY Patient Comments: I've been out of it for a week niacin 500 mg Tablet 500 mg PO DAILY Qty: 30 0RF Fish Oil 340-1,000 mg Capsule 1,000 mg PO DAILY Qty: 30 0RF Discontinued furosemide 20 mg tablet See Rx Instructions PO DAILY Qty: 36 3RF Patient Comments: I take it every day Rx Instructions: three days weekly (Mon, Mon, Monday) orally daily; potassium chloride 10 mEq capsule, extended release See Rx Instructions PO Q DAY Qty: 36 3RF Patient Comments: I take it every day Rx Instructions: three days weekly (Mon, Mon, Monday) orally Q DAY; atorvastatin [Lipitor] 20 mg tablet 20 mg PO BEDTIME Qty: 90 3RF Follow up/Referrals: Andrade Gaston MD [Primary Care Provider] - Visit Report/Discharge Packet Stand Alone Forms: Patient Portal/API, Stroke Signs & Symptoms Discharge Data Primary Care Provider: Andrade Gaston V Attending Provider: Shaq Soto Admit Date/Time: 09/16/22 16:46 Quality VTE Deep Vein Thrombosis/Pulmonary Embolism Present on Admission: No
--- NOTE | 2022-09-18 13:01 | CM.DPC ---
DCP Discharge Home with HH Per MD, pt switched to po meds and ma discontinued and medically stable for d/c home with HH. VALENTIN called [facility] and updated on pt discharge orders and referral and F2F previously faxed and SW faxed d/c summ and HH orders to [facility] to review. Per EQUAL OPPORTUNITY ASSISTANT, worked with pt this morning and cleared for home with HH and no further concerns at this time. Plan: Patient to d/c home via spouse POV today and new [facility] referral made and to start pt on service after discharge. CHRIS Lisa
--- NOTE | 2022-09-18 13:41 | PC.NURSE ---
Day shift: Paperwork signed and all questions answered. Spouse in room for these teachings. Went over new medications and dose changes with Pt as well. Pt has all personal belongings. New MD scripts sent electronic to Pt's pharmacy. Left unit at approx 1400 via WC. PCT Shruthi took Pt out. Pt's left arm remains weak and this is from Pt's prior stroke.
--- NOTE | 2022-09-20 12:10 | CM.DPC ---
SW received a call from pt's sister Laurie [phone] who states she just flew in to assist pt and spouse and has significant concerns with pt and spouse living in their large house without enough assist. Sister is in the process of now helping to try to get pt into LTC facility for increased assist. Sister requesting resource information and SW provided [facility] contact as they had been given referral at pt's discharge 2 days ago and sister confirms pt does not really answer or check her phone and sister will call to get pt on their schedule and request [facility] through HH. VALENTIN also provided [facility] contact info for additional resources for LTC planning. Sister very appreciative and concerned and will continue coordinating care for pt. CHRIS Lisa
== END 2022-09-18 14:14 | disposition home or self-care (01) ==
LOC: ED 16:26 → AC 16:50
PROVIDERS: Neuromusculoskeletal Medicine, Sports Medicine; Nurse Practitioner Family; Admitting Provider Student in an Organized Health Care Education/Training Program; Emergency Provider Emergency Medicine; PCP Internal Medicine; Referring Provider Emergency Medicine; Visit Provider Student in an Organized Health Care Education/Training Program
DX: R53.1 Weakness (principal); R29.702 NIHSS score 2; I69.398 Other sequelae of cerebral infarction; I50.22 Chronic systolic (congestive) heart failure; I10 Essential (primary) hypertension; L03.319 Cellulitis of trunk, unspecified; E78.5 Hyperlipidemia, unspecified; F41.9 Anxiety disorder, unspecified; Z95.0 Presence of cardiac pacemaker; Z20.822 Contact with and (suspected) exposure to COVID-19; R79.89 Other specified abnormal findings of blood chemistry
CPT/HCPCS: 36415; 70450; 70496; 70498; 71045; 80048; 80053; 80061; 80305; 80320; 81001; 82550; 82962; 83036; 83605; 83735; 83880; 84145; 84484; 85025; 85610; 85730; 87040; 87086; 87635; 92522; 93005; 93306; 96361; 96365; 96366; 96367; 96372; 97116; 97162; 99285; C9803; G0378; J0696; J1650; J1956; J3475; Q9967

== ENCOUNTER 2022-09-19 14:00 | Emergency (ER) | payer OTHER, SELFPAY ==
[2022-09-16 17:33] VITALS: BMI 25.8
[2022-09-19 14:12] VITALS: BP 123/60; PULSE 64; RESP 18; TEMP 36.9; O2SAT 98; BMI 27.3
--- NOTE | 2022-09-19 14:43 | ED.GENADULT ---
HPI - General Adult <Ally Light PA-C - Last Filed: 09/19/22 14:56> General Chief complaint: Recheck/Abnormal Lab/Rx Stated complaint: bleeding where stitches were on top of head Time Seen by Provider: 09/19/22 14:22 Source: patient and family Mode of arrival: Wheelchair History of Present Illness HPI narrative: 77-year-old female presents to the ED for a wound check. Patient states that she had a skin cancer removed from her scalp on the back of her head about 2 weeks ago. The wound healed and stitches were removed 10 days ago. Patient states that the wound was healing, however this morning when her caregiver was washing her hair, the scab came loose, the wound bled a little bit. The home care nurse directed her to the ED for further evaluation. Patient states that the wound has stopped bleeding since the incident this morning, she has not seen any signs of infection including redness, swelling, pain, discharge, warmth. Related Data Home Medications Medication Instructions Recorded Confirmed Hair, Skin, Nails with Biotin 1 tab PO DAILY 04/21/18 09/16/22 cholecalciferol (vitamin D3) 50 2,000 unit PO DAILY 04/21/18 09/16/22 mcg (2,000 unit) capsule (Vitamin D3) cod liver oil 1 cap PO DAILY 04/21/18 09/16/22 coenzyme Q10 100 mg capsule (Co 100 mg PO DAILY 04/21/18 09/16/22 Q-10) magnesium 30 mg tablet 60 mg PO DAILY 04/21/18 09/16/22 Previous Rx's Medication Instructions Recorded niacin 500 mg tablet 500 mg PO DAILY #30 tabs 04/24/18 omega-3 fatty acids-fish oil 340 1,000 mg PO DAILY #30 caps 04/24/18 mg-1,000 mg capsule (Fish Oil) duloxetine 60 mg capsule,delayed 60 mg PO DAILY #90 caps 10/20/21 release losartan 50 mg tablet 50 mg PO DAILY #90 tabs 10/20/21 metoprolol succinate 50 mg 50 mg PO DAILY #90 tabs 10/20/21 tablet,extended release 24 hr nystatin 100,000 unit/gram topical 1 applic topical TID PRN Rash #15 05/02/22 powder (Nystop) grams amlodipine 5 mg tablet 5 mg PO DAILY #90 tabs 05/24/22 gabapentin 100 mg capsule 100 mg PO BID #180 caps 07/26/22 terbinafine HCl 250 mg tablet 250 mg PO DAILY #10 tabs 08/19/22 aspirin 81 mg tablet,delayed 81 mg PO DAILY #30 tabs 09/18/22 release atorvastatin 20 mg tablet 80 mg PO BEDTIME #120 tabs 09/18/22 clindamycin HCl 300 mg capsule 300 mg PO QID #40 caps 09/18/22 clopidogrel 75 mg tablet 75 mg PO DAILY #20 tabs 09/18/22 furosemide 40 mg tablet 40 mg PO DAILY #30 tabs 09/18/22 potassium chloride 20 mEq 20 meq PO BID #60 tabs 09/18/22 tablet,extended release tramadol 50 mg tablet 50 mg PO Q6H PRN pain #30 tabs 09/18/22 Allergies Allergy/AdvReac Type Severity Reaction Status Date / Time latex [LATEX] Allergy Mild RASH Verified 09/19/22 14:17 naproxen [From ALEVE] Allergy Mild SWELLING Verified 09/19/22 14:17 FEET, HANDS codeine Allergy Unknown GI UPSET Verified 09/19/22 14:17 lisinopril Allergy Unknown FACIAL Verified 09/19/22 14:17 SWELLING venlafaxine Allergy Unknown ELEVATED Verified 09/19/22 14:17 BLOOD PRESSURE cephalexin AdvReac Intermediate Rash Verified 09/19/22 14:17 bupropion AdvReac Unknown SEIZURE Verified 09/19/22 14:17 Review of Systems <Ally Light PA-C - Last Filed: 09/19/22 14:56> Review of Systems ROS Unobtainable: All systems reviewed & are unremarkable except as noted in HPI and below Constitutional Constitutional: Denies chills, Denies fatigue, Denies fever(s), Denies frequent falls, Denies lethargy and Denies weakness Eyes Eyes: Denies change in vision, Denies eye discharge, Denies irritation and Denies loss of vision ENT Ears, Nose, Mouth, and Throat: Denies change in voice, Denies dizziness, Denies neck pain, Denies sore throat and Denies throat swelling Cardiovascular Cardiovascular: Denies chest pain, Denies irregular heart rhythm, Denies lightheadedness, Denies palpitations, Denies dyspnea, Denies dyspnea on exertion and Denies orthopnea Respiratory Respiratory: Denies cough, Denies dyspnea, Denies dyspnea on exertion and Denies wheezing Gastrointestinal Gastrointestinal: Denies abdominal pain, Denies change in bowel habits, Denies diarrhea, Denies nausea and Denies vomiting Genitourinary Genitourinary: Denies hematuria, Denies flank pain, Denies urinary incontinence and Denies urinary urgency Musculoskeletal Musculoskeletal: Denies back pain, Denies muscle weakness, Denies neck pain, Denies numbness and Denies tingling Integumentary/Breasts Skin/Breast: Denies pruritus, Denies erythema, Denies rash and Reports wounds Neurologic Neurologic: Denies behavioral changes, Denies confusion, Denies dizziness, Denies frequent falls, Denies loss of vision, Denies numbness, Denies tingling and Denies weakness Psychiatric Psychiatric: Denies anxiety, Denies behavioral changes, Denies confusion, Denies depression, Denies homicidal ideation and Denies suicidal ideation Endocrine Endocrine: Denies fatigue, Denies flushing and Denies palpitations Hematologic/Lymphatic Hematologic/Lymphatic: Denies easy bruising Allergic/Immunologic Allergic/Immunologic: Denies urticaria, Denies throat swelling and Denies wheezing Patient History <Ally Light PA-C - Last Filed: 09/19/22 14:56> Medical History Asthma, mild intermittent Carpal tunnel syndrome Cataracts, bilateral Cerebrovascular disease Cervical spine disease Chicken pox Chronic back pain Dizziness Essential hypertension Fractures Gait instability Hearing loss History of colonic polyps History of melanoma Left hemiparesis Mixed hyperlipidemia Mumps Polyneuropathy, unspecified Repeated falls Systolic CHF, chronic Tinea cruris Urinary incontinence Surgical History Anesthesia History of permanent cardiac pacemaker placement S/P cardiac pacemaker procedure Family History Father Heart disease Brother Heart disease Mother Old age Social History household members: spouse Smoking Status: Former smoker alcohol intake: current Smoking Status: Former smoker alcohol intake frequency: holidays/special occasions only Substance Use Type: does not use Exam <Ally Light PA-C - Last Filed: 09/19/22 14:56> Narrative Exam Narrative: Const General:?cooperative, healthy appearing and comfortable [facility] Head:? There is a small wound to the back of the scalp, the scab has come off and stuck to some hair. Wound appears to have been healing well otherwise with no signs of infection. Wound is not bleeding. Ears:?hearing grossly normal bilaterally Nose:?external nose normal Face and sinus:?normal facial exam and sinuses nontender Mouth:?oral mucosae normal Throat:?posterior oropharynx normal Eyes General:?appearance normal, both eyes and all related structures Neck Neck:?normal visual inspection and no lymphadenopathy noted Resp Effort & Inspection:?normal respiratory effort Auscultation:?clear to auscultation bilaterally Cardio Rate:?regular rate Rhythm:?regular rhythm Neuro General:?patient alert, patient awake and patient oriented x3 Initial Vital Signs Initial Vital Signs: Vital Signs Temperature 98.4 F 09/19/22 14:12 Pulse Rate 64 09/19/22 14:12 Respiratory Rate 18 09/19/22 14:12 Blood Pressure 123/60 09/19/22 14:12 Pulse Oximetry 98 09/19/22 14:12 Oxygen Delivery Method Room Air 09/19/22 14:12 <DO Severo Leon Last Filed: 09/19/22 15:12> Initial Vital Signs Initial Vital Signs: Vital Signs Temperature 98.4 F 09/19/22 14:12 Pulse Rate 64 09/19/22 14:12 Respiratory Rate 18 09/19/22 14:12 Blood Pressure 123/60 09/19/22 14:12 Pulse Oximetry 98 09/19/22 14:12 Oxygen Delivery Method Room Air 09/19/22 14:12 Course <Ally Light PA-C - Last Filed: 09/19/22 14:56> Vital Signs Vital signs: Vital Signs - 8 hr 09/19/22 14:12 Temperature 98.4 F Pulse Rate 64 Respiratory Rate 18 Blood Pressure 123/60 Pulse Oximetry 98 Oxygen Delivery Method Room Air <DO Severo Leon Last Filed: 09/19/22 15:12> Vital Signs Vital signs: Vital Signs - 8 hr 09/19/22 14:12 Temperature 98.4 F Pulse Rate 64 Respiratory Rate 18 Blood Pressure 123/60 Pulse Oximetry 98 Oxygen Delivery Method Room Air Medical Decision Making <Ally Light PA-C - Last Filed: 09/19/22 14:56> MDM Narrative Medical decision making narrative: 77-year-old female presents to the ED for a wound check. Patient states that she had a skin cancer removed from her scalp on the back of her head about 2 weeks ago. Physical exam is reassuring, the wound is no longer bleeding. It appears that the scab has come lose, however there are no signs of infection. Recommend careful hair washing and head dressing until the wound completely heals. Patient agrees to follow-up with the doctor who did this skin cancer removal. ED return precautions were discussed with patient. Patient verbalized understanding. Medical records reviewed: Yes Discharge Plan Departure Patient Disposition: Home Clinical Impression: Visit for wound check Instructions: Skin Wound Activity Restrictions/Additional Instructions: You were evaluated in the ED today for a healing wound from a cancer removal to your scalp. It appears that your wound has been healing well, the scab came loose this morning when you wash your hair. The wound is not bleeding and there are no signs of infection. Please be careful when you wash your hair so as to not disturb the scab that will forearm again. Please follow-up with the doctor that treated you for the cancer removal. Return to the ED if you note that the wound is uncontrollably bleeding or you experience chest pain, shortness of breath. Prescriptions: No Action amlodipine 5 mg tablet 5 mg PO DAILY Qty: 90 3RF gabapentin 100 mg capsule 100 mg PO BID Qty: 180 3RF terbinafine HCl 250 mg tablet 250 mg PO DAILY Qty: 10 2RF duloxetine 60 mg capsule,delayed release(DR/EC) 60 mg PO DAILY Qty: 90 3RF losartan 50 mg tablet 50 mg PO DAILY Qty: 90 3RF metoprolol succinate 50 mg tablet extended release 24 hr 50 mg PO DAILY Qty: 90 3RF nystatin [Nystop] 100,000 unit/gram Powder 1 applic topical TID PRN (Reason: Rash) Qty: 15 0RF Patient Comments: I put it on whenever I pee atorvastatin 20 mg Tablet 80 mg PO BEDTIME Qty: 120 0RF aspirin 81 mg Tablet,Delayed Release (Dr/Ec) 81 mg PO DAILY Qty: 30 0RF Rx Instructions: Take it continuously to end of life furosemide 40 mg Tablet 40 mg PO DAILY Qty: 30 0RF clopidogrel 75 mg Tablet 75 mg PO DAILY Qty: 20 0RF clindamycin HCl 300 mg capsule 300 mg PO QID Qty: 40 0RF potassium chloride 20 mEq tablet extended release 20 meq PO BID Qty: 60 0RF tramadol 50 mg Tablet 50 mg PO Q6H PRN (Reason: pain) Qty: 30 0RF cod liver oil Capsule 1 cap PO DAILY magnesium 30 mg Tablet 60 mg PO DAILY coenzyme Q10 [Co Q-10] 100 mg Capsule 100 mg PO DAILY Patient Comments: takes with metroprolol at night at 830 every night. cholecalciferol (vitamin D3) [Vitamin D3] 2,000 unit Capsule 2,000 unit PO DAILY Hair, Skin, Nails with Biotin 1 tab PO DAILY Patient Comments: I've been out of it for a week niacin 500 mg Tablet 500 mg PO DAILY Qty: 30 0RF Fish Oil 340-1,000 mg Capsule 1,000 mg PO DAILY Qty: 30 0RF Referrals: Andrade Gaston MD [Primary Care Provider] - Stand Alone Forms: Patient Portal/API <Alek Lindsay DO - Last Filed: 09/19/22 15:12> Cosign ED Attending Cosignature Attestation: Dr Lindsay Co-Sign Statement: I was available for consultation during this patient's emergency department visit. This chart is signed by myself for administrative purposes only. I did not have direct contact with this patient during this visit. They were seen independently by the APC.
== END 2022-09-19 15:03 | disposition home or self-care (01) ==
PROVIDERS: Emergency Provider Student in an Organized Health Care Education/Training Program; PCP Internal Medicine
DX: T81.89XA Other complications of procedures, not elsewhere classified, initial encounter (principal)
CPT/HCPCS: 99281

== ENCOUNTER 2022-10-10 15:26 | Observation (INO) | payer OTHER, SELFPAY ==
[2022-09-16 17:33] VITALS: BMI 25.8
[2022-10-10] VITALS (49 sets, daily range): BP systolic 93–142; BP diastolic 45–77; PULSE 60–73; RESP 10–28; TEMP 36.3–36.4; O2SAT 88–100; BMI 28.9
--- NOTE | 2022-10-10 15:40 | PC.NURSE ---
patient has has been recently treated with abx for cellulites approx 3 wks ago and developed some diarrhea. She has been feeling very weak and not able to get herself out of the vehicle when she got home after lunch today.
--- NOTE | 2022-10-10 15:53 | DI.RAD.S_ITS ---
PROCEDURE: XR CHEST 1V INDICATIONS: weakness TECHNIQUE: One view of the chest was acquired. COMPARISON: [facility], CR, XR CHEST 1V, 09/16/2022, 12:16. FINDINGS: Surgical changes and devices: There is a cardiac pacemaker. Lower cervical spine fusion. Lungs and pleura: Lung volumes are small consistent with shallow inspiration. Lungs are clear. No pleural effusions or pneumothorax. Mediastinum: Mediastinal contours appear normal. Heart size is normal. Bones and chest wall: No suspicious bony lesions. Overlying soft tissues appear unremarkable. IMPRESSION: No acute cardiopulmonary disease. Dictated by: Flavio Albert M.D. on 10/10/2022 at 17:00 Approved by: Flavio Albert M.D. on 10/10/2022 at 17:03
--- NOTE | 2022-10-10 15:55 | ED_ITS ---
HPI - Weakness <Joselo Neri MD - Last Filed: 10/15/22 13:10> General Chief complaint: Syncope Stated complaint: syncope Time Seen by Provider: 10/10/22 15:40 Source: EMS Mode of arrival: EMS History of Present Illness HPI Narrative: Patient brought in by ambulance from home for general malaise and weakness. P atient states she is had diarrhea over the weekend. She has recently been on antibiotics for skin infection. Patient states today she left the house without any complaints. She went looking for a residential home. She then went with her care provider to lunch and when they return in the driveway she felt very weak and could not get out of the car. She felt very dizzy. Denies any syncope. No chest pain no headache no abdominal pain. No recent black or bloody stools. No shortness of breath. She states she feels very tired. She is had decreased urine output because of the diarrhea she states. No fever chills. No unilateral weakness no slurred speech or facial droop. Fast exam is negative. Patient was admitted here last month for stroke. She states these are not the same symptoms she had. Related Data Home Medications Medication Instructions Recorded Confirmed Hair, Skin, Nails with Biotin 1 tab PO DAILY 04/21/18 10/10/22 cholecalciferol (vitamin D3) 50 2,000 unit PO DAILY 04/21/18 10/10/22 mcg (2,000 unit) capsule (Vitamin D3) magnesium 30 mg tablet 60 mg PO DAILY 04/21/18 10/10/22 alpha lipoic acid 150 mg capsule 300 mg PO BEDTIME 10/10/22 10/10/22 Previous Rx's Medication Instructions Recorded duloxetine 60 mg capsule,delayed 60 mg PO DAILY #90 caps 10/20/21 release metoprolol succinate 50 mg 50 mg PO DAILY #90 tabs 10/20/21 tablet,extended release 24 hr amlodipine 5 mg tablet 5 mg PO DAILY #90 tabs 05/24/22 gabapentin 100 mg capsule 100 mg PO BID #180 caps 07/26/22 aspirin 81 mg tablet,delayed 81 mg PO DAILY #30 tabs 09/18/22 release tramadol 50 mg tablet 50 mg PO Q6H PRN pain #30 tabs 09/18/22 terbinafine HCl 250 mg tablet 250 mg PO DAILY #10 tabs 09/21/22 atorvastatin 80 mg tablet 80 mg PO BEDTIME #90 tabs 09/23/22 clopidogrel 75 mg tablet 75 mg PO DAILY #90 tabs 09/23/22 furosemide 20 mg tablet 20 mg PO DAILY #30 tabs 10/11/22 Allergies Allergy/AdvReac Type Severity Reaction Status Date / Time latex [LATEX] Allergy Mild RASH Verified 10/10/22 18:50 naproxen [From ALEVE] Allergy Mild SWELLING Verified 10/10/22 18:50 FEET, HANDS codeine Allergy Unknown GI UPSET Verified 10/10/22 18:50 lisinopril Allergy Unknown FACIAL Verified 10/10/22 18:50 SWELLING venlafaxine Allergy Unknown ELEVATED Verified 10/10/22 18:50 BLOOD PRESSURE cephalexin AdvReac Intermediate Rash Verified 10/10/22 18:50 bupropion AdvReac Unknown SEIZURE Verified 10/10/22 18:50 Review of Systems <Joselo Neri MD - Last Filed: 10/15/22 13:10> Review of Systems Narrative: GENERAL: negative chills, positive fatigue, malaise, negative fever, sweats. HEENT: negative sinus pain, ear pain, sore throat RESPIRATORY: negative dyspnea, cough CARDIOVASCULAR: negative chest pain, palpitations GASTROINTESTINAL: negative nausea, vomiting, abdominal pain : negative dysuria, frequency, hematuria, positive decreased urination MUSCULOSKELETAL: negative muscle or bony pain SKIN: negative rash, skin lesions NEUROLOGIC: negative weakness, numbness, positive dizziness ROS Unobtainable: All systems reviewed & are unremarkable except as noted in HPI and below Patient History <Joselo Neri MD - Last Filed: 10/15/22 13:10> Medical History Asthma, mild intermittent Carpal tunnel syndrome Cataracts, bilateral Cerebrovascular disease Cervical spine disease Chicken pox Chronic back pain Dizziness Essential hypertension Fractures Gait instability Hearing loss History of colonic polyps History of melanoma Left hemiparesis Mixed hyperlipidemia Mumps Polyneuropathy, unspecified Repeated falls Systolic CHF, chronic Tinea cruris Urinary incontinence Surgical History Anesthesia History of permanent cardiac pacemaker placement S/P cardiac pacemaker procedure Family History Father Heart disease Brother Heart disease Mother Old age Social History household members: spouse Smoking Status: Former smoker alcohol intake: current Smoking Status: Former smoker alcohol intake frequency: holidays/special occasions only Substance Use Type: does not use Exam <Joselo Neri MD - Last Filed: 10/15/22 13:10> Narrative Exam Narrative: GENERAL: in no distress, not toxic not dyspneic HEAD: Normocephalic. EYES: Pupils equal round, pink conjunctiva ENT: Mucous membranes moist. NECK: Trachea midline. CARDIOVASCULAR: Regular rate and rhythm without murmurs RESPIRATORY: Clear to auscultation. Breath sounds equal bilaterally. No wheezes, rales, or rhonchi. GASTROINTESTINAL: Abdomen soft, non-tender EXTREMITIES: No gross deformities. BACK: No flank tenderness. NEURO: AOx4. Fast exam is negative. 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 Negative pronator drift SKIN: Warm and dry PSYCH: Not anxious, is cooperative Initial Vital Signs Initial Vital Signs: Vital Signs Temperature 97.5 F L 10/10/22 15:34 Pulse Rate 60 10/10/22 15:34 Respiratory Rate 13 10/10/22 15:34 Blood Pressure 103/51 L 10/10/22 15:34 Pulse Oximetry 97 10/10/22 15:34 Oxygen Delivery Method Room Air 10/10/22 15:34 <Charo Lopez MD - Last Filed: 10/10/22 20:33> Initial Vital Signs Initial Vital Signs: Vital Signs Temperature 97.5 F L 10/10/22 15:34 Pulse Rate 60 10/10/22 15:34 Respiratory Rate 13 10/10/22 15:34 Blood Pressure 103/51 L 10/10/22 15:34 Pulse Oximetry 97 10/10/22 15:34 Oxygen Delivery Method Room Air 10/10/22 15:34 Course <Joselo Neri MD - Last Filed: 10/15/22 13:10> Orders Ordered: Discontinued Medications Acetaminophen (Acetaminophen 325 Mg Tablet) 650 mg PO Q6H PRN PRN Reason: Fever/Mild Pain (1-3) Last Admin: 10/11/22 00:09 Dose: 650 mg Documented By: AM Aspirin (Aspirin Ec 81 Mg Tablet) 81 mg PO DAILY [facility] Last Admin: 10/11/22 08:40 Dose: 81 mg Documented By: LDV Atorvastatin Calcium (Atorvastatin 20 Mg Tablet) 80 mg PO BEDTIME [facility] Last Admin: 10/10/22 22:11 Dose: 80 mg Documented By: TLS Clopidogrel Bisulfate (Clopidogrel 75 Mg Tablet) 75 mg PO DAILY [facility] Last Admin: 10/11/22 08:40 Dose: 75 mg Documented By: LDV Furosemide (Furosemide 20 Mg/2 Ml Vial) 20 mg IV DAILY [facility] Furosemide (Furosemide 20 Mg Tablet) 20 mg PO DAILY [facility] Last Admin: 10/11/22 08:41 Dose: 20 mg Documented By: LDV Heparin Sodium (Porcine) (Heparin 5,000 Unit/Ml Vial) 5,000 unit SUBCUT BID [facility] Last Admin: 10/11/22 08:41 Dose: 5,000 unit Documented By: NAIFV Sodium Chloride (Normal Saline 0.9%) 500 mls @ 1,000 mls/hr IV BOLUS ONE Stop: 10/10/22 16:32 Last Infusion: 10/10/22 16:39 Dose: 0 mls/hr Documented By: Admin: 10/10/22 16:17 Dose: 1,000 mls/hr Documented By: SAUL Sodium Chloride (Normal Saline 0.9%) 500 mls @ 1,000 mls/hr IV BOLUS ONE Stop: 10/10/22 17:09 Last Infusion: 10/10/22 17:18 Dose: 0 mls/hr Documented By: KacyGG Admin: 10/10/22 16:41 Dose: 1,000 mls/hr Documented By: SAUL Sodium Chloride (Normal Saline 0.9%) 500 mls @ 1,000 mls/hr IV BOLUS ONE Stop: 10/10/22 17:31 Last Infusion: 10/10/22 17:56 Dose: 0 mls/hr Documented By: Admin: 10/10/22 17:18 Dose: 1,000 mls/hr Documented By: SAUL Melatonin (Melatonin 3 Mg Tablet) 6 mg PO BEDTIME PRN PRN Reason: sleep Last Admin: 10/11/22 02:35 Dose: 6 mg Documented By: AM Metoprolol Succinate (Metoprolol Er 50 Mg Tablet) 50 mg PO DAILY [facility] Last Admin: 10/11/22 08:41 Dose: 50 mg Documented By: LDV Naloxone HCl (Naloxone 0.4 Mg/Ml Vial) 0.2 mg IV Q2MIN PRN PRN Reason: Opiate Reversal Ondansetron HCl (Ondansetron 4 Mg/2 Ml Inj) 4 mg IV Q8HR PRN PRN Reason: Nausea And Vomiting Vital Signs Vital signs: Vital Signs - 8 hr 10/10/22 15:34 10/10/22 15:35 10/10/22 16:00 Temperature 97.5 F L Pulse Rate 60 60 Respiratory Rate 13 14 Blood Pressure 103/51 L 99/48 L Pulse Oximetry 97 98 Oxygen Delivery Method Room Air Oxygen Flow Rate 10/10/22 16:00 10/10/22 16:05 10/10/22 16:05 Temperature Pulse Rate 60 61 Respiratory Rate Blood Pressure 97/46 L Pulse Oximetry 100 Oxygen Delivery Method Oxygen Flow Rate 10/10/22 16:13 10/10/22 16:13 10/10/22 16:15 Temperature Pulse Rate 60 Respiratory Rate Blood Pressure 94/46 L 95/49 L Pulse Oximetry Oxygen Delivery Method Oxygen Flow Rate 10/10/22 16:15 10/10/22 16:20 10/10/22 16:20 Temperature Pulse Rate 60 60 Respiratory Rate 13 Blood Pressure 93/45 L Pulse Oximetry 91 92 Oxygen Delivery Method Oxygen Flow Rate 10/10/22 16:25 10/10/22 16:25 10/10/22 16:30 Temperature Pulse Rate 60 Respiratory Rate 14 Blood Pressure 105/52 L 99/49 L Pulse Oximetry 94 Oxygen Delivery Method Oxygen Flow Rate 10/10/22 16:30 10/10/22 16:35 10/10/22 16:35 Temperature Pulse Rate 60 61 Respiratory Rate 22 14 Blood Pressure 98/47 L Pulse Oximetry 93 93 Oxygen Delivery Method Oxygen Flow Rate 10/10/22 16:40 10/10/22 16:40 10/10/22 16:45 Temperature Pulse Rate 62 Respiratory Rate 16 Blood Pressure 104/51 L 104/52 L Pulse Oximetry 93 Oxygen Delivery Method Oxygen Flow Rate 10/10/22 16:45 10/10/22 16:52 10/10/22 16:52 Temperature Pulse Rate 60 61 Respiratory Rate 12 Blood Pressure 107/53 L Pulse Oximetry 98 95 Oxygen Delivery Method Oxygen Flow Rate 10/10/22 16:55 10/10/22 16:55 10/10/22 17:00 Temperature Pulse Rate 62 Respiratory Rate 15 Blood Pressure 118/58 L 118/57 L Pulse Oximetry 93 Oxygen Delivery Method Oxygen Flow Rate 10/10/22 17:00 10/10/22 17:05 10/10/22 17:05 Temperature Pulse Rate 61 60 Respiratory Rate 19 28 H Blood Pressure 115/55 L Pulse Oximetry 91 95 Oxygen Delivery Method Oxygen Flow Rate 10/10/22 17:10 10/10/22 17:10 10/10/22 17:15 Temperature Pulse Rate 62 Respiratory Rate 16 Blood Pressure 128/58 L 129/59 L Pulse Oximetry 92 Oxygen Delivery Method Oxygen Flow Rate 10/10/22 17:15 10/10/22 17:20 10/10/22 17:20 Temperature Pulse Rate 62 62 Respiratory Rate 16 14 Blood Pressure 123/61 Pulse Oximetry 92 91 Oxygen Delivery Method Oxygen Flow Rate 10/10/22 17:26 10/10/22 17:26 10/10/22 17:30 Temperature Pulse Rate 62 Respiratory Rate 19 Blood Pressure 116/77 117/51 L Pulse Oximetry 95 Oxygen Delivery Method Oxygen Flow Rate 10/10/22 17:30 10/10/22 17:36 10/10/22 17:36 Temperature Pulse Rate 61 62 Respiratory Rate 17 26 H Blood Pressure 100/51 L Pulse Oximetry 94 96 Oxygen Delivery Method Oxygen Flow Rate 10/10/22 17:40 10/10/22 17:40 10/10/22 17:45 Temperature Pulse Rate 61 62 Respiratory Rate 15 22 Blood Pressure 114/56 L Pulse Oximetry 96 94 Oxygen Delivery Method Oxygen Flow Rate 10/10/22 17:45 10/10/22 17:50 10/10/22 17:50 Temperature Pulse Rate 63 Respiratory Rate 16 Blood Pressure 120/56 L 125/58 L Pulse Oximetry 94 Oxygen Delivery Method Oxygen Flow Rate 10/10/22 17:55 10/10/22 17:55 10/10/22 18:00 Temperature Pulse Rate 63 Respiratory Rate 19 Blood Pressure 112/54 L 116/56 L Pulse Oximetry 92 Oxygen Delivery Method Oxygen Flow Rate 10/10/22 18:00 10/10/22 18:05 10/10/22 18:05 Temperature Pulse Rate 63 62 Respiratory Rate 14 13 Blood Pressure 116/56 L Pulse Oximetry 92 93 Oxygen Delivery Method Oxygen Flow Rate 10/10/22 18:10 10/10/22 18:10 10/10/22 18:15 Temperature Pulse Rate 62 62 Respiratory Rate 15 12 Blood Pressure 125/58 L Pulse Oximetry 93 97 Oxygen Delivery Method Oxygen Flow Rate 10/10/22 18:15 10/10/22 18:20 10/10/22 18:20 Temperature Pulse Rate 61 Respiratory Rate 13 Blood Pressure 114/58 L 126/61 Pulse Oximetry 100 Oxygen Delivery Method Oxygen Flow Rate 10/10/22 18:25 10/10/22 18:25 10/10/22 18:30 Temperature Pulse Rate 62 Respiratory Rate 15 Blood Pressure 120/59 L 123/58 L Pulse Oximetry 100 Oxygen Delivery Method Oxygen Flow Rate 10/10/22 18:30 10/10/22 18:36 10/10/22 18:36 Temperature Pulse Rate 63 63 Respiratory Rate 20 28 H Blood Pressure 110/58 L Pulse Oximetry 99 100 Oxygen Delivery Method Oxygen Flow Rate 10/10/22 18:46 10/10/22 18:46 10/10/22 18:50 Temperature Pulse Rate 68 Respiratory Rate 14 Blood Pressure 105/53 L 102/55 L Pulse Oximetry 95 Oxygen Delivery Method Room Air Oxygen Flow Rate 10/10/22 18:50 10/10/22 19:06 10/10/22 19:08 Temperature Pulse Rate 65 73 65 Respiratory Rate 12 17 16 Blood Pressure Pulse Oximetry 96 94 93 Oxygen Delivery Method Oxygen Flow Rate 10/10/22 19:08 10/10/22 19:10 10/10/22 19:10 Temperature Pulse Rate 61 Respiratory Rate 13 Blood Pressure 113/57 L 142/63 H Pulse Oximetry 98 Oxygen Delivery Method Oxygen Flow Rate 10/10/22 19:15 10/10/22 19:15 10/10/22 19:20 Temperature Pulse Rate 61 60 Respiratory Rate 14 14 Blood Pressure 129/52 L Pulse Oximetry 88 L 94 Oxygen Delivery Method Nasal Cannula Oxygen Flow Rate 2 10/10/22 19:20 10/10/22 19:25 10/10/22 19:25 Temperature Pulse Rate 60 Respiratory Rate 15 Blood Pressure 127/60 125/58 L Pulse Oximetry 94 Oxygen Delivery Method Oxygen Flow Rate 10/10/22 19:30 Temperature Pulse Rate 61 Respiratory Rate 10 L Blood Pressure Pulse Oximetry 93 Oxygen Delivery Method Oxygen Flow Rate <Charo Lopez MD - Last Filed: 10/10/22 20:33> Orders Ordered: Discontinued Medications Acetaminophen (Acetaminophen 325 Mg Tablet) 650 mg PO Q6H PRN PRN Reason: Fever/Mild Pain (1-3) Last Admin: 10/11/22 00:09 Dose: 650 mg Documented By: AM Aspirin (Aspirin Ec 81 Mg Tablet) 81 mg PO DAILY [facility] Last Admin: 10/11/22 08:40 Dose: 81 mg Documented By: LDV Atorvastatin Calcium (Atorvastatin 20 Mg Tablet) 80 mg PO BEDTIME [facility] Last Admin: 10/10/22 22:11 Dose: 80 mg Documented By: TLS Clopidogrel Bisulfate (Clopidogrel 75 Mg Tablet) 75 mg PO DAILY [facility] Last Admin: 10/11/22 08:40 Dose: 75 mg Documented By: LDV Furosemide (Furosemide 20 Mg/2 Ml Vial) 20 mg IV DAILY [facility] Furosemide (Furosemide 20 Mg Tablet) 20 mg PO DAILY [facility] Last Admin: 10/11/22 08:41 Dose: 20 mg Documented By: LDV Heparin Sodium (Porcine) (Heparin 5,000 Unit/Ml Vial) 5,000 unit SUBCUT BID [facility] Last Admin: 10/11/22 08:41 Dose: 5,000 unit Documented By: CYRUS Sodium Chloride (Normal Saline 0.9%) 500 mls @ 1,000 mls/hr IV BOLUS ONE Stop: 10/10/22 16:32 Last Infusion: 10/10/22 16:39 Dose: 0 mls/hr Documented By: Admin: 10/10/22 16:17 Dose: 1,000 mls/hr Documented By: SAUL Sodium Chloride (Normal Saline 0.9%) 500 mls @ 1,000 mls/hr IV BOLUS ONE Stop: 10/10/22 17:09 Last Infusion: 10/10/22 17:18 Dose: 0 mls/hr Documented By: Admin: 10/10/22 16:41 Dose: 1,000 mls/hr Documented By: SAUL Sodium Chloride (Normal Saline 0.9%) 500 mls @ 1,000 mls/hr IV BOLUS ONE Stop: 10/10/22 17:31 Last Infusion: 10/10/22 17:56 Dose: 0 mls/hr Documented By: Admin: 10/10/22 17:18 Dose: 1,000 mls/hr Documented By: SAUL Melatonin (Melatonin 3 Mg Tablet) 6 mg PO BEDTIME PRN PRN Reason: sleep Last Admin: 10/11/22 02:35 Dose: 6 mg Documented By: AM Metoprolol Succinate (Metoprolol Er 50 Mg Tablet) 50 mg PO DAILY [facility] Last Admin: 10/11/22 08:41 Dose: 50 mg Documented By: LDV Naloxone HCl (Naloxone 0.4 Mg/Ml Vial) 0.2 mg IV Q2MIN PRN PRN Reason: Opiate Reversal Ondansetron HCl (Ondansetron 4 Mg/2 Ml Inj) 4 mg IV Q8HR PRN PRN Reason: Nausea And Vomiting Vital Signs Vital signs: Vital Signs - 8 hr 10/10/22 15:34 10/10/22 15:35 10/10/22 16:00 Temperature 97.5 F L Pulse Rate 60 60 Respiratory Rate 13 14 Blood Pressure 103/51 L 99/48 L Pulse Oximetry 97 98 Oxygen Delivery Method Room Air Oxygen Flow Rate 10/10/22 16:00 10/10/22 16:05 10/10/22 16:05 Temperature Pulse Rate 60 61 Respiratory Rate Blood Pressure 97/46 L Pulse Oximetry 100 Oxygen Delivery Method Oxygen Flow Rate 10/10/22 16:13 10/10/22 16:13 10/10/22 16:15 Temperature Pulse Rate 60 Respiratory Rate Blood Pressure 94/46 L 95/49 L Pulse Oximetry Oxygen Delivery Method Oxygen Flow Rate 10/10/22 16:15 10/10/22 16:20 10/10/22 16:20 Temperature Pulse Rate 60 60 Respiratory Rate 13 Blood Pressure 93/45 L Pulse Oximetry 91 92 Oxygen Delivery Method Oxygen Flow Rate 10/10/22 16:25 10/10/22 16:25 10/10/22 16:30 Temperature Pulse Rate 60 Respiratory Rate 14 Blood Pressure 105/52 L 99/49 L Pulse Oximetry 94 Oxygen Delivery Method Oxygen Flow Rate 10/10/22 16:30 10/10/22 16:35 10/10/22 16:35 Temperature Pulse Rate 60 61 Respiratory Rate 22 14 Blood Pressure 98/47 L Pulse Oximetry 93 93 Oxygen Delivery Method Oxygen Flow Rate 10/10/22 16:40 10/10/22 16:40 10/10/22 16:45 Temperature Pulse Rate 62 Respiratory Rate 16 Blood Pressure 104/51 L 104/52 L Pulse Oximetry 93 Oxygen Delivery Method Oxygen Flow Rate 10/10/22 16:45 10/10/22 16:52 10/10/22 16:52 Temperature Pulse Rate 60 61 Respiratory Rate 12 Blood Pressure 107/53 L Pulse Oximetry 98 95 Oxygen Delivery Method Oxygen Flow Rate 10/10/22 16:55 10/10/22 16:55 10/10/22 17:00 Temperature Pulse Rate 62 Respiratory Rate 15 Blood Pressure 118/58 L 118/57 L Pulse Oximetry 93 Oxygen Delivery Method Oxygen Flow Rate 10/10/22 17:00 10/10/22 17:05 10/10/22 17:05 Temperature Pulse Rate 61 60 Respiratory Rate 19 28 H Blood Pressure 115/55 L Pulse Oximetry 91 95 Oxygen Delivery Method Oxygen Flow Rate 10/10/22 17:10 10/10/22 17:10 10/10/22 17:15 Temperature Pulse Rate 62 Respiratory Rate 16 Blood Pressure 128/58 L 129/59 L Pulse Oximetry 92 Oxygen Delivery Method Oxygen Flow Rate 10/10/22 17:15 10/10/22 17:20 10/10/22 17:20 Temperature Pulse Rate 62 62 Respiratory Rate 16 14 Blood Pressure 123/61 Pulse Oximetry 92 91 Oxygen Delivery Method Oxygen Flow Rate 10/10/22 17:26 10/10/22 17:26 10/10/22 17:30 Temperature Pulse Rate 62 Respiratory Rate 19 Blood Pressure 116/77 117/51 L Pulse Oximetry 95 Oxygen Delivery Method Oxygen Flow Rate 10/10/22 17:30 10/10/22 17:36 10/10/22 17:36 Temperature Pulse Rate 61 62 Respiratory Rate 17 26 H Blood Pressure 100/51 L Pulse Oximetry 94 96 Oxygen Delivery Method Oxygen Flow Rate 10/10/22 17:40 10/10/22 17:40 10/10/22 17:45 Temperature Pulse Rate 61 62 Respiratory Rate 15 22 Blood Pressure 114/56 L Pulse Oximetry 96 94 Oxygen Delivery Method Oxygen Flow Rate 10/10/22 17:45 10/10/22 17:50 10/10/22 17:50 Temperature Pulse Rate 63 Respiratory Rate 16 Blood Pressure 120/56 L 125/58 L Pulse Oximetry 94 Oxygen Delivery Method Oxygen Flow Rate 10/10/22 17:55 10/10/22 17:55 10/10/22 18:00 Temperature Pulse Rate 63 Respiratory Rate 19 Blood Pressure 112/54 L 116/56 L Pulse Oximetry 92 Oxygen Delivery Method Oxygen Flow Rate 10/10/22 18:00 10/10/22 18:05 10/10/22 18:05 Temperature Pulse Rate 63 62 Respiratory Rate 14 13 Blood Pressure 116/56 L Pulse Oximetry 92 93 Oxygen Delivery Method Oxygen Flow Rate 10/10/22 18:10 10/10/22 18:10 10/10/22 18:15 Temperature Pulse Rate 62 62 Respiratory Rate 15 12 Blood Pressure 125/58 L Pulse Oximetry 93 97 Oxygen Delivery Method Oxygen Flow Rate 10/10/22 18:15 10/10/22 18:20 10/10/22 18:20 Temperature Pulse Rate 61 Respiratory Rate 13 Blood Pressure 114/58 L 126/61 Pulse Oximetry 100 Oxygen Delivery Method Oxygen Flow Rate 10/10/22 18:25 10/10/22 18:25 10/10/22 18:30 Temperature Pulse Rate 62 Respiratory Rate 15 Blood Pressure 120/59 L 123/58 L Pulse Oximetry 100 Oxygen Delivery Method Oxygen Flow Rate 10/10/22 18:30 10/10/22 18:36 10/10/22 18:36 Temperature Pulse Rate 63 63 Respiratory Rate 20 28 H Blood Pressure 110/58 L Pulse Oximetry 99 100 Oxygen Delivery Method Oxygen Flow Rate 10/10/22 18:46 10/10/22 18:46 10/10/22 18:50 Temperature Pulse Rate 68 Respiratory Rate 14 Blood Pressure 105/53 L 102/55 L Pulse Oximetry 95 Oxygen Delivery Method Room Air Oxygen Flow Rate 10/10/22 18:50 10/10/22 19:06 10/10/22 19:08 Temperature Pulse Rate 65 73 65 Respiratory Rate 12 17 16 Blood Pressure Pulse Oximetry 96 94 93 Oxygen Delivery Method Oxygen Flow Rate 10/10/22 19:08 10/10/22 19:10 10/10/22 19:10 Temperature Pulse Rate 61 Respiratory Rate 13 Blood Pressure 113/57 L 142/63 H Pulse Oximetry 98 Oxygen Delivery Method Oxygen Flow Rate 10/10/22 19:15 10/10/22 19:15 10/10/22 19:20 Temperature Pulse Rate 61 60 Respiratory Rate 14 14 Blood Pressure 129/52 L Pulse Oximetry 88 L 94 Oxygen Delivery Method Nasal Cannula Oxygen Flow Rate 2 10/10/22 19:20 10/10/22 19:25 10/10/22 19:25 Temperature Pulse Rate 60 Respiratory Rate 15 Blood Pressure 127/60 125/58 L Pulse Oximetry 94 Oxygen Delivery Method Oxygen Flow Rate 10/10/22 19:30 Temperature Pulse Rate 61 Respiratory Rate 10 L Blood Pressure Pulse Oximetry 93 Oxygen Delivery Method Oxygen Flow Rate MDM - Weakness <Joselo Neri MD - Last Filed: 10/15/22 13:10> Lab Data 10/11/22 04:39 10/11/22 04:39 Labs: Lab Results 10/10/22 10/10/22 10/10/22 Range/Units 15:30 15:30 15:30 WBC 9.6 (4.5-11.0) X10^3/uL RBC 4.18 (4.0-5.2) X10^6/uL Hgb 13.6 (12.0-16.0) g/dL Hct 40.4 (36-46) % MCV 96.5 (80-100) fL MCH 32.6 (26-34) PG MCHC 33.8 (30-36) % RDW 14.0 (11.6-14.8) % Plt Count 347 (150-400) X10^3/uL Neut % (Auto) 53.3 (50-75) % Lymph % (Auto) 30.2 (25-40) % [place] % (Auto) 8.0 (3-14) % Eos % (Auto) 7.8 H (2-4) % Baso % (Auto) 0.7 (0-2) % Neut # (Auto) 5100 (4518-0676) /uL Lymph # (Auto) 2900 (5875-0717) /uL [place] # (Auto) 800 (0-900) /uL Eos # (Auto) 700 H (0-450) /uL Baso # (Auto) 100 (0-100) /uL Sodium 140 (137-145) mmol/L Potassium 3.8 (3.4-5.1) mmol/L Chloride 99 (98-107) mmol/L Carbon Dioxide 25 (22-32) mmol/L BUN 32 H (7-17) mg/dL Creatinine 1.71 H (0.52-1.04) mg/dL Estimated GFR 30 L (>60) mL/min BUN/Creatinine Ratio 18.7 (6-22) Glucose 94 (80-110) mg/dL Calcium 9.9 (8.4-10.2) mg/dL Total Bilirubin 0.6 (0.2-1.3) mg/dL AST 32 (14-36) IU/L ALT 23 (<35) IU/L Alkaline Phosphatase 82 (38-126) U/L Troponin I 0.014 (0.01-0.034) ng/mL NT-Pro-B Natriuret Pep Total Protein 8.5 H (6.3-8.2) g/dL Albumin 4.8 (3.5-5.0) g/dL Globulin 3.7 (1.7-4.1) g/dL Albumin/Globulin Ratio 1.3 (1.0-2.8) Ethyl Alcohol ( - 10) mg/dL Chlamy pneumoniae PCR (Not Detect) Adenovirus (PCR) (Not Detect) B. pertussis DNA (PCR) (Not Detecte) B.parapertussis DNA PCR (Not Detecte) Coronavirus OC43 (PCR) (Not Detect) Coronavirus HKU1 (PCR) (Not Detect) Coronavirus 229E (PCR) (Not Detect) SARS-CoV-2 (PCR) (Not Detecte) Coronavirus NL63 (PCR) (Not Detect) Human Metapneumovir PCR (Not Detect) Influenza Type A (PCR) (Not Detect) Influenza Type B (PCR) (Not Detect) M. pneumoniae (PCR) (Not Detect) Parainfluenza 1 (PCR) (Not Detect) Parainfluenza 2 (PCR) (Not Detect) Parainfluenza 3 (PCR) (Not Detect) Parainfluenza 4 (PCR) (Not Detect) RSV (PCR) (Not Detect) Entero/Rhino (PCR) (Not Detect) 10/10/22 10/10/22 10/10/22 Range/Units 15:30 16:10 16:50 WBC (4.5-11.0) X10^3/uL RBC (4.0-5.2) X10^6/uL Hgb (12.0-16.0) g/dL Hct (36-46) % MCV (80-100) fL MCH (26-34) PG MCHC (30-36) % RDW (11.6-14.8) % Plt Count (150-400) X10^3/uL Neut % (Auto) (50-75) % Lymph % (Auto) (25-40) % [place] % (Auto) (3-14) % Eos % (Auto) (2-4) % Baso % (Auto) (0-2) % Neut # (Auto) (3991-5519) /uL Lymph # (Auto) (6698-7158) /uL [place] # (Auto) (0-900) /uL Eos # (Auto) (0-450) /uL Baso # (Auto) (0-100) /uL Sodium (137-145) mmol/L Potassium (3.4-5.1) mmol/L Chloride (98-107) mmol/L Carbon Dioxide (22-32) mmol/L BUN (7-17) mg/dL Creatinine (0.52-1.04) mg/dL Estimated GFR (>60) mL/min BUN/Creatinine Ratio (6-22) Glucose (80-110) mg/dL Calcium (8.4-10.2) mg/dL Total Bilirubin (0.2-1.3) mg/dL AST (14-36) IU/L ALT (<35) IU/L Alkaline Phosphatase (38-126) U/L Troponin I (0.01-0.034) ng/mL NT-Pro-B Natriuret Pep Cancelled Total Protein (6.3-8.2) g/dL Albumin (3.5-5.0) g/dL Globulin (1.7-4.1) g/dL Albumin/Globulin Ratio (1.0-2.8) Ethyl Alcohol 50 H ( - 10) mg/dL Chlamy pneumoniae PCR Not detected (Not Detect) Adenovirus (PCR) Not detected (Not Detect) B. pertussis DNA (PCR) Not detected (Not Detecte) B.parapertussis DNA PCR Not detected (Not Detecte) Coronavirus OC43 (PCR) Not detected (Not Detect) Coronavirus HKU1 (PCR) Not detected (Not Detect) Coronavirus 229E (PCR) Not detected (Not Detect) SARS-CoV-2 (PCR) Not detected (Not Detecte) Coronavirus NL63 (PCR) Not detected (Not Detect) Human Metapneumovir PCR Not detected (Not Detect) Influenza Type A (PCR) Not detected (Not Detect) Influenza Type B (PCR) Not detected (Not Detect) M. pneumoniae (PCR) Not detected (Not Detect) Parainfluenza 1 (PCR) Not detected (Not Detect) Parainfluenza 2 (PCR) Not detected (Not Detect) Parainfluenza 3 (PCR) Not detected (Not Detect) Parainfluenza 4 (PCR) Not detected (Not Detect) RSV (PCR) Not detected (Not Detect) Entero/Rhino (PCR) Not detected (Not Detect) 10/10/22 Range/Units 20:21 WBC (4.5-11.0) X10^3/uL RBC (4.0-5.2) X10^6/uL Hgb (12.0-16.0) g/dL Hct (36-46) % MCV (80-100) fL MCH (26-34) PG MCHC (30-36) % RDW (11.6-14.8) % Plt Count (150-400) X10^3/uL Neut % (Auto) (50-75) % Lymph % (Auto) (25-40) % [place] % (Auto) (3-14) % Eos % (Auto) (2-4) % Baso % (Auto) (0-2) % Neut # (Auto) (6726-8159) /uL Lymph # (Auto) (9892-3303) /uL [place] # (Auto) (0-900) /uL Eos # (Auto) (0-450) /uL Baso # (Auto) (0-100) /uL Sodium (137-145) mmol/L Potassium (3.4-5.1) mmol/L Chloride (98-107) mmol/L Carbon Dioxide (22-32) mmol/L BUN (7-17) mg/dL Creatinine (0.52-1.04) mg/dL Estimated GFR (>60) mL/min BUN/Creatinine Ratio (6-22) Glucose (80-110) mg/dL Calcium (8.4-10.2) mg/dL Total Bilirubin (0.2-1.3) mg/dL AST (14-36) IU/L ALT (<35) IU/L Alkaline Phosphatase (38-126) U/L Troponin I 0.013 (0.01-0.034) ng/mL NT-Pro-B Natriuret Pep 190 Total Protein (6.3-8.2) g/dL Albumin (3.5-5.0) g/dL Globulin (1.7-4.1) g/dL Albumin/Globulin Ratio (1.0-2.8) Ethyl Alcohol ( - 10) mg/dL Chlamy pneumoniae PCR (Not Detect) Adenovirus (PCR) (Not Detect) B. pertussis DNA (PCR) (Not Detecte) B.parapertussis DNA PCR (Not Detecte) Coronavirus OC43 (PCR) (Not Detect) Coronavirus HKU1 (PCR) (Not Detect) Coronavirus 229E (PCR) (Not Detect) SARS-CoV-2 (PCR) (Not Detecte) Coronavirus NL63 (PCR) (Not Detect) Human Metapneumovir PCR (Not Detect) Influenza Type A (PCR) (Not Detect) Influenza Type B (PCR) (Not Detect) M. pneumoniae (PCR) (Not Detect) Parainfluenza 1 (PCR) (Not Detect) Parainfluenza 2 (PCR) (Not Detect) Parainfluenza 3 (PCR) (Not Detect) Parainfluenza 4 (PCR) (Not Detect) RSV (PCR) (Not Detect) Entero/Rhino (PCR) (Not Detect) Urine Dip Bedside Urine Glucose Negative Bedside Urine Bilirubin - Negative Bedside Urine Ketone - Negative Urine Specific [place] 1.015 Bedside Urine Occult Blood - Negative Bedside Urine pH 6.0 Bedside Urine Protein - Negative Bedside Urine Urobilinogen - Negative Bedside Urine Nitrite - Negative Bedside Urine Leukocytes - Negative Esterase Imaging Data Chest x-ray: Radiologist Impression: [address] [id number] XRay Report Signed Patient: Ana Maria Cline MR#: [id number] : 1945 Acct:[id number] Age/Sex: 77 / F Date of Service: 10/10/22 Loc: ED Accession Number: [id number] ?? Procedure: XR chest 1V Ordering Provider: Joselo Neri MD PROCEDURE:? XR CHEST 1V ? INDICATIONS:? weakness ? TECHNIQUE:? One view of the chest was acquired.? ? COMPARISON:? [facility], , XR CHEST 1V, 09/16/2022, 12:16. ? FINDINGS:? ? Surgical changes and devices:? There is a cardiac pacemaker.? Lower cervical spine fusion. ? Lungs and pleura:? Lung volumes are small consistent with shallow inspiration.? Lungs are clear.? No pleural effusions or pneumothorax.? ? Mediastinum:? Mediastinal contours appear normal.? Heart size is normal.? ? Bones and chest wall:? No suspicious bony lesions.? Overlying soft tissues appear unremarkable.? ? IMPRESSION:? No acute cardiopulmonary disease. ? ? Dictated by: Flavio Albert M.D. on 10/10/2022 at 17:00 ? ? Approved by: Flavio Albert M.D. on 10/10/2022 at 17:03 ? [facility] Narrative Medical decision making narrative: Patient brought in by ambulance from home for general malaise and weakness. Patient states she is had diarrhea over the weekend. She has recently been on antibiotics for skin infection. Patient states today she left the house without any complaints. She went looking for a residential home. She then went with her care provider to lunch and when they return in the driveway she felt very weak and could not get out of the car. She felt very dizzy. Denies any syncope. No chest pain no headache no abdominal pain. No recent black or bloody stools. No shortness of breath. She states she feels very tired. She is had decreased urine output because of the diarrhea she states. No fever chills. No unilateral weakness no slurred speech or facial droop. Fast exam is negative. Patient was admitted here last month for stroke. She states these are not the same symptoms she had. After history and exam CBC CMP troponin EKG chest x-ray alcohol level normal saline viral swab GI panel [facility] CC: Weakness dizziness Complicating co-morbidities: Recent stroke last month, admitted here Data collected from: Patient Medical records reviewed: September 18, 2022 discharge summary from this hospital Differential considered: Includes but not limited to dehydration electrolyte imbalance hypotension hypoglycemia UTI arrhythmia alcohol intoxication Exam documented above, pertinent findings include: Slow but clear speech Lab Test results independently reviewed as above. Pertinent findings: WBC 9.6 hemoglobin 13.6 hematocrit 40.4 sodium 140 potassium 3.8 bicarb 25 BUN 32 creatinine 1.7 both of these are slightly higher than baseline. GFR 30 which is lower than baseline Calcium 9.9 AST 32 ALT 23 troponin 0.014 which is baseline for patient viral swab negative Independently reviewed EKG AV dual paced rhythm rate 60 Imaging studies independently reviewed: Chest x-ray no acute process Consultations: Treatments: Normal saline Re-evaluations: 6:30 p.m.. Patient is still not gone out of bed to ambulate or provide urinalysis. Discussion: Diagnosis: 6:30 p.m.. Sign out to Dr. Lew. At this time patient likely dehydrated. Laboratory studies indicate this time likely dehydrated. Patient needs road testing ambulation as well as urinalysis. <Charo Lopez MD - Last Filed: 10/10/22 20:33> Lab Data Labs: Lab Results 10/10/22 10/10/22 10/10/22 Range/Units 15:30 15:30 15:30 WBC 9.6 (4.5-11.0) X10^3/uL RBC 4.18 (4.0-5.2) X10^6/uL Hgb 13.6 (12.0-16.0) g/dL Hct 40.4 (36-46) % MCV 96.5 (80-100) fL MCH 32.6 (26-34) PG MCHC 33.8 (30-36) % RDW 14.0 (11.6-14.8) % Plt Count 347 (150-400) X10^3/uL Neut % (Auto) 53.3 (50-75) % Lymph % (Auto) 30.2 (25-40) % [place] % (Auto) 8.0 (3-14) % Eos % (Auto) 7.8 H (2-4) % Baso % (Auto) 0.7 (0-2) % Neut # (Auto) 5100 (3889-5157) /uL Lymph # (Auto) 2900 (2658-3874) /uL [place] # (Auto) 800 (0-900) /uL Eos # (Auto) 700 H (0-450) /uL Baso # (Auto) 100 (0-100) /uL Sodium 140 (137-145) mmol/L Potassium 3.8 (3.4-5.1) mmol/L Chloride 99 (98-107) mmol/L Carbon Dioxide 25 (22-32) mmol/L BUN 32 H (7-17) mg/dL Creatinine 1.71 H (0.52-1.04) mg/dL Estimated GFR 30 L (>60) mL/min BUN/Creatinine Ratio 18.7 (6-22) Glucose 94 (80-110) mg/dL Calcium 9.9 (8.4-10.2) mg/dL Total Bilirubin 0.6 (0.2-1.3) mg/dL AST 32 (14-36) IU/L ALT 23 (<35) IU/L Alkaline Phosphatase 82 (38-126) U/L Troponin I 0.014 (0.01-0.034) ng/mL NT-Pro-B Natriuret Pep Total Protein 8.5 H (6.3-8.2) g/dL Albumin 4.8 (3.5-5.0) g/dL Globulin 3.7 (1.7-4.1) g/dL Albumin/Globulin Ratio 1.3 (1.0-2.8) Ethyl Alcohol ( - 10) mg/dL Chlamy pneumoniae PCR (Not Detect) Adenovirus (PCR) (Not Detect) B. pertussis DNA (PCR) (Not Detecte) B.parapertussis DNA PCR (Not Detecte) Coronavirus OC43 (PCR) (Not Detect) Coronavirus HKU1 (PCR) (Not Detect) Coronavirus 229E (PCR) (Not Detect) SARS-CoV-2 (PCR) (Not Detecte) Coronavirus NL63 (PCR) (Not Detect) Human Metapneumovir PCR (Not Detect) Influenza Type A (PCR) (Not Detect) Influenza Type B (PCR) (Not Detect) M. pneumoniae (PCR) (Not Detect) Parainfluenza 1 (PCR) (Not Detect) Parainfluenza 2 (PCR) (Not Detect) Parainfluenza 3 (PCR) (Not Detect) Parainfluenza 4 (PCR) (Not Detect) RSV (PCR) (Not Detect) Entero/Rhino (PCR) (Not Detect) 10/10/22 10/10/22 10/10/22 Range/Units 15:30 16:10 16:50 WBC (4.5-11.0) X10^3/uL RBC (4.0-5.2) X10^6/uL Hgb (12.0-16.0) g/dL Hct (36-46) % MCV (80-100) fL MCH (26-34) PG MCHC (30-36) % RDW (11.6-14.8) % Plt Count (150-400) X10^3/uL Neut % (Auto) (50-75) % Lymph % (Auto) (25-40) % [place] % (Auto) (3-14) % Eos % (Auto) (2-4) % Baso % (Auto) (0-2) % Neut # (Auto) (0200-5690) /uL Lymph # (Auto) (5841-5947) /uL [place] # (Auto) (0-900) /uL Eos # (Auto) (0-450) /uL Baso # (Auto) (0-100) /uL Sodium (137-145) mmol/L Potassium (3.4-5.1) mmol/L Chloride (98-107) mmol/L Carbon Dioxide (22-32) mmol/L BUN (7-17) mg/dL Creatinine (0.52-1.04) mg/dL Estimated GFR (>60) mL/min BUN/Creatinine Ratio (6-22) Glucose (80-110) mg/dL Calcium (8.4-10.2) mg/dL Total Bilirubin (0.2-1.3) mg/dL AST (14-36) IU/L ALT (<35) IU/L Alkaline Phosphatase (38-126) U/L Troponin I (0.01-0.034) ng/mL NT-Pro-B Natriuret Pep Cancelled Total Protein (6.3-8.2) g/dL Albumin (3.5-5.0) g/dL Globulin (1.7-4.1) g/dL Albumin/Globulin Ratio (1.0-2.8) Ethyl Alcohol 50 H ( - 10) mg/dL Chlamy pneumoniae PCR Not detected (Not Detect) Adenovirus (PCR) Not detected (Not Detect) B. pertussis DNA (PCR) Not detected (Not Detecte) B.parapertussis DNA PCR Not detected (Not Detecte) Coronavirus OC43 (PCR) Not detected (Not Detect) Coronavirus HKU1 (PCR) Not detected (Not Detect) Coronavirus 229E (PCR) Not detected (Not Detect) SARS-CoV-2 (PCR) Not detected (Not Detecte) Coronavirus NL63 (PCR) Not detected (Not Detect) Human Metapneumovir PCR Not detected (Not Detect) Influenza Type A (PCR) Not detected (Not Detect) Influenza Type B (PCR) Not detected (Not Detect) M. pneumoniae (PCR) Not detected (Not Detect) Parainfluenza 1 (PCR) Not detected (Not Detect) Parainfluenza 2 (PCR) Not detected (Not Detect) Parainfluenza 3 (PCR) Not detected (Not Detect) Parainfluenza 4 (PCR) Not detected (Not Detect) RSV (PCR) Not detected (Not Detect) Entero/Rhino (PCR) Not detected (Not Detect) 10/10/22 Range/Units 20:21 WBC (4.5-11.0) X10^3/uL RBC (4.0-5.2) X10^6/uL Hgb (12.0-16.0) g/dL Hct (36-46) % MCV (80-100) fL MCH (26-34) PG MCHC (30-36) % RDW (11.6-14.8) % Plt Count (150-400) X10^3/uL Neut % (Auto) (50-75) % Lymph % (Auto) (25-40) % [place] % (Auto) (3-14) % Eos % (Auto) (2-4) % Baso % (Auto) (0-2) % Neut # (Auto) (0665-2524) /uL Lymph # (Auto) (6424-3339) /uL [place] # (Auto) (0-900) /uL Eos # (Auto) (0-450) /uL Baso # (Auto) (0-100) /uL Sodium (137-145) mmol/L Potassium (3.4-5.1) mmol/L Chloride (98-107) mmol/L Carbon Dioxide (22-32) mmol/L BUN (7-17) mg/dL Creatinine (0.52-1.04) mg/dL Estimated GFR (>60) mL/min BUN/Creatinine Ratio (6-22) Glucose (80-110) mg/dL Calcium (8.4-10.2) mg/dL Total Bilirubin (0.2-1.3) mg/dL AST (14-36) IU/L ALT (<35) IU/L Alkaline Phosphatase (38-126) U/L Troponin I 0.013 (0.01-0.034) ng/mL NT-Pro-B Natriuret Pep 190 Total Protein (6.3-8.2) g/dL Albumin (3.5-5.0) g/dL Globulin (1.7-4.1) g/dL Albumin/Globulin Ratio (1.0-2.8) Ethyl Alcohol ( - 10) mg/dL Chlamy pneumoniae PCR (Not Detect) Adenovirus (PCR) (Not Detect) B. pertussis DNA (PCR) (Not Detecte) B.parapertussis DNA PCR (Not Detecte) Coronavirus OC43 (PCR) (Not Detect) Coronavirus HKU1 (PCR) (Not Detect) Coronavirus 229E (PCR) (Not Detect) SARS-CoV-2 (PCR) (Not Detecte) Coronavirus NL63 (PCR) (Not Detect) Human Metapneumovir PCR (Not Detect) Influenza Type A (PCR) (Not Detect) Influenza Type B (PCR) (Not Detect) M. pneumoniae (PCR) (Not Detect) Parainfluenza 1 (PCR) (Not Detect) Parainfluenza 2 (PCR) (Not Detect) Parainfluenza 3 (PCR) (Not Detect) Parainfluenza 4 (PCR) (Not Detect) RSV (PCR) (Not Detect) Entero/Rhino (PCR) (Not Detect) Urine Dip Bedside Urine Glucose Negative Bedside Urine Bilirubin - Negative Bedside Urine Ketone - Negative Urine Specific [place] 1.015 Bedside Urine Occult Blood - Negative Bedside Urine pH 6.0 Bedside Urine Protein - Negative Bedside Urine Urobilinogen - Negative Bedside Urine Nitrite - Negative Bedside Urine Leukocytes - Negative Esterase ECG Data Interpretation: Paced rhythm at a rate of 60 MDM Narrative Medical decision making narrative: Patient brought in by ambulance from home for general malaise and weakness. Patient states she is had diarrhea over the weekend. She has recently been on antibiotics for skin infection. Patient states today she left the house without any complaints. She went looking for a residential home. She then went with her care provider to lunch and when they return in the driveway she felt very weak and could not get out of the car. She felt very dizzy. Denies any syncope. No chest pain no headache no abdominal pain. No recent black or bloody stools. No shortness of breath. She states she feels very tired. She is had decreased urine output because of the diarrhea she states. No fever chills. No unilateral weakness no slurred speech or facial droop. Fast exam is negative. Patient was admitted here last month for stroke. She states these are not the same symptoms she had. After history and exam CBC CMP troponin EKG chest x-ray alcohol level normal saline viral swab GI panel [facility] CC: Weakness dizziness Complicating co-morbidities: Recent stroke last month, admitted here Data collected from: Patient Medical records reviewed: September 18, 2022 discharge summary from this hospital Differential considered: Includes but not limited to dehydration electrolyte imbalance hypotension hypoglycemia UTI arrhythmia alcohol intoxication Exam documented above, pertinent findings include: Slow but clear speech Lab Test results independently reviewed as above. Pertinent findings: WBC 9.6 hemoglobin 13.6 hematocrit 40.4 sodium 140 potassium 3.8 bicarb 25 BUN 32 creatinine 1.7 both of these are slightly higher than baseline. GFR 30 which is lower than baseline Calcium 9.9 AST 32 ALT 23 troponin 0.014 which is baseline for patient viral swab negative Independently reviewed EKG AV dual paced rhythm rate 60 Imaging studies independently reviewed: Chest x-ray no acute process Consultations: Treatments: Normal saline Dr Lopez Re-evaluations: 6:30 p.m.. Patient is still not gone out of bed to ambulate or provide urinalysis. 8am care is assumed. Patient continues to complain of significant weakness, is actually slightly more hypoxic with saturations at 90% where she had been at 97% on arrival. She is now on nasal cannula with sats at 93%. Initial diagnosis of simple dehydration in the setting of a [place] with lunch may not be appropriate at this time. She does have new acute renal failure, increasing oxygen needs, continued weakness. Second troponin is ordered BNP is added at this point will recommend hospitalization for weakness, hypoxia and acute kidney injury. There does not appear to be any evidence of acute infection, respiratory panel is unremarkable. Point of care urine test is unremarkable. No evidence of acute anemia. EKG is entirely paced. Findings and concerns reviewed with patient and her . Both are agreeable to hospitalization. On Re exam she is pale, globally weak but no other change things or new findings. 6:30 p.m.. Sign out to Dr. Lew. At this time patient likely dehydrated. Laboratory studies indicate this time likely dehydrated. Patient needs road testing ambulation as well as urinalysis. 830pm Case is reviewed with Dr Rodriguez. Pt will be admitted Discharge Plan Departure Patient Disposition: Admitted as Observation Clinical Impression: Acute kidney injury, Weakness, Hypoxia Admit Date/Time: 10/10/22 21:01 Admit Provider: Matheus Rodriguez
[2022-10-10 16:12] LABS: Add Manual Diff / Slide Review NO; Basophils Absolute Auto 100 /uL (0-100); Basophils Percent Auto 0.7 % (0-2); Eosinophils Absolute Auto 700 /uL (0-450); Eosinophils Percent Auto 7.8 % (2-4); Hematocrit 40.4 % (36-46); Hemoglobin 13.6 g/dL (12.0-16.0); Lymphocytes Absolute Auto 2900 /uL (1100-4500); Lymphocytes Percent Auto 30.2 % (25-40); Mean Corpuscular HGB Conc 33.8 % (30-36); Mean Corpuscular Hemoglobin 32.6 PG (26-34); Mean Corpuscular Volume 96.5 fL (80-100); Monocytes Absolute Auto 800 /uL (0-900); Neutrophils Absolute Auto 5100 /uL (1500-7000); Neutrophils Percent Auto 53.3 % (50-75); Platelet Count 347 X10^3/uL (150-400); Red Blood Cell Count 4.18 X10^6/uL (4.0-5.2); White Blood Cell Count 9.6 X10^3/uL (4.5-11.0)
[2022-10-10 16:15] LABS: Alanine Aminotransferase 23 IU/L (<35); Albumin 4.8 g/dL (3.5-5.0); Albumin Globulin Ratio 1.3 (1.0-2.8); Alkaline Phosphatase 82 U/L (38-126); Aspartate Aminotransferase 32 IU/L (14-36); BUN Creatinine Ratio 18.7 (6-22); Bilirubin Total 0.6 mg/dL (0.2-1.3); Blood Urea Nitrogen 32 mg/dL (7-17); Calcium 9.9 mg/dL (8.4-10.2); Carbon Dioxide 25 mmol/L (22-32); Chloride 99 mmol/L (98-107); Estimated Glomerular Filt Rate 30 mL/min (>60); Globulin 3.7 g/dL (1.7-4.1); Glucose 94 mg/dL (80-110); HEMOLYSIS 20 (0-50); Potassium 3.8 mmol/L (3.4-5.1); Sodium 140 mmol/L (137-145); Total Protein 8.5 g/dL (6.3-8.2)
[2022-10-10] MEDS: SODIUM CHLORIDE 0.9% 500 ML 1000 ML IV ×3 (16:17→17:18)
[2022-10-10 16:25] LABS: Troponin I 0.014 ng/mL (0.01-0.034)
[2022-10-10 17:17] LABS: Ethanol (ETOH) 50 mg/dL
[2022-10-10 18:23] LABS: Adenovirus Not Detected (Not Detect); B. parapertussis Not Detected (Not Detecte); Bordetella pertussis Not Detected (Not Detecte); Chlamydophila pneumoniae Not Detected (Not Detect); Coronavirus 229E Not Detected (Not Detect); Coronavirus HKU1 Not Detected (Not Detect); Coronavirus NL 63 Not Detected (Not Detect); Coronavirus OC43 Not Detected (Not Detect); Human Metapneumovirus Not Detected (Not Detect); Human Rhinovirus/Enterovirus Not Detected (Not Detect); Influenza A Not Detected (Not Detect); Influenza B Not Detected (Not Detect); Mycoplasma pneumoniae Not Detected (Not Detect); Parainfluenza Virus 1 Not Detected (Not Detect); Parainfluenza Virus 2 Not Detected (Not Detect); Parainfluenza Virus 3 Not Detected (Not Detect); Parainfluenza Virus 4 Not Detected (Not Detect); Respiratory Syncytial Virus Not Detected (Not Detect); SARS- CoV-2 Not Detected (Not Detecte)
--- NOTE | 2022-10-10 18:47 | PC.NURSE ---
Patient was able to walk approx. 50 yds with a walker and maintain her o2 saturation at 94%. She denied reports of dizziness but did say that her legs felt weak.
--- NOTE | 2022-10-10 20:02 | PC.NURSE ---
Patient got up to ambulate with a pulse oximeter. Her heart rate remained around 80 bpm. Her o2 saturation dipped down to 87% on RA and then came back up to stay around 89-90% on RA. She made it approx 50 yds before needing to stop and rest.
[2022-10-10 20:51] LABS: NT-proBNP (BNP-Adult 18+) 190 pg/mL (<450)
[2022-10-10 20:54] LABS: Troponin I 0.013 ng/mL (0.01-0.034)
[2022-10-10] MEDS: ATORVASTATIN 20 MG TABLET 80 MG PO (22:11)
[2022-10-11] MEDS: ACETAMINOPHEN 325 MG TABLET 650 MG PO (00:09)
[2022-10-11] MEDS: MELATONIN 3 MG TABLET 6 MG PO (02:35)
[2022-10-11 03:13] VITALS: BP 134/47; PULSE 61; RESP 16; TEMP 36.2; O2SAT 98
[2022-10-11 05:09] LABS: Add Manual Diff / Slide Review NO; Basophils Absolute Auto 100 /uL (0-100); Basophils Percent Auto 0.8 % (0-2); Eosinophils Absolute Auto 800 /uL (0-450); Eosinophils Percent Auto 10.6 % (2-4); Hematocrit 32.7 % (36-46); Hemoglobin 11.2 g/dL (12.0-16.0); Lymphocytes Absolute Auto 2500 /uL (1100-4500); Lymphocytes Percent Auto 35.6 % (25-40); Mean Corpuscular HGB Conc 34.2 % (30-36); Mean Corpuscular Hemoglobin 32.4 PG (26-34); Mean Corpuscular Volume 94.8 fL (80-100); Monocytes Absolute Auto 600 /uL (0-900); Monocytes Percent Auto 7.9 % (3-14); Neutrophils Absolute Auto 3200 /uL (1500-7000); Neutrophils Percent Auto 45.1 % (50-75); Platelet Count 274 X10^3/uL (150-400); Red Blood Cell Count 3.45 X10^6/uL (4.0-5.2); Red Cell Distribution Width 13.6 % (11.6-14.8); White Blood Cell Count 7.1 X10^3/uL (4.5-11.0)
[2022-10-11 05:36] LABS: BUN Creatinine Ratio 26.5 (6-22); Blood Urea Nitrogen 31 mg/dL (7-17); Calcium 8.8 mg/dL (8.4-10.2); Carbon Dioxide 28 mmol/L (22-32); Chloride 103 mmol/L (98-107); Estimated Glomerular Filt Rate 48 mL/min (>60); Glucose 85 mg/dL (80-110); HEMOLYSIS < 15 (0-50); Potassium 3.8 mmol/L (3.4-5.1); Sodium 137 mmol/L (137-145)
--- NOTE | 2022-10-11 06:40 | PM.HP.1 ---
History of Present Illness History of Present Illness Date Patient Seen: 10/10/22 Time Patient Seen: 21:00 Chief complaint: Syncope Narrative: Ms. Cline is a 77W with PMH CVA with left sided deficits, reported CHFpEF, s/p ppm, HTN who presents to the hospital with dizziness and weakness. She was hospitalized here less than a month ago for global weakness, workup was for possible CVA, due to AICD MRI was not done to confirm stroke. However she was placed on dual antiplatelet therapy instead of aspirin monotherapy which she had been on prior to admit. She was also noted to have mild CHF exacerbation and discharged on lasix. She had a mild lower extremity/buttock cellulitis and was discharged on clindamycin. Over the last few days she developed diarrhea, with ~4 BMs daily. She continue to take lasix. Today she felt very weak and unable to get out of the car so she presented to the hospital. In the ED workup was done, vitals notable for afebrile, heart rate 60s, blood pressure 100s/50s. Sats 97% on room air. Labs reviewed by me and notable for WBC 9.6, hgb 13.6, plts. Na 140, BUN 32, creatinine 1.71. Trop 0.014. UA negative. Chest xray with no acute process. She was ordered for multiple boluses of IV fluids and then developed hypoxia and was admitted for further treatment. [facility] Medical History Asthma, mild intermittent Carpal tunnel syndrome Cataracts, bilateral Cerebrovascular disease Cervical spine disease Chicken pox Chronic back pain Dizziness Essential hypertension Fractures Gait instability Hearing loss History of colonic polyps History of melanoma Left hemiparesis Mixed hyperlipidemia Mumps Polyneuropathy, unspecified Repeated falls Systolic CHF, chronic Tinea cruris Urinary incontinence Surgical History Anesthesia History of permanent cardiac pacemaker placement S/P cardiac pacemaker procedure Family History Father Heart disease Brother Heart disease Mother Old age Social History household members: spouse Smoking Status: Former smoker alcohol intake: current Meds Home Medications and Allergies Home Medications Medication Instructions Recorded Confirmed Type Hair, Skin, Nails with Biotin 1 tab PO DAILY 04/21/18 10/10/22 History cholecalciferol (vitamin D3) 50 2,000 unit PO DAILY 04/21/18 10/10/22 History mcg (2,000 unit) capsule (Vitamin D3) magnesium 30 mg tablet 60 mg PO DAILY 04/21/18 10/10/22 History duloxetine 60 mg capsule,delayed 60 mg PO DAILY #90 caps 10/20/21 10/10/22 Rx release metoprolol succinate 50 mg 50 mg PO DAILY #90 tabs 10/20/21 10/10/22 Rx tablet,extended release 24 hr amlodipine 5 mg tablet 5 mg PO DAILY #90 tabs 05/24/22 10/10/22 Rx gabapentin 100 mg capsule 100 mg PO BID #180 caps 07/26/22 10/10/22 Rx aspirin 81 mg tablet,delayed 81 mg PO DAILY #30 tabs 09/18/22 10/10/22 Rx release furosemide 40 mg tablet 40 mg PO DAILY #30 tabs 09/18/22 10/10/22 Rx potassium chloride 20 mEq 20 meq PO BID #60 tabs 09/18/22 10/10/22 Rx tablet,extended release tramadol 50 mg tablet 50 mg PO Q6H PRN pain #30 tabs 09/18/22 10/10/22 Rx terbinafine HCl 250 mg tablet 250 mg PO DAILY #10 tabs 09/21/22 10/10/22 Rx losartan 50 mg tablet 50 mg PO DAILY #90 tabs 09/22/22 10/10/22 Rx atorvastatin 80 mg tablet 80 mg PO BEDTIME #90 tabs 09/23/22 10/10/22 Rx clopidogrel 75 mg tablet 75 mg PO DAILY #90 tabs 09/23/22 10/10/22 Rx alpha lipoic acid 150 mg capsule 300 mg PO BEDTIME 10/10/22 10/10/22 History Allergies Allergy/AdvReac Type Severity Reaction Status Date / Time latex [LATEX] Allergy Mild RASH Verified 10/10/22 18:50 naproxen [From ALEVE] Allergy Mild SWELLING Verified 10/10/22 18:50 FEET, HANDS codeine Allergy Unknown GI UPSET Verified 10/10/22 18:50 lisinopril Allergy Unknown FACIAL Verified 10/10/22 18:50 SWELLING venlafaxine Allergy Unknown ELEVATED Verified 10/10/22 18:50 BLOOD PRESSURE cephalexin AdvReac Intermediate Rash Verified 10/10/22 18:50 bupropion AdvReac Unknown SEIZURE Verified 10/10/22 18:50 Review of Systems Review of Systems Narrative: 14 systems reviewed and negative aside from what is noted in HPI Exam Vital Signs (past 8 hours): - 10/11/22 03:13 10/11/22 03:13 Temperature 97.2 F L Pulse Rate 61 Respiratory Rate 16 Blood Pressure 134/47 L Pulse Oximetry 98 98 Oxygen Delivery Method Room Air Oxygen Flow Rate 0 0 Oxygen Delivery Method Room Air Oxygen Flow Rate 0 Narrative Exam Narrative: GEN: no acute distress HEENT: moist mucous membranes, PERRL CV: regular rate and rhythm, no murmurs PULM: clear bilaterally, no wheezes ABD: soft, nontender, nondistended, no organomegaly EXT: warm and well perfused, no edema NEURO: awake, alert, oriented, no focal deficits Objective Labs 10/11/22 04:39 10/11/22 04:39 Labs: Laboratory Results - last 24 hr 10/10/22 10/10/22 10/10/22 15:30 15:30 15:30 WBC 9.6 RBC 4.18 Hgb 13.6 Hct 40.4 MCV 96.5 MCH 32.6 MCHC 33.8 RDW 14.0 Plt Count 347 Neut % (Auto) 53.3 Lymph % (Auto) 30.2 Hardin % (Auto) 8.0 Eos % (Auto) 7.8 H Baso % (Auto) 0.7 Neut # (Auto) 5100 Lymph # (Auto) 2900 Hardin # (Auto) 800 Eos # (Auto) 700 H Baso # (Auto) 100 Sodium 140 Potassium 3.8 Chloride 99 Carbon Dioxide 25 BUN 32 H Creatinine 1.71 H Estimated GFR 30 L BUN/Creatinine Ratio 18.7 Glucose 94 Calcium 9.9 Total Bilirubin 0.6 AST 32 ALT 23 Alkaline Phosphatase 82 Troponin I 0.014 NT-Pro-B Natriuret Pep Total Protein 8.5 H Albumin 4.8 Globulin 3.7 Albumin/Globulin Ratio 1.3 U Opiates 300ng/mL cut Ur Oxycodone Screen Urine Methadone Screen Ur Barbiturates Screen U Tricyclic Antidepress Ur Phencyclidine Scrn Ur Amphetamines Screen U Methamphetamines Scrn Ur MDMA Scrn (Ecstasy) U Benzodiazepines Scrn Urine Cocaine Screen U Marijuana (THC) Screen Ethyl Alcohol Chlamy pneumoniae PCR Adenovirus (PCR) B. pertussis DNA (PCR) B.parapertussis DNA PCR C. difficile Tox (PCR) Coronavirus OC43 (PCR) Coronavirus HKU1 (PCR) Coronavirus 229E (PCR) SARS-CoV-2 (PCR) Coronavirus NL63 (PCR) Human Metapneumovir PCR Influenza Type A (PCR) Influenza Type B (PCR) M. pneumoniae (PCR) Parainfluenza 1 (PCR) Parainfluenza 2 (PCR) Parainfluenza 3 (PCR) Parainfluenza 4 (PCR) RSV (PCR) Entero/Rhino (PCR) 10/10/22 10/10/22 10/10/22 15:30 16:10 16:50 WBC RBC Hgb Hct MCV MCH MCHC RDW Plt Count Neut % (Auto) Lymph % (Auto) Hardin % (Auto) Eos % (Auto) Baso % (Auto) Neut # (Auto) Lymph # (Auto) Hardin # (Auto) Eos # (Auto) Baso # (Auto) Sodium Potassium Chloride Carbon Dioxide BUN Creatinine Estimated GFR BUN/Creatinine Ratio Glucose Calcium Total Bilirubin AST ALT Alkaline Phosphatase Troponin I NT-Pro-B Natriuret Pep Cancelled Total Protein Albumin Globulin Albumin/Globulin Ratio U Opiates 300ng/mL cut Ur Oxycodone Screen Urine Methadone Screen Ur Barbiturates Screen U Tricyclic Antidepress Ur Phencyclidine Scrn Ur Amphetamines Screen U Methamphetamines Scrn Ur MDMA Scrn (Ecstasy) U Benzodiazepines Scrn Urine Cocaine Screen U Marijuana (THC) Screen Ethyl Alcohol 50 H Chlamy pneumoniae PCR Not detected Adenovirus (PCR) Not detected B. pertussis DNA (PCR) Not detected B.parapertussis DNA PCR Not detected C. difficile Tox (PCR) Coronavirus OC43 (PCR) Not detected Coronavirus HKU1 (PCR) Not detected Coronavirus 229E (PCR) Not detected SARS-CoV-2 (PCR) Not detected Coronavirus NL63 (PCR) Not detected Human Metapneumovir PCR Not detected Influenza Type A (PCR) Not detected Influenza Type B (PCR) Not detected M. pneumoniae (PCR) Not detected Parainfluenza 1 (PCR) Not detected Parainfluenza 2 (PCR) Not detected Parainfluenza 3 (PCR) Not detected Parainfluenza 4 (PCR) Not detected RSV (PCR) Not detected Entero/Rhino (PCR) Not detected 10/10/22 10/10/22 10/10/22 20:21 21:41 21:41 WBC RBC Hgb Hct MCV MCH MCHC RDW Plt Count Neut % (Auto) Lymph % (Auto) Hardin % (Auto) Eos % (Auto) Baso % (Auto) Neut # (Auto) Lymph # (Auto) Hardin # (Auto) Eos # (Auto) Baso # (Auto) Sodium Potassium Chloride Carbon Dioxide BUN Creatinine Estimated GFR BUN/Creatinine Ratio Glucose Calcium Total Bilirubin AST ALT Alkaline Phosphatase Troponin I 0.013 NT-Pro-B Natriuret Pep 190 Total Protein Albumin Globulin Albumin/Globulin Ratio U Opiates 300ng/mL cut Cancelled Ur Oxycodone Screen Cancelled Urine Methadone Screen Cancelled Ur Barbiturates Screen Cancelled U Tricyclic Antidepress Cancelled Ur Phencyclidine Scrn Cancelled Ur Amphetamines Screen Cancelled U Methamphetamines Scrn Cancelled Ur MDMA Scrn (Ecstasy) Cancelled U Benzodiazepines Scrn Cancelled Urine Cocaine Screen Cancelled U Marijuana (THC) Screen Cancelled Ethyl Alcohol Chlamy pneumoniae PCR Adenovirus (PCR) B. pertussis DNA (PCR) B.parapertussis DNA PCR C. difficile Tox (PCR) TNP Coronavirus OC43 (PCR) Coronavirus HKU1 (PCR) Coronavirus 229E (PCR) SARS-CoV-2 (PCR) Coronavirus NL63 (PCR) Human Metapneumovir PCR Influenza Type A (PCR) Influenza Type B (PCR) M. pneumoniae (PCR) Parainfluenza 1 (PCR) Parainfluenza 2 (PCR) Parainfluenza 3 (PCR) Parainfluenza 4 (PCR) RSV (PCR) Entero/Rhino (PCR) 10/11/22 10/11/22 04:39 04:39 WBC 7.1 RBC 3.45 L Hgb 11.2 L Hct 32.7 L MCV 94.8 MCH 32.4 MCHC 34.2 RDW 13.6 Plt Count 274 Neut % (Auto) 45.1 L Lymph % (Auto) 35.6 Hardin % (Auto) 7.9 Eos % (Auto) 10.6 H Baso % (Auto) 0.8 Neut # (Auto) 3200 Lymph # (Auto) 2500 Hardin # (Auto) 600 Eos # (Auto) 800 H Baso # (Auto) 100 Sodium 137 Potassium 3.8 Chloride 103 Carbon Dioxide 28 BUN 31 H Creatinine 1.17 H Estimated GFR 48 L BUN/Creatinine Ratio 26.5 H Glucose 85 Calcium 8.8 Total Bilirubin AST ALT Alkaline Phosphatase Troponin I NT-Pro-B Natriuret Pep Total Protein Albumin Globulin Albumin/Globulin Ratio U Opiates 300ng/mL cut Ur Oxycodone Screen Urine Methadone Screen Ur Barbiturates Screen U Tricyclic Antidepress Ur Phencyclidine Scrn Ur Amphetamines Screen U Methamphetamines Scrn Ur MDMA Scrn (Ecstasy) U Benzodiazepines Scrn Urine Cocaine Screen U Marijuana (THC) Screen Ethyl Alcohol Chlamy pneumoniae PCR Adenovirus (PCR) B. pertussis DNA (PCR) B.parapertussis DNA PCR C. difficile Tox (PCR) Coronavirus OC43 (PCR) Coronavirus HKU1 (PCR) Coronavirus 229E (PCR) SARS-CoV-2 (PCR) Coronavirus NL63 (PCR) Human Metapneumovir PCR Influenza Type A (PCR) Influenza Type B (PCR) M. pneumoniae (PCR) Parainfluenza 1 (PCR) Parainfluenza 2 (PCR) Parainfluenza 3 (PCR) Parainfluenza 4 (PCR) RSV (PCR) Entero/Rhino (PCR) Assessment & Plan Assessment & Plan narrative: 1. Acute hypoxemic respiratory failure -developed in the ED -suspect was secondary to multiple boluses of fluid in setting of CHF -xray with no pneumonia, BNP 190 -if creatinine improving will restart lasix -ECHO from less than one month ago showed preserved EF with probable hypokinesis of inferior wall, dilated right atrium 2. Weakness, dizziness and Cindy -suspect secondary to hypovolemia, was recently newly prescribed lasix after last admission -had been having diarrhea which she states has resolved within the last day which also likely contributed -creatinine on admission 1.7, baseline appears 0.8 -since recently on antibiotics will check c diff if continues to have diarrhea -did receive fluids in ED, hold for now given above -check orthostatics -PT consult 3. CHF s/p ppm -continue lasix if creatinine improved in AM 4. History of CVA with residual left sided weakness -continue aspirin, statin, plavix 5. Hypertension -hold anti-hypertensives I have discussed plan and obtained history from patient. I have discussed plan of care with ED physician and bedside nurse. I have reviewed labs, imaging. CODE: Full Proxy: Kam Cline, Quality VTE Deep Vein Thrombosis/Pulmonary Embolism Present on Admission: No MIPS - Meds 'Current medications' to include all prescriptions, [id number] products, herbals, cannabis/cannabidiol products, and vitamin/mineral/dietary (nutritional) supplements. I have utilized all available resources to obtain, update, or review the patient?s current medications. [If Yes, STOP here]: Yes
[2022-10-11 07:00] VITALS: BP 104/37; BP 123/45; BP 123/50; PULSE 60; PULSE 63; O2SAT 97
[2022-10-11 08:00] VITALS: BP 123/45; PULSE 60; RESP 18; TEMP 36.1; O2SAT 96
[2022-10-11] MEDS: ASPIRIN EC 81 MG TABLET PO (08:40)
[2022-10-11] MEDS: CLOPIDOGREL 75 MG TABLET PO (08:40)
[2022-10-11 08:41] VITALS: PULSE 61
[2022-10-11] MEDS: FUROSEMIDE 20 MG TABLET PO (08:41)
[2022-10-11] MEDS: METOPROLOL ER 50 MG TABLET PO (08:41)
[2022-10-11] MEDS: HEPARIN 5,000 UNIT/ML VIAL 5000 UNIT SUBCUT (08:41)
[2022-10-11 09:30] VITALS: PULSE 60
--- NOTE | 2022-10-11 10:15 | PT.IIE ---
Surgical History (Last Reviewed 10/11/22 @ 06:40 by Matheus Rodriguez MD) Anesthesia History of permanent cardiac pacemaker placement S/P cardiac pacemaker procedure Medical History (Last Reviewed 10/11/22 @ 06:40 by Matheus Rodriguez MD) Asthma, mild intermittent Carpal tunnel syndrome Cataracts, bilateral Cerebrovascular disease Cervical spine disease Chicken pox Chronic back pain Dizziness Essential hypertension Fractures Gait instability Hearing loss History of colonic polyps History of melanoma Left hemiparesis Mixed hyperlipidemia Mumps Polyneuropathy, unspecified Repeated falls Systolic CHF, chronic Tinea cruris Urinary incontinence Physical Therapy Inpatient Evaluation/Re-Eval M1 PT/OT-IP Prior Functional Status Start: 10/11/22 14:20 Freq: NEEDED Status: Active Protocol: Document 10/11/22 10:15 AB (Rec: 10/11/22 14:38 AB [id number]) Medical Review Prior Functional Status Medical History Reviewed Yes Communication able to make needs known Mobility and Gait pt stated that she is modified independent with all mobilities and ambulation using a FWW for short distance ambulation but uses a manual w/c for long distance mobility and spouse assists with w/c maneuvering Social History Household Members spouse Living Arrangements House Number of Floors (Floors) Two Floors Number of Stairs To Enter/Railing? 3 steps B wide rails to enter (pt uses R rail and POOL TABLE MECHANIC on L) but has a chair/stair lift once inside the house to get her up/down the 2nd level of the house Home Environment High Toilet,Walk in Shower, Bidet Home Equipment Front Wheel Walker,Manual Wheelchair,Bedside Commode, Shower Seat with Backrest,Hand Held Shower,Hospital Bed,Grab Bars Near Toilet,Grab Bars In Shower Additional Social History Comment has a chair/stair lift has a caregiver 4x/week for 4 hours a day ( 10 am to 2 pm) pt stated that she has home health PT set up M2 PT-IP Current Condition Start: 10/11/22 14:20 Freq: NEEDED Status: Active Protocol: Document 10/11/22 10:15 AB (Rec: 10/11/22 14:38 AB [id number]) Physical Therapy Current Condition Current Condition Evaluation Date 10/11/22 Treatment Diagnosis acute kidney injury; difficulty in walking Onset Date 10/10/22 M3 PT-IP Subjective Start: 10/11/22 14:20 Freq: NEEDED Status: Active Protocol: Document 10/11/22 10:15 AB (Rec: 10/11/22 14:38 AB [id number]) Subjective Physical Therapy Visit Type Type Initial Evaluation Visit Start Time 10:15 Visit Stop Time 11:00 Total Visit Minutes 45 Number of OIL FIELD LABORER Visits 0 Physical Therapy Visit Comments Patient Comments agreeable to do PT M4 PT-IP Mobility and Gait Start: 10/11/22 14:20 Freq: NEEDED Status: Active Protocol: Document 10/11/22 10:15 AB (Rec: 10/11/22 14:38 [id number]) PT-Bed Mobility Assessment Supine to Sit Supine to Sit Standby Assistance Sit to Supine Sit to Supine Standby Assistance PT-Transfer Assessment Sit to and From Stand Sit to and from Stand Standby Assistance,Contact Guard Assistance,Moderate Assistance,1 Person Assistance ,Use of Upper Extremities Equipment Transfer Assistive Device Gait Belt,Front Wheeled Walker Orthotic/Prosthetic Devices or Brace: No Transfers Transfer Destination Bed,Chair,Toilet Transfer Technique ambulated Transfer Ability Level of Assist Standby Assistance,Contact Guard Assistance,1 Person Assistance,Use of Upper Extremities Comments Mobility Comments pt sitting on the chair and agreed to do PT. completed sit to stand from the chair mod A and max cues requiring 2 attempts to complete. pt ambulated to the toilet using FWW CGA. required assist with brief management and descending to the toilet. pt stated that setup at home is different and has a high toilet with bilateral grab bars. pt completed sit to stand from the toilet using grab bar CGA and ambulated towards the sink using fWW CGA . pt able to maintain standing using FWW for support SBA while completing handwashing. pt ambulated to EOB ~ 20 ft using FWW SBA to CGA. completed bed mobility sit<> supine SBA. pt agreed to do stairs. ambulated ~ 20 ft using FWW towards the step SBA . completed up/down platform step using R rail and POOL TABLE MECHANIC on R max A and max cues. pt ambuated back to the chair using FWW ~ 35 ft SBA to occasional CGA. informed pt regarding safety and stated that they has a portable ramp that she can use. informed pt to use the ramp to enter the house and if possible, use the w/c but if the w/c will not fit on the ramp, 2 PA is recommended for safety using a FWW. Pt understood and stated that her spouse and caregiver will be available to assist her to get into the house. pt sat on the chair. completed sit to stand from the chair and requiring CGA. positioned pt on the chair. call light and table placed within reach. informed rn field case manager. Gait Assessment Gait Gait Assistance Required: Standby Assistance,Contact Guard Assist Distance (Feet) 35 Able to Maintain Weight Bearing Status Yes During Gait Assistive Devices Assistive Device Gait Belt,Front Wheeled Walker Orthotic/Prosthetic Devices or Brace: No Gait Deviations General Gait Pattern Antalgic,Decreased Stride Length,Decreased Feet Clearance,Step-to Gait Factors Limiting Gait Function Factors Limiting Gait Function Decreased Activity Tolerance, Decreased Strength,Limited Range of Motion,Pain,Poor Balance,Poor Safety Awareness Stair Climbing Assessment Evaluation Level of Assist On Stairs Maximal Assistance,1 Person Assistance Devices Stair Climbing Assistive Devices Right Railing Technique/Endurance Stair Climbing Direction Ascend and Descend Stair Climbing Technique Step to Step Number of Steps Climbed 1 Query Text: Comments Stair Climbing Comments pls refer to mobility sections for details PT-Balance Assessment Sitting Balance and Reactions Static Sitting Balance Ability Good Dynamic Sitting Balance Ability Good Standing Balance and Reactions Static Standing Balance Ability Fair Dynamic Standing Balance Ability Fair Device Used FWW M5 PT-IP Objective Assessments Start: 10/11/22 14:20 Freq: NEEDED Status: Active Protocol: Document 10/11/22 10:15 AB (Rec: 10/11/22 14:38 AB [email or web address]) Orientation Orientation/Cognition Level of Alertness Alert Orientation Name,Place,Situation Safety Awareness Decreased Safety Awareness Memory Description No Deficits Noted Gross Range of Motion Lower Extremity ROM Assessment Within Functional Limits Strength Lower Extremity Strength Assessment Left Impaired Hip 3+/5 Knee 3+/5 Muscle Tone Muscle Tone WNL Yes M6 PT-IP Treatment Start: 10/11/22 14:20 Freq: NEEDED Status: Active Protocol: Document 10/11/22 10:15 AB (Rec: 10/11/22 14:38 AB [email or web address]) Physical Therapy Treatment Education Education Provided Safety M7 PT-IP Assessment and Plan Start: 10/11/22 14:20 Freq: NEEDED Status: Active Protocol: Document 10/11/22 10:15 AB (Rec: 10/11/22 14:38 AB [email or web address]) PT Summary Assessment and Plan Potential Rehabilitation Potential Fair Status of Condition at Evaluation Stable Summary Impairments Pain,ROM,Strength,Balance, Coordination,Sensation, Cognition,Bed Mobility, Transfers,Gait,Activity Tolerance Assessment Summary Pt requiring SBA with bed mobility, SBA to CGA with transfers using FWW. recommending use of ramp and w /c to enter the house with 2 PA and pt agreed. Pt will have her spouse and caregiver to assist her to get into the house. pt will benefit from continued homehealth PT. Goals Bed Mobility Goal Independent Transfer Goal Independent,Front Wheeled Walker Gait Goal Independent,Front Wheel Walker Gait Distance 100 Other Goals up/down 3 steps 1 rail + SPC/ POOL TABLE MECHANIC CGA Days to Meet Goals 10 Frequency of Treatment Frequency Of Treatment Once a Day Treatment Plan Physical Therapy Treatment Plan Bed Mobility Training,Transfer Training,Gait Training, Therapeutic Exercise,Balance Retraining,Post Op Education, Discharge Planning,Hot or Cold Pack,Neuromuscular Re-ed, Coordination Retraining,Manual Therapy Recommendations To Nursing Amount of Assist Needed 1 Person Assist Discharge Recommendations PT Discharge Recommendations Home with Assistance,Home Health Transportation Needs at Discharge Private Vehicle
--- NOTE | 2022-10-11 11:40 | CM.DANOTE ---
Initial DCP Assessment Note 77 yo female, resident of [place], PMH includes CVA, presents after syncopal event admitted OBS for further work up and management of Acute hypoxemic respiratory failure and weakness/dizziness/BONILLA. Patient has made improvement and has been discharged home today w/ HH PCP [facility] Met w/patient to review DCP; patient eager to return home w/her spouse and privately paid caregiver. Patient has been cleared for this plan by PT. Patient requests that [facility] services continue in her home KERRY Saavedra admin assist placed call to [facility] and they do not need addtl orders, request an update when patient leaves Plan: Discharge home [facility]sp[facility] and [facility]RIS Edou[facility] Discharge Planning/Care Management CM Discharge Assessment Start: 10/11/22 11:36 Freq: Status: Active Protocol: Document 10/11/22 11:37 [place] (Rec: 10/11/22 11:39 [place] [id number]) Discharge Planning Assessment Assigned Backwinder CHRIS Cowart DPOA/Assigned Designee Name Kam Cline, spouse Contact Information [phone] Advance Directives? Yes Advance Directives on File No History Provided By Patient,Medical Record Prior Living Arrangements House Household Members spouse Type of transporation used prior to Relies on Others admit Independent with ADL's No: Needs assist from spouse and cg Is patient alert and oriented? Yes Comment Patient has a wheel chair, cane and FWW at home to assist with ambulation, Patient also has assisted devices to suppor her get dressed and pick items off the floor. Patient/Family Preference Home with Home Health Comment Patient has her , two private pay caregivers who assist her at home and [facility], [facility] Discharge Plan Home with Home Health Transportation Arrangement Mikhail will provide transport home Referrals Initiated Home Health Additional Comment [facility], no resumption order needed Medicare choice list reviewed on patient electronic tablet with SNF/HH Preference Patient wants to continue with [facility] services
[2022-10-11 12:41] VITALS: BP 119/37; PULSE 60; RESP 18; TEMP 36.4; O2SAT 100
--- NOTE | 2022-10-11 14:46 | PC.NURSE ---
Discharge Note Patient A&O, VSS, RA, no complaints of pain/discomfort. Patient agreeable to discharge plan. Discharge packet reviewed with patient, all questions/concerns addressed. PIV discontinued. Patient able to dress self with assistance. Patient reminded to curing pickling packer prescription at preferred pharmacy. Patient taken down via wheelchair to POV.
--- NOTE | 2022-10-12 15:58 | PM.DS.1 ---
History of Present Illness History of Present Illness Chief complaint: Syncope Narrative: Ms. Cline is a 77W with PMH CVA with left sided deficits, reported CHFpEF, s/p ppm, HTN who presents to the hospital with dizziness and weakness. She was hospitalized here less than a month ago for global weakness, workup was for possible CVA, due to AICD MRI was not done to confirm stroke. However she was placed on dual antiplatelet therapy instead of aspirin monotherapy which she had been on prior to admit. She was also noted to have mild CHF exacerbation and discharged on lasix. She had a mild lower extremity/buttock cellulitis and was discharged on clindamycin. Over the last few days she developed diarrhea, with ~4 BMs daily. She continue to take lasix. Today she felt very weak and unable to get out of the car so she presented to the hospital. In the ED workup was done, vitals notable for afebrile, heart rate 60s, blood pressure 100s/50s. Sats 97% on room air. Labs reviewed by me and notable for WBC 9.6, hgb 13.6, plts. Na 140, BUN 32, creatinine 1.71. Trop 0.014. UA negative. Chest xray with no acute process. She was ordered for multiple boluses of IV fluids and then developed hypoxia and was admitted for further treatment. Discharge Providers Provider Date of admission: 10/10/22 21:01 Discharge Date: 10/11/22 Primary care physician: Andrade Gaston MD Consults: 10/11/22 06:42 Consult to Physical Therapy Evaluate & Treat Comment: Physician Instructions: Evaluate and Treat Discharge provider: Matheus Rodriguez MD Summary Hospital Course Discharge Diagnosis: 1. Acute hypoxemic respiratory failure 2. CHFpEF s/p PPM 3. Dehydration, BONILLA, dizziness 4. History of CVA with left sided deficits 5. Hypertension Hospital Course: Ms. Cline came to the hospital with dehydration and weakness. She was found to have an BONILLA. She had been having diarrhea that resolved the day prior to coming to the hospital, and she had no further in the hospital. She continued to take her lasix, which likely contributed. She was given fluids, but this caused some hypoxemia and she needed to be on oxygen for a night. She improved with gentle diuresis, and her creatinine improved as well. She had her lasix dose halved at discharge. Her blood pressure medications were held on discharged until she could follow up with her PCP within a week to determine that she could restart them. Exam Vital Signs (past 8 hours): Oxygen Delivery Method Room Air Oxygen Flow Rate 0 Narrative Exam Narrative: GEN: no acute distress HEENT: moist mucous membranes, PERRL CV: regular rate and rhythm, no murmurs PULM: clear bilaterally, no wheezes ABD: soft, nontender, nondistended, no organomegaly EXT: warm and well perfused, no edema NEURO: awake, alert, oriented, no focal deficits Objective Labs 10/11/22 04:39 10/11/22 04:39 FOR[facility]LY [facility], [facility] Medical History Asthma, mild intermittent Carpal tunnel syndrome Cataracts, bilateral Cerebrovascular disease Cervical spine disease Chicken pox Chronic back pain Dizziness Essential hypertension Fractures Gait instability Hearing loss History of colonic polyps History of melanoma Left hemiparesis Mixed hyperlipidemia Mumps Polyneuropathy, unspecified Repeated falls Systolic CHF, chronic Tinea cruris Urinary incontinence Surgical History Anesthesia History of permanent cardiac pacemaker placement S/P cardiac pacemaker procedure Family History Father Heart disease Brother Heart disease Mother Old age Social History household members: spouse Smoking Status: Former smoker alcohol intake: current Discharge Plan Discharge Plan Patient Disposition: Home Provider Discharge Comment: Ms. Cline came in to the hospital with weakness and dehydration and kidney injury. It was likely secondary to recent diarrhea and continuing her lasix while this was happening. She felt better with IV fluids. For now she should stop taking her losartan and potassium for a few days until seeing her PCP. Her lasix dose is decreased slightly. She should follow up with her PCP within one week to make sure she can restart her medications. Discharge orders & Medications Prescriptions: New furosemide 20 mg Tablet 20 mg PO DAILY Qty: 30 0RF Continued amlodipine 5 mg tablet 5 mg PO DAILY Qty: 90 3RF gabapentin 100 mg capsule 100 mg PO BID Qty: 180 3RF terbinafine HCl 250 mg tablet 250 mg PO DAILY Qty: 10 2RF duloxetine 60 mg capsule,delayed release(DR/EC) 60 mg PO DAILY Qty: 90 3RF metoprolol succinate 50 mg tablet extended release 24 hr 50 mg PO DAILY Qty: 90 3RF clopidogrel 75 mg tablet 75 mg PO DAILY Qty: 90 3RF atorvastatin 80 mg tablet 80 mg PO BEDTIME Qty: 90 3RF Rx Instructions: dose increased from 20 mg to 80 mg daily aspirin 81 mg Tablet,Delayed Release (Dr/Ec) 81 mg PO DAILY Qty: 30 0RF Rx Instructions: Take it continuously to end of life tramadol 50 mg Tablet 50 mg PO Q6H PRN (Reason: pain) Qty: 30 0RF magnesium 30 mg Tablet 60 mg PO DAILY cholecalciferol (vitamin D3) [Vitamin D3] 2,000 unit Capsule 2,000 unit PO DAILY Hair, Skin, Nails with Biotin 1 tab PO DAILY Patient Comments: I've been out of it for a week alpha lipoic acid 150 mg Capsule 300 mg PO BEDTIME Discontinued losartan 50 mg tablet 50 mg PO DAILY Qty: 90 3RF furosemide 40 mg Tablet 40 mg PO DAILY Qty: 30 0RF potassium chloride 20 mEq tablet extended release 20 meq PO BID Qty: 60 0RF Follow up/Referrals: Andrade Gaston MD [Primary Care Provider] - 3-5 Days (hospitalized for bonilla, dehydration) Diet/Activity/Treatments Diet: Low-sodium Visit Report/Discharge Packet Instructions: DI for Dehydration -- Adult, DI for Hypotension Stand Alone Forms: Patient Portal/API, Stroke Signs & Symptoms Discharge Data Primary Care Provider: Andrade Gaston V Attending Provider: Matheus Rodriguez Admit Date/Time: 10/10/22 21:01 Discharges patient from system. Discharge Date/Time: 10/11/22 13:50 Quality VTE Deep Vein Thrombosis/Pulmonary Embolism Present on Admission: No
== END 2022-10-11 13:50 | disposition home or self-care (01) ==
LOC: ED 20:20 → AC 21:02
PROVIDERS: Emergency Medicine; Admitting Provider Internal Medicine; Emergency Provider Emergency Medicine; PCP Internal Medicine; Visit Provider Internal Medicine
DX: J96.01 Acute respiratory failure with hypoxia (principal); R53.1 Weakness; E86.0 Dehydration; N17.9 Acute kidney failure, unspecified; I11.0 Hypertensive heart disease with heart failure; I50.30 Unspecified diastolic (congestive) heart failure; I69.398 Other sequelae of cerebral infarction; Z95.0 Presence of cardiac pacemaker
CPT/HCPCS: 36415; 71045; 80048; 80053; 80320; 81003; 83880; 84484; 85025; 87633; 93005; 93010; 96360; 96361; 96372; 97116; 97162; 99285; G0378; J1644

== ENCOUNTER → 2023-02-16 14:22 | Outpatient (CLI) | payer OTHER, SELFPAY ==
[2022-10-10 21:23] VITALS: BMI 28.9
--- NOTE | 2023-02-16 | DI.MG.S_ITS ---
BILATERAL DIGITAL SCREENING MAMMOGRAM 3D/2D WITH CAD: 02/16/2023 CLINICAL: Routine screening. Comparison is made to exams dated: 02/09/2022 mammogram, 01/29/2021 mammogram, and 01/18/2019 mammogram - [facility]. Both breasts are heterogeneously dense, which may obscure small masses (category c / 51-75% glandular tissue). Current study was also evaluated with a Computer Aided Detection (CAD) system. No significant masses, calcifications, or other findings are seen in either breast. There has been no significant interval change. IMPRESSION: NEGATIVE There is no mammographic evidence of malignancy. A 1 year screening mammogram is recommended. Based on the Tyrer Cuzick model (a risk assessment model) the patient's lifetime risk is 3.7% and her 10 year risk is 0.0%. According to the ACR, ACS, and NCCN guidelines, an annual breast MRI exam along with mammogram is recommended if the patient's lifetime risk is 20% or greater. This exam was interpreted at Station ID: [id number]. NOTE: For mammograms, a report in lay terms will be sent to the patient. Approximately 15% of breast malignancies will not be visualized mammographically. In the management of a palpable breast mass, a negative mammogram must not discourage biopsy of a clinically suspicious lesion. Electronically Signed By: Minesh bryant/reagan:02/16/2023 16:39:30 letter sent: Normal Exam ACR BI-RADS Category 1: Negative [id number]
== END ==
PROVIDERS: PCP Internal Medicine; Referring Provider Internal Medicine; Visit Provider Internal Medicine
DX: Z12.31 Encounter for screening mammogram for malignant neoplasm of breast (principal)
CPT/HCPCS: 77063; 77067

== ENCOUNTER → 2023-04-26 12:45 | Outpatient (CLI) | payer OTHER, SELFPAY ==
[2022-10-10 21:23] VITALS: BMI 28.9
--- NOTE | 2023-04-26 | DI.RAD.S_ITS ---
Bone Density Report Name: YONG ARAIZA Age: 78 Sex: Female Ethnicity: White Date of : 1945 Indication: osteopenia; Referring Provider: SUNIL PATEL Study: Bone densitometry was performed. Exam Date: April 26, 2023 Accession number: [id number] Bone Density: Region BMD T-score Z-score Classification AP Spine(L1-L4) 1.170 1.1 3.7 Normal Femoral Neck (Left) 0.628 -2.0 0.2 Osteopenia Total Hip (Left) 0.778 -1.3 0.6 Osteopenia Femoral Neck (Right) 0.805 -0.4 1.8 Normal Total Hip (Right) 0.781 -1.3 0.6 Osteopenia Total Hip Mean 0.780 -1.3 0.6 Osteopenia World Health Organization criteria for BMD impression classify patients as: Normal (T-score at or above -1.0), Osteopenia (T-score between -1.0 and -2.5), or Osteoporosis (T-score at or below -2.5). 10-year Fracture Risk(1): Major Osteoporotic Fracture 15% Hip Fracture 4.0% Reported Risk Factors: [place] (), Neck BMD=0.628, BMI=26.5 (1) FRAX(R) Version 3.08. Fracture probability calculated for an untreated patient. Fracture probability may be lower if the patient has received treatment. Previous Exams: -- Region Exam Age BMD T-score BMD Change BMD Change Date g/cm2 vs Baseline vs Previous -- AP Spine (L1-L4) 04/26/2023 78 1.170 1.1 -0.258 (-18.0%)# -0.080 (-6.4%)* 08/31/2022 77 1.250 1.8 -0.178 (-12.4%)# -0.177 (-12.4%)# 07/27/2017 72 1.428 3.5 0.000 (0.0%) 0.000 (0.0%) 04/14/2015 70 1.428 3.5 Total Hip(Left) 04/26/2023 78 0.778 -1.3 -0.136 (-14.9%)# -0.023 (-2.9%) 08/31/2022 77 0.802 -1.2 -0.113 (-12.3%)# -0.112 (-12.2%)# 07/27/2017 72 0.913 -0.2 -0.001 (-0.1%) -0.001 (-0.1%) 04/14/2015 70 0.914 -0.2 Total Hip(Right) 04/26/2023 78 0.781 -1.3 -0.076 (-8.9%)# 0.002 (0.2%) 08/31/2022 77 0.780 -1.3 -0.078 (-9.1%)# -0.084 (-9.8%)# 07/27/2017 72 0.864 -0.6 0.006 (0.7%) 0.006 (0.7%) 04/14/2015 70 0.858 -0.7 -- *Denotes significance at 95% confidence level, LSC for AP Spine = 0.022 g/cm2, LSC for Total Hip = 0.027 g/cm2 # Denotes dissimilar scan types or analysis methods Impression: The patient has low bone mass, based on the Left Femoral Neck T-score. The patient has an estimated ten-year risk of hip fracture of 4% and an estimated ten-year risk of major fracture of 15%, based on the WHO FRAX algorithm. The BMD for the AP Spine (L1-L4) decreased, changing by -6.4% since the last DXA exam. Discussion: BONE DENSITY IS LOW AT ONE OR MORE SKELETAL SITES. THE PATIENT'S BMD AND CLINICAL RISK FACTORS CONTRIBUTE TO THIS PATIENT'S INCREASED RISK OF FRACTURE. This patient's lowest T-score is low at one or more skeletal sites. It meets the World Health Organization's (WHO) criteria for low bone mass (T-score between -1.0 and -2.5). The patient's 10-year risk of hip fracture as calculated by FRAX exceeds the threshold where pharmacological therapy is recommended by the National Osteoporosis Foundation (NOF). However, all treatment decisions require clinical judgment and consideration of individual patient factors, including patient preferences, comorbidities, previous drug use, risk factors not captured in the FRAX model (e.g., frailty, falls, vitamin D deficiency, increased bone turnover, interval significant decline in bone density) and possible under or overestimation of fracture risk by FRAX. The patient should follow a healthful lifestyle (good nutrition with adequate calcium and vitamin D, and appropriate weight-bearing exercise). Follow-Up: Consider a repeat BMD and Vertebral Fracture Assessment (VFA) exam in 2 years or sooner if medically necessary, to reassess this patient's status. Reported by: FATOU BARNETT M.D. on 04/26/2023 1:08:00 PM.
== END ==
PROVIDERS: PCP Internal Medicine; Referring Provider Internal Medicine; Visit Provider Internal Medicine
DX: Z78.0 Asymptomatic menopausal state (principal); M85.852 Other specified disorders of bone density and structure, left thigh
CPT/HCPCS: 77080

== ENCOUNTER → 2024-03-28 13:04 | Outpatient (CLI) | payer MEDICARE, SELFPAY ==
[2022-10-10 21:23] VITALS: BMI 28.9
--- NOTE | 2024-03-28 13:09 | DI.MG.S_ITS ---
BILATERAL DIGITAL SCREENING MAMMOGRAM 3D/2D WITH CAD: 03/28/2024 CLINICAL: Routine screening. Comparison is made to exams dated: 02/16/2023 mammogram, 02/09/2022 mammogram, 01/29/2021 mammogram, 01/18/2019 mammogram, and 09/30/2014 mammogram - [facility]. The breasts are heterogeneously dense, which may obscure small masses (category c / 51-75% glandular tissue). Current study was also evaluated with a Computer Aided Detection (CAD) system. No significant masses, calcifications, or other findings are seen in either breast. There has been no significant interval change. IMPRESSION: NEGATIVE There is no mammographic evidence of malignancy. A 1 year screening mammogram is recommended. Based on the Tyrer Cuzick model (a risk assessment model) the patient's lifetime risk is 2.8% and her 10 year risk is 0.0%. According to the ACR, ACS, and NCCN guidelines, an annual breast MRI exam along with mammogram is recommended if the patient's lifetime risk is 20% or greater. This exam was interpreted at Station ID: [id number]. NOTE: For mammograms, a report in lay terms will be sent to the patient. Approximately 15% of breast malignancies will not be visualized mammographically. In the management of a palpable breast mass, a negative mammogram must not discourage biopsy of a clinically suspicious lesion. Electronically Signed By: Justina Solis M.D., Ph.D. [email or web address]/reagan:03/28/2024 15:21:55 letter sent: Normal Exam ACR BI-RADS Category 1: Negative
== END ==
LOC: MAMMO 13:09
PROVIDERS: PCP Internal Medicine; Referring Provider Internal Medicine; Visit Provider Internal Medicine
DX: Z12.31 Encounter for screening mammogram for malignant neoplasm of breast (principal); R92.333 Mammographic heterogeneous density, bilateral breasts
CPT/HCPCS: 77063; 77067

== ENCOUNTER 2024-06-17 11:13 | Emergency (ER) | payer MEDICARE, SELFPAY ==
[2022-10-10 21:23] VITALS: BMI 28.9
[2024-06-17] VITALS (27 sets, daily range): BP systolic 130–197; BP diastolic 63–79; PULSE 60–62; RESP 13–25; TEMP 36.7; O2SAT 93–99; BMI 30.2
--- NOTE | 2024-06-17 11:27 | DI.RAD.S_ITS ---
PROCEDURE: XR CHEST 1V INDICATIONS: Shortness of breath TECHNIQUE: One view of the chest was acquired. COMPARISON: [facility], , CHEST 2 VIEW, 08/04/2016, 15:30. FINDINGS: Surgical changes and devices: Left chest wall pacemaker. Partially visualized ACDF hardware Lungs and pleura: Lungs are clear. No pleural effusions or pneumothorax. Mediastinum: Mediastinal contours appear normal. Heart size is enlarged. Bones and chest wall: No suspicious bony lesions. Overlying soft tissues appear unremarkable. IMPRESSION: No acute pulmonary abnormality is seen. Dictated by: Que Solomon M.D. on 06/17/2024 at 11:59 Approved by: Que Solomon M.D. on 06/17/2024 at 11:59
--- NOTE | 2024-06-17 11:27 | EKG_ITS ---
[address] [address] Test Date: 2024-06-17 Pat Name: Ana Maria Cline Department: Room: Gender: Female Associate Medical Director: JEET : 1945 Requested By: Order Number: [id number] Reading MD: Rajesh Ochoa MD Measurements Intervals [place] Rate: 60 P: GA: 136 QRS: -62 QRSD: 176 T: 106 QT: 518 QTc: 518 Interpretive Statements AV dual-paced rhythm Electronically Signed On 06-17-2024 12:10:16 PST by Rajesh Ochoa MD
[2024-06-17 13:24] LABS: Hematocrit 38.4 % (36-46); Hemoglobin 12.6 g/dL (12.0-16.0); Mean Corpuscular HGB Conc 32.9 % (30-36); Mean Corpuscular Hemoglobin 30.5 PG (26-34); Mean Corpuscular Volume 92.8 fL (80-100); Platelet Count 228 X10^3/uL (150-400); Red Blood Cell Count 4.14 X10^6/uL (4.0-5.2); White Blood Cell Count 13.6 X10^3/uL (4.5-11.0)
[2024-06-17 13:25] LABS: Add Manual Diff / Slide Review YES
[2024-06-17 13:30] LABS: INR 1.3 (0.9-1.3); Prothrombin Time 14.2 SECONDS (9.4-12.5)
--- NOTE | 2024-06-17 13:32 | ED_ITS ---
HPI - General Adult General Chief complaint: Shortness of Breath/Dyspnea Stated complaint: SOB Time Seen by Provider: 06/17/24 11:29 Source: patient and EMS Mode of arrival: EMS History of Present Illness HPI narrative: 79-year-old female with chart history of prior CVA and residual left hemiparesis, gait instability, asthma, hypoxia in the past but not usually on home oxygen most recently, systolic CHF, prior [employer] cardiac pacemaker placed [place] about 5 years ago, hypertension, with 2 days duration of increasing shortness of breath and cough that is somewhat productive able to feel it in her throat but is not able to spit it out. No fevers or chills. She felt more short of breath this morning. Related Data Home Medications Medication Instructions Recorded Confirmed Hair, Skin, Nails with Biotin 1 tab PO DAILY 04/21/18 10/10/22 cholecalciferol (vitamin D3) 50 2,000 unit PO DAILY 04/21/18 10/10/22 mcg (2,000 unit) capsule (Vitamin D3) magnesium 30 mg tablet 60 mg PO DAILY 04/21/18 10/10/22 alpha lipoic acid 150 mg capsule 300 mg PO BEDTIME 10/10/22 10/10/22 Previous Rx's Medication Instructions Recorded duloxetine 60 mg capsule,delayed 60 mg PO DAILY #90 caps 10/20/21 release amlodipine 5 mg tablet 5 mg PO DAILY #90 tabs 05/24/22 gabapentin 100 mg capsule 100 mg PO BID #180 caps 07/26/22 aspirin 81 mg tablet,delayed 81 mg PO DAILY #30 tabs 09/18/22 release tramadol 50 mg tablet 50 mg PO Q6H PRN pain #30 tabs 09/18/22 terbinafine HCl 250 mg tablet 250 mg PO DAILY #10 tabs 09/21/22 atorvastatin 80 mg tablet 80 mg PO BEDTIME #90 tabs 09/23/22 clopidogrel 75 mg tablet 75 mg PO DAILY #90 tabs 09/23/22 furosemide 20 mg tablet 20 mg PO DAILY #30 tabs 10/11/22 Hospital Bed with bilateral side #1 ea 10/19/22 rails metoprolol succinate 50 mg 50 mg PO DAILY #90 tabs 10/24/22 tablet,extended release 24 hr furosemide 20 mg tablet (Lasix) 20 mg PO DAILY #7 tabs 02/10/25 potassium chloride 8 mEq 8 meq PO DAILY #7 tabs 06/17/24 tablet,extended release Allergies Allergy/AdvReac Type Severity Reaction Status Date / Time latex [LATEX] Allergy Mild RASH Verified 10/10/22 18:50 naproxen [From ALEVE] Allergy Mild SWELLING Verified 10/10/22 18:50 FEET, HANDS codeine Allergy Unknown GI UPSET Verified 10/10/22 18:50 lisinopril Allergy Unknown FACIAL Verified 10/10/22 18:50 SWELLING venlafaxine Allergy Unknown ELEVATED Verified 10/10/22 18:50 BLOOD PRESSURE cephalexin AdvReac Intermediate Rash Verified 10/10/22 18:50 bupropion AdvReac Unknown SEIZURE Verified 10/10/22 18:50 Patient History Medical History Asthma, mild intermittent Carpal tunnel syndrome Cataracts, bilateral Cerebrovascular disease Cervical spine disease Chicken pox Chronic back pain Dizziness Essential hypertension Fractures Gait instability Hearing loss History of colonic polyps History of melanoma Left hemiparesis Mixed hyperlipidemia Mumps Polyneuropathy, unspecified Repeated falls Systolic CHF, chronic Tinea cruris Urinary incontinence Surgical History Anesthesia History of permanent cardiac pacemaker placement S/P cardiac pacemaker procedure Family History Father Heart disease Brother Heart disease Mother Old age Social History household members: spouse Smoking Status: Former smoker alcohol intake: current Smoking Status: Former smoker alcohol intake frequency: holidays/special occasions only Exam Narrative Exam Narrative: GENERAL: Well-developed patient, in mild distress. HEAD: Atraumatic. Normocephalic. EYES: Pupils equal round and reactive. Extraocular motions intact. No scleral icterus. No injection or drainage. ENT: Nose without bleeding, purulent drainage. Throat without erythema, tonsillar hypertrophy or exudate. Airway patent. Wearing nasal cannula oxygen NECK: Trachea midline. Non tender CARDIOVASCULAR: Regular rate and rhythm without murmurs, gallops, or rubs. RESPIRATORY: Clear to auscultation. Breath sounds equal bilaterally. No wheezes, rales, or rhonchi. GASTROINTESTINAL: Abdomen soft, non-tender, nondistended. EXTREMITIES: No edema or joint tenderness. BACK: Nontender without deformity or crepitance. No flank tenderness. NEURO: AOx3. Left-sided hemiparesis from old stroke noted, no obvious facial droop. Moves right upper and lower extremity normally. SKIN: No rash or erythema of visible areas Initial Vital Signs Initial Vital Signs: Vital Signs Pulse Rate 60 06/17/24 11:19 Pulse Oximetry 96 06/17/24 11:19 Course Orders Ordered: ED Orders 06/17/24 13:09 Complete Blood Count AUTO DIFF Stat Comprehensive Metabolic Panel Stat Lactate (Lactic Acid) Stat NT-proBNP (BNP-Adult 18+) Stat Prothrombin Time INR Stat Troponin I Stat 06/17/24 14:08 Covid-19 + FLU A/B + RSV - PCR Stat 06/17/24 16:55 Troponin I Stat Discontinued Medications Albuterol/Ipratropium (Albuterol/Ipratropium 3 Ml Ampul) 3 ml INH NOW ONE Stop: 06/17/24 13:57 Last Admin: 06/17/24 14:22 Dose: 3 ml Documented By: FARA Furosemide (Furosemide 40 Mg/4 Ml Vial) 20 mg IV NOW ONE Stop: 06/17/24 18:46 Last Admin: 06/17/24 18:55 Dose: 20 mg Documented By: TC Vital Signs Vital signs: Vital Signs - 8 hr 06/17/24 14:22 06/17/24 14:30 06/17/24 15:00 Pulse Rate 60 60 60 Respiratory Rate 18 16 18 Blood Pressure Pulse Oximetry 96 94 93 Oxygen Delivery Method Room Air Room Air Oxygen Flow Rate 0 Fraction of Inspired Oxygen 21 06/17/24 15:30 06/17/24 15:57 06/17/24 15:57 Pulse Rate 60 60 Respiratory Rate 21 20 Blood Pressure 130/63 Pulse Oximetry 97 96 Oxygen Delivery Method Oxygen Flow Rate Fraction of Inspired Oxygen 06/17/24 16:00 06/17/24 16:30 06/17/24 17:00 Pulse Rate 60 60 60 Respiratory Rate 21 19 16 Blood Pressure Pulse Oximetry 96 96 98 Oxygen Delivery Method Oxygen Flow Rate Fraction of Inspired Oxygen 06/17/24 17:02 06/17/24 17:02 06/17/24 17:30 Pulse Rate 60 60 Respiratory Rate 20 21 Blood Pressure 163/69 H Pulse Oximetry 98 97 Oxygen Delivery Method Oxygen Flow Rate Fraction of Inspired Oxygen 02/10/25 17:30 06/17/24 18:00 06/17/24 18:00 Pulse Rate 60 Respiratory Rate 25 H Blood Pressure 167/74 H 168/72 H Pulse Oximetry 98 Oxygen Delivery Method Oxygen Flow Rate Fraction of Inspired Oxygen 06/17/24 18:30 06/17/24 18:30 06/17/24 19:00 Pulse Rate 60 Respiratory Rate 20 Blood Pressure 164/71 H 166/70 H Pulse Oximetry 96 Oxygen Delivery Method Room Air Oxygen Flow Rate Fraction of Inspired Oxygen 06/17/24 19:00 06/17/24 19:30 06/17/24 19:30 Pulse Rate 60 60 Respiratory Rate 21 21 Blood Pressure 184/75 H Pulse Oximetry 95 94 Oxygen Delivery Method Oxygen Flow Rate Fraction of Inspired Oxygen 06/17/24 20:00 06/17/24 20:00 Pulse Rate 62 Respiratory Rate 20 Blood Pressure 197/76 H Pulse Oximetry 96 Oxygen Delivery Method Room Air Oxygen Flow Rate Fraction of Inspired Oxygen Medical Decision Making Lab Data Lab results narrative: White blood cell count 67205, hemoglobin 12.6, platelets adequate. BUN 25 with creatinine 1.2, remainder of basic metabolic panel unremarkable. Troponin 0.02 low measurable. BNP 4000 elevated. Liver functions generally unremarkable. 06/17/24 13:09 06/17/24 13:09 Labs: Lab Results 06/17/24 06/17/24 06/17/24 Range/Units 13:09 14:08 16:55 WBC 13.6 H (4.5-11.0) X10^3/uL RBC 4.14 (4.0-5.2) X10^6/uL Hgb 12.6 (12.0-16.0) g/dL Hct 38.4 (36-46) % MCV 92.8 (80-100) fL MCH 30.5 (26-34) PG MCHC 32.9 (30-36) % RDW 16.0 H (11.6-14.8) % Plt Count 228 (150-400) X10^3/uL Neut % (Auto) Not Reportable Lymph % (Auto) Not Reportable Jay % (Auto) Not Reportable Eos % (Auto) Not Reportable Baso % (Auto) Not Reportable Lymph # (Auto) Not Reportable Jay # (Auto) Not Reportable Baso # (Auto) Not Reportable Total Counted 100 Seg Neutrophils % 67.0 (38-70) % Band Neutrophils % 9.0 H (3-7) % Lymphocytes % (Manual) 15.0 L (25-45) % Monocytes % (Manual) 4.0 (2-11) % Eosinophils % (Manual) 3.0 (2-4) % Basophils % (Manual) 2.0 H (0-1) % Neutrophils # (Manual) 55095 H (1402-0926) /uL RBC Morphology See below Anisocytosis 1+ H PT 14.2 H (9.4-12.5) SECONDS INR 1.3 (0.9-1.3) Sodium 139 (137-145) mmol/L Potassium 4.1 (3.4-5.1) mmol/L Chloride 108 H (98-107) mmol/L Carbon Dioxide 25 (22-32) mmol/L BUN 25 H (7-17) mg/dL Creatinine 1.22 H (0.52-1.04) mg/dL Estimated GFR 45 L (>60) mL/min BUN/Creatinine Ratio 20.5 (6-22) Glucose 101 (80-110) mg/dL Lactate 1.1 (0.7-2.1) mmol/L Calcium 9.3 (8.4-10.2) mg/dL Total Bilirubin 1.3 (0.2-1.3) mg/dL AST 38 H (14-36) IU/L ALT 18 (<35) IU/L Alkaline Phosphatase 58 (38-126) U/L Troponin I 0.020 0.026 (0.01-0.034) ng/mL NT-Pro-B Natriuret Pep 4680 H (<450) pg/mL Total Protein 7.1 (6.3-8.2) g/dL Albumin 3.8 (3.5-5.0) g/dL Globulin 3.3 (1.7-4.1) g/dL Albumin/Globulin Ratio 1.2 (1.0-2.8) SARS-CoV-2 (PCR) Negative (Negative) Influenza A (RT-PCR) Flu a negative (NEGATIVE) Influenza B (RT-PCR) Flu b negative (NEGATIVE) RSV (PCR) Negative (Negative) ECG Data Attestation: I personally reviewed and interpreted this ECG as follows: Interpretation: AV dual paced pacemaker, rate 60. NM 136, QRS 176, QTC 518. MDM Narrative Medical decision making narrative: 79-year-old female with history of stroke and left-sided hemiparesis, not usually on oxygen, chart history of asthma noted, now with a few days duration productive cough, arrived by EMS, nasal cannula in place, lungs appear clear, no lower extremity edema. Speaking in full sentences. Left hemiparesis motor function noted from old stroke. EKG, chest x-ray, labs pending. History of [employer] pacemaker, no AICD, we will interrogate. Trop negative, elevated BNP. IV Lasix. SVN Duoneb. Weaned from EMS oxygen, 96% room air. Pacer interrogation [facility], no report, patient wants to leave. Encouraged to follow-up with PCP for interrogation report this week. Wants to go home, Home with per request. Lasxi and Potassium oral doses one week sent to her pharmacy. Return precautions discussed. Discharge Plan Departure Patient Disposition: Home Clinical Impression: Shortness of breath, Congestive heart failure, History of asthma Activity Restrictions/Additional Instructions: Ms. Cline, You have had shortness of breath and recent cough. Chest x-ray not suggestive of pneumonia. COVID and influenza and RSV viral swab was negative. You received breathing treatment. I did not hear any wheezing although you do have a history of asthma. We did not precribe any steroids at this time. Continue use of your inhaler. Initial oxygenation was weaned off, with good oxygenation on room air. No oxygen requirement at this time. You had elevation of your BNP blood tests, which can be elevated in the setting of heart failure, no mentioned of heart failure on your chest x-ray reading seemed obvious, however a component of your shortness of breath could be a component of congestive heart failure. We gave IV Lasix medication to make you urinate more and get fluid out of your body, and we will give one-week supply of daily oral Lasix to take with some potassium. We did perform interrogation of your pacemaker [employer] [facility], but have not received any report back, you wanted to go home, follow up with your regular doctor and/or station air traffic control specialist for the results of the pacemaker interrogation study. Prescription for oral Lasix and potassium supplement sent to your pharmacy to take daily as directed. Follow up with your regular provider advised later this week. Return earlier to this/nearest emergency department for any change worsening symptoms or any concerns prior. Thank you for allowing our team to take care of you today. Prescriptions: New furosemide [Lasix] 20 mg tablet 20 mg PO DAILY Qty: 7 0RF potassium chloride 8 mEq tablet extended release 8 meq PO DAILY Qty: 7 0RF No Action amlodipine 5 mg tablet 5 mg PO DAILY Qty: 90 3RF gabapentin 100 mg capsule 100 mg PO BID Qty: 180 3RF terbinafine HCl 250 mg tablet 250 mg PO DAILY Qty: 10 2RF metoprolol succinate 50 mg tablet extended release 24 hr 50 mg PO DAILY Qty: 90 3RF (DME) Hospital Bed with bilateral side rails See Rx Instructions .Route .MEDSUPPLY Qty: 1 0RF Rx Instructions: As directed duloxetine 60 mg capsule,delayed release(DR/EC) 60 mg PO DAILY Qty: 90 3RF clopidogrel 75 mg tablet 75 mg PO DAILY Qty: 90 3RF atorvastatin 80 mg tablet 80 mg PO BEDTIME Qty: 90 3RF Rx Instructions: dose increased from 20 mg to 80 mg daily aspirin 81 mg Tablet,Delayed Release (Dr/Ec) 81 mg PO DAILY Qty: 30 0RF Rx Instructions: Take it continuously to end of life tramadol 50 mg Tablet 50 mg PO Q6H PRN (Reason: pain) Qty: 30 0RF magnesium 30 mg Tablet 60 mg PO DAILY cholecalciferol (vitamin D3) [Vitamin D3] 2,000 unit Capsule 2,000 unit PO DAILY Hair, Skin, Nails with Biotin 1 tab PO DAILY Patient Comments: I've been out of it for a week alpha lipoic acid 150 mg Capsule 300 mg PO BEDTIME furosemide 20 mg Tablet 20 mg PO DAILY Qty: 30 0RF Referrals: Fracisco Peña MD [Primary Care Provider] - Stand Alone Forms: Patient Portal/API/Survey
[2024-06-17 13:41] LABS: Alanine Aminotransferase 18 IU/L (<35); Albumin 3.8 g/dL (3.5-5.0); Albumin Globulin Ratio 1.2 (1.0-2.8); Alkaline Phosphatase 58 U/L (38-126); Aspartate Aminotransferase 38 IU/L (14-36); BUN Creatinine Ratio 20.5 (6-22); Bilirubin Total 1.3 mg/dL (0.2-1.3); Blood Urea Nitrogen 25 mg/dL (7-17); Calcium 9.3 mg/dL (8.4-10.2); Carbon Dioxide 25 mmol/L (22-32); Chloride 108 mmol/L (98-107); Estimated Glomerular Filt Rate 45 mL/min (>60); Globulin 3.3 g/dL (1.7-4.1); Glucose 101 mg/dL (80-110); HEMOLYSIS 86 (0-50); Lactate (Lactic Acid) 1.1 mmol/L (0.7-2.1); Potassium 4.1 mmol/L (3.4-5.1); Sodium 139 mmol/L (137-145); Total Protein 7.1 g/dL (6.3-8.2)
[2024-06-17 13:49] LABS: Anisocytosis 1+; Neutrophils Absolute Manual 10336 /uL (3000-5900); Total Cells Counted 100
[2024-06-17 13:53] LABS: NT-proBNP (BNP-Adult 18+) 4680 pg/mL (<450)
[2024-06-17] MEDS: ALBUTEROL/IPRATROPIUM 3 ML AMPUL INH (14:22)
[2024-06-17 14:53] LABS: Influenza A - CEPHEID Flu A NEGATIVE (NEGATIVE); Influenza B - CEPHEID Flu B NEGATIVE (NEGATIVE); Respiratory Syncytial Virus Negative (Negative)
[2024-06-17 14:55] LABS: COVID-19 CEPHEID 4-PLEX PCR Negative (Negative)
[2024-06-17 17:32] LABS: Troponin I 0.026 ng/mL (0.01-0.034)
[2024-06-17] MEDS: FUROSEMIDE 40 MG/4 ML VIAL 20 MG IV (18:55)
== END 2024-06-17 20:37 | disposition home or self-care (01) ==
PROVIDERS: Emergency Provider Emergency Medicine; PCP Family Medicine
DX: I11.0 Hypertensive heart disease with heart failure (principal); I50.9 Heart failure, unspecified; R06.02 Shortness of breath; J45.909 Unspecified asthma, uncomplicated; I69.954 Hemiplegia and hemiparesis following unspecified cerebrovascular disease affecting left non-dominant side; R05.9 Cough, unspecified; Z87.891 Personal history of nicotine dependence; Z95.0 Presence of cardiac pacemaker
CPT/HCPCS: 0241U; 36415; 71045; 80053; 83605; 83880; 84484; 85007; 85025; 85610; 93005; 94640; 96374; 99285; J1940